=== PATIENT | female | born 1985 | race Caucasian/White ===

== ENCOUNTER 2016-07-19 07:49 | Emergency (ER) | payer OTHER ==
[~2016-07-19] VITALS: Ht 160 cm; Wt 84.8 kg
[~2016-07-19 07:49] MED LIST: BACTRIM DS 800/1 TAB PO; CYMBALTA30 MG PO; KEFLEX250 MG PO; NORCO 5/325 MG1 TAB PO; ULTRAM50 MG PO; ZOFRAN4 M1 PO
[2016-07-19 08:11] VITALS: BP 146/93
[2016-07-19] MEDS ORDERED: NORTRIPTYLINE H25 MG PO (08:14)
[2016-07-19] MEDS ORDERED: LEXAPRO5 MG PO (08:14)
--- NOTE | 2016-07-19 08:15 | NUR ---
PT AMBULATED TO ER BED 07
--- NOTE | 2016-07-19 08:20 | NUR ---
PATIENT PRESENTS TO ED WITH C/O FLORES WITH N/V X 3 DAYS; DENIES DIARRHEA; SKIN IS PINK/WARM/DRY; AAOX4 WITH EVEN AND STEADY GAIT; LUNGS CLEAR BL; HR EVEN AND REGULAR; PT DENIES ANY FEVER, CP, SOB, OR COUGH AT THIS TIME; PATIENT STATES PAIN OF 9/10 AT THIS TIME; VSS; PATIENT POSITIONED FOR COMFORT; HOB ELEVATED; BEDRAILS UP X2; BED DOWN. ER MD MADE AWARE OF PT STATUS.
--- NOTE | 2016-07-19 08:27 | NUR ---
DR SAEZ ASSESSING AAO PT AT BEDSIDE
[2016-07-19 08:45] VITALS: BP 120/75
--- NOTE | 2016-07-19 08:45 | NUR ---
Patient discharged with v/s stable. Written and verbal after care instructions given and explained. Patient alert, oriented and verbalized understanding of instructions. Ambulatory with steady gait. All questions addressed prior to discharge. ID band removed. Patient advised to follow up with PMD. Rx of ZOFRAN,TRAMADOL given. Patient educated on indication of medication including possible reaction and side effects. Opportunity to ask questions provided and answered.
== END 2016-07-19 08:45 | disposition home or self-care (01) ==
LOC: MED 08:02
DX: G43.909 Migraine, unspecified, not intractable, without status migrainosus (principal); R03.0 Elevated blood-pressure reading, without diagnosis of hypertension; K21.9 Gastro-esophageal reflux disease without esophagitis; Z88.1 Allergy status to other antibiotic agents

== ENCOUNTER 2016-07-30 07:40 | Emergency (ER) | payer OTHER ==
[~2016-07-30] VITALS: Ht 160 cm; Wt 84.4 kg
[~2016-07-30 07:40] MED LIST changes: +LEXAPRO5 MG PO; +NORTRIPTYLINE H25 MG PO
[2016-07-30 07:50] VITALS: BP 141/78
--- NOTE | 2016-07-30 08:03 | NUR ---
Pt ambulated to bed 3 at this time.
--- NOTE | 2016-07-30 08:06 | NUR ---
PATIENT PRESENTS TO ED WITH C/O SHARP STABBING PAIN TO LLQ X 3 DAYS WITH N/V/D SINCE FRIDAY NIGHT HAD A PMD VISIT FOR PANIC ATTACKS LAST FRIDAY AND WAS GIVEN XANAX HX ANXIETY . SKIN IS PINK/WARM/DRY; AAOX4 WITH EVEN AND STEADY GAIT; LUNGS CLEAR BL; HR EVEN AND REGULAR; PT DENIES ANY FEVER, SOB, OR COUGH AT THIS TIME; PATIENT STATES PAIN OF 9/10/ABDOMEN /CHEST AT THIS TIME; PATIENT POSITIONED FOR COMFORT; HOB ELEVATED; BEDRAILS UP X2; BED DOWN. ER MD MADE AWARE OF PT STATUS.
[2016-07-30] MEDS ORDERED: FAMOTIDINE 20 MG TAB PO ONE (08:25)
[2016-07-30] MEDS ORDERED: ONDANSETRON 4 MG ODT PO ONE (08:25)
[2016-07-30] MEDS ORDERED: ALUMINUM HYD/MAG/SIMETHICONE 30 ML UDC PO ONE (08:25)
[2016-07-30 09:12] VITALS: BP 114/70
--- NOTE | 2016-07-30 09:12 | NUR ---
Patient discharged with v/s stable. Written and verbal after care instructions given and explained. Patient alert, oriented and verbalized understanding of instructions. Ambulatory with steady gait. All questions addressed prior to discharge. ID band removed. Patient advised to follow up with PMD. Rx of ZOFRAN, PEPCID, LOMOTIL given. Patient educated on indication of medication including possible reaction and side effects. Opportunity to ask questions provided and answered.
== END 2016-07-30 09:12 | disposition home or self-care (01) ==
LOC: MED 07:40
DX: R11.2 Nausea with vomiting, unspecified (principal); R19.7 Diarrhea, unspecified; K21.9 Gastro-esophageal reflux disease without esophagitis; F41.9 Anxiety disorder, unspecified; Z90.49 Acquired absence of other specified parts of digestive tract; Z88.6 Allergy status to analgesic agent
CPT/HCPCS: 81002; 81025; 99284; S0119

== ENCOUNTER 2016-09-05 07:44 | Emergency (ER) | payer OTHER ==
[~2016-09-05] VITALS: Ht 160 cm; Wt 86.6 kg
[2016-09-05 07:48] VITALS: BP 112/78
--- NOTE | 2016-09-05 08:02 | NUR ---
PATIENT PRESENTS TO ED WITH c/o lower abdominal pain x 2 days with burning pain to esophagus and emesis--- started taking Depakote for chronic pain hx pancreatitis, chronic pain abdomen rx depakote, zofran, gas relief . PT STATES depakote supposed to help me, with N/V/D; SKIN IS PINK/WARM/DRY; AAOX4 WITH EVEN AND STEADY GAIT; LUNGS CLEAR BL; HR EVEN AND REGULAR; PT DENIES ANY FEVER, CP, SOB, OR COUGH AT THIS TIME; PATIENT STATES PAIN OF 8/10 AT THIS TIME/abdomen; PATIENT POSITIONED FOR COMFORT; HOB ELEVATED; BEDRAILS UP X2; BED DOWN. ER MD MADE AWARE OF PT STATUS.
--- NOTE | 2016-09-05 08:07 | NUR ---
dr. vergara at bedside, relayed to md result of urine dipstick and preg.
[2016-09-05] MEDS ORDERED: NACL 0.9% 1,000 ML IV ONE (08:15)
[2016-09-05] MEDS ORDERED: ONDANSETRON 4 MG/2 ML VIAL IVP ONE (08:15)
[2016-09-05] MEDS ORDERED: MORPHINE SULFATE 4 MG/ML SYR IVP ONE (08:40)
--- NOTE | 2016-09-05 09:39 | NUR ---
Patient discharged with v/s stable. Written and verbal after care instructions given and explained. Patient alert, oriented and verbalized understanding of instructions. Ambulatory with steady gait. All questions addressed prior to discharge. ID band removed. Patient advised to follow up with PMD. Rx of CIPROFLOXACIN given. Patient educated on indication of medication including possible reaction and side effects. Opportunity to ask questions provided and answered.
[2016-09-05 09:40] VITALS: BP 108/81
== END 2016-09-05 09:39 | disposition home or self-care (01) ==
LOC: MED 07:44
DX: N39.0 Urinary tract infection, site not specified (principal); A08.4 Viral intestinal infection, unspecified; K21.9 Gastro-esophageal reflux disease without esophagitis; Z90.49 Acquired absence of other specified parts of digestive tract; Z90.89 Acquired absence of other organs; Z88.6 Allergy status to analgesic agent
CPT/HCPCS: 36415; 80053; 81001; 81025; 82150; 83690; 84703; 85025; 87086; 96361; 96374; 96375; 99284; J2270; J2405; J7030

== ENCOUNTER 2016-09-12 07:42 | Emergency (ER) | payer OTHER ==
[~2016-09-12] VITALS: Ht 160 cm; Wt 84.8 kg
[~2016-09-12 07:42] MED LIST changes: -BACTRIM DS 800/1 TAB PO; -CYMBALTA30 MG PO; +ESCI5TAB PO; -KEFLEX250 MG PO; -LEXAPRO5 MG PO; -NORCO 5/325 MG1 TAB PO; +NORT25CA PO; -NORTRIPTYLINE H25 MG PO; -ULTRAM50 MG PO; -ZOFRAN4 M1 PO
[2016-09-12 07:54] VITALS: BP 127/73
--- NOTE | 2016-09-12 08:00 | NUR ---
Patient to bed 03.
--- NOTE | 2016-09-12 08:05 | NUR ---
PATIENT PRESENTS TO ED WITH C/O COUGH FOR 5 DAYS. DENIES N/V/D; SKIN IS PINK/WARM/DRY; AAOX4 WITH EVEN AND STEADY GAIT; LUNGS CLEAR BL; HR EVEN AND REGULAR; PT DENIES ANY FEVER, SOB AT THIS TIME; PATIENT STATES PAIN OF 9/10 WHEN COUGHING AT THIS TIME; VSS; PATIENT POSITIONED FOR COMFORT; BED DOWN. ER MD MADE AWARE OF PT STATUS.
--- NOTE | 2016-09-12 08:06 | NUR ---
Dr. Weber evaluating patient at bedside.
[2016-09-12 08:29] VITALS: BP 113/65
--- NOTE | 2016-09-12 08:30 | NUR ---
Patient discharged with v/s stable. Written and verbal after care instructions given and explained. Patient alert, oriented and verbalized understanding of instructions. Ambulatory with steady gait. All questions addressed prior to discharge. ID band removed. Patient advised to follow up with PMD. Rx of Prednisone 20 mg table, 3 tablets, once a day (in the morning) by mouth given. Patient educated on indication of medication including possible reaction and side effects. Opportunity to ask questions provided and answered.
== END 2016-09-12 08:30 | disposition home or self-care (01) ==
LOC: MED 07:42
DX: R05 Cough (principal); K21.9 Gastro-esophageal reflux disease without esophagitis; Z88.6 Allergy status to analgesic agent
CPT/HCPCS: 99283

== ENCOUNTER 2016-09-28 06:39 | Emergency (ER) | payer OTHER ==
[~2016-09-28] VITALS: Ht 160 cm; Wt 83.9 kg
[2016-09-28 06:44] VITALS: BP 121/72
--- NOTE | 2016-09-28 06:57 | NUR ---
PATIENT AMBULATED TO ER BED 8.
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
--- NOTE | 2016-09-28 07:25 | NUR ---
PT TAKEN TO CT VIA RAVINDER ACCOMPANIED BY PROBATION AND PATROL AGENT
--- NOTE | 2016-09-28 07:43 | NUR ---
Patient returned from CT scan. RN re-evaluating patient at bedside.
--- NOTE | 2016-09-28 07:45 | NUR ---
PT BACK FROM CT,C/O PAIN 03/04 . NOTIFIED ER MD DR DAVIES . MD ORDERED TORADOL 30 MG IM. SPOKE TO PT FOR MED INJECTION. PT SAID ' MY DR TOLD ME TO AVOID NSAID. REPORTED TO ER MD DR DAVIES ORDERED HOLD THIS MED & WAIT FOR CT RESULT. SPOKE TO PT WAIT FOR CT RESULT. Patient appears to be resting comfortably in bed. Respirations even and unlabored. WILL CONTINUE TO MONITOR.
--- NOTE | 2016-09-28 07:45 | NUR ---
Note undone in EDM - 09/28/16 at 0759 by [email or web address] PT BACLK FROM CT,C/O PAIN . NOTIFIED ER MD DR DAVIES . MD ORDERED TOREDOL 30 MG IM. SPOKE TO PT FOR MED INJECTION. PT SAID ' MY DR TOLD ME TO AVOID NSAID. REPORTED TO ER MD DR DAVIES ORDERED HOLD THIS MED & WAIT FOR CT RESULY. SPOKE TO PT WAIT FOR CT RESULT. Patient appears to be resting comfortably in bed. Respirations even and unlabored. WILL CONTINUE TO MONITOR.
[2016-09-28] MEDS ORDERED: KETOROLAC 30 MG/ML VIAL ONE (07:50)
[2016-09-28] MEDS ORDERED: ACETAMINOPHEN/CODEINE 300/30MG 1 TAB PO ONE (08:45)
[2016-09-28 09:23] VITALS: BP 119/78
--- NOTE | 2016-09-28 09:23 | NUR ---
Patient discharged with v/s stable. Written and verbal after care instructions given and explained. Patient alert, oriented and verbalized understanding of instructions. Ambulatory with steady gait. All questions addressed prior to discharge. ID band removed. Patient advised to follow up with PMD. Rx of TYLENOL W/ CODEINE NO3 given. Patient educated on indication of medication including possible reaction and side effects. Opportunity to ask questions provided and answered.
== END 2016-09-28 09:23 | disposition home or self-care (01) ==
LOC: MED 06:39
DX: S29.012A Strain of muscle and tendon of back wall of thorax, initial encounter (principal); K21.9 Gastro-esophageal reflux disease without esophagitis; Z88.8 Allergy status to other drugs, medicaments and biological substances; V89.2XXA Person injured in unspecified motor-vehicle accident, traffic, initial encounter; Y93.89 Activity, other specified; Y92.89 Other specified places as the place of occurrence of the external cause; Y99.8 Other external cause status
CPT/HCPCS: 72125; 72128; 81002; 81025; 99284; J1885

== ENCOUNTER 2016-10-26 01:03 | Emergency (ER) | payer OTHER ==
[~2016-10-26] VITALS: Ht 160 cm; Wt 86.7 kg
[2016-10-26 01:15] VITALS: BP 131/79
--- NOTE | 2016-10-26 01:20 | NUR ---
PT TAKEN TO BED 6
--- NOTE | 2016-10-26 01:29 | NUR ---
PT IS 31/F BIB SELF TO ED WITH C/O PELVIC PAIN, YELLOW DISCHARGE AND CHILLS X 6 DAYS. MED HX ANXIETY, ACUTE PANCREATITIS, AND GASTRITIS.DENIES D; SKIN IS PINK/WARM/DRY; AAOX4 WITH EVEN AND STEADY GAIT; LUNGS CLEAR BL; HR EVEN AND REGULAR; PT DENIES ANY FEVER, CP, SOB, OR COUGH AT THIS TIME; PATIENT STATES PAIN OF 10/10 AT THIS TIME; VSS; PATIENT POSITIONED FOR COMFORT; HOB ELEVATED; BEDRAILS UP X2; BED DOWN. ER MD MADE AWARE OF PT STATUS.
--- NOTE | 2016-10-26 01:52 | NUR ---
Dr. Martinez evaluating patient at bedside.
[2016-10-26] MEDS ORDERED: MORPHINE SULFATE 2 MG/ML SYR IVP ONE ×2 (02:00→02:55)
[2016-10-26] MEDS ORDERED: ONDANSETRON 4 MG/2 ML VIAL IVP ONE (02:00)
[2016-10-26] MEDS ORDERED: NACL 0.9% 1,000 ML IV ONE (02:00)
--- NOTE | 2016-10-26 02:44 | NUR ---
Ultrasound at bedside.
--- NOTE | 2016-10-26 04:00 | NUR ---
PT RESTING IN BED NO SOB NOTED. WILL CONTINUE TO MONITOR.
[2016-10-26] MEDS ORDERED: HYDROmorphone 1 MG/ML AMP IVP ONE (04:55)
[2016-10-26 05:18] VITALS: BP 122/78
--- NOTE | 2016-10-26 05:19 | NUR ---
Patient discharged with v/s stable. Written and verbal after care instructions given and explained. Patient alert, oriented and verbalized understanding of instructions. Ambulatory with steady gait. All questions addressed prior to discharge. ID band removed. Patient advised to follow up with PMD. Rx of TIMOTHY PAULINO given. Patient educated on indication of medication including possible reaction and side effects. Opportunity to ask questions provided and answered.
== END 2016-10-26 05:19 | disposition home or self-care (01) ==
LOC: MED 01:03
DX: R03.0 Elevated blood-pressure reading, without diagnosis of hypertension (principal); K21.9 Gastro-esophageal reflux disease without esophagitis; Z88.6 Allergy status to analgesic agent
CPT/HCPCS: 76856; 81002; 81025; 96361; 96374; 96375; 96376; 99284; J1170; J2270; J2405; J7030; Q0092

== ENCOUNTER 2017-01-16 09:32 | Emergency (ER) | payer OTHER ==
--- NOTE | 2016-01-17 11:38 | NUR ---
IVF FINISHED AT THIS TIME [id number]
[~2017-01-16] VITALS: Ht 160 cm; Wt 86.2 kg
[~2017-01-16 09:32] MED LIST changes: +ACET-2619 PO; -ESCI5TAB PO; -NORT25CA PO; +ONDA4ODT1 SL; +TYLENOL #3 PO
[2017-01-16 09:40] VITALS: BP 131/81
--- NOTE | 2017-01-16 09:46 | NUR ---
PT AMBULATED TO BED 5.
--- NOTE | 2017-01-16 09:55 | NUR ---
PT STATES ABDOMINAL PAIN /10 SINCE FRIDAY WITH N/V/D; ADMITTED 01/06/17 FOR PANCREATITIS; HX; ANXIETY, PANCREATITIS . DENIES N/V/D; SKIN IS PINK/WARM/DRY; AAOX4 WITH EVEN AND STEADY GAIT; LUNGS CLEAR BL; HR EVEN AND REGULAR; PT DENIES ANY FEVER, CP, SOB, OR COUGH AT THIS TIME; PATIENT STATES PAIN OF /10 AT THIS TIME; VSS; PATIENT POSITIONED FOR COMFORT; HOB ELEVATED; BEDRAILS UP X2; BED DOWN. ER MD MADE AWARE OF PT STATUS.
--- NOTE | 2017-01-16 10:18 | NUR ---
Dr. Garcia and Dr. Gtz (admitting physician) evaluating patient at bedside.
[2017-01-16] MEDS ORDERED: NACL 0.9% 1,000 ML IV SCH (10:26)
[2017-01-16] MEDS ORDERED: ONDANSETRON 4 MG/2 ML VIAL IVP ONE (10:30)
[2017-01-16] MEDS ORDERED: HYDROmorphone 1 MG/ML AMP IVP ONE (10:30)
--- NOTE | 2017-01-16 10:47 | NUR ---
PT LEFT FOR CT VIA RAVINDER PER TECH
[2017-01-16 10:51] LABS: BASOPHILS # (AUTO) 0.3 K/uL (0.00-0.22); BASOPHILS % (AUTO) 4.5 % (0.0-2.0); EOSINOPHILS # (AUTO) 0.1 K/uL (0-0.4); EOSINOPHILS % (AUTO) 2.2 % (0.0-4.0); HEMATOCRIT 41.9 % (36-48); HEMOGLOBIN 14.2 g/dL (12.0-16.0); LYMPHOCYTES # (AUTO) 1.4 K/uL (2.5-16.5); LYMPHOCYTES % (AUTO) 24.2 % (20.5-51.1); MEAN CORPUSCULAR HEMOGLOBIN 29 pg (27-31); MEAN CORPUSCULAR HGB CONC 34 g/dL (33-37); MEAN CORPUSCULAR VOLUME 86 fL (80-94); MONOCYTES # (AUTO) 0.3 K/uL (0.8-1.0); MONOCYTES % (AUTO) 5.8 % (1.7-9.3); NEUTROPHILS # (AUTO) 3.5 K/uL (1.8-7.7); NEUTROPHILS % (AUTO) 63.3 % (42.2-75.2); PLATELET COUNT (AUTO) 243 K/uL (140-450); RED BLOOD CELL COUNT(AUTO) 4.87 MIL/uL (4.20-5.40); RED CELL DISTRIBUTION WIDTH 11.5 % (11.6-13.7); WHITE BLOOD COUNT (AUTO) 5.7 K/uL (4.8-10.8)
[2017-01-16 10:53] LABS: APPEARANCE,URINE HAZY (CLEAR); BILIRUBIN,URINE 1+ (NEGATIVE); BLOOD, URINE NEGATIVE (NEGATIVE); COLOR,URINE YELLOW (YELLOW); LEUKOCYTE ESTERASE ,URINE 1+ (NEGATIVE); NITRITE, URINE NEGATIVE (NEGATIVE); UGLUCOSE NEGATIVE (NEGATIVE)
--- NOTE | 2017-01-16 10:57 | NUR ---
PT BACK TO ER BED 5
[2017-01-16 10:58] LABS: ANION GAP 9.7 (8-16); CARBON DIOXIDE 26.6 mmol/L (21-32); CREATININE 0.8 mg/dL (0.6-1.3); POTASSIUM 3.3 mmol/L (3.5-5.1)
[2017-01-16 11:02] LABS: RBC,URINE 0-2 /HPF (0-5)
[2017-01-16 11:04] LABS: ALBUMIN 4.7 g/dL (3.4-5.0); TOTAL BILIRUBIN 0.5 mg/dL (0.0-1.0)
[2017-01-16 11:04] LABS: OTHER CASTS, URINE TALC /LPF (None Seen)
[2017-01-16] MEDS ORDERED: DICYCLOMINE HCL LIQUID 20 MG, ALUMINUM HYD/MAG/SIMETHICONE 30 ML, LIDOCAINE VISCOUS 2% ... PO ONE ×3 (12:20)
[2017-01-16 13:13] VITALS: BP 120/63
--- NOTE | 2017-01-16 13:14 | NUR ---
Patient discharged with v/s stable. Written and verbal after care instructions given and explained. Patient alert, oriented and verbalized understanding of instructions. Ambulatory with steady gait. All questions addressed prior to discharge. ID band removed. Patient advised to follow up with PMD. Rx of PRILOSEC AND ATIVAN given. Patient educated on indication of medication including possible reaction and side effects. Opportunity to ask questions provided and answered.
== END 2017-01-16 13:14 | disposition home or self-care (01) ==
LOC: MED 09:32
DX: K29.00 Acute gastritis without bleeding (principal); F41.9 Anxiety disorder, unspecified; Z88.6 Allergy status to analgesic agent; Z90.89 Acquired absence of other organs
CPT/HCPCS: 36415; 74176; 80053; 81001; 82150; 83605; 83690; 84703; 85025; 87086; 96361; 96374; 96375; 99285; J1170; J2405; J7030

== ENCOUNTER 2017-01-27 07:12 | Emergency (ER) | payer OTHER ==
[~2017-01-27] VITALS: Ht 160 cm; Wt 86.8 kg
[2017-01-27 07:23] VITALS: BP 123/62
--- NOTE | 2017-01-27 07:30 | NUR ---
PT AMBULATED TO BED 5.
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
[2017-01-27] MEDS ORDERED: NACL 0.9% 1,000 ML IV ONE (08:05)
[2017-01-27] MEDS ORDERED: HYDROmorphone 1 MG/ML AMP IVP ONE (08:05)
[2017-01-27 08:24] LABS: HEMOGLOBIN 13.6 g/dL (12.0-16.0); MEAN CORPUSCULAR HEMOGLOBIN 29 pg (27-31); MEAN CORPUSCULAR HGB CONC 34 g/dL (33-37); MEAN CORPUSCULAR VOLUME 86 fL (80-94); PLATELET COUNT (AUTO) 208 K/uL (140-450); RED BLOOD CELL COUNT(AUTO) 4.64 MIL/uL (4.20-5.40); RED CELL DISTRIBUTION WIDTH 11.8 % (11.6-13.7); WHITE BLOOD COUNT (AUTO) 5.3 K/uL (4.8-10.8)
[2017-01-27 08:36] LABS: EOSINOPHILS % (MANUAL) 3 % (0-4); LYMPHOCYTES % (MANUAL) 20 % (20-46); MONOCYTES % (MANUAL) 2 % (5-12)
[2017-01-27 08:37] LABS: ALBUMIN 4.3 g/dL (3.4-5.0); ANION GAP 13.4 (8-16); CARBON DIOXIDE 24.3 mmol/L (21-32); CREATININE 0.8 mg/dL (0.6-1.3); POTASSIUM 3.7 mmol/L (3.5-5.1); TOTAL BILIRUBIN 0.6 mg/dL (0.0-1.0)
[2017-01-27 08:41] LABS: PROTHROMBIN TIME 10.7 secs (10.8-13.4)
[2017-01-27] MEDS ORDERED: oxyCODONE/APAP 5/325 MG 1 TAB TAB PO ONE (09:05)
[2017-01-27 09:55] VITALS: BP 109/65
--- NOTE | 2017-01-27 09:55 | NUR ---
Patient discharged with v/s stable. Written and verbal after care instructions given and explained. Patient alert, oriented and verbalized understanding of instructions. Ambulatory with steady gait. All questions addressed prior to discharge. ID band removed. Patient advised to follow up with PMD. Rx of Tylenol with Codeine given. Patient educated on indication of medication including possible reaction and side effects. Opportunity to ask questions provided and answered.
== END 2017-01-27 09:55 | disposition home or self-care (01) ==
LOC: MED 07:12
DX: S63.91XA Sprain of unspecified part of right wrist and hand, initial encounter (principal); R10.13 Epigastric pain; F41.9 Anxiety disorder, unspecified; Z88.6 Allergy status to analgesic agent; X58.XXXA Exposure to other specified factors, initial encounter; Y93.89 Activity, other specified; Y92.89 Other specified places as the place of occurrence of the external cause; Y99.8 Other external cause status
CPT/HCPCS: 36415; 73130; 80053; 82150; 83690; 85025; 85610; 85730; 96361; 96374; 99285; J1170; J7030; 81002; 81025

== ENCOUNTER 2017-02-03 07:36 | Emergency (ER) | payer OTHER ==
[~2017-02-03] VITALS: Ht 160 cm; Wt 86.2 kg
[2017-02-03 07:45] VITALS: BP 137/65
--- NOTE | 2017-02-03 07:53 | NUR ---
31/F BIB C/O N/V & LOWER ABDOMINAL PAIN & YELLOWISH VAGINAL DISCHARGE X 2 DAYS.HX OF AN & PANCREATITIS. SKIN IS PINK/WARM/DRY; AAOX4 WITH EVEN AND STEADY GAIT; LUNGS CLEAR BL; HR EVEN AND REGULAR; PT DENIES ANY FEVER, CP, SOB, OR COUGH AT THIS TIME; PATIENT STATES BURNING PAIN OF 9/10 AT THIS TIME; VSS; PATIENT POSITIONED FOR COMFORT; HOB ELEVATED; BEDRAILS UP X2; BED DOWN. ER MD MADE AWARE OF PT STATUS.
--- NOTE | 2017-02-03 07:53 | NUR ---
Note undone in EDM - 02/03/17 at 0815 by [email or web address] / BIB SELF C/ON/V & LOWER ABDOMINAL PAIN X 2 DAYS.HX OF AN & PANCREATITIS. SKIN IS PINK/WARM/DRY; AAOX4 WITH EVEN AND STEADY GAIT; LUNGS CLEAR BL; HR EVEN AND REGULAR; PT DENIES ANY FEVER, CP, SOB, OR COUGH AT THIS TIME; PATIENT STATES BURNING PAIN OF 9/10 AT THIS TIME; VSS; PATIENT POSITIONED FOR COMFORT; HOB ELEVATED; BEDRAILS UP X2; BED DOWN. ER MD MADE AWARE OF PT STATUS.
--- NOTE | 2017-02-03 07:55 | NUR ---
Patient being evaluated by DR WHITAKER at bedside.
[2017-02-03 08:07] LABS: BILIRUBIN,URINE NEGATIVE (NEGATIVE); BLOOD, URINE NEGATIVE (NEGATIVE); COLOR,URINE YELLOW (YELLOW); LEUKOCYTE ESTERASE ,URINE TRACE (NEGATIVE); NITRITE, URINE NEGATIVE (NEGATIVE); UGLUCOSE NEGATIVE (NEGATIVE)
--- NOTE | 2017-02-03 08:07 | NUR ---
Dr. Molina at bedside for pelvic exam.
--- NOTE | 2017-02-03 08:13 | NUR ---
PELVIC EXAME DONE BY DR WHITAKER. SENT SPECIMEN TO LAB.
--- NOTE | 2017-02-03 08:18 | NUR ---
Patient being reevaluated by DR WHITAKER at bedside.
[2017-02-03] MEDS ORDERED: cefTRIAXone 250 MG in LIDOCAINE 1% ED 0.9 ML IM ONE (08:25)
[2017-02-03] MEDS ORDERED: AZITHROMYCIN 250 MG TAB PO ONE (08:25)
[2017-02-03] MEDS ORDERED: ONDANSETRON 4 MG ODT PO ONE (08:25)
[2017-02-03 08:30] LABS: APPEARANCE,URINE SLIGHTLY HAZY (CLEAR); RBC,URINE 0-5 (RARE) /HPF (0-5)
[2017-02-03 08:31] LABS: WBC,URINE 0-5 (RARE) /HPF (0-5)
[2017-02-03 08:36] LABS: HEMATOCRIT 38.4 % (36-48); HEMOGLOBIN 13.2 g/dL (12.0-16.0); MEAN CORPUSCULAR HEMOGLOBIN 30 pg (27-31); MEAN CORPUSCULAR HGB CONC 34 g/dL (33-37); MEAN CORPUSCULAR VOLUME 86 fL (80-94); PLATELET COUNT (AUTO) 206 K/uL (140-450); RED BLOOD CELL COUNT(AUTO) 4.49 MIL/uL (4.20-5.40); RED CELL DISTRIBUTION WIDTH 11.9 % (11.6-13.7); WHITE BLOOD COUNT (AUTO) 3.6 K/uL (4.8-10.8)
[2017-02-03 08:52] LABS: POTASSIUM 3.6 mmol/L (3.5-5.1)
[2017-02-03 08:53] LABS: ANION GAP 14.2 (8-16); CARBON DIOXIDE 25.4 mmol/L (21-32); CREATININE 0.7 mg/dL (0.6-1.3)
[2017-02-03 08:54] LABS: ALBUMIN 4.4 g/dL (3.4-5.0); TOTAL BILIRUBIN 0.6 mg/dL (0.0-1.0)
--- NOTE | 2017-02-03 08:56 | NUR ---
PT C/O PAIN 02/02 .pT STS I WANT PAIN MED. NOTIFIED DR WHITAKER.
[2017-02-03] MEDS ORDERED: HYDROcodone/APAP 5/325 MG 1 TAB TAB PO ONE (09:00)
[2017-02-03 09:01] LABS: EOSINOPHILS % (MANUAL) 6 % (0-4); LYMPHOCYTES % (MANUAL) 40 % (20-46); MONOCYTES % (MANUAL) 3 % (5-12)
--- NOTE | 2017-02-03 09:04 | NUR ---
GAVE PAIN MED ORDER.
[2017-02-03 09:13] VITALS: BP 119/71
--- NOTE | 2017-02-03 09:14 | NUR ---
Patient discharged with v/s stable. Written and verbal after care instructions given and explained. Patient alert, oriented and verbalized understanding of instructions. Ambulatory with steady gait. All questions addressed prior to discharge. ID band removed. Patient advised to follow up with PMD. Rx of BACTRIM & FLAGYL given. Patient educated on indication of medication including possible reaction and side effects. Opportunity to ask questions provided and answered.
[2017-02-05 06:33] LABS: CHLAMYDIA TRACHOMATIS AMP DNA Negative (Negative)
== END 2017-02-03 09:14 | disposition home or self-care (01) ==
LOC: MED 07:36
DX: N76.0 Acute vaginitis (principal); N39.0 Urinary tract infection, site not specified; Z88.6 Allergy status to analgesic agent
CPT/HCPCS: 36415; 80053; 81001; 81025; 83690; 85025; 87210; 87491; 96372; 99284; J0696; J2001

== ENCOUNTER 2017-02-05 07:42 | Emergency (ER) | payer OTHER ==
[~2017-02-05] VITALS: Ht 160 cm; Wt 86.2 kg
[2017-02-05 07:49] VITALS: BP 112/42
--- NOTE | 2017-02-05 07:50 | NUR ---
31/F BIB C/O N/V/D & MID ABD PAIN X 2 DAYS.PT STS WAS SEEN X 2 DAYS AGO WITH VAG DISHARGE & LOVER ABD PAIN & GOT ANTIBIOTICS. PT DENIES PELVIC PAIN OR VAG DISCHARGE AT THIS TIME. SKIN IS PINK/WARM/DRY; AAOX4 WITH EVEN AND STEADY GAIT; LUNGS CLEAR BL; HR EVEN AND REGULAR; PT DENIES ANY FEVER, CP, SOB, OR COUGH AT THIS TIME; PATIENT STATES PAIN OF 9/10 AT THIS TIME; VSS; PATIENT POSITIONED FOR COMFORT; HOB ELEVATED; BEDRAILS UP X2; BED DOWN. ER MD MADE AWARE OF PT STATUS.
--- NOTE | 2017-02-05 07:51 | NUR ---
Patient ambulated to bed 5. RN evaluatign patient at bedside.
--- NOTE | 2017-02-05 07:57 | NUR ---
Patient being evaluated by DR BANGURA at bedside.
[2017-02-05] MEDS ORDERED: ONDANSETRON 4 MG/2 ML VIAL IVP ONE (08:00)
[2017-02-05] MEDS ORDERED: NACL 0.9% 1,000 ML IV ONE (08:00)
[2017-02-05] MEDS ORDERED: FAMOTIDINE 20 MG/2 ML VIAL IVP ONE (08:00)
[2017-02-05] MEDS ORDERED: MORPHINE SULFATE 4 MG/ML SYR IVP ONE ×2 (08:00→10:25)
[2017-02-05 08:15] LABS: BASOPHILS # (AUTO) 0.1 K/uL (0.00-0.22); BASOPHILS % (AUTO) 3.4 % (0.0-2.0); EOSINOPHILS # (AUTO) 0.1 K/uL (0-0.4); HEMATOCRIT 38.8 % (36-48); HEMOGLOBIN 13.3 g/dL (12.0-16.0); LYMPHOCYTES # (AUTO) 1.2 K/uL (2.5-16.5); LYMPHOCYTES % (AUTO) 28.8 % (20.5-51.1); MEAN CORPUSCULAR HEMOGLOBIN 29 pg (27-31); MEAN CORPUSCULAR HGB CONC 34 g/dL (33-37); MEAN CORPUSCULAR VOLUME 85 fL (80-94); MONOCYTES # (AUTO) 0.2 K/uL (0.8-1.0); MONOCYTES % (AUTO) 4.8 % (1.7-9.3); NEUTROPHILS # (AUTO) 2.5 K/uL (1.8-7.7); PLATELET COUNT (AUTO) 222 K/uL (140-450); RED BLOOD CELL COUNT(AUTO) 4.56 MIL/uL (4.20-5.40); RED CELL DISTRIBUTION WIDTH 11.8 % (11.6-13.7); WHITE BLOOD COUNT (AUTO) 4.2 K/uL (4.8-10.8)
[2017-02-05 08:24] LABS: ANION GAP 11.6 (8-16); CARBON DIOXIDE 26.3 mmol/L (21-32); CREATININE 0.7 mg/dL (0.6-1.3); POTASSIUM 3.9 mmol/L (3.5-5.1)
[2017-02-05 08:29] LABS: PROTHROMBIN TIME 10.7 secs (10.8-13.4)
[2017-02-05 08:30] LABS: ALBUMIN 4.5 g/dL (3.4-5.0); TOTAL BILIRUBIN 0.3 mg/dL (0.0-1.0)
--- NOTE | 2017-02-05 08:38 | NUR ---
US AT BEDSIDE.
--- NOTE | 2017-02-05 09:09 | NUR ---
Patient returned from CT scan. RN re-evaluating patient at bedside.
--- NOTE | 2017-02-05 10:07 | NUR ---
PT C/P PAIN 01/02. PT STS " I WANT PAIN MED". NOTIFIED DR BANGURA.
--- NOTE | 2017-02-05 10:10 | NUR ---
Patient being reevaluated by DR BANGURA at bedside.
[2017-02-05 10:14] LABS: APPEARANCE,URINE SL CLOUDY (CLEAR); BILIRUBIN,URINE NEGATIVE (NEGATIVE); BLOOD, URINE NEGATIVE (NEGATIVE); COLOR,URINE YELLOW (YELLOW); LEUKOCYTE ESTERASE ,URINE 1+ (NEGATIVE); NITRITE, URINE NEGATIVE (NEGATIVE); PH,URINE 5.5 (5.0-9.0); UGLUCOSE NEGATIVE (NEGATIVE)
--- NOTE | 2017-02-05 10:15 | NUR ---
Patient being evaluated by DR BANGURA at bedside.
[2017-02-05 10:29] LABS: RBC,URINE 0-5 (RARE) /HPF (0-5)
[2017-02-05 10:34] VITALS: BP 144/82
--- NOTE | 2017-02-05 10:34 | NUR ---
Patient discharged with v/s stable. Written and verbal after care instructions given and explained. Patient alert, oriented and verbalized understanding of instructions. Ambulatory with steady gait. All questions addressed prior to discharge. ID band removed. Patient advised to follow up with PMD. Rx of ZANTAC, ZOFRAN & NORCO given. Patient educated on indication of medication including possible reaction and side effects. Opportunity to ask questions provided and answered.
== END 2017-02-05 10:34 | disposition home or self-care (01) ==
LOC: MED 07:42
DX: R10.13 Epigastric pain (principal); R11.0 Nausea; Z90.49 Acquired absence of other specified parts of digestive tract
CPT/HCPCS: 36415; 74176; 76700; 80053; 81001; 81025; 82150; 83690; 85025; 85610; 85730; 87086; 96361; 96374; 96375; 96376; 99285; J2270; J2405; J3490; J7030; Q0092

== ENCOUNTER 2017-02-13 05:40 | Emergency (ER) | payer OTHER ==
[~2017-02-13] VITALS: Ht 160 cm; Wt 85.0 kg
[2017-02-13 05:50] VITALS: BP 140/61
--- NOTE | 2017-02-13 05:58 | NUR ---
AMBULATED TO ER BED 7
--- NOTE | 2017-02-13 06:05 | NUR ---
Patient being evaluated by physician at bedside.
--- NOTE | 2017-02-13 06:07 | NUR ---
31Y/F PRESENTS TO ED WITH C/O ABDOMINAL PAIN ON AND OFF. PT. STATES WAS SEEN BY PMD YESTERDAY, HAD PELVIC EXAM, TODAY PAIN AT RLQ ABDOMEN WITH N/V/D. NO MEDICAL HX. AAO X4, AMBULATORY WITH STEADY GAIT. RESPIRATIONS ROOM AIR, EVEN AND UNLABORED. ABDOMEN SOFT ANF NON TENDER, ACTIVE BS X 4, C/O PAIN 9/10. VSS, ER MD MADE AWARE OF PT. STATUS.
[2017-02-13] MEDS ORDERED: MORPHINE SULFATE 4 MG/ML SYR IM ONE (06:10)
[2017-02-13 06:38] VITALS: BP 121/68
--- NOTE | 2017-02-13 06:38 | NUR ---
Patient discharged with v/s stable. Written and verbal after care instructions given and explained. Patient verbalized understanding. Ambulatory with steady gait. All questions addressed prior to discharge. Advised to follow up with PMD.
== END 2017-02-13 06:38 | disposition home or self-care (01) ==
LOC: MED 05:40
DX: R10.30 Lower abdominal pain, unspecified (principal); G89.29 Other chronic pain; Z90.49 Acquired absence of other specified parts of digestive tract; Z88.8 Allergy status to other drugs, medicaments and biological substances; Z79.899 Other long term (current) drug therapy
CPT/HCPCS: 81025; 96372; 99283; J2270

== ENCOUNTER 2017-02-22 05:37 | Emergency (ER) | payer OTHER ==
[~2017-02-22] VITALS: Ht 160 cm; Wt 82.6 kg
--- NOTE | 2017-02-22 02:45 | NUR ---
PATIENT IS CURRENTLY RESTING IN BED NO DISTRESS WILL CONTINUE TO MONITOR.
[2017-02-22 05:50] VITALS: BP 127/69
--- NOTE | 2017-02-22 05:55 | NUR ---
Pt taken to bed 6.
--- NOTE | 2017-02-22 06:05 | NUR ---
PATIENT PRESENTS TO ED WITH C/O LEFT UPPER ABD PAIN RADIATING TO CHEST PAIN WITH HEADACHE X 3 DAYS. TOOK TYLENOL, ZOFRAN, REGLAN, LEXEPRO AT HOME, HX. PANCREATITIS, PDST, ANXIETY. N/V, SKIN IS PINK/WARM/DRY; AAOX4 WITH EVEN AND STEADY GAIT; LUNGS CLEAR BL; HR EVEN AND REGULAR; SOB, AND COUGHING, PATIENT STATES PAIN OF 10/10 AT THIS TIME; VSS; PATIENT POSITIONED FOR COMFORT; HOB ELEVATED; BEDRAILS UP X2; BED DOWN. ER MD MADE AWARE OF PT STATUS.
--- NOTE | 2017-02-22 06:13 | NUR ---
Patient being evaluated by Dr. Miller at bedside.
[2017-02-22] MEDS ORDERED: FAMOTIDINE 20 MG/2 ML VIAL IVP ONE (06:20)
[2017-02-22] MEDS ORDERED: ONDANSETRON 4 MG/2 ML VIAL IVP ONE (06:20)
[2017-02-22] MEDS ORDERED: NACL 0.9% 1,000 ML IV ONE (06:20)
--- NOTE | 2017-02-22 06:42 | NUR ---
CHANGE HOLLY LEVEL TO LEVEL 3, PT. NEEDS 3 RESOURCES
[2017-02-22 06:56] LABS: BASOPHILS # (AUTO) 0.1 K/uL (0.00-0.22); BASOPHILS % (AUTO) 1.3 % (0.0-2.0); EOSINOPHILS # (AUTO) 0.1 K/uL (0-0.4); EOSINOPHILS % (AUTO) 2.3 % (0.0-4.0); HEMATOCRIT 38.5 % (36-48); HEMOGLOBIN 13.2 g/dL (12.0-16.0); LYMPHOCYTES # (AUTO) 1.4 K/uL (2.5-16.5); LYMPHOCYTES % (AUTO) 23.8 % (20.5-51.1); MEAN CORPUSCULAR HEMOGLOBIN 29 pg (27-31); MEAN CORPUSCULAR HGB CONC 34 g/dL (33-37); MEAN CORPUSCULAR VOLUME 86 fL (80-94); MONOCYTES # (AUTO) 0.5 K/uL (0.8-1.0); MONOCYTES % (AUTO) 8.4 % (1.7-9.3); NEUTROPHILS # (AUTO) 3.9 K/uL (1.8-7.7); NEUTROPHILS % (AUTO) 64.2 % (42.2-75.2); PLATELET COUNT (AUTO) 226 K/uL (140-450); RED CELL DISTRIBUTION WIDTH 11.7 % (11.6-13.7)
[2017-02-22 07:02] LABS: ANION GAP 11.6 (8-16); CREATININE 0.7 mg/dL (0.6-1.3); POTASSIUM 3.6 mmol/L (3.5-5.1)
[2017-02-22 07:08] LABS: ALBUMIN 4.3 g/dL (3.4-5.0); TOTAL BILIRUBIN 0.3 mg/dL (0.0-1.0)
[2017-02-22] MEDS ORDERED: MORPHINE SULFATE 4 MG/ML SYR IVP ONE ×2 (07:10→07:50)
[2017-02-22 07:17] LABS: APPEARANCE,URINE CLOUDY (CLEAR); BILIRUBIN,URINE 1+ (NEGATIVE); BLOOD, URINE 3+ (NEGATIVE); COLOR,URINE BROWN (YELLOW); LEUKOCYTE ESTERASE ,URINE NEGATIVE (NEGATIVE); NITRITE, URINE POSITIVE (NEGATIVE); PH,URINE 5.5 (5.0-9.0); UGLUCOSE NEGATIVE (NEGATIVE)
--- NOTE | 2017-02-22 07:20 | NUR ---
REPORT GIVEN TO ELO LEE FOR CONTINUE OF CARE.
--- NOTE | 2017-02-22 07:25 | NUR ---
PT RESTING ON BED;NO ACUTE DISTRESS NOTED;ALL MONITORS IN PLACED;WILL CONTINUE TO MONITOR PT.
--- NOTE | 2017-02-22 07:28 | NUR ---
Note abdiel in EDM - 02/22/17 at 0824 by GREGG PT VERBALIZES RERLIEF FROM PAIN;PAIN SCALE OF 0/10;NO FACIAL GRIMMACING/GROANING NOTED;WILL CONTINUE TO MONITOR PT.
--- NOTE | 2017-02-22 07:28 | NUR ---
PT VERBALIZES RERLIEF FROM PAIN;PAIN SCALE OF 0/10;NO FACIAL GRIMMACING/MOANING NOTED;WILL CONTINUE TO MONITOR PT.
[2017-02-22 07:34] LABS: RBC,URINE TOO NUMEROUS TO COUN /HPF (0-5); WBC,URINE 0-5 (RARE) /HPF (0-5)
--- NOTE | 2017-02-22 07:35 | NUR ---
DR HORN AT BEDSIDE.
--- NOTE | 2017-02-22 07:49 | NUR ---
PT C/O ABDOMINAL PAIN;PAIN SCALE OF 9/10;PT CRYING;STATES IT WAS GONE A WHILE AGO BUT IT CAME BACK AGAIN;ER MD NOTIFIED;AWAITING NEW ORDER;POSITIONED PT TO COMFORTABLE POSITION;ALL MONITORS IN PLACED;WILL CONTINUE TO MONITOR PT.
[2017-02-22] MEDS ORDERED: OMEP20TC PO (08:04)
[2017-02-22] MEDS ORDERED: PANT40EC PO (08:04)
--- NOTE | 2017-02-22 08:19 | NUR ---
PT AMBULATED TO THE RESTROOM.
--- NOTE | 2017-02-22 08:23 | NUR ---
PAIN SCALE OF 5/10;NO MOANING/FACIAL GRIMMACING NOTED;WILL CONTINUE TO MONITOR PT.
--- NOTE | 2017-02-22 08:50 | NUR ---
DR COLLINS AT BEDSIDE EVALUATING PT.
[2017-02-22] MEDS ORDERED: LORazepam 2 MG/ML VIAL IVP PRN (09:00)
[2017-02-22] MEDS ORDERED: ACETAMINOPHEN 325 MG TAB PO PRN (09:00)
[2017-02-22] MEDS ORDERED: ONDANSETRON 4 MG/2 ML VIAL IVP PRN (09:00)
[2017-02-22] MEDS ORDERED: HYDROcodone/APAP 5/325 MG 1 TAB TAB PO PRN (09:00)
[2017-02-22] MEDS ORDERED: MORPHINE SULFATE 2 MG/ML SYR IVP PRN (09:00)
--- NOTE | 2017-02-22 09:02 | NUR ---
Patient will be admitted to care of DR COLLINS. Admited to MS. Will go to room 119 B. Belongings list completed. Report to ELO MOY.
[2017-02-22 09:44] LABS: BARBITURATE, URINE NEG. ng/ml (NEG <=200); BENZODIAZEPINE, URINE NEG. ng/mL (NEG <=200); CANNABINOID, URINE POS. ng/mL (NEG <=50); COCAINE, URINE NEG. ng/mL (NEG <=300); OPIATE, URINE NEG. ng/mL (NEG <=2000); PHENCYCLIDINE SCREEN,URINE NEG. ng/mL (NEG <=25)
[2017-02-22 09:48] LABS: CHOL/HDL RATIO 5.8 (1-4.5)
[2017-02-22] MEDS: DEXT 5% /NACL 0.9% 1,000 ML IV SCH ×3 (09:57→18:14)
--- NOTE | 2017-02-22 10:00 | NUR ---
ADMITTED THIS 31 Y/O FEMALE FROM ED WITH A CHIEF COMPLAIN OF ABDOMINAL PAIN. DX OF ACUTE PANCREATITIS. PT AAOX4. PT DENIES PAIN AT THIS TIME, HAD TOTAL OF 8MG MORPHINE PER REPORT. RESPIRATION EVEN AND UNLABORED,NO SOB, NO S/S OF RESPIRATORY DISTRESS. IV ACCESS TO RT AC, GAUGE 18. NO S/S OF INFILTRATION AT THIS TIME. SKIN INTACT. ORIENTED TO CALL LIGHT, BED, PHONE, TV, BATHROOM, VISITING HOURS. DISCUSSED PLAN OF CARE. PT VERBALIZED UNDERSTANDING. BELONGINGS CHECKED AND SIGNED BY PT. ALL NEEDS ANTICIPATED. CALL LIGHT PLACED WITHIN EASY REACH. WILL CONTINUE TO MONITOR.
--- NOTE | 2017-02-22 10:34 | NUR ---
PATIENT HAS BEEN SCREENED AND CATEGORIZED MODERATE NUTRITION RISK. PATIENT WILL BE SEEN WITHIN 3-5 DAYS OF ADMISSION. 02/25/17 - 02/27/17 DULCE MARIA HESTER MBA, RD
[2017-02-22] MEDS: MORPHINE SULFATE 4 MG/ML SYR IVP PRN ×3 (12:07→20:53)
[2017-02-22 16:00] VITALS: BP 113/58
--- NOTE | 2017-02-22 17:26 | NUR ---
PT RESTING IN BED AT THIS TIME, DENIES PAIN. NO S/S OF RESPIRATORY DISTRESS. ENDORSED TO TATUM GASCA FOR CONTINUITY OF CARE. PT IN STABLE CONDITION.
--- NOTE | 2017-02-22 18:14 | NUR ---
IVF COMPLETED, AND STARTED A NEW BAG.
--- NOTE | 2017-02-22 19:27 | NUR ---
PT AWAKE AND VERBALLY RESPONSIVE, RESTING COMFORTABLY IN BED. DENIES PAIN, NO S/S OF RESPIRATORY DISTRESS AT THIS TIME.. ALL NEEDS ANTICIPATED. ENDORSED TO NEXT SHIFT FOR CONTINUITY OF CARE. PT IN STABLE CONDITION.
--- NOTE | 2017-02-22 19:28 | NUR ---
PATIENT IS CURRENTLY AWAKE ALERT ORIENTED RESTING IN BED LAUGHING WITH A FRIEND.IVF INFUSING WELL IV SITE CURRENTLY PATENT.PATIENT AMBULATES WELL TO THE BATHROOM AND BACK TO BED.PATIENT ABLE TO VERBALIZE NEEDS CALL LIGHT WITHIN REACH WILL CONTINUE TO MONITOR.
[2017-02-22 20:00] VITALS: BP 133/79
--- NOTE | 2017-02-22 20:00 | NUR ---
Patient's Plan of Care was discussed and reviewed with SUPERINTENDENT DISTRIBUTION: JOHNY CALVILLO
--- NOTE | 2017-02-22 20:45 | NUR ---
PATIENT AMBULATING WELL IN THE HALLWAY AND THEN BACK TO BED WAS INFORMED BY RAIL ASSEMBLER NURSE TO ONLY AMBULATE NEAR THE NURSES STATION AND NOT TO GO OUTSIDE PATIENT VERBALIZES UNDERSTANDING.
--- NOTE | 2017-02-22 22:48 | NUR ---
PATIENT RESTING IN BED IVF INFUSING WELL PATIENT CURRENTLY WATCHING TV.WILL CONTINUE TO MONITOR.
[2017-02-23 00:23] VITALS: BP 124/72
--- NOTE | 2017-02-23 00:40 | NUR ---
PATIENT IS CURRENTLY RESTING IN BED SLEEPING AWAKENS OCCASIONALLY TO WATCH TV.WILL CONTINUE TO MONITOR.
--- NOTE | 2017-02-23 02:45 | NUR ---
PATIENT IN NO DISTRESS WILL CONTINUE TO MONITOR.CALL LIGHT WITHIN REACH.
--- NOTE | 2017-02-23 04:30 | NUR ---
PATIENT SLEEPING IN BED NO PAIN OR DISCOMFORT NOTED IVF INFUSING WELL WILL CONTINUE TO MONITOR.
[2017-02-23] MEDS: DEXT 5% /NACL 0.9% 1,000 ML IV SCH (06:13)
--- NOTE | 2017-02-23 06:13 | NUR ---
IV FLUID STARTED.
--- NOTE | 2017-02-23 06:13 | NUR ---
I HUNG IVF AT THIS TIME.
--- NOTE | 2017-02-23 06:34 | NUR ---
PATIENT RESTING IN BED IN NO DISTRESS IVF INFUSING WELL WILL CONTINUE TO MONITOR.
[2017-02-23 07:03] LABS: BASOPHILS # (AUTO) 0.1 K/uL (0.00-0.22); BASOPHILS % (AUTO) 1.4 % (0.0-2.0); EOSINOPHILS # (AUTO) 0.1 K/uL (0-0.4); EOSINOPHILS % (AUTO) 1.9 % (0.0-4.0); HEMATOCRIT 35.5 % (36-48); HEMOGLOBIN 12.1 g/dL (12.0-16.0); LYMPHOCYTES # (AUTO) 1.6 K/uL (2.5-16.5); LYMPHOCYTES % (AUTO) 22.9 % (20.5-51.1); MEAN CORPUSCULAR HEMOGLOBIN 29 pg (27-31); MEAN CORPUSCULAR HGB CONC 34 g/dL (33-37); MEAN CORPUSCULAR VOLUME 85 fL (80-94); MONOCYTES # (AUTO) 0.5 K/uL (0.8-1.0); MONOCYTES % (AUTO) 6.9 % (1.7-9.3); NEUTROPHILS # (AUTO) 4.7 K/uL (1.8-7.7); NEUTROPHILS % (AUTO) 66.9 % (42.2-75.2); PLATELET COUNT (AUTO) 210 K/uL (140-450); RED BLOOD CELL COUNT(AUTO) 4.19 MIL/uL (4.20-5.40); RED CELL DISTRIBUTION WIDTH 11.6 % (11.6-13.7)
--- NOTE | 2017-02-23 07:15 | NUR ---
RECEIVED PT REPORT. PT AMBULATING AROUND THE UNIT, NO S/S OF DISTRESS NOTED. NO C/O PAIN AT THIS TIME, IV LINE NOTED TO THE RIGHT AC WITH IVF INFUSING WELL.
[2017-02-23 07:17] LABS: ALBUMIN 3.4 g/dL (3.4-5.0); ANION GAP 9.2 (8-16); CARBON DIOXIDE 27.6 mmol/L (21-32); CREATININE 0.6 mg/dL (0.6-1.3); MAGNESIUM 1.9 mg/dL (1.8-2.4); POTASSIUM 3.8 mmol/L (3.5-5.1); TOTAL BILIRUBIN 0.4 mg/dL (0.0-1.0)
--- NOTE | 2017-02-23 07:37 | NUR ---
STABLE REPORT AMBULATING IN HALLWAY REPORT ENDORSED TO ELO RODNEY AND CARLOS.
[2017-02-23 08:00] VITALS: BP 102/65
--- NOTE | 2017-02-23 08:45 | NUR ---
PT SEEN BY DR COLLINS, PT CLEARED FOR DISCHARGE.
--- NOTE | 2017-02-23 11:00 | NUR ---
DISCHARGE INSTRUCTIONS GIVEN. PT VERBALIZED UNDERSTANDING. IV LINE DC. CATHETER TIP INTACT. PT LEFT WITH ALL BELONGINGS AND DISCHARGE PAPERS, PT LEFT IN STABLE CONDITION,
--- NOTE | 2017-02-24 08:45 | NUR ---
RETRO ER REPORT, H&P AND DISCHARGE SUMMARY FAXED TO [facility] [phone] PHONE CHUCKY [phone]
== END 2017-02-23 11:00 | disposition home or self-care (01) ==
LOC: MED 05:37 → MTU 08:57 → UNDOADMIN 08:57
PROVIDERS: ADMIT Hospitalist; ATTEND Hospitalist
DX: K85.90 Acute pancreatitis without necrosis or infection, unspecified (principal); G89.4 Chronic pain syndrome; F11.20 Opioid dependence, uncomplicated; F32.9 Major depressive disorder, single episode, unspecified; K86.1 Other chronic pancreatitis; F43.10 Post-traumatic stress disorder, unspecified; F41.9 Anxiety disorder, unspecified; J45.909 Unspecified asthma, uncomplicated; E66.9 Obesity, unspecified; Z68.32 Body mass index [BMI] 32.0-32.9, adult; Z88.6 Allergy status to analgesic agent; R11.2 Nausea with vomiting, unspecified
CPT/HCPCS: 36415; 74176; 80053; 80061; 80305; 81001; 81025; 82150; 83690; 83735; 85025; 87081; 93005; 96361; 96374; 96375; 96376; 99285; G0378; J2060; J2270; J2405; J3490; J7042

== ENCOUNTER 2017-02-27 07:47 | Emergency (ER) | payer OTHER ==
[~2017-02-27] VITALS: Ht 160 cm; Wt 84.0 kg
[~2017-02-27 07:47] MED LIST changes: -ACET-2619 PO; +BACTRIM DS 800/1 TAB PO; +CYMBALTA30 MG PO; +KEFLEX250 MG PO; +LEXAPRO5 MG PO; +NORCO 5/325 MG1 TAB PO; +NORTRIPTYLINE H25 MG PO; -ONDA4ODT1 SL; +PRILOSEC OTC20 MG PO; +PROTONIX40 MG PO; +TYLENOL325 M2 PO; +ULTRAM50 MG PO; +ZOFRAN ODT4 MG SL; +ZOFRAN4 M1 PO
[2017-02-27 07:54] VITALS: BP 113/64
--- NOTE | 2017-02-27 08:05 | NUR ---
Patient ambulated to bed 06.
--- NOTE | 2017-02-27 08:10 | NUR ---
PATIENT PRESENTS TO ED WITH C/O RUQ PAIN X 3 DAYS RADIATING RIGHT FLANK---WITH LOOSE WATERY STOOLS DENIES EMESIS, DENIES DYSURIA --ALSO WISDOM TOOTH EXTRACTION RIGHT UPPER X YESTERDAY---PAIN TODAY RX TYLENOL #3 RECENT ADMISSION 02/22/2017 PANCREATITIS PAIN TO LUQ PER PT HX---PANCREATITIS, PTSD, ANXIETY RX---PRILOSEC 40MG, TYLENOL #3, ZOFRAN, LEXAPRIL DENIES N/V; SKIN IS PINK/WARM/DRY; AAOX4 WITH EVEN AND STEADY GAIT; LUNGS CLEAR BL; HR EVEN AND REGULAR; PT DENIES ANY FEVER, CP, SOB, OR COUGH AT THIS TIME; PATIENT STATES PAIN OF 10/10 AT THIS TIME; VSS; PATIENT POSITIONED FOR COMFORT; HOB ELEVATED; BEDRAILS UP X2; BED DOWN. ER MD MADE AWARE OF PT STATUS.
--- NOTE | 2017-02-27 08:15 | NUR ---
DR SCHAEFFER EVALUATING AAO PT AT BEDSIDE
[2017-02-27] MEDS ORDERED: METOCLOPRAMIDE 10 MG/2 ML INJ VIAL IVP ONE (08:20)
[2017-02-27] MEDS ORDERED: NACL 0.9% 1,000 ML IV ONE (08:20)
[2017-02-27] MEDS ORDERED: PANTOPRAZOLE 40 MG INJ VIAL IVP ONE (08:20)
[2017-02-27] MEDS ORDERED: MORPHINE SULFATE 4 MG/ML SYR IVP ONE (09:25)
--- NOTE | 2017-02-27 10:03 | NUR ---
AAO PT AMBULATES TO THE RESTROOM
[2017-02-27 10:26] VITALS: BP 115/61
== END 2017-02-27 10:26 | disposition home or self-care (01) ==
LOC: MED 07:47
DX: G89.29 Other chronic pain (principal); R10.11 Right upper quadrant pain; Z88.6 Allergy status to analgesic agent
CPT/HCPCS: 36415; 80053; 80305; 81001; 81025; 82150; 83690; 84703; 85025; 96361; 96374; 96375; 99284; C9113; J2270; J2765; J7030

== ENCOUNTER 2017-03-11 07:36 | Emergency (ER) | payer OTHER ==
[~2017-03-11 07:36] MED LIST changes: -BACTRIM DS 800/1 TAB PO; -CYMBALTA30 MG PO; -KEFLEX250 MG PO; -LEXAPRO5 MG PO; -NORCO 5/325 MG1 TAB PO; -NORTRIPTYLINE H25 MG PO; +OMEP20TC PO; +ONDA4ODT1 SL; +PANT40EC PO; -PRILOSEC OTC20 MG PO; -PROTONIX40 MG PO; -TYLENOL #3 PO; -TYLENOL325 M2 PO; -ULTRAM50 MG PO; -ZOFRAN ODT4 MG SL; -ZOFRAN4 M1 PO
--- NOTE | 2017-03-11 08:10 | NUR ---
PATIENT LEFT WITHOUT BEING SEEN BY DR. BANGURA. NO FURTHER CARE PROVIDED FOR PATIENT.
== END 2017-03-11 08:10 | disposition left against medical advice (07) ==
LOC: MED 07:36
DX: R10.9 Unspecified abdominal pain (principal); Z53.21 Procedure and treatment not carried out due to patient leaving prior to being seen by health care provider

== ENCOUNTER 2017-03-17 07:32 | Emergency (ER) | payer OTHER ==
[~2017-03-17] VITALS: Ht 160 cm; Wt 86.6 kg
[2017-03-17 07:51] VITALS: BP 127/93
[2017-03-17] MEDS ORDERED: ESCI5TAB PO (07:56)
--- NOTE | 2017-03-17 07:56 | NUR ---
TO WAITING ROOM FOR NXT AVAIL. BED. NO DISTRESS
== END 2017-03-17 09:57 | disposition left against medical advice (07) ==
LOC: MED 07:32
DX: R19.7 Diarrhea, unspecified (principal); Z53.21 Procedure and treatment not carried out due to patient leaving prior to being seen by health care provider
CPT/HCPCS: 81002; 81025

== ENCOUNTER 2017-04-07 07:40 | Inpatient (IN) | payer OTHER ==
[~2017-04-07] VITALS: Ht 160 cm; Wt 88.0 kg
[~2017-04-07 07:40] MED LIST changes: +ESCI5TAB PO; -OMEP20TC PO
[2017-04-07 07:47] VITALS: BP 119/76
[2017-04-07] MEDS ORDERED: ONDANSETRON 4 MG/2 ML VIAL IVP ONE (07:55)
[2017-04-07] MEDS ORDERED: NACL 0.9% 1,000 ML IV ONE (07:55)
--- NOTE | 2017-04-07 07:55 | NUR ---
PT AMBULATED TO BED 3.
--- NOTE | 2017-04-07 08:00 | NUR ---
31F BIB FAMILY C/O LEFT UPPER ABDOMINAL PAIN, SHARP, RADIATES TO LEFT UPPER BACK, 9/10 X 3 DAYS; PT STATES " I HAVE CHRONIC PANCREATITIS"; PT C/O 7 EPISODES OF NAUSEA AND VOMITING TODAY, BUT STATES NO DIARRHEA AT THIS TIME; ABDOMEN SOFT, NON-TENDER, ACTIVE BOWEL SOUNDS X 4 QUADRANTS; PT AA&OX4, PERRLA, BL LUNG SOUNDS CLEAR, RR EVEN/UNLABORED, SKIN IS WARM/DRY/INTACT AT THIS TIME; STEADY GAIT; PT RESTING IN BED WITH HOB ELEVATED AND IN LOWEST POSITION; POSITIONED FOR COMFORT; ER MD MADE AWARE OF STATUS. WILL CONTINUE TO MONITOR.
[2017-04-07 08:09] LABS: BASOPHILS # (AUTO) 0.1 K/uL (0.00-0.22); BASOPHILS % (AUTO) 2.3 % (0.0-2.0); EOSINOPHILS # (AUTO) 0.1 K/uL (0-0.4); EOSINOPHILS % (AUTO) 2.7 % (0.0-4.0); HEMATOCRIT 37.1 % (36-48); HEMOGLOBIN 12.5 g/dL (12.0-16.0); LYMPHOCYTES # (AUTO) 1.5 K/uL (2.5-16.5); LYMPHOCYTES % (AUTO) 27.2 % (20.5-51.1); MEAN CORPUSCULAR HEMOGLOBIN 29 pg (27-31); MEAN CORPUSCULAR HGB CONC 34 g/dL (33-37); MEAN CORPUSCULAR VOLUME 85 fL (80-94); MONOCYTES # (AUTO) 0.3 K/uL (0.8-1.0); MONOCYTES % (AUTO) 5.7 % (1.7-9.3); NEUTROPHILS # (AUTO) 3.3 K/uL (1.8-7.7); NEUTROPHILS % (AUTO) 62.1 % (42.2-75.2); PLATELET COUNT (AUTO) 197 K/uL (140-450); RED BLOOD CELL COUNT(AUTO) 4.38 MIL/uL (4.20-5.40); RED CELL DISTRIBUTION WIDTH 12.1 % (11.6-13.7); WHITE BLOOD COUNT (AUTO) 5.3 K/uL (4.8-10.8)
[2017-04-07 08:22] LABS: ANION GAP 15.4 (8-16); CARBON DIOXIDE 25.5 mmol/L (21-32); CREATININE 0.8 mg/dL (0.6-1.3); POTASSIUM 3.9 mmol/L (3.5-5.1)
[2017-04-07 08:28] LABS: ALBUMIN 3.8 g/dL (3.4-5.0); TOTAL BILIRUBIN 0.2 mg/dL (0.0-1.0)
[2017-04-07] MEDS ORDERED: MORPHINE SULFATE 4 MG/ML SYR IVP ONE (08:45)
--- NOTE | 2017-04-07 08:52 | NUR ---
ER MD DR. GOMEZ EVALUATING PT AT BEDSIDE.
[2017-04-07] MEDS ORDERED: cefTRIAXone 1,000 MG VIAL ONE (09:03)
[2017-04-07 09:17] LABS: APPEARANCE,URINE HAZY (CLEAR); BILIRUBIN,URINE NEGATIVE (NEGATIVE); BLOOD, URINE NEGATIVE (NEGATIVE); COLOR,URINE YELLOW (YELLOW); LEUKOCYTE ESTERASE ,URINE 1+ (NEGATIVE); NITRITE, URINE NEGATIVE (NEGATIVE); PH,URINE 6.5 (5.0-9.0); UGLUCOSE NEGATIVE (NEGATIVE)
--- NOTE | 2017-04-07 09:18 | NUR ---
XRAY AT BEDSIDE.
[2017-04-07 09:30] LABS: RBC,URINE 0-5 (RARE) /HPF (0-5)
[2017-04-07] MEDS ORDERED: ONDANSETRON 4 MG/2 ML VIAL IVP PRN (09:30)
[2017-04-07] MEDS ORDERED: ACETAMINOPHEN 325 MG TAB PO PRN (09:30)
--- NOTE | 2017-04-07 09:54 | NUR ---
REPORT GIVEN TO ELO PAYTON.
[2017-04-07 10:00] VITALS: BP 97/57
--- NOTE | 2017-04-07 10:00 | NUR ---
Patient will be admitted to care of DR. OCHOA. Admited to M/S OBS. Will go to room 111B. Belongings list completed. Report to ELO PAYTON.
--- NOTE | 2017-04-07 10:00 | NUR ---
PATIENT ARRIVED ON MST UNIT VIA WHEELCHAIR. PATIENT ABLE TO AMBULATE TO BED IN ROOM INDEPENDENTLY WITH STEADY GAIT. PATIENT IS IN STABLE CONDITION. NO DISTRESS NOTED. RESPIRATIONS EVEN, UNLABORED, ON ROOM AIR. LUNGS CTA ON ALL LOBES. REPORTS HAVING LEFT ABD PAIN D/T PANCREATITIS. IV SITE IS INTACT, PATENT, AND IVF CONNECTED AND INFUSING PER ORDERS. SKIN IS INTACT, NO WOUNDS/LESIONS NOTED THROUGHOUT BODY. AAOX4, CALM, COOPERATIVE, APPROPRIATE AFFECT. SKIN COLOR APPROPRIATE TO ETHNICITY, WARM TO TOUCH. ORIENTED PATIENT TO ROOM, MRSA OF NARES COLLECTED PER PROTOCOL. REVIEWED PLAN OF CARE WITH PATIENT. PATIENT VERBALIZED UNDERSTANDING. SAFETY MEASURES IN PLACE, NPO SIGNS POSTED, CALL LIGHT WITHIN REACH. WILL CONTINUE TO MONITOR.
[2017-04-07] MEDS: DEXT 5% /NACL 0.9% 1,000 ML IV SCH ×2 (10:25→22:31)
[2017-04-07] MEDS: MORPHINE SULFATE 4 MG/ML SYR IVP PRN ×2 (13:58→20:19)
[2017-04-07] MEDS: LORazepam 2 MG/ML VIAL IVP PRN ×2 (15:51→21:46)
--- NOTE | 2017-04-07 15:56 | NUR ---
PATIENT SITTING IN BED WATCHING TV. REPORTS FEELING ANXIOUS. ATIVAN GIVEN PER ORDERS. REPORTS ABD PAIN HAS DECREASED FROM MORPHINE GIVEN EARLIER. RESPIRATIONS EVEN, UNLABORED, ON ROOM AIR. IV PATENT, INTACT, AND INFUSING IVF PER ORDERS. SAFETY MEASURES IN PLACE, CALL LIGHT WITHIN REACH. WILL CONTINUE TO MONITOR.
[2017-04-07 16:00] VITALS: BP 101/53
--- NOTE | 2017-04-07 18:00 | NUR ---
PATIENT LYING IN BED SLEEPING. NO DISTRESS NOTED. RESPIRATIONS EVEN, UNLABORED, ON ROOM AIR. AROUSABLE TO VOICE. SAFETY MEASURES IN PLACE, CALL LIGHT WITHIN REACH. WILL CONTINUE TO MONITOR.
--- NOTE | 2017-04-07 19:25 | NUR ---
GAVE REPORT TO SLASHER TENDER HELPER NURSE FOR CONTINUITY OF CARE. PATIENT IN STABLE CONDITION.
--- NOTE | 2017-04-07 19:58 | NUR ---
RECEIVED REPORT FROM AM NURSE. PT IS AAOX4. ON ROOM AIR. RESPIRATIONS EVEN AND UNLABORED. IV ACCESS IS INTACT, PATENT AND ASYMPTOMATIC. BOWEL SOUNDS ACTIVE ON ALL FOUR QUADRANTS, NO SIGNS OF ACUTE DISTRESS NOTED. SKIN COLOR APPROPRIATE TO ETHNICITY, SKIN TEMP WARM TO TOUCH. PLAN OF CARE DISCUSSED, PT VERBALIZED UNDERSTANDING. BED IN LOW POSITION, BILATERAL HALF SIDE RAILS UP, CALL LIGHT WITHIN REACH, WILL CONTINUE TO MONITOR.
[2017-04-07 20:00] VITALS: BP 118/55
--- NOTE | 2017-04-07 20:58 | NUR ---
PAGED DR OCHOA, REGARDING PT REQUEST TO HAVE NAUSEA MEDICATION ZOFRAN SWITCHED TO PROMETHAZINE. PT STATES PROMETHAZINE WORKS BETTER FOR HER. WILL WAIT FOR CALLBACK.
[2017-04-07] MEDS: PROCHLORPERAZINE 10 MG/2 ML VIAL IVP PRN (22:33)
--- NOTE | 2017-04-07 23:18 | NUR ---
PT IS SLEEPING, EASY TO AROUSE. NO SIGNS OF ACUTE DISTRESS. BED IN LOW POSITION, BILATERAL HALF SIDE RAILS UP, CALL LIGHT WITHIN REACH, WILL CONTINUE TO MONITOR.
[2017-04-08] VITALS: BP 101/61
--- NOTE | 2017-04-08 02:57 | NUR ---
PT IS SLEEPING, EASY TO AROUSE, NO SIGNS OF ACUTE DISTRESS. BED IN LOW POSITION, BILATERAL HALF SIDE RAILS UP, CALL LIGHT WITHIN REACH, WILL CONTINUE TO MONITOR.
[2017-04-08 06:56] LABS: BASOPHILS # (AUTO) 0.1 K/uL (0.00-0.22); BASOPHILS % (AUTO) 1.8 % (0.0-2.0); EOSINOPHILS # (AUTO) 0.2 K/uL (0-0.4); EOSINOPHILS % (AUTO) 2.5 % (0.0-4.0); HEMATOCRIT 36.1 % (36-48); HEMOGLOBIN 11.9 g/dL (12.0-16.0); LYMPHOCYTES # (AUTO) 1.6 K/uL (2.5-16.5); LYMPHOCYTES % (AUTO) 25.7 % (20.5-51.1); MEAN CORPUSCULAR HEMOGLOBIN 28 pg (27-31); MEAN CORPUSCULAR HGB CONC 33 g/dL (33-37); MEAN CORPUSCULAR VOLUME 85 fL (80-94); MONOCYTES # (AUTO) 0.5 K/uL (0.8-1.0); MONOCYTES % (AUTO) 7.8 % (1.7-9.3); NEUTROPHILS # (AUTO) 3.8 K/uL (1.8-7.7); NEUTROPHILS % (AUTO) 62.2 % (42.2-75.2); PLATELET COUNT (AUTO) 173 K/uL (140-450); RED BLOOD CELL COUNT(AUTO) 4.24 MIL/uL (4.20-5.40); WHITE BLOOD COUNT (AUTO) 6.2 K/uL (4.8-10.8)
--- NOTE | 2017-04-08 07:20 | NUR ---
ENDORSED PT TO AM NURSE FOR CONTINUITY OF CARE. PT IN STABLE CONDITION.
--- NOTE | 2017-04-08 07:21 | NUR ---
PATIENT LYING IN BED AWAKING FROM SLEEP. NO DISTRESS NOTED. RESPIRATIONS EVEN, UNLABORED, ON ROOM AIR. C/O LEFT UPPER ABD PAIN, WILL MEDICATE WITH MORPHINE PER ORDERS. DENIES ANY NAUSEA/VOMITING. AAOX4, CALM, COOPERATIVE, SKIN COLOR APPROPRIATE TO ETHNICITY, WARM TO TOUCH. SKIN IS INTACT. IV IS PATENT, INTACT, AND INFUSING IVF ORDERS. LUNGS CTA ON ALL LOBES. ABDOMEN SOFT, NON-DISTENDED. PLAN OF CARE REVIEWED WITH PATIENT. PATIENT VERBALIZED UNDERSTANDING. SAFETY MEASURES IN PLACE, CALL LIGHT WITHIN REACH. WILL CONTINUE TO MONITOR.
[2017-04-08 07:23] LABS: CHOL/HDL RATIO 6.3 (1-4.5)
[2017-04-08 07:25] LABS: ANION GAP 10.9 (8-16); CREATININE 0.8 mg/dL (0.6-1.3); MAGNESIUM 1.9 mg/dL (1.8-2.4); PHOSPHORUS 4.4 mg/dL (2.5-4.9); POTASSIUM 3.9 mmol/L (3.5-5.1); TOTAL BILIRUBIN 0.3 mg/dL (0.0-1.0)
[2017-04-08 08:00] VITALS: BP 98/57
--- NOTE | 2017-04-08 08:38 | NUR ---
CM NOTE INITIAL REVIEW FAXED TO [facility] [phone] [place] PH# [phone] [place] PH# [phone]
[2017-04-08] MEDS: ESCITALOPRAM 20 MG TAB PO SCH (08:42)
[2017-04-08] MEDS: MORPHINE SULFATE 4 MG/ML SYR IVP PRN ×3 (08:42→17:42)
[2017-04-08] MEDS: ENOXAPARIN 40 MG/0.4 ML SYR SUBQ SCH (08:43)
--- NOTE | 2017-04-08 09:00 | NUR ---
DR. OCHOA AT BEDSIDE REVIEWING PLAN OF CARE WITH PATIENT. WILL CONTINUE TO MONITOR.
--- NOTE | 2017-04-08 09:23 | NUR ---
PATIENT HAS BEEN SCREENED AND CATEGORIZED MODERATE NUTRITION RISK. PATIENT WILL BE SEEN WITHIN 3-5 DAYS OF ADMISSION. 04/09/17-04/11/[address]
--- NOTE | 2017-04-08 11:30 | NUR ---
PATIENT IS SLEEPING. AROUSABLE BY VOICE. NO DISTRESS NOTED. RESPIRATIONS EVEN, UNLABORED, ON ROOM AIR. REPORTS DECREASED PAIN FROM MORPHINE GIVEN EARLIER. SAFETY MEASURES IN PLACE, CALL LIGHT WITHIN REACH. WILL CONTINUE TO MONITOR.
[2017-04-08] MEDS: DEXT 5% /NACL 0.9% 1,000 ML IV SCH (12:34)
--- NOTE | 2017-04-08 12:35 | NUR ---
PATIENT SITTING AT BEDSIDE WITH LUNCH TRAY IN FRONT. NO DISTRESS NOTED. PAIN WITHIN TOLERABLE AT THIS TIME. REVIEWED PLAN OF CARE WITH PATIENT. PATIENT AWARE OF POSSIBLE DISCHARGE HOME TONIGHT IF SHE TOLERATES EATING WITHOUT VOMITING AND IF PAIN GETS BETTER PER DR. OCHOA ORDERS. SAFETY MEASURES IN PLACE, CALL LIGHT WITHIN REACH. WILL CONTINUE TO MONITOR.
[2017-04-08] MEDS: LORazepam 2 MG/ML VIAL IVP PRN ×2 (15:07→20:34)
--- NOTE | 2017-04-08 15:14 | NUR ---
PATIENT SITTING IN BED WITH FAMILY MEMBERS AT BEDSIDE. PATIENT REPORTS FEELING ANXIOUS. ATIVAN GIVEN PER ORDERS. NO DISTRESS NOTED. PAIN WITHIN TOLERABLE AT THIS TIME. DENIES ANY NAUSEA/VOMITING. SAFETY MEASURES IN PLACE, CALL LIGHT WITHIN REACH. WILL CONTINUE TO MONITOR.
--- NOTE | 2017-04-08 15:30 | NUR ---
PATIENT REPORTS HAVING A VOMIT X1 EPISODE. PATIENT BELIEVES IT WAS THE SOUP DURING THE LUNCH THAT CAUSED THE VOMITING. REFUSES NAUSEA MEDICATION AT THIS TIME. WILL CONTINUE TO MONITOR.
[2017-04-08 16:00] VITALS: BP 112/53
--- NOTE | 2017-04-08 16:43 | NUR ---
PATIENT SLEEPING COMFORTABLY IN BED. AROUSABLE BY VOICE. NO DISTRESS NOTED. RESPIRATIONS EVEN, UNLABORED, ON ROOM AIR. SAFETY MEASURES IN PLACE, CALL LIGHT WITHIN REACH. WILL CONTINUE TO MONITOR.
--- NOTE | 2017-04-08 18:50 | NUR ---
PATIENT AMBULATING AROUND UNIT HALLWAYS INDEPENDENTLY WITH STEADY GAIT. NO DISTRESS NOTED. DENIES ANY PAIN. WILL CONTINUE TO MONITOR.
--- NOTE | 2017-04-08 19:19 | NUR ---
ENDORSED PATIENT TO PHYS ASST NURSE FOR CONTINUITY OF CARE. PATIENT IN STABLE CONDITION.
--- NOTE | 2017-04-08 19:20 | NUR ---
RECEIVED REPORT FROM AM NURSE. PT IS AAOX4, RESTING COMFORTABLY IN BED. NO SIGNS OF ACUTE DISTRESS. ON ROOM AIR. SKIN COLOR APPROPRIATE TO ETHNICITY, SKIN TEMP WARM TO TOUCH. RESPIRATIONS EVEN AND UNLABORED. IV ACCESS INTACT, PATENT AND ASYMPTOMATIC. PLAN OF CARE DISCUSSED, PT VERBALIZED UNDERSTANDING. BED IN LOW POSITION, BILATERAL HALF SIDE RAILS UP, CALL LIGHT WITHIN REACH, WILL CONTINUE TO MONITOR.
[2017-04-08 20:00] VITALS: BP 115/64
--- NOTE | 2017-04-08 23:15 | NUR ---
PT IS SLEEPING, EAST TO AROUSE. NO SIGNS OF ACUTE DISTRESS NOTED. BED IN LOW POSITION, BILATERAL HALF SIDE RAILS UP, CALL LIGHT WITHIN REACH, WILL CONTINUE TO MONITOR.
[2017-04-09] VITALS: BP 108/52
[2017-04-09] MEDS: DEXT 5% /NACL 0.9% 1,000 ML IV SCH ×2 (02:07→14:50)
[2017-04-09] MEDS: MORPHINE SULFATE 4 MG/ML SYR IVP PRN ×5 (02:09→23:16)
--- NOTE | 2017-04-09 03:25 | NUR ---
PT IS SLEEPING, AROUSABLE TO VOICE. RESPIRATIONS EVEN AND UNLABORED. NO SIGN OF ACUTE DISTRESS NOTED. BED IN LOW POSITION, BILATERAL HALF SIDE RAILS UP, CALL LIGHT WITHIN REACH, WILL CONTINUE TO MONITOR.
--- NOTE | 2017-04-09 07:27 | NUR ---
ENDORSED PT TO AM NURSE FOR CONTINUITY OF CARE. PT IS IN STABLE CONDITION.
--- NOTE | 2017-04-09 07:30 | NUR ---
RECEIVED PT REPORT AT BEDSIDE FROM NIGHT NURSE. PT IS AAOX4 AND SHOWS NO S/S OF ACUTE DISTRESS RA. PT IS AROUSABLE TO NAME AND STATES 10/10 ABD PAIN AFTER EATING BREAKFAST. PT STATED, " I VOMITTED" PT WILL BE GIVEN PRN NAUSEA MEDICATION. PT IS AWARE SHE WAS MEDICATED FROM PAIN AT 0605 AND PAIN MEDICATION IS NOT DUE UNTIL 1005. PT SKIN IS INTACT. PT ON MS. IV NOTED ON THE RT AC WITH IVF'S INFUSING WELL. IV IS PATENT AND INTACT WITH NO SIGNS OF INFILTRATION. PT WAS EXPLAINED POC FOR TODAY AND VERBALIZE UNDERSTANDING. THE BED IS IN LOW POSITION WITH CALL LIGHT WITHIN REACH. ALL NEED'S MET AT THIS TIME. WILL CONTINUE TO MONITOR.
[2017-04-09 08:00] VITALS: BP 122/63
[2017-04-09] MEDS: ESCITALOPRAM 20 MG TAB PO SCH (08:30)
[2017-04-09] MEDS: PROCHLORPERAZINE 10 MG/2 ML VIAL IVP PRN ×2 (08:30→17:10)
--- NOTE | 2017-04-09 08:30 | NUR ---
ADMINISTERED SCHEDULED MEDICATIONS. PT TOLERATED WELL. PT GIVEN COMPAZINE 10 MG IVP FOR NAUSEA/VOMITING. WILL CONTINUE TO MONITOR. ALL NEEDS MET AT THIS TIME.
[2017-04-09] MEDS: ENOXAPARIN 40 MG/0.4 ML SYR SUBQ SCH (08:32)
--- NOTE | 2017-04-09 09:15 | NUR ---
PT STATED, "CAN I SHOWER?" PT WAS GIVEN TOWELS AND SHAMPOO TO SHOWER WITH. PT AMB TO SHOWER WITH STEADY GAIT. WILL CONTINUE TO MONITOR.
--- NOTE | 2017-04-09 10:12 | NUR ---
PT C/O HEADACHE AND WAS GIVEN TYLENOL 650 MG PO. WILL REASSESS HEADACHE IN ONE HR.
--- NOTE | 2017-04-09 11:43 | NUR ---
PT STATED HEADACHE IS UNBEARABLE AND REQUESTED TO HAVE MORPHINE. PT WAS GIVEN MORPHINE 4 MG IVP. WILL REASSESS PAIN IN 30 MIN.
--- NOTE | 2017-04-09 12:30 | NUR ---
PT IS SLEEPING AND SHOWS NO S/S OF ACUTE DISTRESS WILL CONTINUE TO MONITOR.
--- NOTE | 2017-04-09 13:10 | NUR ---
PT HAS FAMILY AT BEDSIDE AND SHOWS NO S/S OF ACUTE DISTRESS, PT DENIES PAIN.
--- NOTE | 2017-04-09 13:57 | NUR ---
CM NOTE INSURANCE NOTIFIED THAT PATIENT HERE FOR OBSERVATION STATUS. CLINICAL INFO FAXED TO [facility] [phone].
--- NOTE | 2017-04-09 15:10 | NUR ---
PT IS SLEEPING AND SHOWS NO S/S OF ACUTE DISTRESS ON ROOM AIR.
[2017-04-09 16:00] VITALS: BP 105/66
--- NOTE | 2017-04-09 16:50 | NUR ---
PT BEING SEEN BY DR OCHOA
--- NOTE | 2017-04-09 17:10 | NUR ---
PT C/O NAUSEA AND PAIN 10/10 WILL ADMINISTER PRN PAIN AND NAUSEA MEDICATION. WILL REASSESS PAIN IN 30 MIN.
--- NOTE | 2017-04-09 17:28 | NUR ---
BEGAN IVF'S D5/NS AT 75 ML/HR. INFUSING WELL AT R AC.
--- NOTE | 2017-04-09 17:40 | NUR ---
PT DENIES PAIN. PT'S NEEDS MET AT THIS TIME. WILL CONTINUE TO MONITOR.
--- NOTE | 2017-04-09 19:10 | NUR ---
PT REPORT GIVEN TO NIGHT NURSE AT BEDSIDE. PT ENDORSED IN STABLE CONDITION.
--- NOTE | 2017-04-09 19:15 | NUR ---
RECEIVED PT FROM AYLEEN GASCA PT IS AAOX4 AMBULATORY IV ON RT AC INFUSING WELL DENIES ANY PAIN AT THIS TIME RELATIVES AT BED SIDE INITIAL ASSESSMENT DONE.
[2017-04-09 20:00] VITALS: BP 107/60
--- NOTE | 2017-04-09 22:00 | NUR ---
PT HAS BEEN SLEEPING WELL DENIES ANY PAIN AT THIS TIME
[2017-04-10] VITALS: BP 104/59
--- NOTE | 2017-04-10 01:30 | NUR ---
PT DENIES ANY PAIN RESTING NOT DISTRESS NOTED
[2017-04-10] MEDS: LORazepam 2 MG/ML VIAL IVP PRN (03:10)
--- NOTE | 2017-04-10 03:29 | NUR ---
PT ANXIOUS MEDIC GIVEN ORDER
[2017-04-10] MEDS: DEXT 5% /NACL 0.9% 1,000 ML IV SCH (04:10)
--- NOTE | 2017-04-10 05:04 | NUR ---
PT REMAIN STBLE QUIET SLEEPING NOT SIGNS OF PAIN NOTED
--- NOTE | 2017-04-10 06:21 | NUR ---
PT DENIES ANY PAINAT THIS TIME NOT DISTRESS NOTED
[2017-04-10 06:48] LABS: BASOPHILS # (AUTO) 0.1 K/uL (0.00-0.22); BASOPHILS % (AUTO) 1.4 % (0.0-2.0); EOSINOPHILS # (AUTO) 0.2 K/uL (0-0.4); EOSINOPHILS % (AUTO) 4.3 % (0.0-4.0); HEMATOCRIT 35.6 % (36-48); HEMOGLOBIN 12.1 g/dL (12.0-16.0); LYMPHOCYTES # (AUTO) 1.3 K/uL (2.5-16.5); LYMPHOCYTES % (AUTO) 28.2 % (20.5-51.1); MEAN CORPUSCULAR HEMOGLOBIN 29 pg (27-31); MEAN CORPUSCULAR HGB CONC 34 g/dL (33-37); MEAN CORPUSCULAR VOLUME 85 fL (80-94); MONOCYTES # (AUTO) 0.5 K/uL (0.8-1.0); MONOCYTES % (AUTO) 10.8 % (1.7-9.3); NEUTROPHILS # (AUTO) 2.4 K/uL (1.8-7.7); NEUTROPHILS % (AUTO) 55.3 % (42.2-75.2); PLATELET COUNT (AUTO) 191 K/uL (140-450); RED CELL DISTRIBUTION WIDTH 11.7 % (11.6-13.7); WHITE BLOOD COUNT (AUTO) 4.5 K/uL (4.8-10.8)
[2017-04-10 06:58] LABS: ALBUMIN 3.2 g/dL (3.4-5.0); BILIRUBIN,DIRECT 0.1 mg/dL (0.0-0.3); TOTAL BILIRUBIN 0.5 mg/dL (0.0-1.0)
--- NOTE | 2017-04-10 07:10 | NUR ---
RECEIVED PT REPORT AT BEDSIDE FROM NIGHT NURSE. PT IS AAOX4 AND SHOWS NO S/S OF ACUTE DISTRESS ON RA. PT IS AROUSABLE TO NAME AND STATES 10/[address] OCHOA STATED HE WILL BE IN TO SEE PATIENT AND STATED, "PATIENT WILL BE DISCHARGED TODAY, NO IV PAIN MEDICATIONS, I WILL BE IN TO ORDER PO PRN PAIN MEDICATIONS." PT SKIN IS INTACT. PT ON MS. IV NOTED ON THE RT AC AND INFILTRATED WITH LEAKAGE FROM SITE. IV DC WITH CANNULA INTACT. DR OCHOA NOTIFIED AND OKAY TO HAVE NO IV ACCESS. PT WAS EXPLAINED POC FOR TODAY AND VERBALIZE UNDERSTANDING. THE BED IS IN LOW POSITION WITH CALL LIGHT WITHIN REACH. ALL NEED'S MET AT THIS TIME. WILL CONTINUE TO MONITOR.
[2017-04-10 08:00] VITALS: BP 127/67
[2017-04-10] MEDS ORDERED: HYDROcodone/APAP 5/325 MG 1 TAB TAB PO PRN (08:25)
[2017-04-10] MEDS ORDERED: ACET-9525 PO (08:34)
[2017-04-10] MEDS ORDERED: ACET-1182 PO (08:34)
--- NOTE | 2017-04-10 08:40 | NUR ---
DR OCHOA IS ON UNIT AND AWARE OF PATIENT'S SEVERE ABD PAIN OF 10/10. DR ORDERED NORCO 5/325 PO FOR MODERATE PAIN. NOTIFIED DR THAT PATIENT STATED SEVERE PAIN. DR OKAYED TO GIVE NORCO 5/325 PO PRN PAIN MEDICATION FOR PATIENT.
--- NOTE | 2017-04-10 09:15 | NUR ---
PT IS BEING SEEN BY DR OCHOA. PT WAS SLEEPING AND EASILY AROUSABLE. WHEN ASKED HOW HER PAIN WAS PT STATED, "IT'S NOT TO BAD." DR QUISPE SPOKE WITH PT REGARDING DISCHARGE FOR TODAY, PT AGREED TO CONTINUE CARE AT HOME WITH PRESCRIBED MEDICATION FROM DR OCHOA. ALL OF PATIENTS NEED MET AT THIS TIME WILL CONTINUE TO MONITOR.
[2017-04-10] MEDS: ESCITALOPRAM 20 MG TAB PO SCH (09:22)
[2017-04-10] MEDS: ENOXAPARIN 40 MG/0.4 ML SYR SUBQ SCH (09:26)
--- NOTE | 2017-04-10 09:30 | NUR ---
ADMINISTERED SCHEDULED MEDICATIONS. PT WAS GIVEN NORCO 5/325 MG PO FOR ABD PAIN. WILL REASSESS PAIN IN ONE HR. PT'S NEEDS MET AT THIS TIME. WILL CONTINUE TO MONITOR.
--- NOTE | 2017-04-10 11:00 | NUR ---
PT HAS BEEN DISCHARGED. PT DENIES PAIN. PT DISCHARGE INSTRUCTIONS AND PRESCRIPTIONS WERE GIVEN. ALL PAPERWORK SIGNED. ALL QUESTIONS ANSWERED. ALL BELONGINGS AND PRESCRIPTIONS IN PATIENTS POSSESSION. OFFERED PT WHEELCHAIR HOWEVER PT PREFERRED TO AMB OFF UNIT. PT AMB OFF UNIT WITH STEADY GAIT AND IN STABLE CONDITION. PT'S HUSBANDS WAITING OUTSIDE OF LOBBY.
== END 2017-04-10 11:00 | disposition home or self-care (01) | DRG 282 ==
LOC: MED 07:40 → MTU 09:41 → OBSVTOIN 04-09 22:21
PROVIDERS: ADMIT Hospitalist; ATTEND Hospitalist
DX: K85.90 Acute pancreatitis without necrosis or infection, unspecified (principal); N39.0 Urinary tract infection, site not specified; F41.9 Anxiety disorder, unspecified; F43.10 Post-traumatic stress disorder, unspecified; K86.1 Other chronic pancreatitis; K21.9 Gastro-esophageal reflux disease without esophagitis; E11.9 Type 2 diabetes mellitus without complications; Z88.6 Allergy status to analgesic agent; Z79.899 Other long term (current) drug therapy; Z90.49 Acquired absence of other specified parts of digestive tract
CPT/HCPCS: 96361; 96365; 96375; 99218; 99285; G0378; 36415; 71010; 80053; 80076; 81001; 81025; 83690; 83735; 84100; 85025; 87040; 87081; 87086; J0696; J0780; J1650; J2060; J2270; J2405; J7030; J7042; J7060; Q0092

== ENCOUNTER 2017-04-23 07:52 | Emergency (ER) | payer OTHER ==
[~2017-04-23] VITALS: Ht 160 cm; Wt 86.2 kg
[~2017-04-23 07:52] MED LIST changes: +ACET-1182 PO; +ACET-9525 PO
[2017-04-23 07:57] VITALS: BP 152/74
[2017-04-23] MEDS ORDERED: NACL 0.9% 1,000 ML IV ONE (08:11)
[2017-04-23] MEDS ORDERED: ONDANSETRON 4 MG/2 ML VIAL IVP ONE (08:15)
[2017-04-23] MEDS ORDERED: PROMETHAZINE 25 MG/ML VIAL IVP ONE (08:15)
[2017-04-23] MEDS ORDERED: HYDROmorphone PFS 2 MG/ML SYR IVP ONE (08:15)
[2017-04-23] MEDS ORDERED: FAMOTIDINE 20 MG/2 ML VIAL IVP ONE (08:25)
[2017-04-23] MEDS ORDERED: METOCLOPRAMIDE 10 MG/2 ML INJ VIAL IVP ONE (08:25)
[2017-04-23] MEDS ORDERED: GLYCOPYRROLATE 0.2 MG/ML VIAL IV ONE (08:25)
[2017-04-23 09:06] LABS: ANION GAP 13.3 (8-16); BASOPHILS # (AUTO) 0.1 K/uL (0.00-0.22); BASOPHILS % (AUTO) 2.9 % (0.0-2.0); CARBON DIOXIDE 27.5 mmol/L (21-32); CREATININE 0.8 mg/dL (0.6-1.3); EOSINOPHILS # (AUTO) 0.1 K/uL (0-0.4); EOSINOPHILS % (AUTO) 1.4 % (0.0-4.0); HEMATOCRIT 39.2 % (36-48); HEMOGLOBIN 13.5 g/dL (12.0-16.0); LYMPHOCYTES # (AUTO) 0.8 K/uL (2.5-16.5); LYMPHOCYTES % (AUTO) 17.1 % (20.5-51.1); MEAN CORPUSCULAR HEMOGLOBIN 29 pg (27-31); MEAN CORPUSCULAR HGB CONC 34 g/dL (33-37); MEAN CORPUSCULAR VOLUME 83 fL (80-94); MONOCYTES # (AUTO) 0.2 K/uL (0.8-1.0); MONOCYTES % (AUTO) 4.1 % (1.7-9.3); NEUTROPHILS # (AUTO) 3.5 K/uL (1.8-7.7); NEUTROPHILS % (AUTO) 74.5 % (42.2-75.2); PLATELET COUNT (AUTO) 248 K/uL (140-450); POTASSIUM 3.8 mmol/L (3.5-5.1); RED BLOOD CELL COUNT(AUTO) 4.74 MIL/uL (4.20-5.40); RED CELL DISTRIBUTION WIDTH 11.8 % (11.6-13.7); WHITE BLOOD COUNT (AUTO) 4.8 K/uL (4.8-10.8)
[2017-04-23 09:07] LABS: APPEARANCE,URINE HAZY (CLEAR); BILIRUBIN,URINE NEGATIVE (NEGATIVE); BLOOD, URINE NEGATIVE (NEGATIVE); COLOR,URINE YELLOW (YELLOW); LEUKOCYTE ESTERASE ,URINE NEGATIVE (NEGATIVE); NITRITE, URINE NEGATIVE (NEGATIVE); UGLUCOSE NEGATIVE (NEGATIVE)
[2017-04-23 09:12] LABS: ALBUMIN 4.6 g/dL (3.4-5.0); TOTAL BILIRUBIN 0.5 mg/dL (0.0-1.0)
[2017-04-23 09:24] LABS: RBC,URINE 0-5 (RARE) /HPF (0-5); WBC,URINE 0-5 (RARE) /HPF (0-5)
[2017-04-23] MEDS ORDERED: HYDROmorphone 1 MG/ML AMP IVP ONE (10:50)
[2017-04-23 11:14] LABS: BARBITURATE, URINE NEG. ng/ml (NEG <=200); BENZODIAZEPINE, URINE POS. ng/mL (NEG <=200); CANNABINOID, URINE POS. ng/mL (NEG <=50); COCAINE, URINE NEG. ng/mL (NEG <=300); OPIATE, URINE NEG. ng/mL (NEG <=2000); PHENCYCLIDINE SCREEN,URINE NEG. ng/mL (NEG <=25)
[2017-04-23] MEDS ORDERED: HYDROmorphone PFS 2 MG/ML SYR ONE (11:16)
[2017-04-23 11:49] VITALS: BP 131/71
== END 2017-04-23 11:49 | disposition home or self-care (01) ==
LOC: MED 07:52
DX: G43.A0 Cyclical vomiting, in migraine, not intractable (principal); R10.9 Unspecified abdominal pain; E86.0 Dehydration; Z88.6 Allergy status to analgesic agent
CPT/HCPCS: 36415; 76705; 80053; 80305; 81001; 81025; 82150; 83690; 84703; 85025; 96361; 96374; 96375; 96376; 99285; J1170; J2405; J2550; J2765; J3490; J7030; Q0092

== ENCOUNTER 2017-05-02 07:45 | Emergency (ER) | payer OTHER ==
[~2017-05-02] VITALS: Ht 160 cm; Wt 83.6 kg
[2017-05-02 07:49] VITALS: BP 157/89
--- NOTE | 2017-05-02 07:56 | NUR ---
Pt to bed 11.
--- NOTE | 2017-05-02 08:00 | NUR ---
31/F PRESENT TO ER C/O 03/04 "SHARP" NON RADIATING CONSTANT RIGHT UPPER ABDOMINAL PAIN x 3 DAYS. PT HAS N/V BUT DENIES DIARRHEA OR CONSTIPATION. DENIES ANY URINARY COMPLAINTS BUT STS "BEIGE" VAGINAL DISCHARGE. PT ALSO STS BL FLANK PAIN WHEN VOMITTING, PT STS "I MIGHT HAVE PULLED A MUSCLE VOMITTING SO MUCH"; PT IS AOX4, WITH STEADY GAIT; RR ARE EVEN AND UNLABORED; ER MD AWARE OF PT STATUS; NAD; WILL CONTINUE TO MONITOR.
[2017-05-02] MEDS ORDERED: NACL 0.9% 1,000 ML IV ONE (08:05)
[2017-05-02] MEDS ORDERED: ONDANSETRON 4 MG/2 ML VIAL IVP ONE (08:05)
[2017-05-02 08:37] LABS: BASOPHILS # (AUTO) 0.1 K/uL (0.00-0.22); BASOPHILS % (AUTO) 1.5 % (0.0-2.0); EOSINOPHILS # (AUTO) 0.1 K/uL (0-0.4); EOSINOPHILS % (AUTO) 1.8 % (0.0-4.0); HEMATOCRIT 40.2 % (36-48); HEMOGLOBIN 13.3 g/dL (12.0-16.0); LYMPHOCYTES # (AUTO) 1.1 K/uL (2.5-16.5); LYMPHOCYTES % (AUTO) 19.3 % (20.5-51.1); MEAN CORPUSCULAR HEMOGLOBIN 28 pg (27-31); MEAN CORPUSCULAR HGB CONC 33 g/dL (33-37); MEAN CORPUSCULAR VOLUME 84 fL (80-94); MONOCYTES # (AUTO) 0.2 K/uL (0.8-1.0); MONOCYTES % (AUTO) 3.7 % (1.7-9.3); NEUTROPHILS # (AUTO) 4.3 K/uL (1.8-7.7); NEUTROPHILS % (AUTO) 73.7 % (42.2-75.2); PLATELET COUNT (AUTO) 247 K/uL (140-450); WHITE BLOOD COUNT (AUTO) 5.8 K/uL (4.8-10.8)
--- NOTE | 2017-05-02 08:49 | NUR ---
Dr. Weber evaluating patient at bedside.
[2017-05-02] MEDS ORDERED: MORPHINE SULFATE 4 MG/ML SYR IVP ONE (08:55)
[2017-05-02 08:57] LABS: ANION GAP 11.2 (8-16); CARBON DIOXIDE 28.7 mmol/L (21-32); CREATININE 0.8 mg/dL (0.6-1.3); POTASSIUM 3.9 mmol/L (3.5-5.1)
[2017-05-02 09:02] LABS: ALBUMIN 4.3 g/dL (3.4-5.0); TOTAL BILIRUBIN 0.4 mg/dL (0.0-1.0)
--- NOTE | 2017-05-02 09:46 | NUR ---
Patient discharged with v/s stable. Written and verbal after care instructions given and explained. Patient verbalized understanding. Ambulatory with steady gait. Pt states that family will be providing transporation home. All questions addressed prior to discharge. Advised to follow up with PMD.
[2017-05-02 09:47] VITALS: BP 113/71
== END 2017-05-02 09:46 | disposition home or self-care (01) ==
LOC: MED 07:45
DX: R10.13 Epigastric pain (principal); R11.2 Nausea with vomiting, unspecified; Z88.6 Allergy status to analgesic agent; Z90.89 Acquired absence of other organs
CPT/HCPCS: 36415; 80053; 81002; 81025; 83690; 85025; 96361; 96374; 96375; 99284; J2270; J2405; J7030

== ENCOUNTER 2017-05-16 07:17 | Emergency (ER) | payer OTHER ==
[~2017-05-16] VITALS: Ht 160 cm; Wt 81.6 kg
[2017-05-16 07:30] VITALS: BP 132/71
--- NOTE | 2017-05-16 07:33 | NUR ---
PT AMBULATED TO ER BED 1.
--- NOTE | 2017-05-16 07:45 | NUR ---
31/F BIB C/O ABDOMINAL PAIN & MID UPPER CHEST x 4 DAYS. PT STATES SHE HAS N/V/D. HX: PANCREATITIS, PTSD.MEDS: ODT ZOFRAN 8MG, LEXAPRO 5MG.SKIN IS PINK/WARM/DRY; AAOX4 WITH EVEN AND STEADY GAIT; LUNGS CLEAR BL; PT DENIES ANY FEVER, CP, SOB, OR COUGH AT THIS TIME; PATIENT STATES PAIN OF 10/10 AT THIS TIME; PATIENT POSITIONED FOR COMFORT; HOB ELEVATED; BEDRAILS UP X2; BED DOWN. ER MD MADE AWARE OF PT STATUS.
[2017-05-16] MEDS ORDERED: NACL 0.9% 500 ML IV ONE (08:08)
[2017-05-16] MEDS ORDERED: MORPHINE SULFATE 2 MG/ML SYR IVP ONE (08:10)
[2017-05-16] MEDS ORDERED: ONDANSETRON 4 MG/2 ML VIAL IVP ONE (08:10)
--- NOTE | 2017-05-16 08:11 | NUR ---
LAB AT BEDSIDE.
[2017-05-16 08:21] LABS: BASOPHILS # (AUTO) 0.2 K/uL (0.00-0.22); EOSINOPHILS # (AUTO) 0.1 K/uL (0-0.4); EOSINOPHILS % (AUTO) 1.4 % (0.0-4.0); HEMATOCRIT 36.2 % (36-48); HEMOGLOBIN 12.3 g/dL (12.0-16.0); LYMPHOCYTES # (AUTO) 0.7 K/uL (2.5-16.5); LYMPHOCYTES % (AUTO) 15.3 % (20.5-51.1); MEAN CORPUSCULAR HEMOGLOBIN 28 pg (27-31); MEAN CORPUSCULAR HGB CONC 34 g/dL (33-37); MEAN CORPUSCULAR VOLUME 82 fL (80-94); MONOCYTES # (AUTO) 0.3 K/uL (0.8-1.0); MONOCYTES % (AUTO) 6.7 % (1.7-9.3); NEUTROPHILS % (AUTO) 72.6 % (42.2-75.2); PLATELET COUNT (AUTO) 236 K/uL (140-450); RED BLOOD CELL COUNT(AUTO) 4.39 MIL/uL (4.20-5.40); RED CELL DISTRIBUTION WIDTH 12.1 % (11.6-13.7); WHITE BLOOD COUNT (AUTO) 4.3 K/uL (4.8-10.8)
[2017-05-16 08:40] LABS: ANION GAP 11.2 (8-16); CARBON DIOXIDE 28.3 mmol/L (21-32); CREATININE 0.8 mg/dL (0.6-1.3); POTASSIUM 3.5 mmol/L (3.5-5.1)
[2017-05-16 08:46] LABS: TOTAL BILIRUBIN 0.6 mg/dL (0.0-1.0)
--- NOTE | 2017-05-16 08:59 | NUR ---
Patient being evaluated by DR SAEZ at bedside.
[2017-05-16 09:08] VITALS: BP 108/69
--- NOTE | 2017-05-16 09:08 | NUR ---
Patient discharged with v/s stable. Written and verbal after care instructions given and explained. Patient alert, oriented and verbalized understanding of instructions. Ambulatory with steady gait. All questions addressed prior to discharge. ID band removed. Patient advised to follow up with PMD. Rx of ZOFRAN & TRAMADOL given. Patient educated on indication of medication including possible reaction and side effects. Opportunity to ask questions provided and answered.
== END 2017-05-16 09:08 | disposition home or self-care (01) ==
LOC: MED 07:17
DX: R10.13 Epigastric pain (principal); R03.0 Elevated blood-pressure reading, without diagnosis of hypertension; Z88.6 Allergy status to analgesic agent; Z90.89 Acquired absence of other organs
CPT/HCPCS: 36415; 80053; 81002; 81025; 83690; 85025; 96374; 96375; 99284; J2270; J2405; J7030

== ENCOUNTER 2017-05-20 06:25 | Emergency (ER) | payer OTHER ==
[~2017-05-20] VITALS: Ht 160 cm; Wt 83.5 kg
[2017-05-20 06:30] VITALS: BP 129/67
--- NOTE | 2017-05-20 06:40 | NUR ---
PT. AMBULATES TO ER BED 1
--- NOTE | 2017-05-20 06:47 | NUR ---
31Y/F PT. PRESENTS TO ED WITH C/O LT. FLANK PAIN X 5 DAYS. PT. WAS SEEN BY ER MD ON 05/16/17, TRAMADOL PRESCRIBED, PAIN NOT RELIEF. HX. PANCREATITIS, PTSD. AAO X4, AMBULATORY WITH STEADY GAIT. RESPIRATIONS ON ROOM AIR, EVEN AND UNLABORED. ABDOMEN SOFT, NON TENDER, ACTIVE BS X4. C/O LT. FLANK PAIN 03/04, VSS, ER MD MADE AWARE OF PT. STATUS.
[2017-05-20] MEDS ORDERED: MORPHINE SULFATE 4 MG/ML SYR IVP ONE (06:50)
[2017-05-20] MEDS ORDERED: NACL 0.9% 1,000 ML IV ONE (06:50)
[2017-05-20] MEDS ORDERED: MORPHINE SULFATE 2 MG/ML SYR ONE (07:01)
[2017-05-20 07:03] LABS: BASOPHILS # (AUTO) 0.1 K/uL (0.00-0.22); EOSINOPHILS # (AUTO) 0.2 K/uL (0-0.4); EOSINOPHILS % (AUTO) 3.8 % (0.0-4.0); HEMATOCRIT 34.5 % (36-48); HEMOGLOBIN 11.6 g/dL (12.0-16.0); LYMPHOCYTES % (AUTO) 22.6 % (20.5-51.1); MEAN CORPUSCULAR HEMOGLOBIN 28 pg (27-31); MEAN CORPUSCULAR HGB CONC 34 g/dL (33-37); MEAN CORPUSCULAR VOLUME 82 fL (80-94); MONOCYTES # (AUTO) 0.2 K/uL (0.8-1.0); MONOCYTES % (AUTO) 5.6 % (1.7-9.3); NEUTROPHILS # (AUTO) 2.7 K/uL (1.8-7.7); PLATELET COUNT (AUTO) 214 K/uL (140-450); RED BLOOD CELL COUNT(AUTO) 4.22 MIL/uL (4.20-5.40); RED CELL DISTRIBUTION WIDTH 12.3 % (11.6-13.7); WHITE BLOOD COUNT (AUTO) 4.2 K/uL (4.8-10.8)
[2017-05-20 07:04] LABS: APPEARANCE,URINE CLOUDY (CLEAR); BILIRUBIN,URINE NEGATIVE (NEGATIVE); BLOOD, URINE TRACE-I (NEGATIVE); COLOR,URINE YELLOW (YELLOW); LEUKOCYTE ESTERASE ,URINE NEGATIVE (NEGATIVE); NITRITE, URINE NEGATIVE (NEGATIVE); UGLUCOSE NEGATIVE (NEGATIVE)
--- NOTE | 2017-05-20 07:10 | NUR ---
Pt report given to ELO LEE. Transfer of care at this time.
[2017-05-20] MEDS ORDERED: cefTRIAXone 1,000 MG VIAL ONE (07:14)
--- NOTE | 2017-05-20 07:28 | NUR ---
PT TAKEN OFF THE UNIT FOR CT VIA GURNEY BY INSULATION MACHINE OPERATOR TAYLA
[2017-05-20 07:34] LABS: RBC,URINE 0-5 (RARE) /HPF (0-5)
[2017-05-20 07:35] LABS: URIC ACID CRYSTALS,URINE 0-10 /HPF (None Seen); WBC,URINE 0-5 (RARE) /HPF (0-5)
[2017-05-20 07:35] LABS: ALBUMIN 3.7 g/dL (3.4-5.0); ANION GAP 11.5 (8-16); CARBON DIOXIDE 26.3 mmol/L (21-32); CREATININE 0.7 mg/dL (0.6-1.3); POTASSIUM 3.8 mmol/L (3.5-5.1); TOTAL BILIRUBIN 0.3 mg/dL (0.0-1.0)
--- NOTE | 2017-05-20 07:42 | NUR ---
AAO PT AMBULATES TO THE RESTROOM
[2017-05-20 09:17] VITALS: BP 119/65
--- NOTE | 2017-05-20 09:17 | NUR ---
Patient discharged with v/s stable. Written and verbal after care instructions given and explained. Patient alert, oriented and verbalized understanding of instructions. Ambulatory with steady gait. All questions addressed prior to discharge. ID band removed. Patient advised to follow up with PMD. Rx of TYLENOL, CIPRO given. Patient educated on indication of medication including possible reaction and side effects. Opportunity to ask questions provided and answered.
== END 2017-05-20 09:17 | disposition home or self-care (01) ==
LOC: MED 06:25
DX: N39.0 Urinary tract infection, site not specified (principal)
CPT/HCPCS: 36415; 74176; 80053; 81001; 81025; 82150; 83690; 85025; 96365; 96375; 99285; J0696; J2270; J7030

== ENCOUNTER 2017-05-25 03:50 | Emergency (ER) | payer OTHER ==
[~2017-05-25] VITALS: Ht 160 cm; Wt 83.9 kg
[2017-05-25 03:51] VITALS: BP 124/65
--- NOTE | 2017-05-25 03:58 | NUR ---
to lobby amb, vs stable, a/w for a bed, jluis noted.
--- NOTE | 2017-05-25 05:15 | NUR ---
PT. AMBULATED TO ED OF 1
--- NOTE | 2017-05-25 05:22 | NUR ---
31Y/F PT. PRESENST TO ED WITH C/O ABDOMINAL PAIN X 2 WKS. PT. WAS SEEN BY ER MD 1 WK AGO WITH DIAGNOSED KIDNEY INFECTION, STILL ON ATB. HX. PTSD, ANXIETY. AAO X4, AMBULATORY WITH STEADY GAIT. RESPIRATIONS ROOM AIR, EVEN AND UNLABLORED. ABDOMEN SOFT, NON TENDER, C/O PAIN 9/10. VSS, ER MD MADE AWARE OF PT. STATUS.
[2017-05-25] MEDS ORDERED: NACL 0.9% 1,000 ML IV ONE (05:35)
[2017-05-25] MEDS ORDERED: ONDANSETRON 4 MG/2 ML VIAL IVP ONE (05:35)
[2017-05-25] MEDS ORDERED: MORPHINE SULFATE 4 MG/ML SYR IVP ONE (05:35)
[2017-05-25 06:31] LABS: ANION GAP 12.7 (8-16); CARBON DIOXIDE 26.9 mmol/L (21-32); CREATININE 0.7 mg/dL (0.6-1.3); POTASSIUM 3.6 mmol/L (3.5-5.1); TOTAL BILIRUBIN 0.3 mg/dL (0.0-1.0)
[2017-05-25 07:05] LABS: BASOPHILS # (AUTO) 0.1 K/uL (0.00-0.22); BASOPHILS % (AUTO) 0.4 % (0.0-2.0); EOSINOPHILS # (AUTO) 0.1 K/uL (0-0.4); EOSINOPHILS % (AUTO) 0.7 % (0.0-4.0); HEMATOCRIT 35.5 % (36-48); HEMOGLOBIN 11.9 g/dL (12.0-16.0); LYMPHOCYTES # (AUTO) 1.3 K/uL (2.5-16.5); MEAN CORPUSCULAR HEMOGLOBIN 27 pg (27-31); MEAN CORPUSCULAR HGB CONC 33 g/dL (33-37); MEAN CORPUSCULAR VOLUME 82 fL (80-94); MONOCYTES # (AUTO) 0.6 K/uL (0.8-1.0); MONOCYTES % (AUTO) 4.9 % (1.7-9.3); NEUTROPHILS # (AUTO) 10.7 K/uL (1.8-7.7); PLATELET COUNT (AUTO) 216 K/uL (140-450); RED BLOOD CELL COUNT(AUTO) 4.32 MIL/uL (4.20-5.40); RED CELL DISTRIBUTION WIDTH 12.4 % (11.6-13.7); WHITE BLOOD COUNT (AUTO) 12.8 K/uL (4.8-10.8)
--- NOTE | 2017-05-25 07:16 | NUR ---
REPORT GIVEN TO ELO LEE.
--- NOTE | 2017-05-25 07:50 | NUR ---
PT TRANSFERED PT TO BED 11;
--- NOTE | 2017-05-25 07:51 | NUR ---
PT RESTING COMFORTABLY ON BED;NO ACUTE DISTRESS NOTED;WILL CONTINUE TO MONITOR PT.
[2017-05-25 09:21] VITALS: BP 117/57
[2017-05-25 09:28] LABS: APPEARANCE,URINE TURBID (CLEAR); BILIRUBIN,URINE NEGATIVE (NEGATIVE); BLOOD, URINE NEGATIVE (NEGATIVE); COLOR,URINE YELLOW (YELLOW); LEUKOCYTE ESTERASE ,URINE NEGATIVE (NEGATIVE); NITRITE, URINE NEGATIVE (NEGATIVE); UGLUCOSE NEGATIVE (NEGATIVE)
[2017-06-24] MEDS ORDERED: TRAM50TA1 PO (07:40)
== END 2017-05-25 09:21 | disposition home or self-care (01) ==
LOC: MED 03:50
DX: A08.4 Viral intestinal infection, unspecified (principal); F41.9 Anxiety disorder, unspecified; Z88.6 Allergy status to analgesic agent
CPT/HCPCS: 36415; 74176; 80053; 81003; 81025; 82150; 83690; 85025; 96361; 96374; 96375; 99285; J2270; J2405

== ENCOUNTER 2017-05-30 06:00 | Emergency (ER) | payer OTHER ==
[~2017-05-30] VITALS: Ht 160 cm; Wt 85.7 kg
[2017-05-30 06:04] VITALS: BP 120/73
--- NOTE | 2017-05-30 06:15 | NUR ---
31/F CAME IN W C/O VOMITING, DIARRHEA AND UPPER ABD PAIN X 4 DAYS. ABD SOFT, ROUND, +TENDERNESS TO UPPER ABDOMEN. DENIES HEMATEMESIS, REPORTS LOOSE STOOLS X 4 DAYS. PMH: CHOLECYSTECTOMY, KIDNEY INFECTION, PANCREATITIS
[2017-05-30] MEDS ORDERED: NACL 0.9% 500 ML IV ONE (06:27)
[2017-05-30] MEDS ORDERED: fentaNYL 0.05 MG/ML VIAL IVP ONE (06:30)
[2017-05-30] MEDS ORDERED: ONDANSETRON 4 MG/2 ML VIAL IVP ONE (06:30)
--- NOTE | 2017-05-30 06:50 | NUR ---
IV ESTABLISHED. BLOOD DRAW ATTEMPTED X2 UNSUCCESFUL. TECHNOLOGY INTERNS[employer]IP UNABLE TO COME TO ER AT THIS TIME. ENDORSED TO RN AM SHIFT
--- NOTE | 2017-05-30 07:10 | NUR ---
PT TAKEN TO CT
--- NOTE | 2017-05-30 07:22 | NUR ---
Pt report given to MEL GASCA. Transfer of care at this time.
--- NOTE | 2017-05-30 07:24 | NUR ---
REPORT RECEIVED, PT BACK FROM CT SCAN, FACIAL GRIMACING NOTED. PT REPORTS MID EPIGASTRIC PAIN 7/10 AT THIS TIME. STATES THE MED HELPED HER BUT PAIN IS BACK AGAIN. BLOOD HAS STILL NOT BEEN COLLECTED AND LAB UNDERSTAFFED AT THIS TIME. VSS, IV FLUIDS INFUSING, NO VOMITTING OR NAUSEA THIS TIME. RESP EVENA ND UNLABORED, ONRA@99%.
--- NOTE | 2017-05-30 07:59 | NUR ---
IV SL#20 TO RT AC, BLOOD DRAWN AND SENT TO LAB. ER MD INFORMED THAT PT REPORTS PAIN, NO ORDERS RECEIVED.
[2017-05-30 08:11] LABS: BASOPHILS # (AUTO) 0.2 K/uL (0.00-0.22); BASOPHILS % (AUTO) 4.6 % (0.0-2.0); EOSINOPHILS # (AUTO) 0.1 K/uL (0-0.4); HEMATOCRIT 34.6 % (36-48); HEMOGLOBIN 11.5 g/dL (12.0-16.0); LYMPHOCYTES # (AUTO) 1.1 K/uL (2.5-16.5); MEAN CORPUSCULAR HEMOGLOBIN 27 pg (27-31); MEAN CORPUSCULAR HGB CONC 33 g/dL (33-37); MEAN CORPUSCULAR VOLUME 82 fL (80-94); MONOCYTES # (AUTO) 0.4 K/uL (0.8-1.0); MONOCYTES % (AUTO) 7.9 % (1.7-9.3); NEUTROPHILS # (AUTO) 3.5 K/uL (1.8-7.7); NEUTROPHILS % (AUTO) 65.5 % (42.2-75.2); PLATELET COUNT (AUTO) 225 K/uL (140-450); RED BLOOD CELL COUNT(AUTO) 4.22 MIL/uL (4.20-5.40); RED CELL DISTRIBUTION WIDTH 12.1 % (11.6-13.7); WHITE BLOOD COUNT (AUTO) 5.3 K/uL (4.8-10.8)
[2017-05-30 09:53] LABS: ANION GAP 9.4 (8-16); CARBON DIOXIDE 29.1 mmol/L (21-32); CREATININE 0.7 mg/dL (0.6-1.3); POTASSIUM 3.5 mmol/L (3.5-5.1)
[2017-05-30 09:54] LABS: ALBUMIN 4.1 g/dL (3.4-5.0); TOTAL BILIRUBIN 0.3 mg/dL (0.0-1.0)
[2017-05-30] MEDS ORDERED: HYDROmorphone PFS 2 MG/ML SYR IM ONE (09:55)
[2017-05-30 11:00] VITALS: BP 120/69
--- NOTE | 2017-05-30 11:00 | NUR ---
Patient discharged with v/s stable. Written and verbal after care instructions given and explained. Patient alert, oriented and verbalized understanding of instructions. Ambulatory with steady gait. All questions addressed prior to discharge. ID band removed. Patient advised to follow up with PMD. Rx of prilosec,tramadol,levsin sl given. Patient educated on indication of medication including possible reaction and side effects. Opportunity to ask questions provided and answered.
== END 2017-05-30 11:00 | disposition home or self-care (01) ==
LOC: MED 06:00
DX: K86.1 Other chronic pancreatitis (principal); Z79.899 Other long term (current) drug therapy; Z88.8 Allergy status to other drugs, medicaments and biological substances; Z90.49 Acquired absence of other specified parts of digestive tract
CPT/HCPCS: 36415; 74176; 80053; 81025; 82150; 83690; 85025; 96361; 96374; 96375; 99285; J1170; J2405; J3010

== ENCOUNTER 2017-06-07 06:23 | Emergency (ER) | payer OTHER ==
[~2017-06-07] VITALS: Ht 160 cm; Wt 83.0 kg
[2017-06-07 06:27] VITALS: BP 129/74
[2017-06-07] MEDS ORDERED: NACL 0.9% 500 ML IV ONE (06:27)
[2017-06-07] MEDS ORDERED: fentaNYL 0.05 MG/ML VIAL IVP ONE (06:30)
[2017-06-07] MEDS ORDERED: ONDANSETRON 4 MG/2 ML VIAL IVP ONE (06:30)
[2017-06-07 06:57] LABS: BASOPHILS # (AUTO) 0.1 K/uL (0.00-0.22); BASOPHILS % (AUTO) 1.9 % (0.0-2.0); EOSINOPHILS # (AUTO) 0.1 K/uL (0-0.4); EOSINOPHILS % (AUTO) 0.9 % (0.0-4.0); HEMATOCRIT 38.1 % (36-48); HEMOGLOBIN 12.9 g/dL (12.0-16.0); LYMPHOCYTES # (AUTO) 1.1 K/uL (2.5-16.5); LYMPHOCYTES % (AUTO) 15.7 % (20.5-51.1); MEAN CORPUSCULAR HEMOGLOBIN 27 pg (27-31); MEAN CORPUSCULAR HGB CONC 34 g/dL (33-37); MEAN CORPUSCULAR VOLUME 81 fL (80-94); MONOCYTES # (AUTO) 0.4 K/uL (0.8-1.0); NEUTROPHILS # (AUTO) 5.3 K/uL (1.8-7.7); NEUTROPHILS % (AUTO) 75.5 % (42.2-75.2); PLATELET COUNT (AUTO) 258 K/uL (140-450); RED BLOOD CELL COUNT(AUTO) 4.69 MIL/uL (4.20-5.40); RED CELL DISTRIBUTION WIDTH 12.3 % (11.6-13.7)
[2017-06-07 07:13] LABS: ANION GAP 15.1 (8-16); CARBON DIOXIDE 27.6 mmol/L (21-32); CREATININE 0.8 mg/dL (0.6-1.3); POTASSIUM 3.7 mmol/L (3.5-5.1)
[2017-06-07 07:19] LABS: ALBUMIN 4.3 g/dL (3.4-5.0); TOTAL BILIRUBIN 0.2 mg/dL (0.0-1.0)
[2017-06-07 08:06] VITALS: BP 129/74
== END 2017-06-07 06:57 | disposition home or self-care (01) ==
LOC: MED 06:23
DX: R10.12 Left upper quadrant pain (principal); Z90.49 Acquired absence of other specified parts of digestive tract; Z88.6 Allergy status to analgesic agent
CPT/HCPCS: 36415; 80053; 83690; 85025; 96361; 96374; 96375; 99284; J2405; J3010

== ENCOUNTER 2017-06-16 07:31 | Emergency (ER) | payer OTHER ==
[~2017-06-16] VITALS: Ht 160 cm; Wt 83.6 kg
[2017-06-16 07:41] VITALS: BP 133/70
--- NOTE | 2017-06-16 07:46 | NUR ---
PATIENT AMBULATED TO BED 11.
--- NOTE | 2017-06-16 07:46 | NUR ---
31/F BIB C/O MID TO LT ABDOMINAL PAIN 9/10, N/V X4D. SKIN IS PINK/WARM/DRY; AAOX4 WITH EVEN AND STEADY GAIT; LUNGS CLEAR BL; PT DENIES ANY FEVER, CP, SOB, OR COUGH AT THIS TIME; PATIENT STATES PAIN OF 9/10 AT THIS TIME; PATIENT POSITIONED FOR COMFORT; HOB ELEVATED; BEDRAILS UP X2; BED DOWN. ER MD MADE AWARE OF PT STATUS.
[2017-06-16] MEDS ORDERED: NACL 0.9% 1,000 ML IV SCH (07:47)
--- NOTE | 2017-06-16 07:47 | NUR ---
Patient being evaluated by DR SEQUEIRA at bedside.
[2017-06-16] MEDS ORDERED: ONDANSETRON 4 MG/2 ML VIAL IVP ONE (07:50)
[2017-06-16] MEDS ORDERED: MORPHINE SULFATE 4 MG/ML SYR IVP ONE (07:50)
[2017-06-16 08:24] LABS: BASOPHILS # (AUTO) 0.1 K/uL (0.00-0.22); BASOPHILS % (AUTO) 1.9 % (0.0-2.0); EOSINOPHILS # (AUTO) 0.1 K/uL (0-0.4); HEMATOCRIT 36.8 % (36-48); HEMOGLOBIN 12.4 g/dL (12.0-16.0); LYMPHOCYTES # (AUTO) 0.7 K/uL (2.5-16.5); LYMPHOCYTES % (AUTO) 10.1 % (20.5-51.1); MEAN CORPUSCULAR HEMOGLOBIN 27 pg (27-31); MEAN CORPUSCULAR HGB CONC 34 g/dL (33-37); MEAN CORPUSCULAR VOLUME 80 fL (80-94); MONOCYTES # (AUTO) 0.2 K/uL (0.8-1.0); MONOCYTES % (AUTO) 2.5 % (1.7-9.3); NEUTROPHILS # (AUTO) 5.7 K/uL (1.8-7.7); NEUTROPHILS % (AUTO) 84.5 % (42.2-75.2); PLATELET COUNT (AUTO) 262 K/uL (140-450); RED BLOOD CELL COUNT(AUTO) 4.58 MIL/uL (4.20-5.40); RED CELL DISTRIBUTION WIDTH 12.2 % (11.6-13.7); WHITE BLOOD COUNT (AUTO) 6.8 K/uL (4.8-10.8)
[2017-06-16 08:36] LABS: APPEARANCE,URINE HAZY (CLEAR); BILIRUBIN,URINE NEGATIVE (NEGATIVE); BLOOD, URINE NEGATIVE (NEGATIVE); COLOR,URINE YELLOW (YELLOW); LEUKOCYTE ESTERASE ,URINE NEGATIVE (NEGATIVE); NITRITE, URINE POSITIVE (NEGATIVE); UGLUCOSE NEGATIVE (NEGATIVE)
[2017-06-16 08:50] LABS: RBC,URINE 0-5 (RARE) /HPF (0-5); WBC,URINE 0-5 (RARE) /HPF (0-5)
[2017-06-16 08:52] LABS: ANION GAP 11.3 (8-16); CARBON DIOXIDE 29.1 mmol/L (21-32); CREATININE 0.8 mg/dL (0.6-1.3); POTASSIUM 4.4 mmol/L (3.5-5.1); TOTAL BILIRUBIN 0.2 mg/dL (0.0-1.0)
--- NOTE | 2017-06-16 09:11 | NUR ---
PT BACK FROM CT,ACCOMPANIED BY
[2017-06-16] MEDS ORDERED: MORPHINE SULFATE 2 MG/ML SYR IVP ONE (09:45)
[2017-06-16 10:08] VITALS: BP 108/62
--- NOTE | 2017-06-16 10:08 | NUR ---
Patient discharged with v/s stable. Written and verbal after care instructions given and explained. Patient alert, oriented and verbalized understanding of instructions. Ambulatory with steady gait. All questions addressed prior to discharge. ID band removed. Patient advised to follow up with PMD. Rx of ZOFRAN, TRAMADOL & MACROBID given. Patient educated on indication of medication including possible reaction and side effects. Opportunity to ask questions provided and answered.
== END 2017-06-16 10:08 | disposition home or self-care (01) ==
LOC: MED 07:31
DX: N39.0 Urinary tract infection, site not specified (principal); Z90.49 Acquired absence of other specified parts of digestive tract; Z88.6 Allergy status to analgesic agent
CPT/HCPCS: 36415; 74177; 80053; 81001; 81025; 82150; 83690; 84703; 85025; 87086; 96361; 96374; 96375; 96376; 99285; J2270; J2405; J7030; Q9967

== ENCOUNTER 2017-07-13 02:30 | Emergency (ER) | payer OTHER ==
[~2017-07-13] VITALS: Ht 160 cm; Wt 83.9 kg
[~2017-07-13 02:30] MED LIST changes: -ACET-1182 PO; -ACET-9525 PO; +TRAM50TA1 PO
[2017-07-13 02:36] VITALS: BP 137/80
--- NOTE | 2017-07-13 02:41 | NUR ---
TO ER BED 10
[2017-07-13 02:45] VITALS: BP 137/80
[2017-07-13 03:06] LABS: BASOPHILS # (AUTO) 0.2 K/uL (0.00-0.22); EOSINOPHILS # (AUTO) 0.1 K/uL (0-0.4); EOSINOPHILS % (AUTO) 1.8 % (0.0-4.0); HEMATOCRIT 34.3 % (36-48); HEMOGLOBIN 11.5 g/dL (12.0-16.0); LYMPHOCYTES % (AUTO) 36.3 % (20.5-51.1); MEAN CORPUSCULAR HEMOGLOBIN 27 pg (27-31); MEAN CORPUSCULAR HGB CONC 34 g/dL (33-37); MEAN CORPUSCULAR VOLUME 80 fL (80-94); MONOCYTES # (AUTO) 0.4 K/uL (0.8-1.0); MONOCYTES % (AUTO) 7.5 % (1.7-9.3); NEUTROPHILS # (AUTO) 2.7 K/uL (1.8-7.7); NEUTROPHILS % (AUTO) 50.4 % (42.2-75.2); PLATELET COUNT (AUTO) 195 K/uL (140-450); RED CELL DISTRIBUTION WIDTH 12.7 % (11.6-13.7); WHITE BLOOD COUNT (AUTO) 5.4 K/uL (4.8-10.8)
--- NOTE | 2017-07-13 03:11 | NUR ---
PATIENT PRESENTS TO ED WITH C/O ABD PAIN . PT SKIN IS PINK/WARM/DRY; AAOX4 WITH EVEN AND STEADY GAIT; LUNGS CLEAR BL; HR EVEN AND REGULAR; PT DENIES ANY FEVER, CP, SOB, OR COUGH AT THIS TIME; PATIENT STATES PAIN OF 10/10 AT THIS TIME; VSS; PATIENT POSITIONED FOR COMFORT; HOB ELEVATED; BEDRAILS UP X2; BED DOWN. ER MD MADE AWARE OF PT STATUS.
[2017-07-13 03:21] LABS: ANION GAP 11.9 (8-16); CARBON DIOXIDE 28.7 mmol/L (21-32); CREATININE 0.7 mg/dL (0.6-1.3); POTASSIUM 3.6 mmol/L (3.5-5.1)
[2017-07-13 03:28] LABS: ALBUMIN 3.5 g/dL (3.4-5.0); TOTAL BILIRUBIN 0.1 mg/dL (0.0-1.0)
[2017-07-13] MEDS ORDERED: MORPHINE SULFATE 4 MG/ML SYR IM ONE (03:30)
== END 2017-07-13 04:00 | disposition home or self-care (01) ==
LOC: MED 02:30
DX: R10.9 Unspecified abdominal pain (principal); Z72.89 Other problems related to lifestyle; D64.9 Anemia, unspecified; Z88.6 Allergy status to analgesic agent
CPT/HCPCS: 36415; 80053; 83690; 85025; 96372; 99284; J2270; 81002; 81025

== ENCOUNTER 2017-08-01 07:32 | Emergency (ER) | payer OTHER ==
[~2017-08-01] VITALS: Ht 157.5 cm; Wt 83.5 kg
[2017-08-01 07:38] VITALS: BP 155/82
--- NOTE | 2017-08-01 07:38 | NUR ---
PT AMBULATED TO BED 11
[2017-08-01] MEDS ORDERED: NACL 0.9% 1,000 ML IV SCH (07:49)
[2017-08-01] MEDS ORDERED: diphenhydrAMINE 50 MG/ML VIAL IVP ONE (07:50)
[2017-08-01] MEDS ORDERED: PROCHLORPERAZINE 10 MG/2 ML VIAL IVP ONE (07:50)
[2017-08-01] MEDS ORDERED: HYDROmorphone PFS 2 MG/ML SYR IVP ONE (07:50)
--- NOTE | 2017-08-01 08:02 | NUR ---
C/O ABDOMINAL PAIN, NVD X 3 DAYS; D/C FROM [place] 4 DAYS AGO FOR PANCREATITIS ABD SOFT, LARGE, TENDER TO TOUCH. DENIES FEVERS/CHILLS, DENIES DYSURIA. HX; PANCREATITIS, CHOLECYSTECTOMY.
[2017-08-01 08:25] LABS: HEMATOCRIT 37.9 % (36-48); HEMOGLOBIN 12.4 g/dL (12.0-16.0); MEAN CORPUSCULAR HEMOGLOBIN 26 pg (27-31); MEAN CORPUSCULAR HGB CONC 33 g/dL (33-37); MEAN CORPUSCULAR VOLUME 79 fL (80-94); PLATELET COUNT (AUTO) 241 K/uL (140-450); RED BLOOD CELL COUNT(AUTO) 4.79 MIL/uL (4.20-5.40); RED CELL DISTRIBUTION WIDTH 13.3 % (11.6-13.7); WHITE BLOOD COUNT (AUTO) 5.8 K/uL (4.8-10.8)
[2017-08-01 08:35] LABS: ANION GAP 14.9 (8-16); CARBON DIOXIDE 23.9 mmol/L (21-32); CREATININE 0.7 mg/dL (0.6-1.3); POTASSIUM 3.8 mmol/L (3.5-5.1)
[2017-08-01 08:41] LABS: ALBUMIN 4.1 g/dL (3.4-5.0); TOTAL BILIRUBIN 0.3 mg/dL (0.0-1.0)
--- NOTE | 2017-08-01 08:50 | NUR ---
PT TO CT SCAN
--- NOTE | 2017-08-01 08:51 | NUR ---
PT TAKEN TO CT
[2017-08-01 08:53] LABS: APPEARANCE,URINE CLEAR (CLEAR); BILIRUBIN,URINE NEGATIVE (NEGATIVE); BLOOD, URINE 1+ (NEGATIVE); COLOR,URINE YELLOW (YELLOW); LEUKOCYTE ESTERASE ,URINE 1+ (NEGATIVE); NITRITE, URINE NEGATIVE (NEGATIVE); UGLUCOSE NEGATIVE (NEGATIVE)
[2017-08-01 08:54] LABS: EOSINOPHILS % (MANUAL) 2 % (0-4); LYMPHOCYTES % (MANUAL) 24 % (20-46); MONOCYTES % (MANUAL) 4 % (5-12)
[2017-08-01 09:03] LABS: RBC,URINE 3-10 (FEW) /HPF (0-5)
[2017-08-01 10:54] VITALS: BP 132/70
--- NOTE | 2017-08-01 10:54 | NUR ---
Patient discharged with v/s stable. Written and verbal after care instructions given and explained. Patient alert, oriented and verbalized understanding of instructions. Ambulatory with steady gait. All questions addressed prior to discharge. ID band removed. Patient advised to follow up with PMD. Rx of ZOFRAN, PERCOCET AND MACRODANTIN given. Patient educated on indication of medication including possible reaction and side effects. Opportunity to ask questions provided and answered.
== END 2017-08-01 10:54 | disposition home or self-care (01) ==
LOC: MED 07:32
DX: K86.1 Other chronic pancreatitis (principal); N39.0 Urinary tract infection, site not specified; Z88.6 Allergy status to analgesic agent
CPT/HCPCS: 36415; 74176; 80053; 81001; 81025; 82150; 83690; 84478; 84703; 85025; 87086; 96361; 96374; 96375; 99285; J0780; J1170; J1200; J7030; 87186

== ENCOUNTER 2017-08-17 04:56 | Emergency (ER) | payer OTHER ==
[~2017-08-17] VITALS: Ht 160 cm; Wt 83.0 kg
[2017-08-17 04:59] VITALS: BP 118/72
--- NOTE | 2017-08-17 05:05 | NUR ---
PATIENT AMBULATED TO ER BED 12.
--- NOTE | 2017-08-17 05:09 | NUR ---
Patient being evaluated by DR. MCALLISTER at bedside.
--- NOTE | 2017-08-17 05:30 | NUR ---
31Y/F PT. PRESENTS TO ED WITH C/O CHRONIC ABDOMINAL PAIN. PT. D/C FROM [facility]. DX.PANCREATITIS. AAO X4, AMABULATORY WITH STEADY GAIT. RESPIRATIONS EVEN AND UNLABORED. ABDOMEN SOFT,NON-TENDER, ACTIVE BS X4, C/O PAIN 03/04. VSS, ER MADE AWARE.
[2017-08-17] MEDS ORDERED: MORPHINE SULFATE 4 MG/ML SYR IVP ONE (06:00)
[2017-08-17] MEDS ORDERED: NACL 0.9% 1,000 ML IV ONE (06:00)
[2017-08-17] MEDS ORDERED: ONDANSETRON 4 MG/2 ML VIAL IVP ONE (06:00)
[2017-08-17 06:43] LABS: APPEARANCE,URINE HAZY (CLEAR); BILIRUBIN,URINE NEGATIVE (NEGATIVE); BLOOD, URINE NEGATIVE (NEGATIVE); COLOR,URINE YELLOW (YELLOW); LEUKOCYTE ESTERASE ,URINE NEGATIVE (NEGATIVE); NITRITE, URINE NEGATIVE (NEGATIVE); UGLUCOSE NEGATIVE (NEGATIVE)
[2017-08-17 06:45] LABS: HEMATOCRIT 35.8 % (36-48); HEMOGLOBIN 11.6 g/dL (12.0-16.0); MEAN CORPUSCULAR HEMOGLOBIN 26 pg (27-31); MEAN CORPUSCULAR HGB CONC 32 g/dL (33-37); MEAN CORPUSCULAR VOLUME 79.2 fL (80-94); PLATELET COUNT (AUTO) 204 K/uL (140-450); RED BLOOD CELL COUNT(AUTO) 4.53 MIL/uL (4.20-5.40); RED CELL DISTRIBUTION WIDTH 13.4 % (11.6-13.7); WHITE BLOOD COUNT (AUTO) 5.5 K/uL (4.8-10.8)
[2017-08-17 06:53] LABS: RBC,URINE 0-5 (RARE) /HPF (0-5); WBC,URINE 0-5 (RARE) /HPF (0-5)
[2017-08-17 06:59] LABS: EOSINOPHILS % (MANUAL) 3 % (0-4); LYMPHOCYTES % (MANUAL) 15 % (20-46); MONOCYTES % (MANUAL) 7 % (5-12)
[2017-08-17 07:10] LABS: CARBON DIOXIDE 27.7 mmol/L (21-32); CREATININE 0.7 mg/dL (0.6-1.3); POTASSIUM 3.7 mmol/L (3.5-5.1)
--- NOTE | 2017-08-17 07:13 | NUR ---
REPORT GIVEN TO ELO MENEZES. PT. RESTING IN BED, NO S/SX OF DISTRESS AT THIS TIME.
[2017-08-17 07:15] LABS: ALBUMIN 4.1 g/dL (3.4-5.0); TOTAL BILIRUBIN 0.3 mg/dL (0.0-1.0)
--- NOTE | 2017-08-17 07:19 | NUR ---
PT LAYING IN BED RELAXED AT THIS TIME. NO NEW ORDERS AT THIS TIME. WILL CONTINUE TO MONITOR.
[2017-08-17 08:02] VITALS: BP 116/71
--- NOTE | 2017-08-17 08:03 | NUR ---
Patient discharged with v/s stable. Written and verbal after care instructions given and explained. Patient alert, oriented and verbalized understanding of instructions. Ambulatory with steady gait. All questions addressed prior to discharge. ID band removed. Patient advised to follow up with PMD. Rx of NEXIUM given. Patient educated on indication of medication including possible reaction and side effects. Opportunity to ask questions provided and answered.
== END 2017-08-17 08:03 | disposition home or self-care (01) ==
LOC: MED 04:56
DX: K29.70 Gastritis, unspecified, without bleeding (principal); K86.1 Other chronic pancreatitis; J45.909 Unspecified asthma, uncomplicated; Z79.899 Other long term (current) drug therapy; Z88.8 Allergy status to other drugs, medicaments and biological substances
CPT/HCPCS: 36415; 80053; 81001; 81025; 83690; 84703; 85025; 87086; 96361; 96374; 96375; 99284; J2270; J2405; J7030

== ENCOUNTER 2017-09-26 07:19 | Emergency (ER) | payer OTHER ==
[~2017-09-26] VITALS: Ht 160 cm; Wt 79.2 kg
[~2017-09-26 07:19] MED LIST changes: +ACET-2869 PO; +ESOM20EC PO
[2017-09-26 07:37] VITALS: BP 129/65
--- NOTE | 2017-09-26 07:40 | NUR ---
PT AMBULATED TO BED 9
--- NOTE | 2017-09-26 07:42 | NUR ---
31 YO F BIB SELF W/ C/O SEVERE, SHARP ABD PAIN 03/04 THAT HAS BEEN ONGOING FOR MONTHS. PT HAS BEEN ADMITTED TO [facility] AND [facility] FOR THIS SAME ISSUE. PT REPORTS THIS EPISODE OF SEVERE ABD PAIN BEGAN LAST FRIDAY (X 5 DAY), SHE HAS N/V, LAST THREW UP AT 0400 THIS MORNING, VOMITS 3-4 X/DAY. CANNOT EAT OR DRINK, REPORTS 15 LBS UNINTENTIONAL WEIGHT LOSS IN 2 WEEKS. REPORTS SHE HAD DIARRHEA ON FRIDAY/FRIDAY, BUT NONE SINCE. PT A&O X 4. GCS 15. CMS INTACT. MUCOUS MEMBRANES MOIST. PT SPEAKS CLEARLY. RR EVEN AND UNLABORED. LUNG SOUNDS CLEAR. ABD SOFT, TENDER ON LEFT UPPER QUAD. NO FEVER PRESENT AT THIS TIME. AMBULATORY W/ STEADY GAIT. ER MD ARIZA NOTIFIED. PT NEEDS MET. SAFETY PRECAUTIONS IN PLACE. WILL CONTINUE TO MONITOR.
[2017-09-26] MEDS ORDERED: NACL 0.9% 1,000 ML IV SCH (07:54)
[2017-09-26] MEDS ORDERED: FAMOTIDINE 20 MG/2 ML VIAL IVP ONE (07:55)
[2017-09-26] MEDS ORDERED: ONDANSETRON 4 MG/2 ML VIAL IVP ONE (07:55)
[2017-09-26] MEDS ORDERED: MORPHINE SULFATE 2 MG/ML SYR IVP ONE (07:55)
[2017-09-26] MEDS ORDERED: MORPHINE SULFATE 4 MG/ML SYR ONE (08:45)
[2017-09-26 08:47] LABS: BASOPHILS # (AUTO) 0.2 K/uL (0.00-0.22); BASOPHILS % (AUTO) 4.9 % (0.0-2.0); HEMATOCRIT 37.8 % (36-48); HEMOGLOBIN 12.6 g/dL (12.0-16.0); LYMPHOCYTES # (AUTO) 1.1 K/uL (2.5-16.5); LYMPHOCYTES % (AUTO) 26.7 % (20.5-51.1); MEAN CORPUSCULAR HEMOGLOBIN 27 pg (27-31); MEAN CORPUSCULAR HGB CONC 33 g/dL (33-37); MEAN CORPUSCULAR VOLUME 80.4 fL (80-94); MONOCYTES # (AUTO) 0.2 K/uL (0.8-1.0); MONOCYTES % (AUTO) 4.6 % (1.7-9.3); NEUTROPHILS # (AUTO) 2.6 K/uL (1.8-7.7); NEUTROPHILS % (AUTO) 62.8 % (42.2-75.2); PLATELET COUNT (AUTO) 183 K/uL (140-450); RED CELL DISTRIBUTION WIDTH 14.3 % (11.6-13.7); WHITE BLOOD COUNT (AUTO) 4.1 K/uL (4.8-10.8)
[2017-09-26 08:48] LABS: ANION GAP 11.3 (8-16); CARBON DIOXIDE 27.8 mmol/L (21-32); CREATININE 0.7 mg/dL (0.6-1.3); POTASSIUM 4.1 mmol/L (3.5-5.1)
[2017-09-26 08:57] LABS: ALBUMIN 4.2 g/dL (3.4-5.0); TOTAL BILIRUBIN 0.3 mg/dL (0.0-1.0)
[2017-09-26 09:45] VITALS: BP 117/76
== END 2017-09-26 09:45 | disposition home or self-care (01) ==
LOC: MED 07:19
DX: K85.80 Other acute pancreatitis without necrosis or infection (principal); G89.29 Other chronic pain; R10.12 Left upper quadrant pain; Z88.6 Allergy status to analgesic agent; Z90.89 Acquired absence of other organs
CPT/HCPCS: 36415; 80053; 81025; 83690; 85025; 96361; 96374; 96375; 99284; J2270; J2405; J3490; J7030

== ENCOUNTER 2017-09-29 07:22 | Emergency (ER) | payer OTHER ==
[~2017-09-29] VITALS: Ht 160 cm; Wt 78.9 kg
[2017-09-29 07:27] VITALS: BP 119/80
--- NOTE | 2017-09-29 07:30 | NUR ---
PT AMBULATES TO BED 3 AT THIS TIME WITH STEADY GAIT.
--- NOTE | 2017-09-29 07:30 | NUR ---
31 YO F BIB SELF W/ C/O SEVERE SHARP ABD PAIN / X 3 DAYS ACCOMPANIED BY N/V AND LOSS OF APPETITE. PT WAS SEEN HERE AT [facility] FOR THE SAME REASON ON Friday09/26/17 AND STAYED IN [facility] AND [facility] FOR THE SAME DX IN THE MONTH OF AUGUST. PT A&O X 4. GCS 15. CMS INTACT. AMBULATORY W/ STEADY GAIT. RR EVEN AND UNLABORED. LUNGS CLEAR BILAT. ABD SOFT, AND TENDER TO PALPATION. ER MD RANDOLPH NOTIFIED. PT NEEDS MET. SAFETY PRECAUTIONS IN PLACE. WILL CONTINUE TO MONITOR.
[2017-09-29] MEDS ORDERED: NACL 0.9% 1,000 ML IV ONE (07:50)
[2017-09-29] MEDS ORDERED: MORPHINE SULFATE 4 MG/ML SYR IVP ONE ×2 (07:50→09:05)
[2017-09-29] MEDS ORDERED: ONDANSETRON 4 MG/2 ML VIAL IVP ONE (07:50)
[2017-09-29 08:13] LABS: BASOPHILS % (AUTO) 0.4 % (0.0-2.0); EOSINOPHILS % (AUTO) 1.2 % (0.0-4.0); HEMATOCRIT 39.7 % (36-48); HEMOGLOBIN 13.5 g/dL (12.0-16.0); LYMPHOCYTES # (AUTO) 0.9 K/uL (2.5-16.5); LYMPHOCYTES % (AUTO) 24.2 % (20.5-51.1); MEAN CORPUSCULAR HEMOGLOBIN 27 pg (27-31); MEAN CORPUSCULAR HGB CONC 34 g/dL (33-37); MEAN CORPUSCULAR VOLUME 80.3 fL (80-94); MONOCYTES # (AUTO) 0.2 K/uL (0.8-1.0); MONOCYTES % (AUTO) 4.3 % (1.7-9.3); NEUTROPHILS # (AUTO) 2.7 K/uL (1.8-7.7); NEUTROPHILS % (AUTO) 69.9 % (42.2-75.2); PLATELET COUNT (AUTO) 197 K/uL (140-450); RED BLOOD CELL COUNT(AUTO) 4.95 MIL/uL (4.20-5.40); RED CELL DISTRIBUTION WIDTH 15.1 % (11.6-13.7); WHITE BLOOD COUNT (AUTO) 3.8 K/uL (4.8-10.8)
--- NOTE | 2017-09-29 08:17 | NUR ---
LAB AT BEDSIDE AT THIS TIME.
[2017-09-29 08:35] LABS: ALBUMIN 4.2 g/dL (3.4-5.0); TOTAL BILIRUBIN 0.2 mg/dL (0.0-1.0)
[2017-09-29 08:41] LABS: CREATININE 0.8 mg/dL (0.6-1.3)
[2017-09-29 09:22] VITALS: BP 111/68
--- NOTE | 2017-09-29 09:22 | NUR ---
Patient discharged with v/s stable. Written and verbal after care instructions given and explained. Patient alert, oriented and verbalized understanding of instructions. Ambulatory with steady gait. All questions addressed prior to discharge. ID band removed. Patient advised to follow up with PMD. Rx of [place] and Bentyl given. Patient educated on indication of medication including possible reaction and side effects. Opportunity to ask questions provided and answered.
== END 2017-09-29 09:22 | disposition home or self-care (01) ==
LOC: MED 07:22
DX: K85.90 Acute pancreatitis without necrosis or infection, unspecified (principal); Z79.899 Other long term (current) drug therapy; Z88.8 Allergy status to other drugs, medicaments and biological substances; Z90.49 Acquired absence of other specified parts of digestive tract
CPT/HCPCS: 36415; 80053; 81002; 81025; 83690; 85025; 96361; 96374; 96375; 96376; 99284; J2270; J2405

== ENCOUNTER 2017-10-12 04:26 | Emergency (ER) | payer OTHER ==
[~2017-10-12] VITALS: Ht 160 cm; Wt 80.1 kg
[2017-10-12 04:36] VITALS: BP 118/84
[2017-10-12] MEDS: NACL 0.9% 1,000 ML IV ONE (06:08)
[2017-10-12] MEDS: HYDROmorphone 1 MG/ML AMP IVP ONE (06:09)
[2017-10-12 06:29] LABS: ANION GAP 7.6 (8-16); CARBON DIOXIDE 29.3 mmol/L (21-32); CREATININE 0.7 mg/dL (0.6-1.3); POTASSIUM 3.9 mmol/L (3.5-5.1)
[2017-10-12 06:35] LABS: ALBUMIN 3.9 g/dL (3.4-5.0); TOTAL BILIRUBIN 0.1 mg/dL (0.0-1.0)
[2017-10-12 06:48] VITALS: BP 118/84
== END 2017-10-12 06:48 | disposition home or self-care (01) ==
LOC: MED 04:26
DX: R10.10 Upper abdominal pain, unspecified (principal); Z90.49 Acquired absence of other specified parts of digestive tract; Z79.899 Other long term (current) drug therapy; Z88.8 Allergy status to other drugs, medicaments and biological substances
CPT/HCPCS: 36415; 80053; 81002; 81025; 83690; 96361; 96374; 99284; J1170; J7030

== ENCOUNTER 2017-10-17 06:10 | Emergency (ER) | payer OTHER ==
[~2017-10-17] VITALS: Ht 165.1 cm; Wt 79.5 kg
[2017-10-17 06:22] VITALS: BP 113/82
[2017-10-17] MEDS ORDERED: ONDANSETRON 4 MG/2 ML VIAL IVP ONE (06:25)
[2017-10-17] MEDS ORDERED: fentaNYL 0.05 MG/ML VIAL IVP ONE (06:25)
[2017-10-17] MEDS ORDERED: NACL 0.9% 500 ML IV ONE (06:25)
[2017-10-17 06:38] LABS: BASOPHILS % (AUTO) 0.5 % (0.0-2.0); EOSINOPHILS # (AUTO) 0.1 K/uL (0-0.4); EOSINOPHILS % (AUTO) 1.3 % (0.0-4.0); HEMATOCRIT 35.9 % (36-48); LYMPHOCYTES # (AUTO) 1.5 K/uL (2.5-16.5); LYMPHOCYTES % (AUTO) 32.6 % (20.5-51.1); MEAN CORPUSCULAR HEMOGLOBIN 27 pg (27-31); MEAN CORPUSCULAR HGB CONC 34 g/dL (33-37); MEAN CORPUSCULAR VOLUME 80.9 fL (80-94); MONOCYTES # (AUTO) 0.3 K/uL (0.8-1.0); NEUTROPHILS # (AUTO) 2.7 K/uL (1.8-7.7); NEUTROPHILS % (AUTO) 58.6 % (42.2-75.2); PLATELET COUNT (AUTO) 216 K/uL (140-450); RED BLOOD CELL COUNT(AUTO) 4.45 MIL/uL (4.20-5.40); RED CELL DISTRIBUTION WIDTH 15.3 % (11.6-13.7); WHITE BLOOD COUNT (AUTO) 4.6 K/uL (4.8-10.8)
[2017-10-17 06:52] LABS: ANION GAP 13.4 (8-16); CARBON DIOXIDE 25.4 mmol/L (21-32); CREATININE 0.8 mg/dL (0.6-1.3); POTASSIUM 3.8 mmol/L (3.5-5.1)
[2017-10-17 06:58] LABS: ALBUMIN 4.1 g/dL (3.4-5.0); TOTAL BILIRUBIN 0.3 mg/dL (0.0-1.0)
[2017-10-17] MEDS ORDERED: MORPHINE SULFATE 2 MG/ML SYR IM ONE (08:00)
[2017-10-17 08:33] VITALS: BP 123/66
== END 2017-10-17 08:34 | disposition home or self-care (01) ==
LOC: MED 06:10
DX: K86.1 Other chronic pancreatitis (principal); Z79.899 Other long term (current) drug therapy; Z88.8 Allergy status to other drugs, medicaments and biological substances
CPT/HCPCS: 36415; 80053; 81002; 81025; 83690; 85025; 96361; 96372; 96374; 96375; 99284; J2270; J2405; J3010; J7030

== ENCOUNTER 2017-10-22 06:42 | Emergency (ER) | payer OTHER ==
[~2017-10-22] VITALS: Ht 160 cm; Wt 80.5 kg
[2017-10-22 06:53] VITALS: BP 94/50
--- NOTE | 2017-10-22 06:57 | NUR ---
PT TAKEN TO BED 11
--- NOTE | 2017-10-22 07:00 | NUR ---
32/F CAME IN ED, C/O 02/02 SHARP, STABBING LUQ PAIN, WORSENING X2 DAYS. PT REPORTS N, VX3 TODAY, CHILLS, CHEST PRESSURE. PT REPORTS HAVING SIMILAR EPISODE LAST WEEK, PT'S LIPASE WAS OVER 600. HX CHRONIC PANCREATITIS, PTSD, ANXIETY. PT DENIES DIARRHEA, FEVER, SOB, COUGH, DYSURIA. SKIN IS INTACT, PINK/WARM/DRY; AAOX4, PERRL, WITH EVEN AND STEADY GAIT; LUNGS CLEAR BL, BREATHING UNLABORED; HR EVEN AND REGULAR, BL PERIPHERAL PULSES PRESENT; BS ACTIVE X4, TENDERNESS TO PALPATION; VSS; PATIENT POSITIONED FOR COMFORT; HOB ELEVATED; BEDRAILS UP X2; BED DOWN.
--- NOTE | 2017-10-22 07:26 | NUR ---
Pt report given to E[facility]. Transfer of care at this time.
[2017-10-22] MEDS ORDERED: FAMOTIDINE 20 MG TAB PO ONE (07:45)
[2017-10-22] MEDS ORDERED: ALUMINUM HYD/MAG/SIMETHICONE 30 ML UDC PO ONE (07:45)
[2017-10-22] MEDS ORDERED: fentaNYL 0.05 MG/ML VIAL IM ONE (07:45)
[2017-10-22] MEDS ORDERED: ONDANSETRON 4 MG ODT PO ONE (07:45)
[2017-10-22 08:04] LABS: BASOPHILS % (AUTO) 0.4 % (0.0-2.0); EOSINOPHILS # (AUTO) 0.1 K/uL (0-0.4); EOSINOPHILS % (AUTO) 1.9 % (0.0-4.0); HEMATOCRIT 34.9 % (36-48); HEMOGLOBIN 11.6 g/dL (12.0-16.0); LYMPHOCYTES # (AUTO) 1.2 K/uL (2.5-16.5); LYMPHOCYTES % (AUTO) 36.9 % (20.5-51.1); MEAN CORPUSCULAR HEMOGLOBIN 27 pg (27-31); MEAN CORPUSCULAR HGB CONC 33 g/dL (33-37); MEAN CORPUSCULAR VOLUME 81.2 fL (80-94); MONOCYTES # (AUTO) 0.2 K/uL (0.8-1.0); MONOCYTES % (AUTO) 6.9 % (1.7-9.3); NEUTROPHILS # (AUTO) 1.8 K/uL (1.8-7.7); NEUTROPHILS % (AUTO) 53.9 % (42.2-75.2); PLATELET COUNT (AUTO) 181 K/uL (140-450); RED BLOOD CELL COUNT(AUTO) 4.29 MIL/uL (4.20-5.40); RED CELL DISTRIBUTION WIDTH 14.7 % (11.6-13.7); WHITE BLOOD COUNT (AUTO) 3.3 K/uL (4.8-10.8)
[2017-10-22 08:20] LABS: ANION GAP 13.2 (8-16); CARBON DIOXIDE 25.6 mmol/L (21-32); CREATININE 0.8 mg/dL (0.6-1.3); POTASSIUM 3.8 mmol/L (3.5-5.1)
[2017-10-22 08:27] LABS: ALBUMIN 3.9 g/dL (3.4-5.0); TOTAL BILIRUBIN 0.3 mg/dL (0.0-1.0)
--- NOTE | 2017-10-22 08:49 | NUR ---
patient medicated for pain reassessment at 0835 states pain is a 7, blood pressure is 119/63
[2017-10-22 08:55] VITALS: BP 119/63
== END 2017-10-22 08:55 | disposition home or self-care (01) ==
LOC: MED 06:42
DX: K85.90 Acute pancreatitis without necrosis or infection, unspecified (principal); K86.1 Other chronic pancreatitis; Z88.8 Allergy status to other drugs, medicaments and biological substances; Z90.89 Acquired absence of other organs; Z79.899 Other long term (current) drug therapy
CPT/HCPCS: 36415; 80053; 81025; 83690; 85025; 96372; 99284; J3010; S0119

== ENCOUNTER 2017-11-03 05:34 | Emergency (ER) | payer OTHER ==
[~2017-11-03] VITALS: Ht 160 cm; Wt 79.4 kg
[2017-11-03 05:34] VITALS: BP 115/84
--- NOTE | 2017-11-03 05:40 | NUR ---
PT AMBULATED TO BED 8
[2017-11-03] MEDS ORDERED: ESOM40EC PO (05:47)
--- NOTE | 2017-11-03 05:52 | NUR ---
32YO F TO ER WITH C/O MIDEPIGASTRIC PAIN X4DAYS. PT STATES PAIN RADIATES TO LUQ, AND DIARRHEA WITH BLOOD IN STOOL. PT STATES N/V.PT STATES NO FEVER, COUGH, SOB AT THIS TIME. ER MD MADE AWARE. WILL CONTINUE TO MONITOR
[2017-11-03] MEDS ORDERED: METO-485 PO (05:53)
--- NOTE | 2017-11-03 05:54 | NUR ---
Patient being evaluated by physician at bedside.
[2017-11-03] MEDS ORDERED: ONDANSETRON 4 MG ODT PO ONE (05:55)
[2017-11-03] MEDS ORDERED: HYDROcodone/APAP 5/325 MG 1 TAB TAB PO ONE (05:55)
--- NOTE | 2017-11-03 06:25 | NUR ---
LABS DRAWN BY RN AND SENT TO LAB
[2017-11-03 06:31] LABS: BASOPHILS % (AUTO) 0.3 % (0.0-2.0); EOSINOPHILS # (AUTO) 0.1 K/uL (0-0.4); EOSINOPHILS % (AUTO) 1.2 % (0.0-4.0); HEMATOCRIT 35.9 % (36-48); HEMOGLOBIN 11.9 g/dL (12.0-16.0); LYMPHOCYTES # (AUTO) 1.2 K/uL (2.5-16.5); LYMPHOCYTES % (AUTO) 27.2 % (20.5-51.1); MEAN CORPUSCULAR HEMOGLOBIN 27 pg (27-31); MEAN CORPUSCULAR HGB CONC 33 g/dL (33-37); MEAN CORPUSCULAR VOLUME 81.5 fL (80-94); MONOCYTES # (AUTO) 0.2 K/uL (0.8-1.0); MONOCYTES % (AUTO) 4.9 % (1.7-9.3); NEUTROPHILS # (AUTO) 3.1 K/uL (1.8-7.7); NEUTROPHILS % (AUTO) 66.4 % (42.2-75.2); PLATELET COUNT (AUTO) 198 K/uL (140-450); RED CELL DISTRIBUTION WIDTH 14.5 % (11.6-13.7); WHITE BLOOD COUNT (AUTO) 4.6 K/uL (4.8-10.8)
[2017-11-03 06:50] LABS: ALBUMIN 4.1 g/dL (3.4-5.0); ANION GAP 10.7 (8-16); CARBON DIOXIDE 26.9 mmol/L (21-32); CREATININE 0.7 mg/dL (0.6-1.3); POTASSIUM 3.6 mmol/L (3.5-5.1); TOTAL BILIRUBIN 0.3 mg/dL (0.0-1.0)
[2017-11-03 07:08] VITALS: BP 138/77
--- NOTE | 2017-11-03 07:08 | NUR ---
Patient discharged with v/s stable. Written and verbal after care instructions given and explained. Patient alert, oriented and verbalized understanding of instructions. Ambulatory with steady gait. All questions addressed prior to discharge. ID band removed. Patient advised to follow up with PMD. Rx of NORCO 5MG/352MG, ZOFRAN ODT 4MG given. Patient educated on indication of medication including possible reaction and side effects. Opportunity to ask questions provided and answered.
== END 2017-11-03 07:08 | disposition home or self-care (01) ==
LOC: MED 05:34
DX: K85.90 Acute pancreatitis without necrosis or infection, unspecified (principal); Z88.8 Allergy status to other drugs, medicaments and biological substances
CPT/HCPCS: 36415; 80053; 81002; 81025; 83690; 85025; 99284; S0119

== ENCOUNTER 2017-11-19 05:55 | Emergency (ER) | payer OTHER ==
[~2017-11-19] VITALS: Ht 160 cm; Wt 78.5 kg
[~2017-11-19 05:55] MED LIST changes: -ESOM20EC PO; +ESOM40EC PO; +METO-485 PO; -ONDA4ODT1 SL; -TRAM50TA1 PO
[2017-11-19 06:04] VITALS: BP 142/76
--- NOTE | 2017-11-19 06:08 | NUR ---
PATIENT PRESENTS TO ED WITH pt came in to the ER with c/o pain in the left lower abd and radiates to the back. x 5 days. pt has chronic pancreatiits. bowl sounds x 4Q hyperactive. DENIES N/V/D; SKIN IS PINK/WARM/DRY; AAOX4 WITH EVEN AND STEADY GAIT; LUNGS CLEAR BL; HR EVEN AND REGULAR; PT DENIES ANY FEVER, CP, SOB, OR COUGH AT THIS TIME; PATIENT STATES PAIN OF 9/10 AT THIS TIME; VSS; PATIENT POSITIONED FOR COMFORT; HOB ELEVATED; BEDRAILS UP X2; BED DOWN. ER MD MADE AWARE OF PT STATUS.
--- NOTE | 2017-11-19 06:11 | NUR ---
pt ambulated to er bed 11, report given to remy pitts.
[2017-11-19] MEDS ORDERED: MORPHINE SULFATE 4 MG/ML SYR IVP ONE (06:40)
[2017-11-19] MEDS ORDERED: NACL 0.9% 1,000 ML IV ONE (06:40)
[2017-11-19 07:18] LABS: BASOPHILS % (AUTO) 0.7 % (0.0-2.0); EOSINOPHILS # (AUTO) 0.1 K/uL (0-0.4); EOSINOPHILS % (AUTO) 2.3 % (0.0-4.0); HEMOGLOBIN 11.3 g/dL (12.0-16.0); LYMPHOCYTES # (AUTO) 1.3 K/uL (2.5-16.5); LYMPHOCYTES % (AUTO) 32.9 % (20.5-51.1); MEAN CORPUSCULAR HEMOGLOBIN 28 pg (27-31); MEAN CORPUSCULAR HGB CONC 34 g/dL (33-37); MEAN CORPUSCULAR VOLUME 80.2 fL (80-94); MONOCYTES # (AUTO) 0.4 K/uL (0.8-1.0); MONOCYTES % (AUTO) 8.8 % (1.7-9.3); NEUTROPHILS # (AUTO) 2.2 K/uL (1.8-7.7); NEUTROPHILS % (AUTO) 55.3 % (42.2-75.2); PLATELET COUNT (AUTO) 187 K/uL (140-450); RED BLOOD CELL COUNT(AUTO) 4.12 MIL/uL (4.20-5.40); RED CELL DISTRIBUTION WIDTH 14.3 % (11.6-13.7)
[2017-11-19 07:36] LABS: ALBUMIN 3.9 g/dL (3.4-5.0); ANION GAP 11.6 (8-16); CREATININE 0.8 mg/dL (0.6-1.3); POTASSIUM 3.6 mmol/L (3.5-5.1); TOTAL BILIRUBIN 0.3 mg/dL (0.0-1.0)
[2017-11-19 07:57] LABS: BILIRUBIN,URINE NEGATIVE (NEGATIVE); COLOR,URINE YELLOW (YELLOW); LEUKOCYTE ESTERASE ,URINE NEGATIVE (NEGATIVE); NITRITE, URINE NEGATIVE (NEGATIVE); UGLUCOSE NEGATIVE (NEGATIVE)
[2017-11-19 08:09] LABS: APPEARANCE,URINE SLIGHTLY HAZY (CLEAR)
[2017-11-19 08:10] LABS: BLOOD, URINE 1+ (NEGATIVE)
[2017-11-19 08:11] LABS: RBC,URINE 0-5 (RARE) /HPF (0-5); WBC,URINE 0-5 (RARE) /HPF (0-5)
[2017-11-19 08:49] VITALS: BP 142/76
== END 2017-11-19 08:47 | disposition home or self-care (01) ==
LOC: MED 05:55
DX: R10.13 Epigastric pain (principal); R03.0 Elevated blood-pressure reading, without diagnosis of hypertension; R11.2 Nausea with vomiting, unspecified; Z88.8 Allergy status to other drugs, medicaments and biological substances
CPT/HCPCS: 36415; 80053; 81001; 81025; 83690; 85025; 96361; 96374; 99285; J2270; J7030

== ENCOUNTER 2017-11-26 09:27 | Emergency (ER) | payer OTHER ==
[~2017-11-26] VITALS: Ht 160 cm; Wt 78.5 kg
[2017-11-26 09:33] VITALS: BP 141/56
--- NOTE | 2017-11-26 09:34 | NUR ---
PT. CAME INTO THE ED DUE TO LUQ PAIN X 1 WEEK THAT RADIATES TO HER BACK. PT. STATES " I WAS TOLD I HAVE PANCREATITIS AND I SAW MY GI SPECIALIST ON 11/20/17 GAVE ME REGLAN, ZOFRAN, AND PAIN MEDICATION BUT IT HAS GOTTEN WORSE THE LAST TWO DAYS ". PT. IS AAOX4, RR EVEN AND UNLABORED. DENIES CP, DENIES SOB, PT. COMPLAINS OF NAUSEA, NO DIAHRRHEA. 8/10 PAIN SHARP IN LUQ TO BACK. ER MD NOTIFIED. WILL CONTINUE TO MONITOR.
--- NOTE | 2017-11-26 09:38 | NUR ---
Patient being evaluated by physician at bedside.
[2017-11-26] MEDS ORDERED: NACL 0.9% 500 ML IV ONE (09:48)
[2017-11-26] MEDS ORDERED: ONDANSETRON 4 MG/2 ML VIAL IVP ONE (09:50)
--- NOTE | 2017-11-26 10:03 | NUR ---
LAB AT BEDSIDE
[2017-11-26 10:09] LABS: BASOPHILS % (AUTO) 0.5 % (0.0-2.0); EOSINOPHILS % (AUTO) 0.9 % (0.0-4.0); HEMATOCRIT 36.2 % (36-48); HEMOGLOBIN 12.3 g/dL (12.0-16.0); LYMPHOCYTES % (AUTO) 22.5 % (20.5-51.1); MEAN CORPUSCULAR HEMOGLOBIN 27 pg (27-31); MEAN CORPUSCULAR HGB CONC 34 g/dL (33-37); MEAN CORPUSCULAR VOLUME 79.8 fL (80-94); MONOCYTES # (AUTO) 0.2 K/uL (0.8-1.0); MONOCYTES % (AUTO) 5.2 % (1.7-9.3); NEUTROPHILS # (AUTO) 3.1 K/uL (1.8-7.7); NEUTROPHILS % (AUTO) 70.9 % (42.2-75.2); PLATELET COUNT (AUTO) 204 K/uL (140-450); RED BLOOD CELL COUNT(AUTO) 4.53 MIL/uL (4.20-5.40); RED CELL DISTRIBUTION WIDTH 13.8 % (11.6-13.7); WHITE BLOOD COUNT (AUTO) 4.3 K/uL (4.8-10.8)
[2017-11-26 10:19] LABS: ANION GAP 9.5 (8-16); CARBON DIOXIDE 29.1 mmol/L (21-32); CREATININE 0.7 mg/dL (0.6-1.3); POTASSIUM 3.6 mmol/L (3.5-5.1)
[2017-11-26] MEDS ORDERED: fentaNYL 0.05 MG/ML VIAL IVP ONE (10:25)
[2017-11-26 10:26] LABS: ALBUMIN 4.3 g/dL (3.4-5.0); TOTAL BILIRUBIN 0.3 mg/dL (0.0-1.0)
--- NOTE | 2017-11-26 10:55 | NUR ---
Natanael meadows in ED - 11/26/17 at 1125 by STEVEN PT. RESTING COMFORTABLY IN BED, RR EVEN AND UNLABORED. WILL CONTINUE TO MONITOR.
--- NOTE | 2017-11-26 11:00 | NUR ---
PT. RESTING COMFORTABLY IN BED, RR EVEN AND UNLABORED. VSS. WILL CONTINUE TO MONITOR.
[2017-11-26 11:28] VITALS: BP 135/58
--- NOTE | 2017-11-26 11:28 | NUR ---
Patient discharged with v/s stable. Written and verbal after care instructions given and explained. Patient alert, oriented and verbalized understanding of instructions. Ambulatory with steady gait. All questions addressed prior to discharge. ID band removed. Patient advised to follow up with PMD. Rx of TRAMADOL AND ZOFRAN ODT given. Patient educated on indication of medication including possible reaction and side effects. Opportunity to ask questions provided and answered.
== END 2017-11-26 11:28 | disposition home or self-care (01) ==
LOC: MED 09:27
DX: R10.13 Epigastric pain (principal); R03.0 Elevated blood-pressure reading, without diagnosis of hypertension; Z88.6 Allergy status to analgesic agent; Z90.49 Acquired absence of other specified parts of digestive tract; Z79.899 Other long term (current) drug therapy
CPT/HCPCS: 36415; 80053; 81002; 81025; 83690; 85025; 96374; 96375; 99284; J2405; J3010

== ENCOUNTER 2017-12-07 03:55 | Emergency (ER) | payer OTHER ==
[~2017-12-07] VITALS: Ht 160 cm; Wt 79.4 kg
[2017-12-07 03:58] VITALS: BP 150/79
--- NOTE | 2017-12-07 04:01 | NUR ---
TOBED # 11 AMBULATORY , REPORT GIVEN TO REYMUNDO GASCA
--- NOTE | 2017-12-07 04:05 | NUR ---
ASSUMED CARE OF PT AT THIS TIME. C/O DIFFUSE ABDOMINAL PAIN W/ N/V X 9 DAYS. AAOX4 WITH EVEN AND STEADY GAIT; PATIENT STATES PAIN OF 10/10 AT THIS TIME; VSS; PATIENT POSITIONED FOR COMFORT; HOB ELEVATED; BEDRAILS UP X2; BED DOWN. ER MD MADE AWARE OF PT STATUS. WILL CONTINUE TO MONITOR.
[2017-12-07] MEDS ORDERED: NACL 0.9% 1,000 ML IV SCH (04:27)
[2017-12-07] MEDS ORDERED: fentaNYL 0.05 MG/ML VIAL IVP ONE (04:30)
[2017-12-07] MEDS ORDERED: METOCLOPRAMIDE 10 MG/2 ML INJ VIAL IVP ONE (04:30)
[2017-12-07] MEDS ORDERED: diphenhydrAMINE 50 MG/ML VIAL IVP ONE (04:30)
--- NOTE | 2017-12-07 04:31 | NUR ---
Dr. Hudson evaluating patient at bedside.
[2017-12-07 05:17] LABS: BASOPHILS % (AUTO) 0.3 % (0.0-2.0); EOSINOPHILS # (AUTO) 0.1 K/uL (0-0.4); EOSINOPHILS % (AUTO) 1.7 % (0.0-4.0); HEMATOCRIT 34.2 % (36-48); HEMOGLOBIN 11.4 g/dL (12.0-16.0); LYMPHOCYTES # (AUTO) 1.5 K/uL (2.5-16.5); LYMPHOCYTES % (AUTO) 28.9 % (20.5-51.1); MEAN CORPUSCULAR HEMOGLOBIN 27 pg (27-31); MEAN CORPUSCULAR HGB CONC 33 g/dL (33-37); MEAN CORPUSCULAR VOLUME 81.2 fL (80-94); MONOCYTES # (AUTO) 0.4 K/uL (0.8-1.0); MONOCYTES % (AUTO) 8.7 % (1.7-9.3); NEUTROPHILS % (AUTO) 60.4 % (42.2-75.2); PLATELET COUNT (AUTO) 183 K/uL (140-450); RED BLOOD CELL COUNT(AUTO) 4.21 MIL/uL (4.20-5.40); RED CELL DISTRIBUTION WIDTH 13.4 % (11.6-13.7)
[2017-12-07 05:24] LABS: ANION GAP 15.3 (8-16); CARBON DIOXIDE 24.3 mmol/L (21-32); CREATININE 0.9 mg/dL (0.6-1.3); POTASSIUM 3.6 mmol/L (3.5-5.1)
[2017-12-07 05:27] LABS: APPEARANCE,URINE HAZY (CLEAR); BILIRUBIN,URINE NEGATIVE (NEGATIVE); BLOOD, URINE NEGATIVE (NEGATIVE); COLOR,URINE YELLOW (YELLOW); LEUKOCYTE ESTERASE ,URINE 3+ (NEGATIVE); NITRITE, URINE NEGATIVE (NEGATIVE); UGLUCOSE NEGATIVE (NEGATIVE)
[2017-12-07 05:30] LABS: ALBUMIN 3.9 g/dL (3.4-5.0); TOTAL BILIRUBIN 0.2 mg/dL (0.0-1.0)
[2017-12-07 05:37] LABS: BARBITURATE, URINE NEG. ng/ml (NEG <=200); BENZODIAZEPINE, URINE NEG. ng/mL (NEG <=200); CANNABINOID, URINE POS. ng/mL (NEG <=50); COCAINE, URINE NEG. ng/mL (NEG <=300); OPIATE, URINE NEG. ng/mL (NEG <=2000); PHENCYCLIDINE SCREEN,URINE NEG. ng/mL (NEG <=25)
[2017-12-07 05:41] LABS: RBC,URINE 0-5 (RARE) /HPF (0-5); WBC,URINE 20-60 /HPF (0-5)
[2017-12-07] MEDS ORDERED: cefTRIAXone 1,000 MG VIAL ONE (05:45)
--- NOTE | 2017-12-07 06:10 | NUR ---
ROCEPHIN 1GRAM IV COMPLETED AT THIS TIME. 50MLS INFUSED. NADR.
[2017-12-07 06:15] VITALS: BP 134/74
--- NOTE | 2017-12-07 06:15 | NUR ---
Patient discharged with v/s stable. Written and verbal after care instructions given and explained. Patient alert, oriented and verbalized understanding of instructions. Ambulatory with steady gait. All questions addressed prior to discharge. ID band removed. Patient advised to follow up with PMD. Rx of REGLAN, ZOFRAN, AND CEPHALEXIN given. Patient educated on indication of medication including possible reaction and side effects. Opportunity to ask questions provided and answered.
== END 2017-12-07 06:15 | disposition home or self-care (01) ==
LOC: MED 03:55
DX: N39.0 Urinary tract infection, site not specified (principal); K21.9 Gastro-esophageal reflux disease without esophagitis; Z88.6 Allergy status to analgesic agent
CPT/HCPCS: 36415; 80053; 80305; 81001; 81025; 83690; 85025; 87086; 96361; 96365; 96375; 99284; J0696; J1200; J2765; J3010

== ENCOUNTER 2017-12-25 05:35 | Emergency (ER) | payer OTHER ==
[~2017-12-25] VITALS: Ht 160 cm; Wt 75.7 kg
[2017-12-25 05:41] VITALS: BP 118/75
[2017-12-25] MEDS ORDERED: MORPHINE SULFATE 4 MG/ML SYR IM ONE (06:10)
[2017-12-25] MEDS ORDERED: ONDANSETRON 4 MG ODT PO ONE (06:10)
[2017-12-25 06:18] LABS: BASOPHILS % (AUTO) 0.6 % (0.0-2.0); EOSINOPHILS # (AUTO) 0.1 K/uL (0-0.4); EOSINOPHILS % (AUTO) 1.7 % (0.0-4.0); HEMATOCRIT 37.4 % (36-48); HEMOGLOBIN 12.5 g/dL (12.0-16.0); LYMPHOCYTES # (AUTO) 0.9 K/uL (2.5-16.5); LYMPHOCYTES % (AUTO) 23.6 % (20.5-51.1); MEAN CORPUSCULAR HEMOGLOBIN 27 pg (27-31); MEAN CORPUSCULAR HGB CONC 33 g/dL (33-37); MONOCYTES # (AUTO) 0.2 K/uL (0.8-1.0); MONOCYTES % (AUTO) 4.8 % (1.7-9.3); NEUTROPHILS # (AUTO) 2.8 K/uL (1.8-7.7); NEUTROPHILS % (AUTO) 69.3 % (42.2-75.2); PLATELET COUNT (AUTO) 201 K/uL (140-450); RED BLOOD CELL COUNT(AUTO) 4.56 MIL/uL (4.20-5.40)
[2017-12-25] MEDS ORDERED: MORPHINE SULFATE 4 MG/ML SYR ONE (06:18)
[2017-12-25 06:38] LABS: POTASSIUM 3.8 mmol/L (3.5-5.1)
[2017-12-25 06:39] LABS: ANION GAP 12.5 (8-16); CARBON DIOXIDE 28.3 mmol/L (21-32); CREATININE 0.8 mg/dL (0.6-1.3); TOTAL BILIRUBIN 0.2 mg/dL (0.0-1.0)
[2017-12-25 06:40] LABS: ALBUMIN 4.1 g/dL (3.4-5.0)
[2017-12-25 07:06] VITALS: BP 124/74
== END 2017-12-25 07:03 | disposition home or self-care (01) ==
LOC: MED 05:35
DX: N39.0 Urinary tract infection, site not specified (principal); R19.7 Diarrhea, unspecified; K21.9 Gastro-esophageal reflux disease without esophagitis; Z79.899 Other long term (current) drug therapy; Z90.49 Acquired absence of other specified parts of digestive tract; Z88.8 Allergy status to other drugs, medicaments and biological substances
CPT/HCPCS: 36415; 80053; 81002; 81025; 83690; 85025; 96372; 99284; J2270

== ENCOUNTER 2017-12-31 07:32 | Emergency (ER) | payer OTHER ==
[~2017-12-31] VITALS: Ht 160 cm; Wt 75.3 kg
[2017-12-31 07:39] VITALS: BP 129/87
--- NOTE | 2017-12-31 07:41 | NUR ---
PT AMBULATED TO BED 6.
--- NOTE | 2017-12-31 07:42 | NUR ---
32/F BIB C/O LEFT QUADRANT ABD PAIN RADIATING TO L BACK ASSOCIATED WITH N/V /D X 3 DAYS. PT WITH H/O CHRONIC PANCREATITIS. PT WITH EMESIS BAG, VOMITING YELLOW LIQUID. DENIES SOB OR DIZZINESS. AAOX4 WITH EVEN AND STEADY GAIT; LUNGS CLEAR BL. PATIENT STATES PAIN OF 7/10 AT THIS TIME. PATIENT POSITIONED FOR COMFORT; HOB ELEVATED; BEDRAILS UP X2; BED DOWN. ER MD MADE AWARE OF PT STATUS.
[2017-12-31] MEDS ORDERED: PROMETHAZINE 25 MG/ML VIAL IM ONE (07:45)
[2017-12-31] MEDS ORDERED: MORPHINE SULFATE 2 MG/ML SYR IM ONE (07:45)
--- NOTE | 2017-12-31 07:49 | NUR ---
Patient being evaluated by DR CARO at bedside.
[2017-12-31 10:17] LABS: BILIRUBIN,URINE NEGATIVE (NEGATIVE); BLOOD, URINE NEGATIVE (NEGATIVE); LEUKOCYTE ESTERASE ,URINE SMALL (NEGATIVE); NITRITE, URINE NEGATIVE (NEGATIVE); UGLUCOSE NEGATIVE (NEGATIVE)
[2017-12-31 10:19] LABS: APPEARANCE,URINE CLEAR (CLEAR); COLOR,URINE YELLOW (YELLOW)
[2017-12-31 10:35] LABS: BARBITURATE, URINE NEG. ng/ml (NEG <=200); BENZODIAZEPINE, URINE NEG. ng/mL (NEG <=200); CANNABINOID, URINE POS. ng/mL (NEG <=50); COCAINE, URINE NEG. ng/mL (NEG <=300); OPIATE, URINE NEG. ng/mL (NEG <=2000); PHENCYCLIDINE SCREEN,URINE NEG. ng/mL (NEG <=25); RBC,URINE 0-5 (RARE) /HPF (0-5); WBC,URINE 0-5 (RARE) /HPF (0-5)
[2017-12-31 10:39] VITALS: BP 121/71
--- NOTE | 2017-12-31 10:39 | NUR ---
Patient discharged with v/s stable. Written and verbal after care instructions given and explained. Patient alert, oriented and verbalized understanding of instructions. Ambulatory with to car. All questions addressed prior to discharge. ID band removed. Patient advised to follow up with PMD. Rx of FIORECET given. Patient educated on indication of medication including possible reaction and side effects. Opportunity to ask questions provided and answered.
== END 2017-12-31 22:39 | disposition home or self-care (01) ==
LOC: MED 07:32
DX: G89.29 Other chronic pain (principal); R10.9 Unspecified abdominal pain; R11.2 Nausea with vomiting, unspecified; R30.0 Dysuria; I10 Essential (primary) hypertension; K21.9 Gastro-esophageal reflux disease without esophagitis
CPT/HCPCS: 80305; 81001; 81025; 87086; 96372; 99284; J2270; J2550

== ENCOUNTER 2018-01-12 07:26 | Emergency (ER) | payer OTHER ==
[~2018-01-12] VITALS: Ht 160 cm; Wt 73.9 kg
[2018-01-12 07:35] VITALS: BP 119/71
--- NOTE | 2018-01-12 07:42 | NUR ---
PATIENT AMBULATED TO BED 4.
--- NOTE | 2018-01-12 07:42 | NUR ---
Gave report to Ash GASCA.
--- NOTE | 2018-01-12 07:43 | NUR ---
32/F BIB with c/o N/V & epigastric pain x 3 days. hx-Pancreatitis Divisium, Pancreatitis.SKIN IS PINK/WARM/DRY; AAOX4 WITH EVEN AND STEADY GAIT; LUNGS CLEAR BL;ABD SOFT. PATIENT STATES PAIN OF 8/10 AT THIS TIME. PATIENT POSITIONED FOR COMFORT; HOB ELEVATED; BEDRAILS UP X2; BED DOWN. ER MD MADE AWARE OF PT STATUS.
--- NOTE | 2018-01-12 07:59 | NUR ---
Patient being evaluated by DR ARIZA at bedside.
[2018-01-12] MEDS ORDERED: HALOPERIDOL IM 5 MG/ML VIAL IM ONE (08:05)
[2018-01-12] MEDS ORDERED: ONDANSETRON 4 MG ODT PO ONE (08:05)
--- NOTE | 2018-01-12 08:44 | NUR ---
Patient appears to be resting comfortably in bed. Vital Signs within normal limits. Respirations even and unlabored.will continue to monitor.
[2018-01-12 09:08] VITALS: BP 120/86
== END 2018-01-12 09:07 | disposition home or self-care (01) ==
LOC: MED 07:26
DX: G89.29 Other chronic pain (principal); R10.13 Epigastric pain; R10.12 Left upper quadrant pain; K21.9 Gastro-esophageal reflux disease without esophagitis; Z88.1 Allergy status to other antibiotic agents; Z88.6 Allergy status to analgesic agent; Z79.899 Other long term (current) drug therapy
CPT/HCPCS: 81002; 81025; 96372; 99283; J1630; S0119

== ENCOUNTER 2018-07-12 04:47 | Emergency (ER) | payer OTHER ==
[~2018-07-12] VITALS: Ht 160 cm; Wt 78.2 kg
[~2018-07-12 04:47] MED LIST changes: -ACET-2869 PO; +HYDR-5122 PO
[2018-07-12 04:54] VITALS: BP 123/68
--- NOTE | 2018-07-12 05:02 | NUR ---
PT BIB SELF C/O OF 01/02 SHARP ABD PAIN X3 DAYS AND VOMITING X2 DAYS. ; SKIN IS INTACT, PINK/WARM/DRY; AAOX4, PERRL, WITH EVEN AND STEADY GAIT; LUNGS CLEAR BL, BREATHING UNLABORED; HR EVEN AND REGULAR, BL PERIPHERAL PULSES PRESENT; BS ACTIVE X4, NO TENDERNESS TO PALPATION, NO HEPATOSPLENOMEGALLY PALPATED, RESONANT TO PERCUSSION; PT DENIES ANY FEVER, CP, SOB, OR COUGH AT THIS TIME; VSS; PATIENT POSITIONED FOR COMFORT; HOB ELEVATED; BEDRAILS UP X1; BED DOWN. ER MD MADE AWARE OF PT STATUS. PMH: PANCREATITIS RX: DENIES
--- NOTE | 2018-07-12 05:13 | NUR ---
DR. LUU AT BEDSIDE FOR EVALUATION.
--- NOTE | 2018-07-12 05:38 | NUR ---
LABS DRAWN BY ELO WALKED DOWN TO LAB BY FITO RUSSELL
[2018-07-12 05:52] LABS: BASOPHILS % (AUTO) 0.7 % (0.0-2.0); EOSINOPHILS # (AUTO) 0.2 K/uL (0-0.4); EOSINOPHILS % (AUTO) 3.7 % (0.0-4.0); HEMATOCRIT 35.3 % (36-48); HEMOGLOBIN 11.5 g/dL (12.0-16.0); LYMPHOCYTES # (AUTO) 1.5 K/uL (2.5-16.5); LYMPHOCYTES % (AUTO) 22.8 % (20.5-51.1); MEAN CORPUSCULAR HEMOGLOBIN 27 pg (27-31); MEAN CORPUSCULAR HGB CONC 33 g/dL (33-37); MONOCYTES # (AUTO) 0.3 K/uL (0.8-1.0); MONOCYTES % (AUTO) 5.1 % (1.7-9.3); NEUTROPHILS # (AUTO) 4.3 K/uL (1.8-7.7); NEUTROPHILS % (AUTO) 67.7 % (42.2-75.2); PLATELET COUNT (AUTO) 219 K/uL (140-450); WHITE BLOOD COUNT (AUTO) 6.4 K/uL (4.8-10.8)
[2018-07-12 05:54] LABS: APPEARANCE,URINE HAZY (CLEAR); BILIRUBIN,URINE NEGATIVE (NEGATIVE); BLOOD, URINE NEGATIVE (NEGATIVE); COLOR,URINE YELLOW (YELLOW); LEUKOCYTE ESTERASE ,URINE 2+ (NEGATIVE); NITRITE, URINE NEGATIVE (NEGATIVE); UGLUCOSE NEGATIVE (NEGATIVE)
[2018-07-12 06:08] LABS: ANION GAP 10.2 (8-16); CARBON DIOXIDE 28.5 mmol/L (21-32); CREATININE 0.7 mg/dL (0.6-1.3); POTASSIUM 3.7 mmol/L (3.5-5.1)
[2018-07-12 06:08] LABS: RBC,URINE 0-5 (RARE) /HPF (0-5)
[2018-07-12 06:09] LABS: WBC,URINE 20-60 /HPF (0-5)
[2018-07-12 06:15] LABS: ALBUMIN 3.5 g/dL (3.4-5.0); TOTAL BILIRUBIN 0.2 mg/dL (0.0-1.0)
[2018-07-12] MEDS ORDERED: MORPHINE SULFATE 4 MG/ML SYR IM ONE (06:25)
[2018-07-12] MEDS ORDERED: ONDANSETRON 4 MG/2 ML VIAL IVP ONE (06:30)
--- NOTE | 2018-07-12 06:41 | NUR ---
PT TO CT VIA WHEELCHAIR BY TECH.
--- NOTE | 2018-07-12 06:45 | NUR ---
Patient appears to be resting comfortably in bed. Vital Signs within normal limits. Respirations even and unlabored.
[2018-07-12 08:01] VITALS: BP 112/48
--- NOTE | 2018-07-12 08:05 | NUR ---
Patient discharged with v/s stable. Written and verbal after care instructions given and explained. Patient alert, oriented and verbalized understanding of instructions. Ambulatory with steady gait. All questions addressed prior to discharge. ID band removed. Patient advised to follow up with PMD. Rx of MILK OF MAGNESIA given. Patient educated on indication of medication including possible reaction and side effects. Opportunity to ask questions provided and answered.
== END 2018-07-12 08:05 | disposition home or self-care (01) ==
LOC: MED 04:47
DX: R10.12 Left upper quadrant pain (principal); K21.9 Gastro-esophageal reflux disease without esophagitis; Z79.899 Other long term (current) drug therapy; Z88.8 Allergy status to other drugs, medicaments and biological substances
CPT/HCPCS: 36415; 74176; 80053; 81001; 81025; 83690; 84703; 85025; 87086; 96372; 96374; 99284; J2270; J2405; 96375

== ENCOUNTER 2018-07-24 07:30 | Emergency (ER) | payer OTHER ==
[~2018-07-24] VITALS: Ht 160 cm; Wt 74.8 kg
[2018-07-24 07:38] VITALS: BP 113/70
--- NOTE | 2018-07-24 07:45 | NUR ---
32 Y/O F PRESENTS TO THE ED W/ RUQ PAIN X 1 WEEK. PT STATES PAIN WORSENED LAST NIGHT. PT REPORTS SHARP, STABBING PAIN. PT AAOX4, AMBULATORY WITH STEADY GAIT. NO S/S OF DISTRESS NOTED. BS ACTIVE X4. pt reports hx of pancreatic divisim which causes pain. [facility]. waiting on insurance to approve to make appt. pt took tylenol and zofran with no relief. hx: pancreatic issues rx: zofan, tylenol
[2018-07-24] MEDS ORDERED: MORPHINE SULFATE 4 MG/ML SYR IVP ONE (07:55)
[2018-07-24] MEDS ORDERED: ONDANSETRON 4 MG/2 ML VIAL IVP ONE (07:55)
[2018-07-24] MEDS ORDERED: NACL 0.9% 1,000 ML IV ONE (07:55)
--- NOTE | 2018-07-24 07:55 | NUR ---
DR GOMEZ AT BEDSIDE
[2018-07-24 08:06] LABS: BASOPHILS % (AUTO) 0.3 % (0.0-2.0); EOSINOPHILS % (AUTO) 0.3 % (0.0-4.0); HEMATOCRIT 42.1 % (36-48); HEMOGLOBIN 13.6 g/dL (12.0-16.0); LYMPHOCYTES # (AUTO) 0.9 K/uL (2.5-16.5); LYMPHOCYTES % (AUTO) 9.4 % (20.5-51.1); MEAN CORPUSCULAR HEMOGLOBIN 27 pg (27-31); MEAN CORPUSCULAR HGB CONC 32 g/dL (33-37); MEAN CORPUSCULAR VOLUME 82.3 fL (80-94); MONOCYTES # (AUTO) 0.2 K/uL (0.8-1.0); MONOCYTES % (AUTO) 2.3 % (1.7-9.3); NEUTROPHILS # (AUTO) 8.3 K/uL (1.8-7.7); NEUTROPHILS % (AUTO) 87.7 % (42.2-75.2); PLATELET COUNT (AUTO) 260 K/uL (140-450); RED BLOOD CELL COUNT(AUTO) 5.12 MIL/uL (4.20-5.40); RED CELL DISTRIBUTION WIDTH 14.8 % (11.6-13.7); WHITE BLOOD COUNT (AUTO) 9.5 K/uL (4.8-10.8)
[2018-07-24 08:08] LABS: APPEARANCE,URINE CLOUDY (CLEAR); BILIRUBIN,URINE NEGATIVE (NEGATIVE); BLOOD, URINE NEGATIVE (NEGATIVE); COLOR,URINE YELLOW (YELLOW); LEUKOCYTE ESTERASE ,URINE 1+ (NEGATIVE); NITRITE, URINE NEGATIVE (NEGATIVE); UGLUCOSE NEGATIVE (NEGATIVE)
[2018-07-24 08:12] LABS: ANION GAP 11.3 (8-16); CARBON DIOXIDE 28.4 mmol/L (21-32); CREATININE 0.7 mg/dL (0.6-1.3); POTASSIUM 3.7 mmol/L (3.5-5.1)
[2018-07-24 08:17] LABS: ALBUMIN 4.7 g/dL (3.4-5.0); TOTAL BILIRUBIN 0.4 mg/dL (0.0-1.0)
[2018-07-24 08:35] LABS: RBC,URINE 0-5 /HPF (0-5); WBC,URINE 16-25 (MOD) /HPF (0-5)
--- NOTE | 2018-07-24 08:35 | NUR ---
PT REPORTS 6/[address] PAIN AT THIS TIME[address] DR[address] GOMEZ MADE AWARE.
[2018-07-24 09:00] VITALS: BP 112/58
--- NOTE | 2018-07-24 09:01 | NUR ---
Patient discharged with v/s stable. Written and verbal after care instructions given and explained. Patient alert, oriented and verbalized understanding of instructions. Ambulatory with steady gait. All questions addressed prior to discharge. ID band removed. Patient advised to follow up with PMD. Rx of NORCO, CIPRO, ZOFRAN given. Patient educated on indication of medication including possible reaction and side effects. Opportunity to ask questions provided and answered.
== END 2018-07-24 09:01 | disposition home or self-care (01) ==
LOC: MED 07:30
DX: N39.0 Urinary tract infection, site not specified (principal); K21.9 Gastro-esophageal reflux disease without esophagitis; Z79.891 Long term (current) use of opiate analgesic; Z79.899 Other long term (current) drug therapy; Z88.6 Allergy status to analgesic agent
CPT/HCPCS: 36415; 80053; 81001; 81025; 83690; 85025; 87086; 96361; 96374; 96375; 99283; J2270; J2405; J7030

== ENCOUNTER 2018-07-30 07:21 | Emergency (ER) | payer OTHER ==
[~2018-07-30] VITALS: Ht 160 cm; Wt 75.7 kg
[2018-07-30 07:30] VITALS: BP 136/80
--- NOTE | 2018-07-30 07:52 | NUR ---
C/O LEFT UPPER QUADRANT ABDOMINAL PAIN THAT RADIATES TO THE BACK SINCE FRIDAY. PAIN 8/10, SHARP, STABBING, CONSTANT. REPORTS NAUSEA AND VOMITING TODAY X 1. DENIES DIARRHEA, FEVER, CHILLS. SKIN IS PINK/WARM/DRY; AAOX4 WITH EVEN AND STEADY GAIT; LUNGS CLEAR BL; HR EVEN AND REGULAR; PT DENIES ANY FEVER, CP, SOB, OR COUGH AT THIS TIME; PATIENT STATES PAIN OF 8/10 AT THIS TIME; VSS; PATIENT POSITIONED FOR COMFORT; HOB ELEVATED; BEDRAILS UP X2; BED DOWN. ER MD MADE AWARE OF PT STATUS.
[2018-07-30] MEDS ORDERED: FAMOTIDINE 20 MG TAB PO ONE (08:15)
[2018-07-30] MEDS ORDERED: ALUMINUM HYD/MAG/SIMETHICONE 30 ML UDC PO ONE (08:15)
[2018-07-30] MEDS ORDERED: LIDOCAINE VISCOUS 2% 20 ML UDC PO ONE (08:15)
[2018-07-30] MEDS ORDERED: METOCLOPRAMIDE 10 MG/2 ML INJ VIAL IM ONE (08:15)
[2018-07-30 09:05] VITALS: BP 130/78
== END 2018-07-30 09:06 | disposition home or self-care (01) ==
LOC: MED 07:21
DX: R10.12 Left upper quadrant pain (principal); R11.2 Nausea with vomiting, unspecified; K21.9 Gastro-esophageal reflux disease without esophagitis; Z90.49 Acquired absence of other specified parts of digestive tract; Z88.6 Allergy status to analgesic agent; Z79.1 Long term (current) use of non-steroidal anti-inflammatories (NSAID)
CPT/HCPCS: 81002; 81025; 96372; 99284; J2765

== ENCOUNTER 2018-08-05 07:25 | Emergency (ER) | payer OTHER ==
[~2018-08-05] VITALS: Ht 160 cm; Wt 76.2 kg
[2018-08-05 07:32] VITALS: BP 135/81
--- NOTE | 2018-08-05 07:39 | NUR ---
PT WALKED TO THE ROOM AND SAID NEED TO GO BECAUSE HER SON'S SCHOOL CALLED HER. PT LEFT WITHOU SEEN BY DOCTOR . DR. TO BRYAN.
== END 2018-08-05 07:39 | disposition left against medical advice (07) ==
LOC: MED 07:25
DX: R10.12 Left upper quadrant pain (principal); Z53.21 Procedure and treatment not carried out due to patient leaving prior to being seen by health care provider

== ENCOUNTER 2018-09-25 00:33 | Inpatient (IN) | payer OTHER ==
[~2018-09-25] VITALS: Ht 160 cm; Wt 76.2 kg
[2018-09-25 00:40] VITALS: BP 109/65
--- NOTE | 2018-09-25 00:42 | NUR ---
TO LOBBY A/W BED, AMBULATORY
--- NOTE | 2018-09-25 01:00 | NUR ---
C/O LEFT FLANK PAIN RADIATING TO BACK ACCOMPANIED BY NAUSEA. DENIES OTHER URINARY SYMPTOMS AT THIS TIME. Addendum: 09/25/18 at 0136 by NÉSTOR PAIN X 4 DAYS.
[2018-09-25] MEDS ORDERED: MORPHINE SULFATE 2 MG/ML SYR IVP ONE ×2 (01:45→03:15)
[2018-09-25] MEDS ORDERED: NACL 0.9% 1,000 ML IV ONE (01:45)
[2018-09-25] MEDS ORDERED: ONDANSETRON 4 MG/2 ML VIAL IVP ONE (01:45)
[2018-09-25 02:05] LABS: BASOPHILS % (AUTO) 0.3 % (0.0-2.0); EOSINOPHILS # (AUTO) 0.1 K/uL (0-0.4); EOSINOPHILS % (AUTO) 1.6 % (0.0-4.0); HEMATOCRIT 35.7 % (36-48); HEMOGLOBIN 12.1 g/dL (12.0-16.0); LYMPHOCYTES # (AUTO) 1.7 K/uL (2.5-16.5); LYMPHOCYTES % (AUTO) 25.9 % (20.5-51.1); MEAN CORPUSCULAR HEMOGLOBIN 29 pg (27-31); MEAN CORPUSCULAR HGB CONC 34 g/dL (33-37); MEAN CORPUSCULAR VOLUME 83.7 fL (80-94); MONOCYTES # (AUTO) 0.5 K/uL (0.8-1.0); MONOCYTES % (AUTO) 7.5 % (1.7-9.3); NEUTROPHILS # (AUTO) 4.3 K/uL (1.8-7.7); NEUTROPHILS % (AUTO) 64.7 % (42.2-75.2); PLATELET COUNT (AUTO) 181 K/uL (140-450); RED BLOOD CELL COUNT(AUTO) 4.26 MIL/uL (4.20-5.40); RED CELL DISTRIBUTION WIDTH 14.1 % (11.6-13.7); WHITE BLOOD COUNT (AUTO) 6.7 K/uL (4.8-10.8)
[2018-09-25 02:19] LABS: ANION GAP 8.8 (8-16); CARBON DIOXIDE 30.4 mmol/L (21-32); CREATININE 0.7 mg/dL (0.6-1.3); POTASSIUM 3.2 mmol/L (3.5-5.1)
[2018-09-25 02:25] LABS: ALBUMIN 3.9 g/dL (3.4-5.0); TOTAL BILIRUBIN 0.2 mg/dL (0.0-1.0)
--- NOTE | 2018-09-25 03:10 | NUR ---
DR SAEZ MADE AWARE THAT PATIENT IS C/O OF 8/10 SHARP PAIN IN ABD.
--- NOTE | 2018-09-25 03:39 | NUR ---
PATEINT ADMITTED UNDER THE CARE OF LUANN SHOEMAKER STATUS. JACQUI IN WHEELCHAIR, PATIENT STABLE DURING TRANSFER. REPORT GIVEN TO WENDIE GASCA FOR CONTINUED CARE.
--- NOTE | 2018-09-25 03:40 | NUR ---
PT BROUGHT UP BY RAVINDER TO [facility] ROOM 106, PT AMBULATED INDEPENDENTLY TO BED B. REPORT GIVEN BY JAREK GASCA SENIOR SOFTWARE TEST ENGINEER NURSE AT BEDSIDE FOR CONTINUITY OF CARE, PT IN STABLE CONDITION.
[2018-09-25 03:45] VITALS: BP 102/54
--- NOTE | 2018-09-25 04:00 | NUR ---
PT SETTLED IN LOW BED WITH SIDE RAILS UP X2. PT HAS NO C/O VOICED AT THIS TIME, V/S FOLLOWS T 97.9 P 68 R 18 B/P 102/54 02 100% ON ROOM AIR. PT IS AOX4 WITH SKIN INTACT. PT DENIES ANY MEDICAL HX EXCEPT FOR HX OF DX OF PANCREATIC DIVISION, PANCREATITIS, GALL BLADER REMOVAL AND . PT CURRENTLY BEING ADMITTED FOR PANCREATITIS.
--- NOTE | 2018-09-25 04:10 | NUR ---
PULMONARY PICKING [employer]PER[employer] CALLED FOR ORDERS FOR PT. DR. EMANUEL PICKING SUPERVISOR. DR EMANUEL WAS PAGED AND RETURNED THE CALL. NEW ORDERS NOTED FOR CLEAR LIQUID DIET, PRN MORPHINE AND ZOFRAN ORDERS. DR. EMANUEL SAID HE WILL ORDER THE REST LATER.
[2018-09-25] MEDS: ONDANSETRON 4 MG/2 ML VIAL IVP PRN ×3 (06:37→21:10)
[2018-09-25] MEDS: MORPHINE SULFATE 2 MG/ML SYR IVP PRN ×5 (06:42→21:06)
[2018-09-25] MEDS ORDERED: BISACODYL 10 MG SUPP RC PRN (06:50)
[2018-09-25] MEDS ORDERED: DOCUSATE SODIUM 250 MG GELCAP PO PRN (06:50)
[2018-09-25] MEDS ORDERED: diphenhydrAMINE 50 MG/ML VIAL IVP PRN (06:50)
[2018-09-25] MEDS ORDERED: guaiFENesin DM 200/20 MG-10 ML 10 ML UDC PO PRN (06:50)
[2018-09-25] MEDS ORDERED: MAGNESIUM OXIDE 400 MG TAB PO PRN (06:50)
[2018-09-25] MEDS ORDERED: LORazepam 2 MG/ML VIAL IVP PRN (06:50)
[2018-09-25] MEDS ORDERED: SODIUM PHOSPHATE 118 ML ENEM RC PRN (06:50)
[2018-09-25] MEDS ORDERED: POTASSIUM CHLORIDE 10 MEQ TABER PO PRN (06:50)
[2018-09-25] MEDS ORDERED: HYDROcodone/APAP 5/325 MG 1 TAB TAB PO PRN ×2 (06:50)
[2018-09-25] MEDS ORDERED: POTASSIUM CHLORIDE 40 MEQ, LIDOCAINE 1% 25 MG in NACL 0.9% 250 ML IV PRN (06:50)
[2018-09-25] MEDS ORDERED: cloNIDine 0.1 MG TAB PO PRN (06:50)
[2018-09-25] MEDS ORDERED: ACETAMINOPHEN 325 MG TAB PO PRN (06:50)
[2018-09-25] MEDS ORDERED: ACETAMINOPHEN 650 MG SUPP RC PRN (06:50)
[2018-09-25] MEDS ORDERED: IPRATROPIUM 0.02% 0.5 MG/2.5 ML NEBU INH PRN (06:50)
[2018-09-25] MEDS ORDERED: ALBUTEROL 0.083% 2.5 MG/3 ML NEBU INH PRN (06:50)
[2018-09-25] MEDS ORDERED: ALUMINUM HYD/MAG/SIMETHICONE 30 ML UDC PO PRN (06:50)
--- NOTE | 2018-09-25 06:50 | NUR ---
PT C/O NAUSEA AND SEVERE LEFT FLANK PAIN, GIVEN IVP MORPHINE AND ZOFRAN. PT IN STABLE CONDITION. WILL ENDORSE TO AM SHIFT TO MONITOR FOR PAIN AND NAUSEA. PT IN LOW BED WITH SIDE RAILS UP X2. SHE IS AOX4.ALL REQUESTED NEEDS ATTNEDED WILL ENDORSE CARE TO NEXT SHIFT. PT IN STABLE CONDITION.
--- NOTE | 2018-09-25 07:30 | NUR ---
RECEIVED BEDSIDE REPORT FROM DIGITAL ASSOCIATE MEDIA DIRECTOR RN. PT IN STABLE CONDITION. AOX4. COOPERATIVE AND INTERACTING APPROPRIATELY. VITALS STABLE. C/O 2/10 TOLERABLE PAIN AT THIS TIME. DENIES N/V AT THIS TIME. ACTIVE BOWEL SOUNDS. HEART RHYTHM REGULAR. LUNGS CTA. IV SITE PATENT AND ASYMPTOMATIC, WILL CONNECT TO IVF PER MD ORDERS. ALL SAFETY PRECAUTIONS IN PLACE, WILL CONTINUE TO MONITOR.
[2018-09-25 08:00] VITALS: BP 111/61
[2018-09-25] MEDS: PANTOPRAZOLE 40 MG TABEC PO SCH (08:34)
[2018-09-25] MEDS: NACL 0.9% 1,000 ML IV SCH ×2 (08:34→23:09)
[2018-09-25] MEDS: ESCITALOPRAM 20 MG TAB PO SCH (08:36)
--- NOTE | 2018-09-25 08:54 | NUR ---
SCHEDULED MEDS ADMINISTERED. PT STATES SHE IS NO LONGER TAKING LEXAPRO.
--- NOTE | 2018-09-25 11:02 | NUR ---
PT SLEEPING IN BED, RESPIRATIONS EVEN AND UNLABORED. WILL CONTINUE TO MONITOR.
--- NOTE | 2018-09-25 11:29 | NUR ---
09/25/18 RD INITIAL ASSESSMENT COMPLETED PLEASE REFER TO NUTRITION ASSESSMENT UNDER CARE ACTIVITY FOR ESTIMATED NUTRITIONAL NEEDS. 1. CONTINUE CLEAR LIQUID DIET MEDICALLY NECESSARY 2. ADVANCED TO REGULAR DIET WHEN PT IS MEDICALLY STABLE 3. PANCREATITIS DIET EDUCATION WAS PROVIDED 4. RD TO FOLLOW-UP 5-7 DAYS, LOW RISK MAHENDRA RYAN RD
--- NOTE | 2018-09-25 12:56 | NUR ---
CALLED OFFICE OF DR Aleksander CALHOUN [phone] SPOKE WITH TRENT, FOLLOW UP APPOINTMENT MADE ON 10/02/18 AT 12 NOON, [address], [place] [address]. COPY OF APPOINTMENT PROVIDED TO PATIENT. PRIMARY NURSE SARA GASCA MADE AWARE.
--- NOTE | 2018-09-25 15:05 | NUR ---
PT DENIES N/V, ONE HOUR AFTER ZOFRAN IVP.
--- NOTE | 2018-09-25 15:07 | NUR ---
PT C/O NAUSEA. NO VOMITING AT THIS TIME. ADMINISTERED ZOFRAN IVP.
[2018-09-25 16:00] VITALS: BP 109/52
--- NOTE | 2018-09-25 18:35 | NUR ---
PT RESTING IN BED, NO C/O PAIN OR N/V AT THIS TIME. WILL CONTINUE TO MONITOR.
--- NOTE | 2018-09-25 19:14 | NUR ---
RECEIVED ENDORSEMENT FROM SARA GASCA DAYSHIFT NURSE AT BEDSIDE FOR CONTINUITY OF CARE, PT IN STABLE CONDITION.
[2018-09-25 20:00] VITALS: BP 113/56
--- NOTE | 2018-09-25 20:00 | NUR ---
PT IN LOW BED WITH SIDE RAILS UP X2. PT IS AOX4 WITH PAIN AT TOLERABLE LEVEL AND NO C/O OF NAUSEA. V/S FOLLOWS T 98.4 P 62 R 18 B/P 113/56 02 99% ON ROOM AIR. PT IV SITE ON R AC 20 GUAGE INTACT AND FLUSHED PATENT. PT HAS N/S RUNNING At 75 MLS/HR. WILL CONTINUE TO MONITOR PT FOR PAIN.
[2018-09-25] MEDS ORDERED: ZOLPIDEM 5 MG TAB PO PRN (21:00)
--- NOTE | 2018-09-25 21:15 | NUR ---
PT IN BED AND HAS C/O OF NAUSEA AND SEVERE PAIN PT GIVEN IVP/PRN MORPHINE AND ZOFRAN. WILL CONTINUE TO MONITOR PT FOR PAIN RELIEF.
--- NOTE | 2018-09-25 23:00 | NUR ---
PT IN BED SLEEPING NO S/S OF PAIN OR DISTRESS NOTED. IV FLUID BAG COMPLETED AND NEW BAG OF N/S PROVIDED, HUNG AND CONTINUE TO RUN AT 75MLS/HR.
--- NOTE | 2018-09-26 00:30 | NUR ---
PT IN BED ALL REQUESTED NEEDS ATTENDED, V/S FOLLOWS T 97.5 P 55 R 18 B/P 94/48 02 97% ON ROOM AIR. IV SITE INTACT AND N/S RUNNING AT 75MLS/HR.
[2018-09-26] MEDS: MORPHINE SULFATE 2 MG/ML SYR IVP PRN ×3 (03:07→11:15)
[2018-09-26] MEDS: ONDANSETRON 4 MG/2 ML VIAL IVP PRN (03:10)
--- NOTE | 2018-09-26 03:50 | NUR ---
PT IN BED C/O ABD PAIN AND NAUSEA, GIVEN IVP PRN ZOFRAN AND MORPHINE WILL MONITOR FOR EFFECT.
--- NOTE | 2018-09-26 06:45 | NUR ---
PT C/O ABD PAIN /10 GIVEN IVP MORPHINE, WILL MONITOR FOR EFECT.
[2018-09-26 07:22] LABS: ALBUMIN 3.5 g/dL (3.4-5.0); ANION GAP 8.4 (8-16); CARBON DIOXIDE 31.4 mmol/L (21-32); CREATININE 0.8 mg/dL (0.6-1.3); POTASSIUM 3.8 mmol/L (3.5-5.1); TOTAL BILIRUBIN 0.7 mg/dL (0.0-1.0)
--- NOTE | 2018-09-26 07:25 | NUR ---
REPORT GIVEN TO MIGUEL RN DAYSHIFT NURSE AT BEDSIDE FOR CONTINUITY OF CARE, PT IN STABLE CONDITION.
--- NOTE | 2018-09-26 07:27 | NUR ---
RECEIVED BEDSIDE REPORT FROM OCC THERAPIST NURSE FOR CONTINUITY OF CARE. PATIENT IS AOX4, TO NAME, PLACE, DATE AND TIME. ABLE TO COMMUNICATE APPROPRIATELY. RESPIRATION EVEN AND UNLABORED. ON RA. NO SIGNS OF DISTRESS NOTED. IV ON RAC 20G, INTACT AND PATENT, INFUSING PER MD ORDER. SKIN INTACT AND CLEAN. ABLE TO AMBULATE WITH STEADY GAIT AND CONTINENT. DISCUSSED PLAN OF CARE WITH PATIENT AND PATIENT VERBALIZED UNDERSTANDING. BED IN LOW POSITION AND CALL LIGHT WITHIN REACH. INSTRUCTED PATIENT TO USE THE CALL LIGHT FOR ANY ASSISTANCE AND BOTH ARE AWARE.
[2018-09-26 07:36] LABS: BASOPHILS % (AUTO) 0.2 % (0.0-2.0); EOSINOPHILS # (AUTO) 0.1 K/uL (0-0.4); EOSINOPHILS % (AUTO) 1.7 % (0.0-4.0); HEMATOCRIT 36.9 % (36-48); HEMOGLOBIN 12.6 g/dL (12.0-16.0); LYMPHOCYTES # (AUTO) 1.6 K/uL (2.5-16.5); LYMPHOCYTES % (AUTO) 25.6 % (20.5-51.1); MEAN CORPUSCULAR HEMOGLOBIN 29 pg (27-31); MEAN CORPUSCULAR HGB CONC 34 g/dL (33-37); MEAN CORPUSCULAR VOLUME 83.9 fL (80-94); MONOCYTES # (AUTO) 0.4 K/uL (0.8-1.0); MONOCYTES % (AUTO) 6.2 % (1.7-9.3); NEUTROPHILS # (AUTO) 4.1 K/uL (1.8-7.7); NEUTROPHILS % (AUTO) 66.3 % (42.2-75.2); PLATELET COUNT (AUTO) 159 K/uL (140-450); RED CELL DISTRIBUTION WIDTH 14.1 % (11.6-13.7); WHITE BLOOD COUNT (AUTO) 6.1 K/uL (4.8-10.8)
[2018-09-26 08:00] VITALS: BP 125/77
[2018-09-26] MEDS: PANTOPRAZOLE 40 MG TABEC PO SCH (09:00)
[2018-09-26] MEDS: ESCITALOPRAM 20 MG TAB PO SCH (09:00)
[2018-09-26] MEDS: NACL 0.9% 1,000 ML IV SCH (09:05)
--- NOTE | 2018-09-26 09:09 | NUR ---
ADMINISTERED MEDS PER MD ORDER, PATIENT TOLERATED WELL. PATIENT REFUSED ESCITALOPRAM. PER PATIENT, " I HAVEN'T TAKE THIS MED SINCE 1 YEAR AGO AND I DON'T NEED IT." PATIENT IS SITTING ON BED AND WATCHING TV. DENIES PAIN AND SOB. NO SIGNS OF DISTRESS NOTED. INSTRUCTED PATIENT TO USE CALL LIGHT FOR ANY ASSISTANCE AND PATIENT WAS AWARE. BED IN LOW POSITION AND CALL LIGHT WITHIN REACH. CONTACTED PHARMACY AND SPOKE WITH JONELLE THE BUS AND TROLLEY INSPECTING DISPATCHER THAT MED HAS BEEN OPEN AND CUT IN TO SMALL PIECE. PER JONELLE, LEAVE MED IN RETURN TRAY AND PHARMACY WILL PICK IT UP. LEAVE MED IN RETURN TRAY INSTRUCTED.
--- NOTE | 2018-09-26 11:17 | NUR ---
PATIENT COMPLAINED 7/10 ABDOMINAL PAIN AND SHE FEELS RESTLESS. ADMINISTERED PRN PAIN MED. BED IN LOW POSITION AND CALL LIGHT WITHIN REACH. INSTRUCTED PATIENT TO USE THE CALL LIGHT FOR ANY ASSISTANCE AND PATIENT WAS AWARE.
--- NOTE | 2018-09-26 13:23 | NUR ---
PATIENT IS SITTING UP ON BED AND TALKING ON HER PHONE. NO SIGNS OF DISTRESS NOTED. BED IN LOW POSITION AND CALL LIGHT WITHIN REACH.
--- NOTE | 2018-09-26 14:15 | NUR ---
PATIENT IS TALKING TO LESLIE AND SON AT BEDSIDE. DENIES PAIN AND SOB. NO SIGNS OF DISTRESS NOTED. BED IN LOW POSITION AND CALL LIGHT WITHIN REACH.
--- NOTE | 2018-09-26 15:15 | NUR ---
LESLIE AND SON ARE AT BEDSIDE. DENIES PAIN AND SOB. NO SIGNS OF DISTRESS NOTED. BED IN LOW POSITION AND CALL LIGHT WITHIN REACH. INSTRUCTED PATIENT TO USE CALL LIGHT FOR ANY ASSISTANCE AND PATIENT WAS AWARE.
--- NOTE | 2018-09-26 15:35 | NUR ---
DR BROOKS IS TALKING TO PATIENT AT BEDSIDE. NO SIGNS OF DISTRESS NOTED. BED IN LOW POSITION AND CALL LIGHT WITHIN REACH.
[2018-09-26 16:00] VITALS: BP 117/67
--- NOTE | 2018-09-26 17:00 | NUR ---
DISCHARGE INSTRUCTION AND DISCHARGE DOCUMENT PROVIDED TO PATIENT IN PREFERRED LANGUAGE GREEK. EDUCATED PATIENT ON FOLLOW UP WITH MD, DISEASE MANAGEMENT, SIGNS AND SYMPTOMS, MEDICATIONS REGIMEN, AND MEDICATION SIDE EFFECTS, DIET REGIMEN AND GO TO THE NEAREST EMERGENCY ROOM OR CALL 911 IF EXPERIENCING FEVER, SHORTNESS OF BREATH, PAIN, SWELLING, AND GENERALIZED WEAKNESS . PATIENT VERBALIZED UNDERSTANDING. ANSWERED ALL PATIENT'S QUESTION. D/C IV AND CANNULA INTACT AND COMPLETE, MINIMAL BLEEDING AT IV SITE. REMOVED ALL ARM BANDS. PATIENT CHECKED THE ALL CABINETS AND TOOK ALL HER BELONGINGS. PATIENT IS DISCHARGE AT THIS TIME IN A STABLE CONDITION.
== END 2018-09-26 17:00 | disposition home or self-care (01) | DRG 282 ==
LOC: MED 00:33 → MTU 03:15
PROVIDERS: ADMIT Internal Medicine Pulmonary Disease; ATTEND Internal Medicine Pulmonary Disease
DX: K85.90 Acute pancreatitis without necrosis or infection, unspecified (principal); Q45.3 Other congenital malformations of pancreas and pancreatic duct; K21.9 Gastro-esophageal reflux disease without esophagitis; K86.1 Other chronic pancreatitis; R74.8 Abnormal levels of other serum enzymes; Z88.6 Allergy status to analgesic agent; Z79.899 Other long term (current) drug therapy; Z87.442 Personal history of urinary calculi
CPT/HCPCS: 36415; 76770; 80053; 81025; 83690; 85025; 87081; 96361; 96374; 96375; 96376; 99285; J2270; J2405; J7030; Q0092

== ENCOUNTER 2019-04-07 00:24 | Emergency (ER) | payer OTHER ==
[~2019-04-07] VITALS: Ht 160 cm; Wt 69.9 kg
[2019-04-07 00:30] VITALS: BP 130/80
--- NOTE | 2019-04-07 00:30 | NUR ---
TO BED # 04 AMBULATORY
--- NOTE | 2019-04-07 00:44 | NUR ---
Dr. Martinez examining patient.
[2019-04-07] MEDS ORDERED: NACL 0.9% 500 ML IV ONE (00:54)
[2019-04-07] MEDS ORDERED: MORPHINE SULFATE 2 MG/ML SYR IVP ONE (00:55)
[2019-04-07] MEDS ORDERED: ONDANSETRON 4 MG/2 ML VIAL IVP ONE (00:55)
--- NOTE | 2019-04-07 00:55 | NUR ---
33/F PRESENTS TO ED, C/O L FLANK PAIN AND LOWER BACK PAIN X4 DAYS. PT ALSO C/O N/V/D X2 DAYS. DENIES FEVER. PT WENT TO [facility] 4 DAYS AGO, WAS TOLD SHE HAD KIDNEY STONES AND ELEVATED LIPASE. PT AWAKE AND ALERT, SKIN NORMAL COLOR WARM AND DRY, RR EVEN AND UNLABORED. LUNG SOUNDS CLEAR BL. BS ACTIVE X4, ABD SOFT FLAT TENDER TO LUQ ONLY. HX PANCREATIC DIVISUM, CHOLECYSTECTOMY RX ZOFRAN, TIZENADINE, TYLENOL, MOTRIN
[2019-04-07 01:28] LABS: ANION GAP 15.5 (8-16); CARBON DIOXIDE 25.1 mmol/L (21-32); CREATININE 0.7 mg/dL (0.6-1.3); POTASSIUM 3.6 mmol/L (3.5-5.1)
[2019-04-07 01:36] LABS: TOTAL BILIRUBIN 0.7 mg/dL (0.0-1.0)
[2019-04-07 01:43] LABS: BASOPHILS % (AUTO) 0.2 % (0.0-2.0); EOSINOPHILS # (AUTO) 0.1 K/uL (0-0.4); EOSINOPHILS % (AUTO) 0.6 % (0.0-4.0); HEMATOCRIT 38.7 % (36-48); HEMOGLOBIN 13.1 g/dL (12.0-16.0); LYMPHOCYTES # (AUTO) 0.4 K/uL (2.5-16.5); LYMPHOCYTES % (AUTO) 4.1 % (20.5-51.1); MEAN CORPUSCULAR HEMOGLOBIN 29 pg (27-31); MEAN CORPUSCULAR HGB CONC 34 g/dL (33-37); MEAN CORPUSCULAR VOLUME 84.5 fL (80-94); MONOCYTES # (AUTO) 0.5 K/uL (0.8-1.0); MONOCYTES % (AUTO) 5.4 % (1.7-9.3); NEUTROPHILS # (AUTO) 7.9 K/uL (1.8-7.7); NEUTROPHILS % (AUTO) 89.7 % (42.2-75.2); PLATELET COUNT (AUTO) 206 K/uL (140-450); RED BLOOD CELL COUNT(AUTO) 4.58 MIL/uL (4.20-5.40); RED CELL DISTRIBUTION WIDTH 14.6 % (11.6-13.7); WHITE BLOOD COUNT (AUTO) 8.8 K/uL (4.8-10.8)
--- NOTE | 2019-04-07 01:54 | NUR ---
PT TAKEN TO CT
--- NOTE | 2019-04-07 03:02 | NUR ---
PT LAYING IN BED, RR EVEN AND UNLABORED, VSS. PT REPORTS 7/10 L FLANK AND LOWER BACK PAIN COMING BACK AFTER MEDS. DR SAEZ MADE AWARE.
--- NOTE | 2019-04-07 03:40 | NUR ---
ALL RESULTS BACK AND NOTED BY ERMD AND FOR D/C
[2019-04-07 03:52] VITALS: BP 118/72
--- NOTE | 2019-04-07 03:52 | NUR ---
Patient discharged with v/s stable. Written and verbal after care instructions given and explained. Patient alert, oriented and verbalized understanding of instructions. Ambulatory with steady gait. All questions addressed prior to discharge. ID band removed. Patient advised to follow up with PMD. Rx of IBUPROFEN 800MG given. Patient educated on indication of medication including possible reaction and side effects. Opportunity to ask questions provided and answered.
== END 2019-04-07 03:52 | disposition home or self-care (01) ==
LOC: MED 00:24
DX: S39.012A Strain of muscle, fascia and tendon of lower back, initial encounter (principal); R11.10 Vomiting, unspecified; R19.7 Diarrhea, unspecified; K21.9 Gastro-esophageal reflux disease without esophagitis; Z79.899 Other long term (current) drug therapy; Z79.891 Long term (current) use of opiate analgesic; Z88.6 Allergy status to analgesic agent; X58.XXXA Exposure to other specified factors, initial encounter; Y92.89 Other specified places as the place of occurrence of the external cause; Y93.89 Activity, other specified; Y99.8 Other external cause status
CPT/HCPCS: 36415; 74176; 80053; 81002; 81025; 83690; 85025; 96361; 96374; 96375; 99284; J2270; J2405; J7030

== ENCOUNTER 2019-05-06 05:33 | Inpatient (IN) | payer OTHER ==
[~2019-05-06] VITALS: Ht 160 cm; Wt 72.1 kg
[2019-05-06 05:40] VITALS: BP 124/78
--- NOTE | 2019-05-06 05:50 | NUR ---
01/02 LUQ PAIN RADIATING INTO UPPER BACK AND INTO EPIGASTRIC REGION WITH INTERMITTENT INTENSE SHOOTING PAIN, N/V OFF/ON X 3-4 DAYS. RELATED TO CHRONIC CONDITION. NO RELIEF FROM PAIN MEDS. PMH-- PANCREATIC DIVISM, KIDNEY STONES, PAIN MANAGEMENT RX-- NORCO YESTERDAY, TYLENOL X 2 HOURS AGO, TIZANIDINE, ZOFRAN
--- NOTE | 2019-05-06 05:50 | NUR ---
Note undone in EDM - 05/06/19 at 0605 by [facility] 33 Y/O FEMALE C/O LUQ/EPIGASTRIC PAIN X 3DAYS. RATES PAIN 8/10 DESCRIBES IT SHOOTING PAIN THAT RADIATES TO THE UPPER BACK. BAD IS SOFT, FLAT, BS ACTIVE, AND TENDERNESS ON LUQ. VSS. PT STATES ITS INTERMITENT PAIN. PT STATES SHE HAD 12+ VOMITING EPISODES ON AND OFF. NO DIARRHEA. ALLERGIES; TORADOL IV (CHEST TIGHNESS) PMH: PANCREATIC DIVISM, KIDNEY STONE, PAIN MANAGEMENT.
--- NOTE | 2019-05-06 05:50 | NUR ---
33 Y/O FEMALE C/O LUQ/EPIGASTRIC PAIN X 3DAYS. RATES PAIN 8/10 DESCRIBES IT SHOOTING PAIN THAT RADIATES TO THE UPPER BACK. BAD IS SOFT, FLAT, BS ACTIVE, AND TENDERNESS ON LUQ. VSS. PT STATES ITS INTERMITENT PAIN. PT STATES SHE HAD 12+ VOMITING EPISODES ON AND OFF. NO DIARRHEA. DENEIS ANY BLOOD IN URINE, STOOL, OR VOMIT. DENIES ANY DYSURIA. ALLERGIES; TORADOL IV (CHEST TIGHNESS) PMH: PANCREATIC DIVISM, KIDNEY STONE, PAIN MANAGEMENT.
--- NOTE | 2019-05-06 06:05 | NUR ---
AT BEDSIDE TO NOE TARANGO
[2019-05-06] MEDS ORDERED: NACL 0.9% 1,000 ML IV SCH (06:07)
[2019-05-06] MEDS ORDERED: ONDANSETRON 4 MG/2 ML VIAL IVP ONE (06:10)
[2019-05-06] MEDS ORDERED: MORPHINE SULFATE 4 MG/ML SYR IVP ONE (06:10)
[2019-05-06 06:32] LABS: BASOPHILS % (AUTO) 0.3 % (0.0-2.0); EOSINOPHILS # (AUTO) 0.2 K/uL (0-0.4); EOSINOPHILS % (AUTO) 3.7 % (0.0-4.0); HEMATOCRIT 39.4 % (36-48); LYMPHOCYTES # (AUTO) 1.6 K/uL (2.5-16.5); LYMPHOCYTES % (AUTO) 25.6 % (20.5-51.1); MEAN CORPUSCULAR HEMOGLOBIN 29 pg (27-31); MEAN CORPUSCULAR HGB CONC 33 g/dL (33-37); MEAN CORPUSCULAR VOLUME 86.8 fL (80-94); MONOCYTES # (AUTO) 0.3 K/uL (0.8-1.0); MONOCYTES % (AUTO) 4.9 % (1.7-9.3); NEUTROPHILS # (AUTO) 4.1 K/uL (1.8-7.7); NEUTROPHILS % (AUTO) 65.5 % (42.2-75.2); PLATELET COUNT (AUTO) 242 K/uL (140-450); RED BLOOD CELL COUNT(AUTO) 4.53 MIL/uL (4.20-5.40); RED CELL DISTRIBUTION WIDTH 14.6 % (11.6-13.7); WHITE BLOOD COUNT (AUTO) 6.3 K/uL (4.8-10.8)
[2019-05-06 06:38] LABS: ANION GAP 12.2 (8-16); CARBON DIOXIDE 26.6 mmol/L (21-32); CREATININE 0.8 mg/dL (0.6-1.3); POTASSIUM 3.8 mmol/L (3.5-5.1)
[2019-05-06 06:40] LABS: APPEARANCE,URINE CLEAR (CLEAR); BILIRUBIN,URINE NEGATIVE (NEGATIVE); BLOOD, URINE NEGATIVE (NEGATIVE); COLOR,URINE YELLOW (YELLOW); LEUKOCYTE ESTERASE ,URINE 1+ (NEGATIVE); NITRITE, URINE NEGATIVE (NEGATIVE); UGLUCOSE NEGATIVE (NEGATIVE)
[2019-05-06 06:43] LABS: ALBUMIN 3.8 g/dL (3.4-5.0); TOTAL BILIRUBIN 0.2 mg/dL (0.0-1.0)
[2019-05-06 06:49] LABS: RBC,URINE 0-5 /HPF (0-5)
[2019-05-06] MEDS ORDERED: cefTRIAXone 1,000 MG VIAL ONE ×2 (07:14)
--- NOTE | 2019-05-06 07:28 | NUR ---
Pt report given to BUSTER, CHARGE NURSE. Transfer of care at this time.
[2019-05-06] MEDS ORDERED: HYDR-5092 PO (07:29)
[2019-05-06] MEDS ORDERED: TIZA2CAP PO (07:29)
[2019-05-06] MEDS ORDERED: METO-485 PO (07:29)
[2019-05-06] MEDS ORDERED: ONDA4TAB PO (07:29)
--- NOTE | 2019-05-06 07:29 | NUR ---
ASSUMED CARE OF PT
--- NOTE | 2019-05-06 08:15 | NUR ---
PT ARRIVED ON THE UNIT WITH ER NURSE, IN A WHEELCHAIR. PT WAS ABLE TO AMBULATE FROM CHAIR TO BED. IV ON LAC 20G SL. ABD PAIN. SKIN INTACT. LBM 05/05. WILL AWAIT ORDERS.
--- NOTE | 2019-05-06 08:27 | NUR ---
Patient will be admitted to care of DR BROOKS. Admited to ELO HARRISON. Will go to [id number]. Belongings list completed. Report to HUNTER GASCA.
[2019-05-06 08:30] VITALS: BP 100/61
--- NOTE | 2019-05-06 09:20 | NUR ---
PATIENT HAS BEEN SCREENED AND CATEGORIZED LOW NUTRITION RISK. PATIENT WILL BE SEEN WITHIN 5-7 DAYS OF ADMISSION. 05/11/19-05/13/[address]
--- NOTE | 2019-05-06 09:58 | NUR ---
Late entry. Confirmed with RN that 0.9 NS IV completed at 0730 Addendum: 05/06/19 at 1003 by [email or web address] Rocephin IV done t 0750
[2019-05-06] MEDS ORDERED: LORazepam 2 MG/ML VIAL IVP PRN (10:25)
[2019-05-06] MEDS ORDERED: PANTOPRAZOLE 40 MG TABEC PO PRN (10:25)
[2019-05-06] MEDS: NACL 0.9% 1,000 ML IV SCH ×2 (10:25→16:07)
[2019-05-06] MEDS ORDERED: POTASSIUM CHLORIDE 10 MEQ TABER PO PRN (10:25)
[2019-05-06] MEDS ORDERED: MAGNESIUM OXIDE 400 MG TAB PO PRN (10:25)
[2019-05-06] MEDS ORDERED: ACETAMINOPHEN 325 MG TAB PO PRN (10:25)
[2019-05-06] MEDS ORDERED: ZOLPIDEM 5 MG TAB PO PRN (10:25)
[2019-05-06] MEDS ORDERED: MAG SULF 2000 MG/WATER PREMIX 50 ML IV PRN (10:25)
[2019-05-06] MEDS ORDERED: diphenhydrAMINE 50 MG/ML VIAL IVP PRN (10:25)
[2019-05-06] MEDS ORDERED: HYDROcodone/APAP 5/325 MG 1 TAB TAB PO PRN (10:25)
--- NOTE | 2019-05-06 10:30 | NUR ---
RADIOLOGY TOOK PT FOR CT ABD/PELVIS IN WHEELCHAIR.
[2019-05-06 10:51] LABS: BARBITURATE, URINE NEG. ng/ml (NEG <=200); BENZODIAZEPINE, URINE NEG. ng/mL (NEG <=200); CANNABINOID, URINE NEG. ng/mL (NEG <=50); COCAINE, URINE NEG. ng/mL (NEG <=300); OPIATE, URINE NEG. ng/mL (NEG <=2000); PHENCYCLIDINE SCREEN,URINE NEG. ng/mL (NEG <=25)
[2019-05-06] MEDS: ONDANSETRON 4 MG/2 ML VIAL IVP PRN ×2 (11:26→17:20)
--- NOTE | 2019-05-06 11:26 | NUR ---
DR BROOKS CAME AND ORDERED MORPHINE FOR PT, SEVERE PAIN. ORDER MORPHINE 2MG IVP Q3 FOR PAIN. ADMINISTERED ZOFRAN AND MORPHINE. PT TOLERATED WELL. WILL CONTINUE TO MONITOR PT.
[2019-05-06 12:00] VITALS: BP 92/45
[2019-05-06] MEDS: MORPHINE SULFATE 2 MG/ML SYR IVP PRN ×3 (13:21→20:52)
--- NOTE | 2019-05-06 14:53 | NUR ---
Marketing Database Coordinator Note: Basic Screen: Yes High Risk DC Screen [place]: LESLIE Kelley Relationship: Pre-Admission Living Arrangements: Lives with Other Prior ADL Independent Current Home Health Name/Tel: N/A Current DME/02 Name/Tel: N/A Current Hospice Name/Tel: N/A Current Dialysis Name/Tel: N/A Healthcare Decision Maker: Patient Advance Directive No Physician Orders for Life Sustaining Treatment Form No Patient/Family Have Educational Needs Yes Information Taught: Advance Directive Person Taught: Patient Teaching Tools: Verbal Factors Affecting Learning: None Participation Level: Active Evaluation: Verbalizes Understanding Discipline: Case Mgt/Social Svcs Tentative Discharge Plan/Destination: No Needs Identified Will require assistance post discharge: No Referred to Ruby On Rails Developer: No Tentative Discharge Plan Summary: Patient is a 33-year-old female admitted for acute pancreatitis. Patient has no significant PMHX. Patient was admitted from home. SW verified demographics with patient. Patient reports past mental health history of PTSD and anxiety, but states that she is no longer affected by these diagnoses. Patient reports no history of substance abuse. Patient's tentative plan after discharge is to return home. No further needs identified. Signature: MARLENE Tovar Date: May 06, 2019 Time: 14:52
--- NOTE | 2019-05-06 15:15 | NUR ---
DC PLANNIN YRS OLD FEMALE PT WAS ADMITTED FROM HOME WITH A DX OF COLON CA . PT HAD SURGERY WITH DR GOPI BRINK LAPAROSCOPIC EXTENDED RIGHT COLECTOMY WITH TRANSVERSE ABDOMINAL PLANE BLOCK. ADMINISTERED IVF AND PAIN MEDS. DC PLAN , POD #2 AWAITING RETURN OF BOWEL FUNCTION. ADVANCED DIET AND AMBULATION . DC PLAN TO GO HOME WHEN STABLE. Addendum: 05/07/19 at 1121 by Doris Davila CM DC PLANNING PT STABLE TO BE DISCHARGED LIPASE 165 ,TOLERATED DIET . CURRENTLY PT IS FOLLOW UP WITH GI SPECIALIST AT [facility] . DC PLAN TO GO HOME AND ENCOURAGED PT TO FOLLOW UP . CALLED PT'S PCP OFFICE [phone] PER FLORINA BULB FILLER PT DOESN'T NEED TO MAKE APPOINTMENT THEY CAN COME ANY DAY AND TIME . ADVISED PT TO SEE PCP NEXT WEEK ANY DAY OR TIME.
[2019-05-06 16:00] VITALS: BP 101/54
--- NOTE | 2019-05-06 19:30 | NUR ---
RECEIVED REPORT FORM HUNTER RN DAYSHIFT NURSE AT BEDSIDE FOR CONTINUITY OF CARE, PT IN STABLE CONDITION.
--- NOTE | 2019-05-06 19:31 | NUR ---
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 PT IS IN STABLE CONDITION.
[2019-05-06 20:00] VITALS: BP 103/47
--- NOTE | 2019-05-06 20:00 | NUR ---
PT IN LOW BED WITH SIDE RAILS UP X2 . PT IS AOX4, SKIN INTACT WITH IV SITE 20G ON LEFT AC INTACT AND FLUSHED PATENT. PT RUNNING NORMAL SALINE AT 100MLS. PT SAID PAIN IS THERE BUT TOLERABLE AT THIS TIME. V/S FOLLOWS: T 97.4 P 63 R 18 B/P 96/47 02 97% ON ROOM AIR.
--- NOTE | 2019-05-06 21:00 | NUR ---
PT C/O 12/02 PAIN IN ABDOMEN AND WAS GIVEN IVP/PRN MORPHINE. WILL MONITOR FOR REIELF. BED LOW AND CALL MARTÍNEZ IN REACH.
--- NOTE | 2019-05-06 22:15 | NUR ---
PT IN BED RESTING WITH EYES CLOSED, PT STATES THAT MORPHINE HELPED WITH PAIN WHICH IS NOW A 2/10.
[2019-05-07] VITALS: BP 96/47
[2019-05-07] MEDS: MORPHINE SULFATE 2 MG/ML SYR IVP PRN ×3 (00:40→09:35)
--- NOTE | 2019-05-07 00:40 | NUR ---
PT IN BED AWAKE WITH C/O OF 7/10 PAIN IN ABDOMEN AND WAS GIVEN MORPHINE IVP /PRN. IV SITE INTACT AND RUNNING NS AT 100MLS/HR ORDERED. BED LOW CALL MARTÍNEZ IN REACH AND SIDE RAILS UP X2.
--- NOTE | 2019-05-07 01:30 | NUR ---
NEW BAG OF NORMAL SALINE HUNG AND CONTINUES TO RUN AT 100MLS/HR.
[2019-05-07 06:14] LABS: BASOPHILS % (AUTO) 0.6 % (0.0-2.0); EOSINOPHILS # (AUTO) 0.2 K/uL (0-0.4); EOSINOPHILS % (AUTO) 4.2 % (0.0-4.0); HEMATOCRIT 34.8 % (36-48); HEMOGLOBIN 11.7 g/dL (12.0-16.0); LYMPHOCYTES # (AUTO) 1.9 K/uL (2.5-16.5); LYMPHOCYTES % (AUTO) 32.7 % (20.5-51.1); MEAN CORPUSCULAR HEMOGLOBIN 29 pg (27-31); MEAN CORPUSCULAR HGB CONC 34 g/dL (33-37); MEAN CORPUSCULAR VOLUME 86.3 fL (80-94); MONOCYTES # (AUTO) 0.5 K/uL (0.8-1.0); MONOCYTES % (AUTO) 8.1 % (1.7-9.3); NEUTROPHILS # (AUTO) 3.2 K/uL (1.8-7.7); NEUTROPHILS % (AUTO) 54.4 % (42.2-75.2); PLATELET COUNT (AUTO) 188 K/uL (140-450); RED BLOOD CELL COUNT(AUTO) 4.03 MIL/uL (4.20-5.40); RED CELL DISTRIBUTION WIDTH 14.3 % (11.6-13.7); WHITE BLOOD COUNT (AUTO) 5.8 K/uL (4.8-10.8)
--- NOTE | 2019-05-07 06:17 | NUR ---
SLEPT WELL.NO DISTRESS NOTED AT PRESENT TIME.IVF IS IN PROGRESS.
[2019-05-07] MEDS: ONDANSETRON 4 MG/2 ML VIAL IVP PRN (06:20)
[2019-05-07 06:57] LABS: ALBUMIN 3.1 g/dL (3.4-5.0); ANION GAP 9.5 (8-16); CARBON DIOXIDE 29.5 mmol/L (21-32); CHOL/HDL RATIO 3.3 (1-4.5); CREATININE 0.8 mg/dL (0.6-1.3); MAGNESIUM 1.9 mg/dL (1.8-2.4); TOTAL BILIRUBIN 0.3 mg/dL (0.0-1.0)
--- NOTE | 2019-05-07 07:28 | NUR ---
RECEIVED BEDSIDE REPORT FROM TRIALS MANAGER NURSE, PT IS ASLEEP, NO S/S OF ACUTE DISTRESS OR SOB NOTED. IV SITE R AC 20 F, INFUSING NS 100 ML/HR. PT IS ON ROOM AIR, SKIN IS INTACT. CALL LIGHT IS WITHIN REACH. WILL CONTINUE TO MONITOR.
[2019-05-07 08:00] VITALS: BP 92/51
--- NOTE | 2019-05-07 09:40 | NUR ---
AM ROCEPHIN INFUSING. ADMINISTERED PRN MORPHINE FOR 7/10 ABD PAIN. WILL REASSESS WITHIN 1 HOUR.
--- NOTE | 2019-05-07 13:29 | NUR ---
PT HAS DC'D. PT WAS GIVEN DC INSTRUCTIONS TO WHICH SHE VERBALIZED UNDERSTANDING. NO NEW RX WERE PRESCRIBED. PT REFUSED THE FLU VACCINE UPON DC. IV SITE AND WRIST BAND REMOVED. PT LEFT WITH ALL BELONGINGS IN STABLE CONDITION.
== END 2019-05-07 13:25 | disposition home or self-care (01) | DRG 282 ==
LOC: MED 05:33 → MTU 07:36
PROVIDERS: ADMIT Internal Medicine Pulmonary Disease; ATTEND Internal Medicine Pulmonary Disease
DX: K85.90 Acute pancreatitis without necrosis or infection, unspecified (principal); F41.9 Anxiety disorder, unspecified; K21.9 Gastro-esophageal reflux disease without esophagitis; Z88.8 Allergy status to other drugs, medicaments and biological substances; Z90.49 Acquired absence of other specified parts of digestive tract; K86.89 Other specified diseases of pancreas
CPT/HCPCS: 36415; 71045; 80053; 80305; 81001; 82150; 83690; 83735; 85025; 87081; 87086; 96374; 96375; 99285; J0696; J2270; J2405; J7030; J7060; Q0092; Q9967

== ENCOUNTER 2019-05-09 04:20 | Emergency (ER) | payer OTHER ==
[~2019-05-09] VITALS: Ht 160 cm; Wt 72.1 kg
[~2019-05-09 04:20] MED LIST changes: +HYDR-5092 PO; +ONDA4TAB PO; +TIZA2CAP PO
[2019-05-09 04:22] VITALS: BP 119/54
--- NOTE | 2019-05-09 04:28 | NUR ---
PT TAKEN TO BED 5
[2019-05-09] MEDS ORDERED: NACL 0.9% 1,000 ML IV SCH (04:29)
[2019-05-09] MEDS ORDERED: ONDANSETRON 4 MG/2 ML VIAL IVP ONE (04:30)
--- NOTE | 2019-05-09 04:30 | NUR ---
33 Y/O FEMALE PRESENTS TO ED, C/O ABDOMINAL PAIN 01/02. PT STATES HAVING WORSENING PAIN X2 DAYS. BS ACTIVE X 4 QUADRANTS. ABDOMEN IS SOFT AND NONTENDER. RECENTLY D/C FROM [facility] WITH DX OF PANCREATITIS. PT C/O N/V; ABLE TO TOLERATE SOME FOOD AND LIQUID, LAST EPISODE WAS LAST NIGHT. PT TAKES NORCO10 FOR PAIN BUT WITH NO RELIEF. PT VSS. ERMD AWARE. WILL CONTINUE TO MONITOR.
--- NOTE | 2019-05-09 04:50 | NUR ---
BLOOD DRAWN AND SENT TO LAB AT THIS TIME
[2019-05-09 05:10] LABS: MEAN CORPUSCULAR HEMOGLOBIN 29 pg (27-31); WHITE BLOOD COUNT (AUTO) 4.6 K/uL (4.8-10.8)
[2019-05-09 05:13] LABS: BASOPHILS % (AUTO) 0.7 % (0.0-2.0); EOSINOPHILS # (AUTO) 0.2 K/uL (0-0.4); EOSINOPHILS % (AUTO) 5.4 % (0.0-4.0); HEMATOCRIT 36.6 % (36-48); HEMOGLOBIN 12.2 g/dL (12.0-16.0); LYMPHOCYTES # (AUTO) 1.3 K/uL (2.5-16.5); LYMPHOCYTES % (AUTO) 29.2 % (20.5-51.1); MEAN CORPUSCULAR HGB CONC 33 g/dL (33-37); MEAN CORPUSCULAR VOLUME 85.7 fL (80-94); MONOCYTES # (AUTO) 0.6 K/uL (0.8-1.0); MONOCYTES % (AUTO) 12.4 % (1.7-9.3); NEUTROPHILS # (AUTO) 2.4 K/uL (1.8-7.7); NEUTROPHILS % (AUTO) 52.3 % (42.2-75.2); PLATELET COUNT (AUTO) 205 K/uL (140-450); RED BLOOD CELL COUNT(AUTO) 4.28 MIL/uL (4.20-5.40); RED CELL DISTRIBUTION WIDTH 13.9 % (11.6-13.7)
[2019-05-09 05:18] LABS: ANION GAP 12.3 (8-16); CARBON DIOXIDE 26.4 mmol/L (21-32); CREATININE 0.6 mg/dL (0.6-1.3); POTASSIUM 3.7 mmol/L (3.5-5.1)
[2019-05-09 05:24] LABS: ALBUMIN 3.8 g/dL (3.4-5.0); TOTAL BILIRUBIN 0.2 mg/dL (0.0-1.0)
--- NOTE | 2019-05-09 06:04 | NUR ---
Dr. Weber examining patient.
[2019-05-09 06:13] VITALS: BP 121/68
--- NOTE | 2019-05-09 06:13 | NUR ---
PT DISCHARGED WITH PAPERWORK. RX REGLAN AND JEFFERSON. EDUCATED PT REGARDING MEDICATIONS AND S/E. EDUCATED PT REGARDING D/C DIAGNOSIS AND INSTRUCTIONS. PT VERBALIZED UNDERSTANDING. TOLD PT TO FOLLOW UP WITH PCP AND WHEN TO RETURN TO ED. PT STABLE CONDITION. ALL QUESTIONS ANSWERED.
== END 2019-05-09 06:13 | disposition home or self-care (01) ==
LOC: MED 04:20
DX: K85.90 Acute pancreatitis without necrosis or infection, unspecified (principal); R11.2 Nausea with vomiting, unspecified; K21.9 Gastro-esophageal reflux disease without esophagitis; Z79.899 Other long term (current) drug therapy; Z90.49 Acquired absence of other specified parts of digestive tract; Z88.6 Allergy status to analgesic agent
CPT/HCPCS: 36415; 80053; 83690; 85025; 96361; 96374; 99283; J2405

== ENCOUNTER 2019-06-03 03:56 | Emergency (ER) | payer OTHER ==
[~2019-06-03] VITALS: Ht 160 cm; Wt 73.0 kg
[2019-06-03 04:00] VITALS: BP 135/56
--- NOTE | 2019-06-03 04:05 | NUR ---
PT AMBULATED TO BED #9
--- NOTE | 2019-06-03 04:15 | NUR ---
33 Y/O FEMALE C/O ABD PAIN X FRIDAY. RATES PAIN 8/10 AND DESCRIBES IT BURNING, PRESSURE. PT ABD IS SOFT, FLAT, ACTIVE BS, TENDERNESS ON LUQ. VSS. A & O X4. LUNG SOUNDS CLEAR ALL THROUGHOUT. PT STATES SHE HAS CHANGE OF APPETITE, VOMITING ( 10+ EPISODES). NO DIARRHEA BUT BM HAS BEEN SOFT. DENIES DYSURIA, BLOOD IN URINE. ALLERGIES: TORADOL PMH: PNCREATITIS DIVISM.
[2019-06-03] MEDS ORDERED: NACL 0.9% 1,000 ML IV ONE (04:20)
[2019-06-03] MEDS ORDERED: MORPHINE SULFATE 4 MG/ML SYR IVP SCH (04:20)
[2019-06-03] MEDS ORDERED: ONDANSETRON 4 MG/2 ML VIAL IVP ONE (04:20)
[2019-06-03] MEDS ORDERED: MORPHINE SULFATE 4 MG/ML SYR IVP ONE ×2 (04:20→05:35)
[2019-06-03 04:36] LABS: BASOPHILS % (AUTO) 0.5 % (0.0-2.0); EOSINOPHILS # (AUTO) 0.4 K/uL (0-0.4); EOSINOPHILS % (AUTO) 3.9 % (0.0-4.0); HEMATOCRIT 40.7 % (36-48); HEMOGLOBIN 13.5 g/dL (12.0-16.0); LYMPHOCYTES # (AUTO) 2.7 K/uL (2.5-16.5); LYMPHOCYTES % (AUTO) 27.5 % (20.5-51.1); MEAN CORPUSCULAR HEMOGLOBIN 29 pg (27-31); MEAN CORPUSCULAR HGB CONC 33 g/dL (33-37); MEAN CORPUSCULAR VOLUME 86.5 fL (80-94); MONOCYTES # (AUTO) 0.9 K/uL (0.8-1.0); MONOCYTES % (AUTO) 8.9 % (1.7-9.3); NEUTROPHILS # (AUTO) 5.7 K/uL (1.8-7.7); NEUTROPHILS % (AUTO) 59.2 % (42.2-75.2); PLATELET COUNT (AUTO) 282 K/uL (140-450); RED BLOOD CELL COUNT(AUTO) 4.71 MIL/uL (4.20-5.40); RED CELL DISTRIBUTION WIDTH 13.6 % (11.6-13.7); WHITE BLOOD COUNT (AUTO) 9.7 K/uL (4.8-10.8)
[2019-06-03 04:51] LABS: APPEARANCE,URINE CLEAR (CLEAR); BILIRUBIN,URINE NEGATIVE (NEGATIVE); BLOOD, URINE NEGATIVE (NEGATIVE); COLOR,URINE YELLOW (YELLOW); LEUKOCYTE ESTERASE ,URINE 1+ (NEGATIVE); NITRITE, URINE NEGATIVE (NEGATIVE); UGLUCOSE NEGATIVE (NEGATIVE)
[2019-06-03 04:54] LABS: ALBUMIN 4.5 g/dL (3.4-5.0); ANION GAP 13.5 (8-16); CARBON DIOXIDE 27.7 mmol/L (21-32); CREATININE 0.7 mg/dL (0.6-1.3); POTASSIUM 3.2 mmol/L (3.5-5.1); TOTAL BILIRUBIN 0.3 mg/dL (0.0-1.0)
[2019-06-03 05:06] LABS: RBC,URINE 0-5 /HPF (0-5); WBC,URINE 0-5 /HPF (0-5)
[2019-06-03 05:56] VITALS: BP 135/56
== END 2019-06-03 04:05 | disposition home or self-care (01) ==
LOC: MED 03:56
DX: R10.9 Unspecified abdominal pain (principal); M54.9 Dorsalgia, unspecified; R11.2 Nausea with vomiting, unspecified; K21.9 Gastro-esophageal reflux disease without esophagitis; Z79.899 Other long term (current) drug therapy; Z88.8 Allergy status to other drugs, medicaments and biological substances
CPT/HCPCS: 36415; 80053; 81001; 81025; 83690; 85025; 87086; 96361; 96374; 96375; 96376; 99283; J2270; J2405; J7030

== ENCOUNTER 2019-06-05 03:44 | Emergency (ER) | payer OTHER ==
[~2019-06-05] VITALS: Ht 160 cm; Wt 73.6 kg
[2019-06-05 03:50] VITALS: BP 105/73
--- NOTE | 2019-06-05 03:55 | NUR ---
33 Y/O FEMALE C/O 8/10 LEFT SIDE FLANK PAIN SINCE FRIDAY. WAS SEEN FOR SIMILAR SIGNS AND SYMPTOMS ON Friday06/03/19. PAIN IS AN 8/10 ACUTE PAIN STARTING FROM THE LEFT FLANK TO THE UPPER BACK. +NAUSEA +VOMITING +DIARRHEA; PATIENT DENIES FEVER AND HAS A COLD ASSOCIATED WITH ALLERGIES. PER PATIENT, " I TOOK TYLENOL AND IBUPROFEN BUT DIDN'T WORK FOR ME". BREATHING UNLABORED AND SYMMETRICAL. ABDOMEN SOFT AND ROUND. ABDOMINAL SOUNDS HEARD ON ALL FOUR QUADRANTS. ERMD MADE AWARE OF STATUS. SIDE RAILSX1. VSS. WILL CONTINUE TO MONITOR. PMH: PANCREATIC DIVISUM; KIDNEY STONES; PANCREATITIS; SUBSTANCE ABUSE RX:DENIES ALLERGIES: KETOROLAC
--- NOTE | 2019-06-05 04:15 | NUR ---
ERMD AT BEDSIDE EVALUATING PATIENT.
[2019-06-05 04:25] LABS: APPEARANCE,URINE CLEAR (CLEAR); BILIRUBIN,URINE NEGATIVE (NEGATIVE); BLOOD, URINE NEGATIVE (NEGATIVE); COLOR,URINE YELLOW (YELLOW); LEUKOCYTE ESTERASE ,URINE NEGATIVE (NEGATIVE); NITRITE, URINE NEGATIVE (NEGATIVE); UGLUCOSE NEGATIVE (NEGATIVE)
[2019-06-05 04:32] LABS: BARBITURATE, URINE NEG. ng/ml (NEG <=200); BENZODIAZEPINE, URINE NEG. ng/mL (NEG <=200); CANNABINOID, URINE NEG. ng/mL (NEG <=50); COCAINE, URINE NEG. ng/mL (NEG <=300); OPIATE, URINE NEG. ng/mL (NEG <=2000); PHENCYCLIDINE SCREEN,URINE NEG. ng/mL (NEG <=25)
[2019-06-05 04:41] LABS: RBC,URINE 0-5 /HPF (0-5); WBC,URINE 0-5 /HPF (0-5)
--- NOTE | 2019-06-05 04:52 | NUR ---
PATIENT TAKEN TO CT.
[2019-06-05] MEDS ORDERED: traMADol 50 MG TAB PO ONE (06:25)
[2019-06-05 06:57] VITALS: BP 112/73
--- NOTE | 2019-06-05 06:57 | NUR ---
Patient discharged with v/s stable. She states feeling relief with 4/10 tollerable pain. Written and verbal after care instructions given and explained. Patient alert, oriented and verbalized understanding of instructions. Ambulatory with steady gait. All questions addressed prior to discharge. ID band removed. Patient advised to follow up with PMD and when to return to ER. Rx of Tramadol and Zofran given. Patient educated on indication of medication including possible reaction and side effects. Opportunity to ask questions provided and answered.
== END 2019-06-05 06:57 | disposition home or self-care (01) ==
LOC: MED 03:44
DX: S39.011A Strain of muscle, fascia and tendon of abdomen, initial encounter (principal); R11.2 Nausea with vomiting, unspecified; K21.9 Gastro-esophageal reflux disease without esophagitis; Z79.891 Long term (current) use of opiate analgesic; Z79.899 Other long term (current) drug therapy; Z88.6 Allergy status to analgesic agent; X58.XXXA Exposure to other specified factors, initial encounter; Y92.89 Other specified places as the place of occurrence of the external cause; Y93.89 Activity, other specified; Y99.8 Other external cause status
CPT/HCPCS: 80305; 81001; 81025; 99284

== ENCOUNTER 2019-06-26 04:51 | Emergency (ER) | payer OTHER ==
[~2019-06-26] VITALS: Ht 160 cm; Wt 75.7 kg
[2019-06-26 04:57] VITALS: BP 124/76
--- NOTE | 2019-06-26 05:00 | NUR ---
33 Y/O FEMALE PRESENTS TO ED, C/O LUQ PAIN. PT STATES PAIN STARTED FRIDAY AND WORSENING TODAY, PAIN IS 9/10 AND RADIATES TO EPIGASTRIC REGION. BS ACTIVE X4 QUADRANTS. ABDOMEN SOFT AND NONTENDER. PT DENIES TAKING ANY MEDICATIONS TO ALLEVIATE PAIN. PT C/O NAUSEA AND VOMITING, LAST EPISODE WAS THIS MORNING. NO FEVER NOTED DURING TRIAGE ASSESSMENT. PT VSS. ERMD AWARE. WILL CONTINUE TO MONITOR.
--- NOTE | 2019-06-26 05:00 | NUR ---
PT AMBULATED TO BED #5
[2019-06-26] MEDS ORDERED: SODIUM CHLORIDE FLUSH 10 ML SYR IVF STA (05:44)
--- NOTE | 2019-06-26 06:15 | NUR ---
BLOOD DRAWN AND SENT TO LAB AT THIS TIME
[2019-06-26 06:40] LABS: BASOPHILS % (AUTO) 0.6 % (0.0-2.0); EOSINOPHILS # (AUTO) 0.2 K/uL (0-0.4); EOSINOPHILS % (AUTO) 3.8 % (0.0-4.0); HEMATOCRIT 36.9 % (36-48); HEMOGLOBIN 12.3 g/dL (12.0-16.0); LYMPHOCYTES # (AUTO) 1.4 K/uL (2.5-16.5); LYMPHOCYTES % (AUTO) 23.7 % (20.5-51.1); MEAN CORPUSCULAR HEMOGLOBIN 29 pg (27-31); MEAN CORPUSCULAR HGB CONC 33 g/dL (33-37); MEAN CORPUSCULAR VOLUME 86.7 fL (80-94); MONOCYTES # (AUTO) 0.5 K/uL (0.8-1.0); MONOCYTES % (AUTO) 8.1 % (1.7-9.3); NEUTROPHILS # (AUTO) 3.8 K/uL (1.8-7.7); NEUTROPHILS % (AUTO) 63.8 % (42.2-75.2); PLATELET COUNT (AUTO) 224 K/uL (140-450); RED BLOOD CELL COUNT(AUTO) 4.25 MIL/uL (4.20-5.40); RED CELL DISTRIBUTION WIDTH 12.7 % (11.6-13.7)
[2019-06-26 06:41] LABS: APPEARANCE,URINE CLEAR (CLEAR); BILIRUBIN,URINE NEGATIVE (NEGATIVE); BLOOD, URINE NEGATIVE (NEGATIVE); COLOR,URINE YELLOW (YELLOW); LEUKOCYTE ESTERASE ,URINE TRACE (NEGATIVE); NITRITE, URINE NEGATIVE (NEGATIVE); PH,URINE 6.5 (5.0-9.0); UGLUCOSE NEGATIVE (NEGATIVE)
[2019-06-26 06:54] LABS: ALBUMIN 3.9 g/dL (3.4-5.0); ANION GAP 8.9 (8-16); CARBON DIOXIDE 29.9 mmol/L (21-32); CREATININE 0.6 mg/dL (0.6-1.3); POTASSIUM 3.8 mmol/L (3.5-5.1); TOTAL BILIRUBIN 0.1 mg/dL (0.0-1.0)
[2019-06-26 06:55] LABS: RBC,URINE NONE SEEN /HPF (0-5); WBC,URINE 0-5 /HPF (0-5)
[2019-06-26] MEDS ORDERED: ONDANSETRON 4 MG/2 ML VIAL IVP STA (07:15)
[2019-06-26] MEDS ORDERED: NACL 0.9% 2,000 ML IV ONE (07:15)
--- NOTE | 2019-06-26 07:39 | NUR ---
PT TO CT SCAN BY WHEELCHAIR
--- NOTE | 2019-06-26 07:54 | NUR ---
PT RETURNED FROM CT BY WHEELCHAIR, NACL RESTARTED IN RT AC 20 G.
--- NOTE | 2019-06-26 07:54 | NUR ---
PT STATES 01/02 PAIN MD VU NOTIFIED.
--- NOTE | 2019-06-26 08:07 | NUR ---
Dr. Miller is evaluating the patient at bedside.
--- NOTE | 2019-06-26 08:10 | NUR ---
DR ST EXAMINING PATIENT AT BEDSIDE.
[2019-06-26] MEDS ORDERED: MORPHINE SULFATE 4 MG/ML SYR IVP ONE (08:15)
--- NOTE | 2019-06-26 08:33 | NUR ---
PT STATES 1/10 PAIN AFTER MORPHINE GIVEN. NACL RUNNING W/O DIFFICULTY IN 20 G RT AC IV. PT VSS, RESTING COMFORTABLY.
--- NOTE | 2019-06-26 09:03 | NUR ---
pt resting comfortably, eyes open, breathing unlabored. nacl continuing to run w/o difficulty through 20 g rt ac iv.
--- NOTE | 2019-06-26 09:24 | NUR ---
PT RESTING COMFORTABLY, EYES OPEN, VSS. NACL RUNNING IN THE RT AC 20 G FINISHED RUNNING. PT STATES PAIN IS STARTING TO COME BACK, DIDN'T WANT PAIN MEDICATION AT THIS TIME.
--- NOTE | 2019-06-26 09:35 | NUR ---
pt ambulated to restroom w/o difficulty.
[2019-06-26] MEDS ORDERED: FAMOTIDINE 20 MG/2 ML VIAL IVP ONE (09:40)
--- NOTE | 2019-06-26 09:45 | NUR ---
DR ST AT BEDSIDE EVALUATING PATIENT.
[2019-06-26 10:32] VITALS: BP 116/70
== END 2019-06-26 10:33 | disposition home or self-care (01) ==
LOC: MED 04:51
DX: R10.13 Epigastric pain (principal); R11.0 Nausea; K21.9 Gastro-esophageal reflux disease without esophagitis; Z79.899 Other long term (current) drug therapy; Z88.8 Allergy status to other drugs, medicaments and biological substances
CPT/HCPCS: 36415; 74176; 80053; 81001; 81025; 83690; 85025; 96374; 96375; 99284; J2270; J2405; J3490; J7030

== ENCOUNTER 2019-06-29 07:12 | Emergency (ER) | payer OTHER ==
[~2019-06-29] VITALS: Ht 160 cm; Wt 74.4 kg
[2019-06-29 07:20] VITALS: BP 132/74
--- NOTE | 2019-06-29 07:20 | NUR ---
to bed # 07 ambulatory
--- NOTE | 2019-06-29 07:32 | NUR ---
33 YO FEMALE CO UPPER EPIGASTRIC PAIN FOR 1W. PAIN IS 8/10 IN THE EPIGASTRIC AREA AND THE PAIN RADIATES TO LOWER BACK. PAIN IS STABBING AND SHARP. BS ACTIVE IN ALL 4 QUAD. ABD IS SOFT AND NON TENDER TO TOUCH. PT HAS HAD N/V AND SOFT STOOLS. PT HAS HX OF KIDNEY STONES AND PANCREATIC PROBLES. URINE WAS COLLECTED. [facility] 0400 WITH NO RELIEF. PT IS LAYING IN BED WITH 1X RAIL UP.
--- NOTE | 2019-06-29 07:35 | NUR ---
URINE COLLECTED. RESULTS GIVEN TO MD. REDDY-
--- NOTE | 2019-06-29 07:37 | NUR ---
Patient being evaluated by DR LUU at bedside.
[2019-06-29] MEDS ORDERED: ONDANSETRON 4 MG/2 ML VIAL IVP ONE (07:55)
[2019-06-29] MEDS ORDERED: NACL 0.9% 1,000 ML IV ONE ×2 (07:55→09:45)
[2019-06-29] MEDS ORDERED: MORPHINE SULFATE 4 MG/ML SYR IVP ONE ×2 (07:55→09:45)
--- NOTE | 2019-06-29 08:11 | NUR ---
LABS DRAWN AND SENT TO LAB.
[2019-06-29 08:19] LABS: BASOPHILS % (AUTO) 0.6 % (0.0-2.0); EOSINOPHILS # (AUTO) 0.3 K/uL (0-0.4); EOSINOPHILS % (AUTO) 3.9 % (0.0-4.0); HEMATOCRIT 37.2 % (36-48); HEMOGLOBIN 12.7 g/dL (12.0-16.0); MEAN CORPUSCULAR HEMOGLOBIN 29 pg (27-31); MEAN CORPUSCULAR HGB CONC 34 g/dL (33-37); MEAN CORPUSCULAR VOLUME 85.6 fL (80-94); MONOCYTES # (AUTO) 0.7 K/uL (0.8-1.0); MONOCYTES % (AUTO) 8.5 % (1.7-9.3); PLATELET COUNT (AUTO) 266 K/uL (140-450); RED BLOOD CELL COUNT(AUTO) 4.34 MIL/uL (4.20-5.40); RED CELL DISTRIBUTION WIDTH 12.9 % (11.6-13.7)
[2019-06-29 08:42] LABS: ALBUMIN 3.9 g/dL (3.4-5.0); ANION GAP 13.3 (8-16); CARBON DIOXIDE 27.2 mmol/L (21-32); CREATININE 0.6 mg/dL (0.6-1.3); POTASSIUM 3.5 mmol/L (3.5-5.1); TOTAL BILIRUBIN 0.2 mg/dL (0.0-1.0)
[2019-06-29] MEDS ORDERED: PANTOPRAZOLE 40 MG INJ VIAL IVP ONE (08:55)
--- NOTE | 2019-06-29 09:42 | NUR ---
pt resting comfortably in bed. pt states pain is 7/10 at this time.
--- NOTE | 2019-06-29 11:46 | NUR ---
PT RESTING IN BED. PT HAS BEEN ABLE TO AMBULATE TO THE RESTROOM SEVERAL TIMES. ALL VSS STABLE. 1X BEDRAIL UP
[2019-06-29 12:09] VITALS: BP 121/75
--- NOTE | 2019-06-29 12:10 | NUR ---
Patient discharged with v/s stable. Written and verbal after care instructions given and explained. Patient alert, oriented and verbalized understanding of instructions. with steady gait. All questions addressed prior to discharge. ID band removed. Patient advised to follow up with PMD. Rx of given. Patient educated on indication of medication including possible reaction and side effects. Opportunity to ask questions provided and answered.
== END 2019-06-29 12:10 | disposition home or self-care (01) ==
LOC: MED 07:12
DX: R10.13 Epigastric pain (principal); R21 Rash and other nonspecific skin eruption; K21.9 Gastro-esophageal reflux disease without esophagitis; Z90.49 Acquired absence of other specified parts of digestive tract; Z87.442 Personal history of urinary calculi; Z79.899 Other long term (current) drug therapy; Z88.8 Allergy status to other drugs, medicaments and biological substances
CPT/HCPCS: 36415; 80053; 81002; 81025; 83690; 85025; 87804; 96374; 96375; 96376; 99283; C9113; J2270; J2405; J7030

== ENCOUNTER 2019-07-26 07:43 | Emergency (ER) | payer OTHER ==
[~2019-07-26] VITALS: Ht 160 cm; Wt 74.8 kg
[2019-07-26 07:45] VITALS: BP 117/72
[2019-07-26] MEDS ORDERED: NACL 0.9% 1,000 ML IV SCH (07:57)
[2019-07-26] MEDS ORDERED: ONDANSETRON 4 MG/2 ML VIAL IVP ONE (08:00)
--- NOTE | 2019-07-26 08:17 | NUR ---
C/O LUQ PAIN RADIATING TO BACK ACCOMPANIED BY N/V/D X 1 WEEK. PT HAD LOOSE, FATTY STOOLS AT HOME. PAIN IS INTERMITTENT, CURRENT PAIN RATE IS 8/10. HX OF PANCREATITIS. BED IN LOW POSITION, SIDE RAIL UP X1. WILL CONTINUE TO MONITOR.
[2019-07-26 08:26] LABS: BASOPHILS % (AUTO) 0.6 % (0.0-2.0); EOSINOPHILS # (AUTO) 0.2 K/uL (0-0.4); EOSINOPHILS % (AUTO) 3.5 % (0.0-4.0); HEMATOCRIT 35.5 % (36-48); HEMOGLOBIN 12.3 g/dL (12.0-16.0); LYMPHOCYTES # (AUTO) 1.3 K/uL (2.5-16.5); LYMPHOCYTES % (AUTO) 23.9 % (20.5-51.1); MEAN CORPUSCULAR HEMOGLOBIN 28 pg (27-31); MEAN CORPUSCULAR HGB CONC 35 g/dL (33-37); MEAN CORPUSCULAR VOLUME 82.2 fL (80-94); MONOCYTES # (AUTO) 0.4 K/uL (0.8-1.0); MONOCYTES % (AUTO) 7.5 % (1.7-9.3); NEUTROPHILS # (AUTO) 3.4 K/uL (1.8-7.7); NEUTROPHILS % (AUTO) 64.5 % (42.2-75.2); PLATELET COUNT (AUTO) 225 K/uL (140-450); RED BLOOD CELL COUNT(AUTO) 4.32 MIL/uL (4.20-5.40); RED CELL DISTRIBUTION WIDTH 12.7 % (11.6-13.7); WHITE BLOOD COUNT (AUTO) 5.3 K/uL (4.8-10.8)
[2019-07-26 08:32] LABS: APPEARANCE,URINE CLEAR (CLEAR); BILIRUBIN,URINE NEGATIVE (NEGATIVE); BLOOD, URINE NEGATIVE (NEGATIVE); COLOR,URINE YELLOW (YELLOW); LEUKOCYTE ESTERASE ,URINE TRACE (NEGATIVE); NITRITE, URINE NEGATIVE (NEGATIVE); PH,URINE 6.5 (5.0-9.0); UGLUCOSE NEGATIVE (NEGATIVE)
[2019-07-26 08:44] LABS: RBC,URINE 0 /HPF (0-5); WBC,URINE 0-5 /HPF (0-5)
[2019-07-26 08:45] LABS: ALBUMIN 4.3 g/dL (3.4-5.0); ANION GAP 10.7 (8-16); CARBON DIOXIDE 27.1 mmol/L (21-32); CREATININE 0.7 mg/dL (0.6-1.3); POTASSIUM 3.8 mmol/L (3.5-5.1); TOTAL BILIRUBIN 0.3 mg/dL (0.0-1.0)
[2019-07-26] MEDS ORDERED: ONDANSETRON 4 MG ODT PO ONE (09:30)
[2019-07-26] MEDS ORDERED: MORPHINE SULFATE 4 MG/ML SYR IM ONE (09:30)
[2019-07-26] MEDS ORDERED: MORPHINE SULFATE 4 MG/ML SYR IVP ONE (09:35)
[2019-07-26 10:01] VITALS: BP 115/64
--- NOTE | 2019-07-26 10:02 | NUR ---
Patient discharged with v/s stable. Written and verbal after care instructions given and explained. Patient alert, oriented and verbalized understanding of instructions. Ambulatory with steady gait. All questions addressed prior to discharge. ID band removed. Patient advised to follow up with PMD. Rx of Sparks and Zofran given. Patient educated on indication of medication including possible reaction and side effects. Opportunity to ask questions provided and answered.
--- NOTE | 2019-07-27 12:11 | NUR ---
Late entry. Confirmed with RN that 0.9 NS IV completed at 0930.
== END 2019-07-26 10:02 | disposition home or self-care (01) ==
LOC: MED 07:43
DX: R10.13 Epigastric pain (principal); R11.0 Nausea; K21.9 Gastro-esophageal reflux disease without esophagitis; Z90.49 Acquired absence of other specified parts of digestive tract; Z98.890 Other specified postprocedural states; Z79.899 Other long term (current) drug therapy; Z88.8 Allergy status to other drugs, medicaments and biological substances
CPT/HCPCS: 36415; 80053; 81001; 83690; 85025; 96374; 96375; 99284; J2270; J2405; J7030; Q0162

== ENCOUNTER 2019-08-01 02:00 | Emergency (ER) | payer OTHER ==
[~2019-08-01] VITALS: Ht 160 cm; Wt 75.3 kg
[2019-08-01 03:08] VITALS: BP 121/66
--- NOTE | 2019-08-01 03:12 | NUR ---
PT AMBULATED TO RESTROOM WITH STEADY GAIT.
--- NOTE | 2019-08-01 03:15 | NUR ---
PT AMBULATED TO BED 9 WITH STEADY GAIT. UA COLLECTED.
--- NOTE | 2019-08-01 03:33 | NUR ---
33 YO FEMALE CO UPPERBACK PAIN 8/10 CONTINOUS SHARP PAIN THAT RADIATES TO LOWER BACK X4D. PT IS ALLERGIC TO KETOROLAS AND NSAIDS. PT HAS A HX OF PANCREATITIS. NO N/V/D.
[2019-08-01] MEDS ORDERED: ONDANSETRON 4 MG/2 ML VIAL IVP ONE (03:35)
[2019-08-01] MEDS ORDERED: NACL 0.9% 1,000 ML IV ONE (03:35)
[2019-08-01] MEDS ORDERED: IBUPROFEN 800 MG TAB PO ONE (03:40)
[2019-08-01 04:13] LABS: BASOPHILS % (AUTO) 0.5 % (0.0-2.0); EOSINOPHILS # (AUTO) 0.3 K/uL (0-0.4); EOSINOPHILS % (AUTO) 6.5 % (0.0-4.0); HEMATOCRIT 35.5 % (36-48); LYMPHOCYTES # (AUTO) 1.5 K/uL (2.5-16.5); LYMPHOCYTES % (AUTO) 30.5 % (20.5-51.1); MEAN CORPUSCULAR HEMOGLOBIN 29 pg (27-31); MEAN CORPUSCULAR HGB CONC 34 g/dL (33-37); MEAN CORPUSCULAR VOLUME 85.5 fL (80-94); MONOCYTES # (AUTO) 0.3 K/uL (0.8-1.0); MONOCYTES % (AUTO) 6.9 % (1.7-9.3); NEUTROPHILS # (AUTO) 2.8 K/uL (1.8-7.7); NEUTROPHILS % (AUTO) 55.6 % (42.2-75.2); PLATELET COUNT (AUTO) 204 K/uL (140-450); RED BLOOD CELL COUNT(AUTO) 4.15 MIL/uL (4.20-5.40); RED CELL DISTRIBUTION WIDTH 13.1 % (11.6-13.7); WHITE BLOOD COUNT (AUTO) 5.1 K/uL (4.8-10.8)
[2019-08-01 04:33] LABS: ALBUMIN 3.8 g/dL (3.4-5.0); ANION GAP 9.7 (8-16); CARBON DIOXIDE 29.2 mmol/L (21-32); CREATININE 0.8 mg/dL (0.6-1.3); POTASSIUM 3.9 mmol/L (3.5-5.1); TOTAL BILIRUBIN 0.1 mg/dL (0.0-1.0)
[2019-08-01 05:44] VITALS: BP 121/66
--- NOTE | 2019-08-01 05:45 | NUR ---
Patient discharged with v/s stable. Written and verbal after care instructions given and explained. Patient alert, oriented and verbalized understanding of instructions. Ambulatory with steady gait. All questions addressed prior to discharge. ID band removed. Patient advised to follow up with PMD. Rx of MOTRIN AND TRAMADOL given. Patient educated on indication of medication including possible reaction and side effects. Opportunity to ask questions provided and answered.
--- NOTE | 2019-08-03 10:25 | NUR ---
Late entry. Confirmed with RN that 0.9NS IV completed at 0500
== END 2019-08-01 05:45 | disposition home or self-care (01) ==
LOC: MED 02:00
DX: R10.9 Unspecified abdominal pain (principal); I10 Essential (primary) hypertension
CPT/HCPCS: 36415; 80053; 81002; 81025; 83690; 85025; 96361; 96374; 99284; J2405; J7030

== ENCOUNTER 2019-08-22 03:42 | Observation (INO) | payer OTHER ==
[~2019-08-22] VITALS: Ht 160 cm; Wt 78.0 kg
[2019-08-22 03:47] VITALS: BP 114/73
[2019-08-22] MEDS ORDERED: FAMOTIDINE 20 MG/2 ML VIAL IVP ONE (04:10)
[2019-08-22] MEDS ORDERED: MORPHINE SULFATE 4 MG/ML SYR IVP ONE (04:10)
[2019-08-22] MEDS ORDERED: ONDANSETRON 4 MG/2 ML VIAL IVP ONE (04:10)
[2019-08-22] MEDS ORDERED: NACL 0.9% 500 ML IV ONE (04:10)
[2019-08-22 05:24] LABS: BASOPHILS % (AUTO) 0.5 % (0.0-2.0); EOSINOPHILS # (AUTO) 0.2 K/uL (0-0.4); EOSINOPHILS % (AUTO) 3.1 % (0.0-4.0); HEMATOCRIT 38.2 % (36-48); HEMOGLOBIN 12.8 g/dL (12.0-16.0); LYMPHOCYTES # (AUTO) 1.4 K/uL (2.5-16.5); LYMPHOCYTES % (AUTO) 19.6 % (20.5-51.1); MEAN CORPUSCULAR HEMOGLOBIN 28 pg (27-31); MEAN CORPUSCULAR HGB CONC 33 g/dL (33-37); MEAN CORPUSCULAR VOLUME 84.9 fL (80-94); MONOCYTES # (AUTO) 0.4 K/uL (0.8-1.0); NEUTROPHILS # (AUTO) 5.1 K/uL (1.8-7.7); NEUTROPHILS % (AUTO) 71.8 % (42.2-75.2); PLATELET COUNT (AUTO) 212 K/uL (140-450); RED CELL DISTRIBUTION WIDTH 13.6 % (11.6-13.7)
[2019-08-22 05:38] LABS: ANION GAP 10.6 (8-16); CARBON DIOXIDE 30.4 mmol/L (21-32); CREATININE 0.8 mg/dL (0.6-1.3); TOTAL BILIRUBIN 0.2 mg/dL (0.0-1.0)
[2019-08-22] MEDS ORDERED: MORPHINE SULFATE 2 MG/ML SYR IVP PRN (07:10)
[2019-08-22] MEDS ORDERED: DEXT 5% / NACL 0.9% 500 ML IV ONE (07:10)
[2019-08-22] MEDS ORDERED: ACETAMINOPHEN EXTRA STRENGTH 500 MG TAB PO PRN (07:10)
[2019-08-22 16:00] VITALS: BP 98/51
[2019-08-22] MEDS: MORPHINE SULFATE 2 MG/ML SYR IVP PRN (20:43)
[2019-08-23] VITALS: BP 96/50
[2019-08-23] MEDS: MORPHINE SULFATE 2 MG/ML SYR IVP PRN ×3 (01:16→09:54)
[2019-08-23] MEDS: ONDANSETRON 4 MG/2 ML VIAL IM PRN ×2 (01:26→09:51)
[2019-08-23 02:45] LABS: APPEARANCE,URINE CLEAR (CLEAR); BILIRUBIN,URINE NEGATIVE (NEGATIVE); BLOOD, URINE NEGATIVE (NEGATIVE); COLOR,URINE YELLOW (YELLOW); LEUKOCYTE ESTERASE ,URINE TRACE (NEGATIVE); NITRITE, URINE NEGATIVE (NEGATIVE); UGLUCOSE NEGATIVE (NEGATIVE)
[2019-08-23 04:27] LABS: RBC,URINE 0-5 /HPF (0-5); WBC,URINE 0-5 /HPF (0-5)
[2019-08-23 07:47] LABS: ALBUMIN 3.4 g/dL (3.4-5.0); ANION GAP 7.5 (8-16); CARBON DIOXIDE 31.4 mmol/L (21-32); CREATININE 0.8 mg/dL (0.6-1.3); POTASSIUM 3.9 mmol/L (3.5-5.1); TOTAL BILIRUBIN 0.3 mg/dL (0.0-1.0)
[2019-08-23 08:00] VITALS: BP 96/53
[2019-08-23] MEDS ORDERED: METOCLOPRAMIDE 10 MG TAB PO PRN (12:00)
[2019-08-23] MEDS ORDERED: HYDROcodone/APAP 10/325 MG 1 TAB TAB PO PRN (12:00)
[2019-08-23] MEDS ORDERED: HYDROcodone/APAP 5/325 MG 1 TAB TAB PO PRN (12:00)
[2019-08-23] MEDS ORDERED: ONDANSETRON 4 MG TAB PO PRN (12:00)
[2019-08-23] MEDS ORDERED: tiZANidine 4 MG TAB PO PRN (12:00)
[2019-08-23 14:56] VITALS: BP 101/50
[2019-08-24] MEDS ORDERED: PANTOPRAZOLE 40 MG TABEC PO SCH (06:30)
== END 2019-08-23 15:50 | disposition home or self-care (01) ==
LOC: MED 03:42 → MTU 07:19
PROVIDERS: ADMIT Internal Medicine Pulmonary Disease; ATTEND Internal Medicine Pulmonary Disease
DX: K85.90 Acute pancreatitis without necrosis or infection, unspecified (principal); Q45.3 Other congenital malformations of pancreas and pancreatic duct; K21.9 Gastro-esophageal reflux disease without esophagitis; Z79.899 Other long term (current) drug therapy
CPT/HCPCS: 36415; 80053; 81001; 83690; 85025; 87081; 96361; 96372; 96374; 96375; 96376; 99291; G0378; J2270; J2405; J3490; J7042; Q0162

== ENCOUNTER 2019-08-29 04:15 | Emergency (ER) | payer OTHER ==
[~2019-08-29] VITALS: Ht 157.5 cm; Wt 74.8 kg
[~2019-08-29 04:15] MED LIST changes: -ESCI5TAB PO
[2019-08-29 04:21] VITALS: BP 116/77
--- NOTE | 2019-08-29 04:29 | NUR ---
PT TAKEN TO BED 7
--- NOTE | 2019-08-29 04:44 | NUR ---
Dr. Miller examining patient.
[2019-08-29] MEDS ORDERED: FAMOTIDINE 20 MG/2 ML VIAL IVP ONE (04:45)
[2019-08-29] MEDS ORDERED: NACL 0.9% 1,000 ML IV ONE (04:45)
[2019-08-29] MEDS ORDERED: MORPHINE SULFATE 4 MG/ML SYR IVP ONE ×2 (04:45→06:20)
--- NOTE | 2019-08-29 05:00 | NUR ---
33 YEAR OLD FEMALE COMPLAINS OF LUQ ABDOMINAL PAIN THAT RADIATES TO BACK SINCE FRIDAY. PATIENT ALSO STATES NAUSEA, VOMITTING, AND DIARRHEA. PATIENT BOWEL SOUNDS ACTIVE X4, SOFT, TENDER, NONDISTENDED. PATIENT AOX4, BREATHING EVEN AND UNLABORED, SKIN WARM AND DRY. BED IN LOWEST POSITION, LOCKED, BED RAIL UPX1. PATIENT STATES SHE TOOK ZOFRAN PRIOR TO ARRIVAL BUT STILL HAS LITTLE NAUSEA. PATIENT PLACED ON MONITOR, VS STABLE, ERMD MADE AWARE OF STATUS. PMH - PANCREATITIS ALLERGIES - TORADOL, NSAIDS
--- NOTE | 2019-08-29 05:30 | NUR ---
PATIENT STILL UNABLE TO URINATE, ERMD MADE AWARE
[2019-08-29 05:46] LABS: BASOPHILS % (AUTO) 0.7 % (0.0-2.0); EOSINOPHILS # (AUTO) 0.2 K/uL (0-0.4); EOSINOPHILS % (AUTO) 3.5 % (0.0-4.0); HEMATOCRIT 37.7 % (36-48); HEMOGLOBIN 12.6 g/dL (12.0-16.0); LYMPHOCYTES # (AUTO) 1.3 K/uL (2.5-16.5); LYMPHOCYTES % (AUTO) 23.3 % (20.5-51.1); MEAN CORPUSCULAR HEMOGLOBIN 29 pg (27-31); MEAN CORPUSCULAR HGB CONC 34 g/dL (33-37); MEAN CORPUSCULAR VOLUME 85.3 fL (80-94); MONOCYTES # (AUTO) 0.3 K/uL (0.8-1.0); NEUTROPHILS # (AUTO) 3.6 K/uL (1.8-7.7); NEUTROPHILS % (AUTO) 66.5 % (42.2-75.2); PLATELET COUNT (AUTO) 265 K/uL (140-450); RED BLOOD CELL COUNT(AUTO) 4.42 MIL/uL (4.20-5.40); RED CELL DISTRIBUTION WIDTH 13.7 % (11.6-13.7); WHITE BLOOD COUNT (AUTO) 5.4 K/uL (4.8-10.8)
[2019-08-29 06:12] LABS: ALBUMIN 4.2 g/dL (3.4-5.0); ANION GAP 12.2 (8-16); CARBON DIOXIDE 28.1 mmol/L (21-32); CHOL/HDL RATIO 3.3 (1-4.5); CREATININE 0.8 mg/dL (0.6-1.3); POTASSIUM 3.3 mmol/L (3.5-5.1); TOTAL BILIRUBIN 0.4 mg/dL (0.0-1.0)
[2019-08-29 06:23] LABS: BILIRUBIN,URINE NEGATIVE (NEGATIVE); BLOOD, URINE 3+ (NEGATIVE); COLOR,URINE YELLOW (YELLOW); LEUKOCYTE ESTERASE ,URINE NEGATIVE (NEGATIVE); NITRITE, URINE NEGATIVE (NEGATIVE); PH,URINE 5.5 (5.0-9.0); UGLUCOSE TRACE (NEGATIVE)
--- NOTE | 2019-08-29 06:57 | NUR ---
Discharge done by Dr Miller. Patient discharged with v/s stable. Written and verbal after care instructions about acute pancreatitis given and explained. Patient alert, oriented and verbalized understanding of instructions. Ambulatory with steady gait. All questions addressed prior to discharge. ID band removed. Patient advised to follow up with PMD. Rx of pepcid given. Patient educated on indication of medication including possible reaction and side effects. Opportunity to ask questions provided and answered.
[2019-08-29 06:58] VITALS: BP 120/66
[2019-08-29 07:10] LABS: APPEARANCE,URINE CLEAR (CLEAR)
[2019-08-29 07:11] LABS: RBC,URINE 11-20 (MOD) /HPF (0-5); WBC,URINE 0-5 /HPF (0-5)
== END 2019-08-29 06:57 | disposition home or self-care (01) ==
LOC: MED 04:15
DX: K85.90 Acute pancreatitis without necrosis or infection, unspecified (principal); K21.9 Gastro-esophageal reflux disease without esophagitis; Z79.899 Other long term (current) drug therapy
CPT/HCPCS: 36415; 80053; 80061; 81001; 83690; 85025; 96361; 96374; 96375; 96376; 99284; J2270; J3490; J7030

== ENCOUNTER 2019-09-02 06:40 | Emergency (ER) | payer OTHER ==
[~2019-09-02] VITALS: Ht 160 cm; Wt 75.7 kg
[2019-09-02 07:14] VITALS: BP 122/79
[2019-09-02] MEDS ORDERED: MORPHINE SULFATE 4 MG/ML SYR IVP ONE ×2 (08:00→09:00)
[2019-09-02] MEDS ORDERED: NACL 0.9% 1,000 ML IV ONE ×2 (08:00→09:10)
[2019-09-02 08:37] LABS: BASOPHILS % (AUTO) 0.6 % (0.0-2.0); EOSINOPHILS # (AUTO) 0.2 K/uL (0-0.4); HEMATOCRIT 34.5 % (36-48); HEMOGLOBIN 11.6 g/dL (12.0-16.0); LYMPHOCYTES # (AUTO) 1.2 K/uL (2.5-16.5); LYMPHOCYTES % (AUTO) 26.1 % (20.5-51.1); MEAN CORPUSCULAR HEMOGLOBIN 29 pg (27-31); MEAN CORPUSCULAR HGB CONC 34 g/dL (33-37); MEAN CORPUSCULAR VOLUME 85.2 fL (80-94); MONOCYTES # (AUTO) 0.2 K/uL (0.8-1.0); MONOCYTES % (AUTO) 5.3 % (1.7-9.3); NEUTROPHILS # (AUTO) 2.8 K/uL (1.8-7.7); PLATELET COUNT (AUTO) 218 K/uL (140-450); RED BLOOD CELL COUNT(AUTO) 4.05 MIL/uL (4.20-5.40); RED CELL DISTRIBUTION WIDTH 13.8 % (11.6-13.7); WHITE BLOOD COUNT (AUTO) 4.4 K/uL (4.8-10.8)
[2019-09-02 09:01] LABS: ALBUMIN 3.7 g/dL (3.4-5.0); ANION GAP 10.4 (8-16); CARBON DIOXIDE 30.2 mmol/L (21-32); CREATININE 0.8 mg/dL (0.6-1.3); POTASSIUM 4.6 mmol/L (3.5-5.1); TOTAL BILIRUBIN 0.3 mg/dL (0.0-1.0)
[2019-09-02 09:16] LABS: APPEARANCE,URINE CLEAR (CLEAR); BILIRUBIN,URINE NEGATIVE (NEGATIVE); BLOOD, URINE 2+ (NEGATIVE); COLOR,URINE YELLOW (YELLOW); LEUKOCYTE ESTERASE ,URINE NEGATIVE (NEGATIVE); NITRITE, URINE NEGATIVE (NEGATIVE); PH,URINE 6.5 (5.0-9.0); UGLUCOSE NEGATIVE (NEGATIVE)
[2019-09-02 09:24] LABS: WBC,URINE 0-5 /HPF (0-5)
[2019-09-02 09:32] VITALS: BP 112/64
[2019-09-02 12:20] LABS: BARBITURATE, URINE NEGATIVE ng/ml (NEG <=200); BENZODIAZEPINE, URINE NEGATIVE ng/mL (NEG <=200); CANNABINOID, URINE POSITIVE ng/mL (NEG <=50); COCAINE, URINE NEGATIVE ng/mL (NEG <=300); OPIATE, URINE NEGATIVE ng/mL (NEG <=2000); PHENCYCLIDINE SCREEN,URINE NEGATIVE ng/mL (NEG <=25)
== END 2019-09-02 09:32 | disposition left against medical advice (07) ==
LOC: MED 06:40
DX: K85.90 Acute pancreatitis without necrosis or infection, unspecified (principal); K21.9 Gastro-esophageal reflux disease without esophagitis; Z90.49 Acquired absence of other specified parts of digestive tract; Z98.890 Other specified postprocedural states; Z88.8 Allergy status to other drugs, medicaments and biological substances; Z79.899 Other long term (current) drug therapy
CPT/HCPCS: 36415; 80053; 80305; 81001; 81025; 83690; 85025; 96361; 96374; 96376; 99284; J2270; J7030

== ENCOUNTER 2019-09-05 03:14 | Emergency (ER) | payer OTHER ==
[~2019-09-05] VITALS: Ht 160 cm; Wt 74.8 kg
[2019-09-05 03:32] VITALS: BP 114/64
--- NOTE | 2019-09-05 03:35 | NUR ---
PT AMBULATED TO BED 4 WITH STEADY GAIT
--- NOTE | 2019-09-05 03:43 | NUR ---
33 Y/O FEMALE C/O SHARP LEFT UPPER QUADRANT PAIN 8/10 AND INTERMITTENT. WHEN PT GETS A WAIVE OF PAIN IT IS SHARP AND RADIATES TO LEFT SIDE OF ABD AND LEFT ARM. PT DENIES CP/SOB. PT STATES WAS SEEN A WEEK AGO IN [facility] ED FOR SAME ISSUE AND THE ERMD THEN WANTED TO ADMIT PT FOR A HIGH LIPASE BUT PT REFUSED SHE HAD ANOTHER DOCTOR APPOINTMENT SHE DID NOT WANT TO MISS. PT RETURNING WITH SAME C/C. PT DENIES ANY TRAUMA. UPPER LEFT QUADRANT TENDER TO PALP. NO EDEMA NOTED. DENIES N/V/D; SKIN IS PINK/WARM/DRY; AAOX4 WITH EVEN AND STEADY GAIT; PT DENIES ANY FEVER, CP, SOB, OR COUGH AT THIS TIME; VSS; PATIENT POSITIONED FOR COMFORT; HOB ELEVATED; BEDRAILS UP X1; BED DOWN AND LOCKED. ER MD MADE AWARE OF PT STATUS. MEDICAL HX: PANCREATIC DIVISUM ALLERGIES: IV TORADOL
--- NOTE | 2019-09-05 04:27 | NUR ---
PT RESTING IN POSITION OF COMFORT, BED LOW AND LOCKED, 1 SIDERAIL UP, VSS. WILL CONTINUE TO MONITOR.
[2019-09-05] MEDS ORDERED: MORPHINE SULFATE 4 MG/ML SYR IVP ONE ×2 (05:20→06:50)
--- NOTE | 2019-09-05 05:40 | NUR ---
MORPHINE 4MG IVP FOR 8/10 ABD PAIN. IV SITE PATENT. NO REDNESS, SWELLING, OR PAIN AT IV SITE.
--- NOTE | 2019-09-05 05:50 | NUR ---
LABS AND UA COLLECTED. TAKEN TO LAB.
[2019-09-05 06:05] LABS: BILIRUBIN,URINE NEGATIVE (NEGATIVE); BLOOD, URINE NEGATIVE (NEGATIVE); COLOR,URINE YELLOW (YELLOW); LEUKOCYTE ESTERASE ,URINE TRACE (NEGATIVE); NITRITE, URINE NEGATIVE (NEGATIVE); UGLUCOSE NEGATIVE (NEGATIVE)
[2019-09-05 06:09] LABS: APPEARANCE,URINE SLIGHTLY HAZY (CLEAR)
[2019-09-05 06:09] LABS: BASOPHILS % (AUTO) 0.7 % (0.0-2.0); EOSINOPHILS # (AUTO) 0.3 K/uL (0-0.4); EOSINOPHILS % (AUTO) 5.6 % (0.0-4.0); HEMATOCRIT 34.7 % (36-48); HEMOGLOBIN 11.9 g/dL (12.0-16.0); LYMPHOCYTES # (AUTO) 1.8 K/uL (2.5-16.5); LYMPHOCYTES % (AUTO) 37.3 % (20.5-51.1); MEAN CORPUSCULAR HEMOGLOBIN 29 pg (27-31); MEAN CORPUSCULAR HGB CONC 34 g/dL (33-37); MEAN CORPUSCULAR VOLUME 84.4 fL (80-94); MONOCYTES # (AUTO) 0.3 K/uL (0.8-1.0); MONOCYTES % (AUTO) 6.5 % (1.7-9.3); NEUTROPHILS # (AUTO) 2.4 K/uL (1.8-7.7); NEUTROPHILS % (AUTO) 49.9 % (42.2-75.2); PLATELET COUNT (AUTO) 218 K/uL (140-450); RED BLOOD CELL COUNT(AUTO) 4.11 MIL/uL (4.20-5.40); RED CELL DISTRIBUTION WIDTH 13.8 % (11.6-13.7); WHITE BLOOD COUNT (AUTO) 4.7 K/uL (4.8-10.8)
[2019-09-05 06:22] LABS: RBC,URINE 0-5 /HPF (0-5)
[2019-09-05 06:23] LABS: WBC,URINE 0-5 /HPF (0-5)
[2019-09-05 06:27] LABS: ALBUMIN 3.8 g/dL (3.4-5.0); ANION GAP 9.2 (8-16); CARBON DIOXIDE 31.6 mmol/L (21-32); CREATININE 0.8 mg/dL (0.6-1.3); POTASSIUM 3.8 mmol/L (3.5-5.1); TOTAL BILIRUBIN 0.4 mg/dL (0.0-1.0)
[2019-09-05] MEDS ORDERED: ONDANSETRON 4 MG/2 ML VIAL IVP ONE (06:40)
--- NOTE | 2019-09-05 07:15 | NUR ---
Pt report given to ELO ZHOU. Transfer of care at this time.
--- NOTE | 2019-09-05 07:20 | NUR ---
PT RESTING IN BED, SIDE RAIL X1 REPORT OBTAINED FROM PRIMARY RN
[2019-09-05 07:44] VITALS: BP 120/60
== END 2019-09-05 07:45 | disposition home or self-care (01) ==
LOC: MED 03:14
DX: R10.13 Epigastric pain (principal); Z91.09 Other allergy status, other than to drugs and biological substances; K21.9 Gastro-esophageal reflux disease without esophagitis; Z79.899 Other long term (current) drug therapy
CPT/HCPCS: 36415; 80053; 81001; 81025; 82150; 83690; 84703; 85025; 96374; 96375; 96376; 99284; J2270; J2405; 99283

== ENCOUNTER 2019-09-15 05:57 | Emergency (ER) | payer OTHER ==
[~2019-09-15] VITALS: Ht 160 cm; Wt 74.8 kg
[2019-09-15 05:57] VITALS: BP 145/94
--- NOTE | 2019-09-15 06:03 | NUR ---
PT TAKEN TO BED 4
--- NOTE | 2019-09-15 06:13 | NUR ---
33 Y/O FEMALE PRESENTS TO ER WITH LUQ/ LEFT EPIGASTRIC PAIN EXACERBATION X 3 DAYS. PT RATES PAIN 8/10. PT IS AFEBRILE AND STATES SHE LAST VOMITED AT 3PM 09/14/19, LAST DIARRHEA MIDNIGHT 09/15/19, ALSO HAS NAUSEA. LMP: 08/28/19. PT LAST TOOK NORCO AT MIDNIGHT 09/15/19. DENIES COUGHING, SOB. R/R EQUAL, AND UNLABORED. PT STATES DUE TO COVID -19 SHE IS UNABLE TO ATTEND HER "GENETIC COUNSELING" APPOINTMENT FOR PANCREATIC DIVISM. PT LYING IN BED SIDERAIL X1, WILL CONTINUE TO MONITOR. PMHX: PANCREATIC DIVISM; KIDNEY STONES ALLERGY: TORADOL
[2019-09-15] MEDS ORDERED: DICYCLOMINE HCL LIQUID 20 MG, ALUMINUM HYD/MAG/SIMETHICONE 30 ML, LIDOCAINE VISCOUS 2% ... PO ONE ×3 (06:55)
[2019-09-15] MEDS ORDERED: fentaNYL 0.05 MG/ML VIAL NS ONE (06:55)
[2019-09-15 06:58] LABS: BASOPHILS % (AUTO) 0.5 % (0.0-2.0); EOSINOPHILS # (AUTO) 0.2 K/uL (0-0.4); EOSINOPHILS % (AUTO) 3.8 % (0.0-4.0); HEMATOCRIT 38.9 % (36-48); HEMOGLOBIN 13.2 g/dL (12.0-16.0); LYMPHOCYTES % (AUTO) 18.5 % (20.5-51.1); MEAN CORPUSCULAR HEMOGLOBIN 29 pg (27-31); MEAN CORPUSCULAR HGB CONC 34 g/dL (33-37); MEAN CORPUSCULAR VOLUME 84.3 fL (80-94); MONOCYTES # (AUTO) 0.3 K/uL (0.8-1.0); NEUTROPHILS # (AUTO) 3.9 K/uL (1.8-7.7); NEUTROPHILS % (AUTO) 71.2 % (42.2-75.2); PLATELET COUNT (AUTO) 198 K/uL (140-450); RED BLOOD CELL COUNT(AUTO) 4.61 MIL/uL (4.20-5.40); RED CELL DISTRIBUTION WIDTH 14.3 % (11.6-13.7); WHITE BLOOD COUNT (AUTO) 5.4 K/uL (4.8-10.8)
[2019-09-15 07:00] LABS: APPEARANCE,URINE SL CLOUDY (CLEAR); BILIRUBIN,URINE NEGATIVE (NEGATIVE); BLOOD, URINE NEGATIVE (NEGATIVE); COLOR,URINE YELLOW (YELLOW); LEUKOCYTE ESTERASE ,URINE TRACE (NEGATIVE); NITRITE, URINE NEGATIVE (NEGATIVE); PH,URINE 6.5 (5.0-9.0); UGLUCOSE NEGATIVE (NEGATIVE)
[2019-09-15] MEDS ORDERED: LIDOCAINE VISCOUS 2% 20 ML UDC ONE (07:05)
[2019-09-15] MEDS ORDERED: DICYCLOMINE HCL LIQUID 10 MG/5 ML UDC ONE (07:05)
[2019-09-15] MEDS ORDERED: ALUMINUM HYD/MAG/SIMETHICONE 30 ML UDC ONE (07:05)
[2019-09-15 07:14] LABS: ALBUMIN 4.1 g/dL (3.4-5.0); CARBON DIOXIDE 28.9 mmol/L (21-32); CREATININE 0.8 mg/dL (0.6-1.3); POTASSIUM 3.9 mmol/L (3.5-5.1); TOTAL BILIRUBIN 0.4 mg/dL (0.0-1.0)
--- NOTE | 2019-09-15 07:30 | NUR ---
REPORT RECEIVED FROM BRANDIE GASCA.
[2019-09-15 07:54] LABS: RBC,URINE 0-5 /HPF (0-5)
--- NOTE | 2019-09-15 07:54 | NUR ---
PT COMFORTABLE IN BED WITH STABLE VS . SIDE RAILS UP X1 AND LOCK.
--- NOTE | 2019-09-15 08:00 | NUR ---
DR ARIZA AT BEDSIDE REEVALUATING PT.
[2019-09-15 08:05] VITALS: BP 132/78
== END 2019-09-15 08:06 | disposition home or self-care (01) ==
LOC: MED 05:57
DX: R10.10 Upper abdominal pain, unspecified (principal); K21.9 Gastro-esophageal reflux disease without esophagitis; N28.9 Disorder of kidney and ureter, unspecified; F12.90 Cannabis use, unspecified, uncomplicated; Z88.5 Allergy status to narcotic agent; Z79.899 Other long term (current) drug therapy
CPT/HCPCS: 36415; 80053; 81001; 81025; 83690; 85025; 87086; 99283; J3010

== ENCOUNTER 2019-09-17 12:25 | Emergency (ER) | payer OTHER ==
[~2019-09-17] VITALS: Ht 162.6 cm; Wt 66.2 kg
[2019-09-17 12:27] VITALS: BP 127/74
[2019-09-17] MEDS ORDERED: ONDANSETRON 4 MG/2 ML VIAL IVP ONE (12:45)
[2019-09-17] MEDS ORDERED: NACL 0.9% 1,000 ML IV ONE (12:45)
[2019-09-17] MEDS ORDERED: MORPHINE SULFATE 4 MG/ML SYR IVP ONE ×2 (12:45→13:35)
[2019-09-17 13:34] LABS: APPEARANCE,URINE CLEAR (CLEAR); BILIRUBIN,URINE NEGATIVE (NEGATIVE); BLOOD, URINE NEGATIVE (NEGATIVE); COLOR,URINE YELLOW (YELLOW); LEUKOCYTE ESTERASE ,URINE 1+ (NEGATIVE); NITRITE, URINE NEGATIVE (NEGATIVE); UGLUCOSE NEGATIVE (NEGATIVE)
[2019-09-17 13:36] LABS: BASOPHILS # (AUTO) 0.1 K/uL (0.00-0.22); BASOPHILS % (AUTO) 0.7 % (0.0-2.0); EOSINOPHILS # (AUTO) 0.1 K/uL (0-0.4); EOSINOPHILS % (AUTO) 1.7 % (0.0-4.0); HEMATOCRIT 41.6 % (36-48); HEMOGLOBIN 14.1 g/dL (12.0-16.0); LYMPHOCYTES # (AUTO) 2.3 K/uL (2.5-16.5); MEAN CORPUSCULAR HEMOGLOBIN 29 pg (27-31); MEAN CORPUSCULAR HGB CONC 34 g/dL (33-37); MEAN CORPUSCULAR VOLUME 84.4 fL (80-94); MONOCYTES # (AUTO) 0.5 K/uL (0.8-1.0); NEUTROPHILS # (AUTO) 5.1 K/uL (1.8-7.7); NEUTROPHILS % (AUTO) 63.6 % (42.2-75.2); PLATELET COUNT (AUTO) 234 K/uL (140-450); RED BLOOD CELL COUNT(AUTO) 4.93 MIL/uL (4.20-5.40); RED CELL DISTRIBUTION WIDTH 14.5 % (11.6-13.7); WHITE BLOOD COUNT (AUTO) 8.1 K/uL (4.8-10.8)
[2019-09-17 13:50] LABS: BARBITURATE, URINE NEGATIVE ng/ml (NEG <=200); BENZODIAZEPINE, URINE NEGATIVE ng/mL (NEG <=200); COCAINE, URINE NEGATIVE ng/mL (NEG <=300)
[2019-09-17 13:51] LABS: CANNABINOID, URINE POSITIVE ng/mL (NEG <=50); OPIATE, URINE NEGATIVE ng/mL (NEG <=2000); PHENCYCLIDINE SCREEN,URINE NEGATIVE ng/mL (NEG <=25)
[2019-09-17 14:05] LABS: ANION GAP 15.2 (8-16); CARBON DIOXIDE 26.4 mmol/L (21-32); CREATININE 0.8 mg/dL (0.6-1.3); POTASSIUM 3.6 mmol/L (3.5-5.1)
[2019-09-17 14:15] LABS: ALBUMIN 4.9 g/dL (3.4-5.0); TOTAL BILIRUBIN 0.3 mg/dL (0.0-1.0)
[2019-09-17 14:31] LABS: RBC,URINE 0-5 /HPF (0-5)
[2019-09-17 14:32] VITALS: BP 132/59
== END 2019-09-17 14:32 | disposition home or self-care (01) ==
LOC: MED 12:25
DX: R10.13 Epigastric pain (principal); R11.0 Nausea; F12.90 Cannabis use, unspecified, uncomplicated; K21.9 Gastro-esophageal reflux disease without esophagitis; Z87.442 Personal history of urinary calculi; Z79.899 Other long term (current) drug therapy; Z88.8 Allergy status to other drugs, medicaments and biological substances
CPT/HCPCS: 36415; 76700; 80053; 80305; 81001; 83690; 85025; 87086; 96361; 96374; 96375; 96376; 99284; J2270; J2405; J7030; Q0092

== ENCOUNTER 2019-09-21 13:09 | Emergency (ER) | payer OTHER ==
[~2019-09-21] VITALS: Ht 157.5 cm; Wt 72.6 kg
[2019-09-21 13:25] VITALS: BP 125/59
[2019-09-21] MEDS ORDERED: MORPHINE SULFATE 4 MG/ML SYR IVP ONE ×2 (14:00→16:30)
[2019-09-21] MEDS ORDERED: NACL 0.9% 1,000 ML IV ONE (14:00)
[2019-09-21] MEDS ORDERED: ONDANSETRON 4 MG/2 ML VIAL IVP ONE (14:00)
[2019-09-21] MEDS ORDERED: FAMOTIDINE 20 MG/2 ML VIAL IVP ONE (14:05)
[2019-09-21 14:43] LABS: BASOPHILS % (AUTO) 0.5 % (0.0-2.0); EOSINOPHILS # (AUTO) 0.1 K/uL (0-0.4); EOSINOPHILS % (AUTO) 1.6 % (0.0-4.0); HEMATOCRIT 39.1 % (36-48); HEMOGLOBIN 12.8 g/dL (12.0-16.0); LYMPHOCYTES # (AUTO) 1.4 K/uL (2.5-16.5); LYMPHOCYTES % (AUTO) 15.9 % (20.5-51.1); MEAN CORPUSCULAR HEMOGLOBIN 28 pg (27-31); MEAN CORPUSCULAR HGB CONC 33 g/dL (33-37); MEAN CORPUSCULAR VOLUME 84.4 fL (80-94); MONOCYTES # (AUTO) 0.4 K/uL (0.8-1.0); MONOCYTES % (AUTO) 4.1 % (1.7-9.3); NEUTROPHILS # (AUTO) 7.1 K/uL (1.8-7.7); NEUTROPHILS % (AUTO) 77.9 % (42.2-75.2); PLATELET COUNT (AUTO) 257 K/uL (140-450); RED BLOOD CELL COUNT(AUTO) 4.63 MIL/uL (4.20-5.40); RED CELL DISTRIBUTION WIDTH 14.4 % (11.6-13.7); WHITE BLOOD COUNT (AUTO) 9.1 K/uL (4.8-10.8)
[2019-09-21 14:56] LABS: ANION GAP 16.7 (8-16); CARBON DIOXIDE 24.9 mmol/L (21-32); CREATININE 0.7 mg/dL (0.6-1.3); POTASSIUM 3.6 mmol/L (3.5-5.1)
[2019-09-21 15:02] LABS: ALBUMIN 4.3 g/dL (3.4-5.0); TOTAL BILIRUBIN 0.2 mg/dL (0.0-1.0)
[2019-09-21 17:05] VITALS: BP 117/60
== END 2019-09-21 17:10 | disposition home or self-care (01) ==
LOC: MED 13:09
DX: K86.1 Other chronic pancreatitis (principal); R10.13 Epigastric pain; K21.9 Gastro-esophageal reflux disease without esophagitis; F12.90 Cannabis use, unspecified, uncomplicated; Z79.899 Other long term (current) drug therapy; Z88.8 Allergy status to other drugs, medicaments and biological substances; Z87.442 Personal history of urinary calculi
CPT/HCPCS: 36415; 71045; 80053; 81002; 81025; 83690; 85025; 96374; 96375; 96376; 99284; J2270; J2405; J3490; Q0092

== ENCOUNTER 2019-09-27 05:45 | Emergency (ER) | payer OTHER ==
[~2019-09-27] VITALS: Ht 160 cm; Wt 78.0 kg
[2019-09-27 05:48] VITALS: BP 118/74
--- NOTE | 2019-09-27 05:57 | NUR ---
PT TAKEN TO BED 4
--- NOTE | 2019-09-27 06:02 | NUR ---
33 YEAR OLD FEMALE COMPLAINS OF ON/OFF EPIGASTRIC PAIN THAT RADIATES TO THE BACK SINCE YESTERDAY. PATIENT STATES NAUSEA, VOMITTING BUT DENIES DIARRHEA. PATIENT AOX4, BREATHING EVEN AND UNLABORED, SKIN WARM AND DRY. BED IN LOWEST POSITION, LOCKED, BED RAIL UPX1. ERMD MADE AWARE OF PT STATUS, PLACED ON MONITOR PMH - PANCREATIC DIVISUM ALLERGIES - TORADOL
[2019-09-27] MEDS ORDERED: MORPHINE SULFATE 4 MG/ML SYR IM ONE ×2 (06:10→08:15)
[2019-09-27] MEDS ORDERED: ONDANSETRON 4 MG ODT PO ONE (06:10)
--- NOTE | 2019-09-27 06:23 | NUR ---
ERMD AT BEDSIDE
[2019-09-27] MEDS ORDERED: METOCLOPRAMIDE 10 MG TAB PO ONE (06:30)
--- NOTE | 2019-09-27 07:04 | NUR ---
PATIENT STATES PAIN FEELS BETTER 6/10, NAUSEA GONE
--- NOTE | 2019-09-27 07:06 | NUR ---
REPORT GIVEN TO KYLIE GASCA, TRANSFER OF CARE AT THIS TIME
--- NOTE | 2019-09-27 07:10 | NUR ---
RECEIVED REPORT FROM ELO ANN.
--- NOTE | 2019-09-27 07:11 | NUR ---
PT COMFORTABLE IN BED , AWAKE, ALERT WITH STABLE V/S , SIDE RAILS UP X1 AND LOCK.
[2019-09-27 07:23] LABS: ALBUMIN 3.9 g/dL (3.4-5.0); ANION GAP 9.5 (8-16); CARBON DIOXIDE 28.1 mmol/L (21-32); CREATININE 0.8 mg/dL (0.6-1.3); POTASSIUM 3.6 mmol/L (3.5-5.1); TOTAL BILIRUBIN 0.2 mg/dL (0.0-1.0)
--- NOTE | 2019-09-27 08:23 | NUR ---
ELO MUNOZ ADMINISTERED MEDS.
--- NOTE | 2019-09-27 08:51 | NUR ---
PT COMFORTABLE IN BED SIDE RAILS UP X1 PAIN AT 4/10.
[2019-09-27 09:07] VITALS: BP 112/57
--- NOTE | 2019-09-27 09:08 | NUR ---
Patient discharged with v/s stable. Written and verbal after care instructions given and explained regarding acute pancreatitis Patient verbalized understanding. Ambulatory with steady gait. All questions addressed prior to discharge. Advised to follow up with PMD.
== END 2019-09-27 09:07 | disposition home or self-care (01) ==
LOC: MED 05:45
DX: K86.1 Other chronic pancreatitis (principal); K21.9 Gastro-esophageal reflux disease without esophagitis; Z79.899 Other long term (current) drug therapy; Z88.8 Allergy status to other drugs, medicaments and biological substances; Z87.442 Personal history of urinary calculi
CPT/HCPCS: 36415; 80053; 83690; 96372; 99284; J2270; J8597; Q0162

== ENCOUNTER 2019-09-28 05:55 | Inpatient (IN) | payer OTHER ==
[~2019-09-28] VITALS: Ht 160 cm; Wt 78.0 kg
[2019-09-28 05:56] VITALS: BP 114/58
--- NOTE | 2019-09-28 06:02 | NUR ---
pt ambulated to er bed 12
--- NOTE | 2019-09-28 06:06 | NUR ---
ermd bedside evaluating pt
[2019-09-28] MEDS ORDERED: NACL 0.9% 1,000 ML IV ONE (06:11)
[2019-09-28] MEDS ORDERED: MORPHINE SULFATE 4 MG/ML SYR IVP ONE ×2 (06:15→08:45)
[2019-09-28] MEDS ORDERED: ONDANSETRON 4 MG/2 ML VIAL IVP ONE (06:15)
--- NOTE | 2019-09-28 06:20 | NUR ---
allergies: toradol, nsaids.
--- NOTE | 2019-09-28 06:20 | NUR ---
33 y/o female c/o luq pain that radiates to left flank x 2 days. +n,v. changes of appetite present. rates pain 10/10 and describes it as stabbing. abd is round, soft, tender on luq, active bs. vss. steady gait. a&o x4. lung sounds clear all throughout. denies any dysuria or blood in urine. pmh: PANCREATITIS DIVISUM, kidney stone.
[2019-09-28 06:34] LABS: BILIRUBIN,URINE NEGATIVE (NEGATIVE); BLOOD, URINE 3+ (NEGATIVE); LEUKOCYTE ESTERASE ,URINE 2+ (NEGATIVE); NITRITE, URINE NEGATIVE (NEGATIVE); PH,URINE 6.5 (5.0-9.0); UGLUCOSE NEGATIVE (NEGATIVE)
[2019-09-28 06:34] LABS: BASOPHILS % (AUTO) 0.8 % (0.0-2.0); EOSINOPHILS # (AUTO) 0.3 K/uL (0-0.4); EOSINOPHILS % (AUTO) 6.6 % (0.0-4.0); HEMATOCRIT 34.8 % (36-48); LYMPHOCYTES # (AUTO) 1.5 K/uL (2.5-16.5); LYMPHOCYTES % (AUTO) 29.4 % (20.5-51.1); MEAN CORPUSCULAR HEMOGLOBIN 29 pg (27-31); MEAN CORPUSCULAR HGB CONC 34 g/dL (33-37); MEAN CORPUSCULAR VOLUME 84.1 fL (80-94); MONOCYTES # (AUTO) 0.3 K/uL (0.8-1.0); MONOCYTES % (AUTO) 6.9 % (1.7-9.3); NEUTROPHILS # (AUTO) 2.8 K/uL (1.8-7.7); NEUTROPHILS % (AUTO) 56.3 % (42.2-75.2); PLATELET COUNT (AUTO) 270 K/uL (140-450); RED BLOOD CELL COUNT(AUTO) 4.14 MIL/uL (4.20-5.40); RED CELL DISTRIBUTION WIDTH 14.4 % (11.6-13.7)
[2019-09-28 06:51] LABS: ANION GAP 15.7 (8-16); CARBON DIOXIDE 25.2 mmol/L (21-32); CREATININE 0.7 mg/dL (0.6-1.3); POTASSIUM 3.9 mmol/L (3.5-5.1)
[2019-09-28 07:04] LABS: ALBUMIN 3.8 g/dL (3.4-5.0); TOTAL BILIRUBIN 0.4 mg/dL (0.0-1.0)
--- NOTE | 2019-09-28 07:15 | NUR ---
Pt report given to hong albarran. Transfer of care at this time.
--- NOTE | 2019-09-28 07:15 | NUR ---
Note abdiel in [facility] - 09/28/19 at 0715 by [facility] trPt report given to hong albarran. Transfer of care at this time.
--- NOTE | 2019-09-28 07:18 | NUR ---
RECEIVED REPORT FROM ELO FAITH. TRANSFER OF CARE AT THIS TIME
[2019-09-28 07:19] LABS: APPEARANCE,URINE HAZY (CLEAR); COLOR,URINE RED (YELLOW)
--- NOTE | 2019-09-28 08:26 | NUR ---
PT RESTING IN BED, STATES MINIMAL INTERMITTENT PAIN AT THIS TIME. RR EVEN AND UNLABORED. VSS. WILL CONTINUE TO MONITOR
[2019-09-28] MEDS ORDERED: HYDROcodone/APAP 5/325 MG 1 TAB TAB PO PRN (09:35)
[2019-09-28] MEDS ORDERED: ACETAMINOPHEN 325 MG TAB PO PRN (09:35)
--- NOTE | 2019-09-28 09:45 | NUR ---
STATES DECREASE IN PAIN AFTER BEING MEDICATED WITH MORPHINE. 07/05 ABD PAIN AT THIS TIME
--- NOTE | 2019-09-28 10:15 | NUR ---
RECEIVED PATIENT FROM EMERGENCY ROOM NURSE. PATIENT IN STABLE CONDITION. RESPIRATIONS EVEN AND UNLABORED, ROOM AIR. IV INTACT AND PATENT. SAFETY MEASURES IN PLACE. BED IN LOW POSITION. CALL LIGHT WITHIN REACH. WILL CONTINUE TO MONITOR.
--- NOTE | 2019-09-28 10:22 | NUR ---
Patient will be admitted to care of DR CALVILLO. Admited to MED-SURG. Will go to room 120B. Belongings list completed. Report to ELO CAMPBELL.
[2019-09-28] MEDS ORDERED: ONDANSETRON 4 MG/2 ML VIAL IVP PRN (12:15)
--- NOTE | 2019-09-28 12:19 | NUR ---
PHILIP BUCHANAN ZOFRAN PRN 4MG Q6H FOR NAUSEA AND VOMITING.
[2019-09-28] MEDS: MORPHINE SULFATE 4 MG/ML SYR IVP PRN ×2 (12:28→22:01)
[2019-09-28] MEDS: NACL 0.9% 1,000 ML IV SCH ×2 (12:28→21:26)
--- NOTE | 2019-09-28 12:28 | NUR ---
GAVE PRN PAIN MEDICATION PER PATIENT REQUEST FOR 02/02 STOMACH PAIN. PATIENT IN STABLE CONDITION. BED IN LOW POSITION. CALL LIGHT WITHIN REACH. WILL CONTINUE TO MONITOR.
--- NOTE | 2019-09-28 14:25 | NUR ---
PATIENT TALKING ON CELL PHONE AT THIS TIME IN STABLE CONDITION. BED IN LOW POSITION. CALL LIGHT WITHIN REACH. WILL CONTINUE TO MONITOR.
[2019-09-28 16:00] VITALS: BP 122/62
--- NOTE | 2019-09-28 17:45 | NUR ---
PHILIP CALVO DR. 10-325MG Q6H.
[2019-09-28] MEDS: HYDROcodone/APAP 10/325 MG 1 TAB TAB PO PRN (18:00)
--- NOTE | 2019-09-28 19:15 | NUR ---
GAVE REPORT TO SENIOR BACKUP ADMINISTRATOR NURSE FOR CONTINUITY OF CARE. PATIENT IN STABLE CONDITION/
--- NOTE | 2019-09-28 19:16 | NUR ---
RECD. RESTING IN BED, AWAKE, A/OX4. RESPIRATION EVEN AND UNLABORED. WATCHING TV. IV OF NS AT 100 ML/HR INFUSING, LEFT WRIST G20. ABLE TO AMBULATED INDEPENDENTLY. TOLERATING CLEAR LIQUID DIET. PAIN IN THE ABDOMEN 06/04. WAS MEDICATED BY AM NURSE, WILL CONTINUE TO MONITOR FOR PAIN AND MEDICATED ORDERED. PLAN OF CARE FOR THE SHIFT DISCUSSED. VERBALIZED UNDERSTANDING.
--- NOTE | 2019-09-28 20:00 | NUR ---
Patient's Plan of Care was discussed and reviewed with WINDING MACHINE OPERATOR: JOSE ALFREDO JAMES
--- NOTE | 2019-09-28 20:30 | NUR ---
AMBULATED TO BR TO VOID, GAIT STEADY. BACK TO BED AFTER VOIDING.
[2019-09-28] MEDS ORDERED: CRUSHER, PILL MC ONE (21:34)
[2019-09-28 21:47] VITALS: BP 109/44
--- NOTE | 2019-09-28 22:05 | NUR ---
WATCHING TV. WANTS SOME CRACKERS, REMINDED THAT SHE IS ON CLEAR LIQUID DIET, OFFERED JELLO, JUICES BUT REFUSED.
[2019-09-29] VITALS: BP 114/52
--- NOTE | 2019-09-29 | NUR ---
SLEEPING COMFORTABLY IN BED.
--- NOTE | 2019-09-29 03:00 | NUR ---
STILL SLEEPING COMFORTABLY IN BED. WHEN ASKED IF SHE WANTS PAIN MEDICATION STATED I'M OK.
[2019-09-29] MEDS: HYDROcodone/APAP 10/325 MG 1 TAB TAB PO PRN (05:10)
[2019-09-29] MEDS: NACL 0.9% 1,000 ML IV SCH (05:31)
--- NOTE | 2019-09-29 06:00 | NUR ---
AMBULATED IN THE HALLWAY FOR 15 MINUTES.
[2019-09-29 06:02] LABS: BASOPHILS % (AUTO) 0.4 % (0.0-2.0); EOSINOPHILS # (AUTO) 0.3 K/uL (0-0.4); EOSINOPHILS % (AUTO) 6.7 % (0.0-4.0); HEMATOCRIT 29.8 % (36-48); HEMOGLOBIN 10.2 g/dL (12.0-16.0); LYMPHOCYTES # (AUTO) 1.3 K/uL (2.5-16.5); LYMPHOCYTES % (AUTO) 31.5 % (20.5-51.1); MEAN CORPUSCULAR HEMOGLOBIN 29 pg (27-31); MEAN CORPUSCULAR HGB CONC 34 g/dL (33-37); MEAN CORPUSCULAR VOLUME 85.9 fL (80-94); MONOCYTES # (AUTO) 0.5 K/uL (0.8-1.0); MONOCYTES % (AUTO) 10.7 % (1.7-9.3); NEUTROPHILS # (AUTO) 2.2 K/uL (1.8-7.7); NEUTROPHILS % (AUTO) 50.7 % (42.2-75.2); PLATELET COUNT (AUTO) 197 K/uL (140-450); RED BLOOD CELL COUNT(AUTO) 3.47 MIL/uL (4.20-5.40); RED CELL DISTRIBUTION WIDTH 14.3 % (11.6-13.7); WHITE BLOOD COUNT (AUTO) 4.3 K/uL (4.8-10.8)
[2019-09-29 06:14] LABS: AMYLASE 40 U/L (25-115); LIPASE 115 U/L (73-393)
[2019-09-29 06:15] LABS: ALBUMIN 3.2 g/dL (3.4-5.0); ANION GAP 8.1 (8-16); CARBON DIOXIDE 31.6 mmol/L (21-32); CREATININE 0.8 mg/dL (0.6-1.3); POTASSIUM 3.7 mmol/L (3.5-5.1); TOTAL BILIRUBIN 0.4 mg/dL (0.0-1.0)
--- NOTE | 2019-09-29 07:00 | NUR ---
ABLE TO SLEEP WELL. CONDITION REMAIN STABLE. WILL ENDORSE TO AM SHIFT NURSE FOR CONTINUITY OF CARE.
--- NOTE | 2019-09-29 07:25 | NUR ---
RECEIVED PT FROM PHYSICIANS ASSISTANT NURSEJOSE ALFREDO, PT IS AWAKE AND SEATED ON THE BED, ON ROOM AIR, AOX4, IV LINE ON THE LEFT WRIST G. 20 WITH IVF NS INFUSING AT 100ML/HR, PT C/O PAIN RATE OF 5/10 ON HER LEFT FLANK AND VERBALIZED THAT IT IS TOLERABLE FOR NOW, WILL MONITOR PT.
[2019-09-29 08:00] VITALS: BP 113/58
--- NOTE | 2019-09-29 09:05 | NUR ---
PATIENT HAS BEEN SCREENED AND CATEGORIZED MODERATE NUTRITION RISK. PATIENT WILL BE SEEN WITHIN 3-5 DAYS OF ADMISSION. 09/30/19 10/02/[address]
[2019-09-29] MEDS: MORPHINE SULFATE 4 MG/ML SYR IVP PRN (09:33)
--- NOTE | 2019-09-29 09:33 | NUR ---
PT C/O PAIN RATE OF 8/10, BP IS 113/58, PULSE IS 78, O2 SATURATION IS 100%, PAIN MEDICATION WAS GIVEN VIA IV PUSH AND WILL RE-ASSESS AND MONITOR PT.
--- NOTE | 2019-09-29 11:15 | NUR ---
PT IS AMBULATING TO THE HALLWAY NOW, NO SIGN OF DISTRESS NOTED.
[2019-09-29] MEDS ORDERED: ONDA4TAB PO (13:01)
--- NOTE | 2019-09-29 13:31 | NUR ---
DC PLANNIN YRS OLD FEMALE PATIENT WAS ADMITTED FROM HOME WITH A DX OF ACUTE ON CHRONIC PANCREATICS. PATIENT HAS CHRONIC PANCREATITIS. LIPASE LEVEL 433 ION ADMISSION ADMINISTERED IVF, IV ANTIEMETICS AND PAIN MANAGEMENT. LIPASE LEVEL TODAY 150 . PT'S VITALS STABLE , NO C/O PAIN. STABLE FOR DISCHARGE TODAY.
--- NOTE | 2019-09-29 15:40 | NUR ---
DISCHARGED PT TO HOME, DISCHARGED INSTRUCTIONS AND TEACHINGS WERE GIVEN TO PT AND PT VERBALIZED UNDERSTANDING, IV LINE REMOVED AND PT IS STABLE AT THIS TIME.
--- NOTE | 2019-10-01 13:23 | NUR ---
ADMITTING OFFICER NOTE: ANNETTE CONTACTED DR. SWATHI CALHOUN'S OFFICE AND SPOKE TO TRENT. TRENT STATED THAT CLINIC WILL RE-OPEN ON 10/11/2019 AND WILL HAVE WALK-IN APPOINTMENTS FROM [phone]. PATIENT WAS INFORMED. NO FURTHER NEEDS IDENTIFIED.
== END 2019-09-29 15:20 | disposition home or self-care (01) | DRG 282 ==
LOC: MED 05:55 → MTU 09:39
PROVIDERS: ADMIT Hospitalist; ATTEND Hospitalist
DX: K85.90 Acute pancreatitis without necrosis or infection, unspecified (principal); K21.9 Gastro-esophageal reflux disease without esophagitis; K86.1 Other chronic pancreatitis; Z88.8 Allergy status to other drugs, medicaments and biological substances; Z90.49 Acquired absence of other specified parts of digestive tract; Z87.442 Personal history of urinary calculi; Z88.6 Allergy status to analgesic agent
CPT/HCPCS: 36415; 80053; 81001; 82150; 83690; 85025; 87086; 96361; 96374; 96375; 96376; 99285; J2270; J2405; J7030

== ENCOUNTER 2019-10-16 00:20 | Emergency (ER) | payer OTHER ==
[~2019-10-16] VITALS: Ht 160 cm; Wt 75.3 kg
[2019-10-16 00:24] VITALS: BP 121/79
--- NOTE | 2019-10-16 00:40 | NUR ---
34 Y/O FEMALE C/O LOWER BACK PAIN RADIATING TO SHOULDERS STARTING ON FRIDAY AND WORSENING TODAY. PT RATES PAIN 02/02, AND HAS TAKEN AN OTC ACETAMINOPHEN, LAST DOSE AT 9PM. PT ALSO C/O MILD ABD PAIN. ABD SOFT/NON TENDER/ NON DISTENDED. BOWEL SOUNDS NORMOACTIVE IN ALL QUADRANTS. RESP EVEN AND UNLABORED. DENIES CHEST PAIN/SOB/ CHILLS/FEVER. PMH: PANCREATIC DIVISM NKA
[2019-10-16] MEDS ORDERED: NACL 0.9% 500 ML IV ONE (00:41)
[2019-10-16] MEDS ORDERED: NACL 0.9% 1,000 ML IV ONE (00:41)
[2019-10-16] MEDS ORDERED: ONDANSETRON 4 MG/2 ML VIAL IVP ONE (00:45)
[2019-10-16] MEDS ORDERED: MORPHINE SULFATE 2 MG/ML SYR IVP ONE ×2 (00:45→01:50)
[2019-10-16 00:59] VITALS: BP 121/79
[2019-10-16 01:00] LABS: BASOPHILS % (AUTO) 0.4 % (0.0-2.0); EOSINOPHILS # (AUTO) 0.2 K/uL (0-0.4); EOSINOPHILS % (AUTO) 2.7 % (0.0-4.0); HEMATOCRIT 36.8 % (36-48); HEMOGLOBIN 12.3 g/dL (12.0-16.0); LYMPHOCYTES % (AUTO) 26.9 % (20.5-51.1); MEAN CORPUSCULAR HEMOGLOBIN 28 pg (27-31); MEAN CORPUSCULAR HGB CONC 34 g/dL (33-37); MEAN CORPUSCULAR VOLUME 83.3 fL (80-94); MONOCYTES # (AUTO) 0.4 K/uL (0.8-1.0); MONOCYTES % (AUTO) 5.8 % (1.7-9.3); NEUTROPHILS # (AUTO) 4.7 K/uL (1.8-7.7); NEUTROPHILS % (AUTO) 64.2 % (42.2-75.2); PLATELET COUNT (AUTO) 225 K/uL (140-450); RED BLOOD CELL COUNT(AUTO) 4.42 MIL/uL (4.20-5.40); RED CELL DISTRIBUTION WIDTH 13.8 % (11.6-13.7); WHITE BLOOD COUNT (AUTO) 7.4 K/uL (4.8-10.8)
--- NOTE | 2019-10-16 01:00 | NUR ---
RECEIVED REPORT FROM ELO JASSO. ASSUMED CARE AT THIS TIME. PT SEATED UPRIGHT IN BED. WILL CONTINUE TO MONITOR.
--- NOTE | 2019-10-16 01:05 | NUR ---
PT TAKEN TO CT VIA W/C
[2019-10-16 01:12] LABS: ANION GAP 14.6 (8-16); CARBON DIOXIDE 27.6 mmol/L (21-32); CREATININE 0.8 mg/dL (0.6-1.3); POTASSIUM 3.2 mmol/L (3.5-5.1)
[2019-10-16 01:23] LABS: ALBUMIN 4.5 g/dL (3.4-5.0); TOTAL BILIRUBIN 0.4 mg/dL (0.0-1.0)
== END 2019-10-16 02:33 | disposition home or self-care (01) ==
LOC: MED 00:20
DX: M54.9 Dorsalgia, unspecified (principal); R10.13 Epigastric pain; R11.2 Nausea with vomiting, unspecified; K21.9 Gastro-esophageal reflux disease without esophagitis; Z76.5 Malingerer [conscious simulation]; Z79.899 Other long term (current) drug therapy; Z87.442 Personal history of urinary calculi; Z88.8 Allergy status to other drugs, medicaments and biological substances
CPT/HCPCS: 36415; 74176; 80053; 81002; 81025; 83690; 85025; 96361; 96374; 96375; 99284; J2270; J2405; J7030; J7040

== ENCOUNTER 2019-10-18 12:39 | Emergency (ER) | payer OTHER ==
[~2019-10-18] VITALS: Ht 160 cm; Wt 75.3 kg
[2019-10-18 12:45] VITALS: BP 125/80
--- NOTE | 2019-10-18 13:00 | NUR ---
34 Y/O FEMALE FROM HOME C/O MID BACK AND ABD PAIN WITH N/V/D X 5 DAYS. PT STATES SHE WAS SEEN AT [facility] FOR NECK PAIN AND DIAGNOSED WITH MUSCLE STRAIN. DENIES TRAUMA/INJURY. NO DEFORMITIES NOTED. ABD SOFT, ROUND, NONTENDER. 8/10 SHARP CONSTANT PAIN. RR EVEN AND UNLABORED. CALM AND PLEASANT, VSS. MEDHX: PANCREATIC DISEASE ALLERGIES: TORADOL
[2019-10-18] MEDS ORDERED: PROCHLORPERAZINE 10 MG/2 ML VIAL IVP ONE (13:20)
[2019-10-18] MEDS ORDERED: MORPHINE SULFATE 4 MG/ML SYR IVP ONE (13:20)
[2019-10-18] MEDS ORDERED: LOPERAMIDE 2 MG CAP PO ONE (13:20)
[2019-10-18] MEDS ORDERED: NACL 0.9% 1,000 ML IV ONE (13:20)
--- NOTE | 2019-10-18 13:25 | NUR ---
20G IV PLACED TO RT AC, LABS DRAWN AT THIS TIME AND GIVEN TO GARLAND MACHINE OPERATOR
--- NOTE | 2019-10-18 13:40 | NUR ---
PT AMBULATED TO RESTROOM FOR COLLECTION OF URINE
--- NOTE | 2019-10-18 13:45 | NUR ---
PT UNABLE TO PROVIDE URINE, WILL FOLLOW UP WITH PATIENT
[2019-10-18 13:47] LABS: BASOPHILS % (AUTO) 0.1 % (0.0-2.0); EOSINOPHILS # (AUTO) 0.3 K/uL (0-0.4); EOSINOPHILS % (AUTO) 3.6 % (0.0-4.0); HEMATOCRIT 37.1 % (36-48); HEMOGLOBIN 12.4 g/dL (12.0-16.0); LYMPHOCYTES # (AUTO) 1.3 K/uL (2.5-16.5); LYMPHOCYTES % (AUTO) 17.1 % (20.5-51.1); MEAN CORPUSCULAR HEMOGLOBIN 28 pg (27-31); MEAN CORPUSCULAR HGB CONC 34 g/dL (33-37); MEAN CORPUSCULAR VOLUME 83.1 fL (80-94); MONOCYTES # (AUTO) 0.3 K/uL (0.8-1.0); MONOCYTES % (AUTO) 4.4 % (1.7-9.3); NEUTROPHILS # (AUTO) 5.7 K/uL (1.8-7.7); NEUTROPHILS % (AUTO) 74.8 % (42.2-75.2); PLATELET COUNT (AUTO) 216 K/uL (140-450); RED BLOOD CELL COUNT(AUTO) 4.47 MIL/uL (4.20-5.40); RED CELL DISTRIBUTION WIDTH 13.7 % (11.6-13.7); WHITE BLOOD COUNT (AUTO) 7.6 K/uL (4.8-10.8)
--- NOTE | 2019-10-18 14:00 | NUR ---
STATES DECREASE IN PAIN AFTER MORPHINE IV PUSH. 5/10 AT THIS TIME.
[2019-10-18 14:17] LABS: APPEARANCE,URINE CLEAR (CLEAR); BILIRUBIN,URINE NEGATIVE (NEGATIVE); BLOOD, URINE NEGATIVE (NEGATIVE); LEUKOCYTE ESTERASE ,URINE NEGATIVE (NEGATIVE); NITRITE, URINE NEGATIVE (NEGATIVE); UGLUCOSE NEGATIVE (NEGATIVE)
[2019-10-18 14:23] LABS: ALBUMIN 4.3 g/dL (3.4-5.0); ANION GAP 11.6 (8-16); CREATININE 0.7 mg/dL (0.6-1.3); POTASSIUM 3.6 mmol/L (3.5-5.1); TOTAL BILIRUBIN 0.6 mg/dL (0.0-1.0)
[2019-10-18 14:24] LABS: COLOR,URINE STRAW (YELLOW)
[2019-10-18 14:44] VITALS: BP 114/59
== END 2019-10-18 14:44 | disposition home or self-care (01) ==
LOC: MED 12:39
DX: R10.9 Unspecified abdominal pain (principal); K21.9 Gastro-esophageal reflux disease without esophagitis; N20.0 Calculus of kidney; R11.2 Nausea with vomiting, unspecified; Z88.6 Allergy status to analgesic agent; Z90.49 Acquired absence of other specified parts of digestive tract; Z79.899 Other long term (current) drug therapy
CPT/HCPCS: 36415; 80053; 81003; 83690; 85025; 96361; 96374; 96375; 99284; J0780; J2270; J7030

== ENCOUNTER 2019-11-01 16:52 | Emergency (ER) | payer OTHER ==
[~2019-11-01] VITALS: Ht 167.6 cm; Wt 72.6 kg
--- NOTE | 2019-11-01 16:59 | NUR ---
AMBULATED TO BED 5
--- NOTE | 2019-11-01 17:00 | NUR ---
PT BIB SELF DROP OFF BY FAMILY C/O RECURRING EPIGASTRIC/LUQ SHARP PAIN X 4 DAYS; WORSE TODAY WITH REPEATED N/V---UNABLE TO HOLD ANY PO'S. SKIN IS INTACT, PINK/WARM/DRY; AAOX4, PERRL, WITH EVEN AND STEADY GAIT; LUNGS CLEAR BL, BREATHING UNLABORED; HR EVEN AND REGULAR, BL PERIPHERAL PULSES PRESENT; BS ACTIVE X4, NO TENDERNESS TO PALPATION. PT DENIES ANY FEVER, CP, SOB, OR COUGH AT THIS TIME; PT STATES 5/10 PAIN AT THIS TIME; VSS; PATIENT POSITIONED FOR COMFORT; HOB ELEVATED; BEDRAILS UP X2; BED DOWN.
[2019-11-01 17:05] VITALS: BP 112/64
[2019-11-01] MEDS ORDERED: NACL 0.9% 1,000 ML IV SCH (17:09)
[2019-11-01] MEDS ORDERED: ONDANSETRON 4 MG/2 ML VIAL IVP ONE ×2 (17:10→18:20)
--- NOTE | 2019-11-01 17:35 | NUR ---
IV 20 GA RT HAND, BLOOD SENT TO LAB.
[2019-11-01 18:02] LABS: BASOPHILS % (AUTO) 0.7 % (0.0-2.0); EOSINOPHILS # (AUTO) 0.3 K/uL (0-0.4); HEMATOCRIT 32.7 % (36-48); LYMPHOCYTES # (AUTO) 1.9 K/uL (2.5-16.5); LYMPHOCYTES % (AUTO) 32.6 % (20.5-51.1); MEAN CORPUSCULAR HEMOGLOBIN 28 pg (27-31); MEAN CORPUSCULAR HGB CONC 34 g/dL (33-37); MEAN CORPUSCULAR VOLUME 82.8 fL (80-94); MONOCYTES # (AUTO) 0.4 K/uL (0.8-1.0); NEUTROPHILS # (AUTO) 3.1 K/uL (1.8-7.7); NEUTROPHILS % (AUTO) 54.7 % (42.2-75.2); PLATELET COUNT (AUTO) 223 K/uL (140-450); RED BLOOD CELL COUNT(AUTO) 3.94 MIL/uL (4.20-5.40); RED CELL DISTRIBUTION WIDTH 13.9 % (11.6-13.7); WHITE BLOOD COUNT (AUTO) 5.7 K/uL (4.8-10.8)
[2019-11-01] MEDS ORDERED: MORPHINE SULFATE 4 MG/ML SYR IVP ONE (18:20)
[2019-11-01 18:22] LABS: ALBUMIN 3.8 g/dL (3.4-5.0); ANION GAP 8.6 (8-16); CARBON DIOXIDE 30.8 mmol/L (21-32); CREATININE 0.7 mg/dL (0.6-1.3); POTASSIUM 3.4 mmol/L (3.5-5.1); TOTAL BILIRUBIN 0.4 mg/dL (0.0-1.0)
--- NOTE | 2019-11-01 18:34 | NUR ---
PT AMB TO [facility] W/O ASST. ER MD AT BEDSIDE FOR RE-EVAL. IVP PAIN MEDS GIVEN.
[2019-11-01 19:14] VITALS: BP 111/68
--- NOTE | 2019-11-01 19:15 | NUR ---
Patient discharged with v/s stable. Written and verbal after care instructions given and explained. Patient alert, oriented and verbalized understanding of instructions. Ambulatory with steady gait. All questions addressed prior to discharge. ID band removed. Patient advised to follow up with PMD.NO Rx of given. Patient educated on indication of medication including possible reaction and side effects. Opportunity to ask questions provided and answered.
== END 2019-11-01 19:15 | disposition home or self-care (01) ==
LOC: MED 16:52
DX: R10.13 Epigastric pain (principal); R11.2 Nausea with vomiting, unspecified; K21.9 Gastro-esophageal reflux disease without esophagitis; Z88.8 Allergy status to other drugs, medicaments and biological substances; Z79.899 Other long term (current) drug therapy; Z87.442 Personal history of urinary calculi
CPT/HCPCS: 36415; 80053; 81002; 81025; 83690; 85025; 96361; 96374; 96375; 96376; 99284; J2270; J2405; J7030

== ENCOUNTER 2019-11-09 14:36 | Emergency (ER) | payer OTHER ==
[~2019-11-09] VITALS: Ht 165.1 cm; Wt 75.7 kg
[2019-11-09 14:50] VITALS: BP 124/70
[2019-11-09] MEDS ORDERED: NACL 0.9% 1,000 ML IV SCH (15:09)
--- NOTE | 2019-11-09 15:09 | NUR ---
c/o supraumbilical region cramping pain with repeated n/v/d x 3 days adds feeling dehydrated---
[2019-11-09] MEDS ORDERED: ONDANSETRON 4 MG/2 ML VIAL IVP ONE ×2 (15:10→17:10)
[2019-11-09] MEDS ORDERED: FAMOTIDINE 20 MG/2 ML VIAL IVP ONE (15:10)
[2019-11-09] MEDS ORDERED: MORPHINE SULFATE 2 MG/ML SYR IVP ONE (15:10)
--- NOTE | 2019-11-09 16:19 | NUR ---
BOLUS STARTED AND MEDICATIONS ADMINISTERED
[2019-11-09 16:49] LABS: ALBUMIN 3.9 g/dL (3.4-5.0); ANION GAP 12.6 (8-16); CARBON DIOXIDE 26.1 mmol/L (21-32); CREATININE 0.6 mg/dL (0.6-1.3); POTASSIUM 3.7 mmol/L (3.5-5.1); TOTAL BILIRUBIN 0.3 mg/dL (0.0-1.0)
[2019-11-09 17:25] LABS: BASOPHILS % (AUTO) 0.4 % (0.0-2.0); EOSINOPHILS # (AUTO) 0.1 K/uL (0-0.4); EOSINOPHILS % (AUTO) 1.1 % (0.0-4.0); HEMOGLOBIN 11.4 g/dL (12.0-16.0); LYMPHOCYTES % (AUTO) 16.1 % (20.5-51.1); MEAN CORPUSCULAR HEMOGLOBIN 28 pg (27-31); MEAN CORPUSCULAR HGB CONC 33 g/dL (33-37); MEAN CORPUSCULAR VOLUME 84.8 fL (80-94); MONOCYTES # (AUTO) 0.4 K/uL (0.8-1.0); MONOCYTES % (AUTO) 5.7 % (1.7-9.3); NEUTROPHILS # (AUTO) 4.9 K/uL (1.8-7.7); NEUTROPHILS % (AUTO) 76.7 % (42.2-75.2); PLATELET COUNT (AUTO) 188 K/uL (140-450); RED BLOOD CELL COUNT(AUTO) 4.13 MIL/uL (4.20-5.40); RED CELL DISTRIBUTION WIDTH 14.2 % (11.6-13.7); WHITE BLOOD COUNT (AUTO) 6.4 K/uL (4.8-10.8)
[2019-11-09 17:52] VITALS: BP 117/58
== END 2019-11-09 17:53 | disposition home or self-care (01) ==
LOC: MED 14:36
DX: K85.90 Acute pancreatitis without necrosis or infection, unspecified (principal); F12.90 Cannabis use, unspecified, uncomplicated; K21.9 Gastro-esophageal reflux disease without esophagitis; N28.9 Disorder of kidney and ureter, unspecified; Z88.6 Allergy status to analgesic agent; Z90.49 Acquired absence of other specified parts of digestive tract; Z98.890 Other specified postprocedural states; Z79.899 Other long term (current) drug therapy
CPT/HCPCS: 36415; 80053; 81002; 81025; 83690; 85025; 96361; 96374; 96375; 96376; 99284; J2270; J2405; J3490; J7030

== ENCOUNTER 2019-11-19 14:59 | Emergency (ER) | payer OTHER ==
[~2019-11-19] VITALS: Ht 160 cm; Wt 75.3 kg
[2019-11-19 15:18] VITALS: BP 110/50
--- NOTE | 2019-11-19 15:25 | NUR ---
amb to bed 06
--- NOTE | 2019-11-19 15:25 | NUR ---
PT C/O LEFT-SIDED FLANK PAIN RADIATING TO LEFT UPPER QUADRANT ABDOMEN AREA, URINARY URGENCY, N/V FOR 4 DAYS. DENIES FEVER, , CHILLS, OR DYSURIA. RECEIVED COVID TEST ON NOVEMBER 11--NEGATIVE RESULT. CVAT POSITIVE ON LEFT SIDE. PT DENIES ANY FEVER, CP, SOB, OR COUGH AT THIS TIME; PATIENT STATES PAIN OF 8/10 AT THIS TIME; VSS; PATIENT POSITIONED FOR COMFORT; HOB ELEVATED; BEDRAILS UP X1; BED DOWN. ER MD MADE AWARE OF PT STATUS.
[2019-11-19] MEDS ORDERED: NACL 0.9% 500 ML IV ONE (15:33)
[2019-11-19] MEDS ORDERED: ONDANSETRON 4 MG/2 ML VIAL IVP ONE ×2 (15:35)
[2019-11-19] MEDS ORDERED: KETOROLAC 60 MG/2 ML VIAL IM ONE (15:35)
--- NOTE | 2019-11-19 15:59 | NUR ---
PT IS TAKING TO CT SCAN VIA .
[2019-11-19 16:20] LABS: BASOPHILS % (AUTO) 0.7 % (0.0-2.0); EOSINOPHILS # (AUTO) 0.1 K/uL (0-0.4); EOSINOPHILS % (AUTO) 2.1 % (0.0-4.0); HEMATOCRIT 36.4 % (36-48); HEMOGLOBIN 12.1 g/dL (12.0-16.0); LYMPHOCYTES # (AUTO) 1.4 K/uL (2.5-16.5); LYMPHOCYTES % (AUTO) 23.5 % (20.5-51.1); MEAN CORPUSCULAR HEMOGLOBIN 28 pg (27-31); MEAN CORPUSCULAR HGB CONC 33 g/dL (33-37); MEAN CORPUSCULAR VOLUME 83.5 fL (80-94); MONOCYTES # (AUTO) 0.3 K/uL (0.8-1.0); MONOCYTES % (AUTO) 5.4 % (1.7-9.3); NEUTROPHILS % (AUTO) 68.3 % (42.2-75.2); PLATELET COUNT (AUTO) 253 K/uL (140-450); RED BLOOD CELL COUNT(AUTO) 4.36 MIL/uL (4.20-5.40); RED CELL DISTRIBUTION WIDTH 13.8 % (11.6-13.7); WHITE BLOOD COUNT (AUTO) 5.8 K/uL (4.8-10.8)
[2019-11-19 16:30] LABS: ALBUMIN 4.3 g/dL (3.4-5.0); ANION GAP 13.5 (8-16); CARBON DIOXIDE 30.9 mmol/L (21-32); CREATININE 0.7 mg/dL (0.6-1.3); POTASSIUM 3.4 mmol/L (3.5-5.1); TOTAL BILIRUBIN 0.4 mg/dL (0.0-1.0)
[2019-11-19] MEDS ORDERED: ONDANSETRON 4 MG/2 ML VIAL ONE (16:56)
[2019-11-19 17:26] VITALS: BP 106/48
== END 2019-11-19 17:26 | disposition home or self-care (01) ==
LOC: MED 14:59
DX: R10.32 Left lower quadrant pain (principal); F12.90 Cannabis use, unspecified, uncomplicated; K21.9 Gastro-esophageal reflux disease without esophagitis; N28.9 Disorder of kidney and ureter, unspecified; Z90.49 Acquired absence of other specified parts of digestive tract; Z88.6 Allergy status to analgesic agent; Z79.899 Other long term (current) drug therapy
CPT/HCPCS: 36415; 74176; 80053; 81002; 81025; 83690; 85025; 96361; 96372; 96374; 96376; 99284; J1885; J2405; J7030

== ENCOUNTER 2019-12-09 05:34 | Emergency (ER) | payer OTHER ==
[~2019-12-09] VITALS: Ht 160 cm; Wt 74.8 kg
[2019-12-09 05:51] VITALS: BP 111/73
--- NOTE | 2019-12-09 05:55 | NUR ---
PT AMBULATED TO BED #11.
--- NOTE | 2019-12-09 06:00 | NUR ---
PT ASSESSMENT COMPLETE. URINE SPECIMEN COLLECTED. PT TO A/W MEDICAL EVALUATION.
[2019-12-09] MEDS ORDERED: ONDANSETRON 4 MG/2 ML VIAL IVP ONE (06:15)
[2019-12-09] MEDS ORDERED: NACL 0.9% 1,000 ML IV ONE (06:15)
[2019-12-09] MEDS ORDERED: MORPHINE SULFATE 4 MG/ML SYR IVP ONE ×2 (06:15→08:05)
--- NOTE | 2019-12-09 06:32 | NUR ---
BLOOD DRAWN AND TAKEN TO LAB.
[2019-12-09 06:34] LABS: BASOPHILS % (AUTO) 0.9 % (0.0-2.0); EOSINOPHILS # (AUTO) 0.1 K/uL (0-0.4); HEMATOCRIT 33.2 % (36-48); HEMOGLOBIN 11.3 g/dL (12.0-16.0); LYMPHOCYTES # (AUTO) 1.4 K/uL (2.5-16.5); LYMPHOCYTES % (AUTO) 29.7 % (20.5-51.1); MEAN CORPUSCULAR HEMOGLOBIN 28 pg (27-31); MEAN CORPUSCULAR HGB CONC 34 g/dL (33-37); MEAN CORPUSCULAR VOLUME 82.6 fL (80-94); MONOCYTES # (AUTO) 0.3 K/uL (0.8-1.0); MONOCYTES % (AUTO) 5.9 % (1.7-9.3); NEUTROPHILS # (AUTO) 2.9 K/uL (1.8-7.7); NEUTROPHILS % (AUTO) 60.5 % (42.2-75.2); PLATELET COUNT (AUTO) 188 K/uL (140-450); RED BLOOD CELL COUNT(AUTO) 4.02 MIL/uL (4.20-5.40); RED CELL DISTRIBUTION WIDTH 13.9 % (11.6-13.7); WHITE BLOOD COUNT (AUTO) 4.7 K/uL (4.8-10.8)
[2019-12-09 07:02] LABS: ALBUMIN 3.9 g/dL (3.4-5.0); ANION GAP 15.8 (8-16); CARBON DIOXIDE 23.8 mmol/L (21-32); CREATININE 0.7 mg/dL (0.6-1.3); POTASSIUM 3.6 mmol/L (3.5-5.1); TOTAL BILIRUBIN 0.5 mg/dL (0.0-1.0)
--- NOTE | 2019-12-09 07:28 | NUR ---
RECEIVED REPORT FROM ELO HANNAH FOR CONTINUATION OF CARE
--- NOTE | 2019-12-09 07:49 | NUR ---
pt resting in bed, reports she is still having pain in her LUQ 11/02. Dr. Weber made aware
[2019-12-09 08:38] VITALS: BP 124/71
--- NOTE | 2019-12-09 08:38 | NUR ---
Patient discharged with v/s stable. Written and verbal after care instructions given and explained. Patient alert, oriented and verbalized understanding of instructions. Ambulatory with steady gait. All questions addressed prior to discharge. ID band removed. Patient advised to follow up with PMD. Opportunity to ask questions provided and answered.
== END 2019-12-09 08:38 | disposition home or self-care (01) ==
LOC: MED 05:34
DX: K85.80 Other acute pancreatitis without necrosis or infection (principal); R11.2 Nausea with vomiting, unspecified
CPT/HCPCS: 36415; 80053; 81002; 81025; 83690; 85025; 96361; 96374; 96375; 96376; 99284; J2270; J2405; J7030

== ENCOUNTER 2019-12-13 05:39 | Emergency (ER) | payer OTHER ==
[~2019-12-13] VITALS: Ht 160 cm; Wt 76.2 kg
[2019-12-13 05:45] VITALS: BP 114/85
--- NOTE | 2019-12-13 05:48 | NUR ---
PT AMBULATED TO BED #4
--- NOTE | 2019-12-13 06:00 | NUR ---
ERMD AT BEDSIDE EXAMINING PT
--- NOTE | 2019-12-13 06:00 | NUR ---
34 YO F BIB SELF FOR C/C OF L UPPER QUADRANT PAIN X4 DAYS THAT RADIATES TO MID LEFT SIDE OF BACK. PT STATES SHE HAS A HISTORY OF PANCREATITIS AND KIDNEY STONES AND SAYS HER PAIN FEELS SIMILAR TO THOSE SYMPTOMS. PT TOOK 500MG OF IBUPROFEN AND 500MG OF ROBAXEN AT 9 PM LAST NIGHT WITHOUT RELIEF OF SYMPTOMS. PT STATES SHE HAS BEEN NAUSEOUS WITH ONE EPISODE OF VOMITING LAST NIGHT. PT DENIES ANY URIANRY SYMPTOMS, LBM WAS TODAY SOFT AND FORMED. BED LCOKED AND IN LOWEST POSITION. LAGGING MACHINE OPERATOR IN PLACE. ALLERIES TO TORODOL MED HX : KIDNEY STONES, PANCREATITIS, PANCREATIC DIVISUM RX: ROBAXEN, IBUPROFEN
[2019-12-13] MEDS ORDERED: MORPHINE SULFATE 2 MG/ML SYR IVP ONE (06:05)
[2019-12-13] MEDS ORDERED: NACL 0.9% 1,000 ML IV ONE (06:05)
[2019-12-13] MEDS ORDERED: ONDANSETRON 4 MG/2 ML VIAL IVP ONE (06:05)
--- NOTE | 2019-12-13 06:20 | NUR ---
PT TAKEN TO CT SCAN VIA [facility]
[2019-12-13 06:25] LABS: BASOPHILS % (AUTO) 0.4 % (0.0-2.0); EOSINOPHILS # (AUTO) 0.2 K/uL (0-0.4); EOSINOPHILS % (AUTO) 3.9 % (0.0-4.0); HEMATOCRIT 34.8 % (36-48); HEMOGLOBIN 11.8 g/dL (12.0-16.0); LYMPHOCYTES # (AUTO) 1.7 K/uL (2.5-16.5); LYMPHOCYTES % (AUTO) 35.3 % (20.5-51.1); MEAN CORPUSCULAR HEMOGLOBIN 28 pg (27-31); MEAN CORPUSCULAR HGB CONC 34 g/dL (33-37); MEAN CORPUSCULAR VOLUME 83.4 fL (80-94); MONOCYTES # (AUTO) 0.4 K/uL (0.8-1.0); NEUTROPHILS # (AUTO) 2.5 K/uL (1.8-7.7); NEUTROPHILS % (AUTO) 52.4 % (42.2-75.2); PLATELET COUNT (AUTO) 201 K/uL (140-450); RED BLOOD CELL COUNT(AUTO) 4.18 MIL/uL (4.20-5.40); RED CELL DISTRIBUTION WIDTH 13.9 % (11.6-13.7); WHITE BLOOD COUNT (AUTO) 4.8 K/uL (4.8-10.8)
[2019-12-13 06:28] LABS: ANION GAP 12.4 (8-16); CARBON DIOXIDE 26.5 mmol/L (21-32); CREATININE 0.9 mg/dL (0.6-1.3); POTASSIUM 3.9 mmol/L (3.5-5.1)
--- NOTE | 2019-12-13 06:30 | NUR ---
PT RETURNED FROM CT VIA [facility]
[2019-12-13 06:34] LABS: ALBUMIN 3.8 g/dL (3.4-5.0); TOTAL BILIRUBIN 0.1 mg/dL (0.0-1.0)
--- NOTE | 2019-12-13 07:12 | NUR ---
received report from hong flores.
--- NOTE | 2019-12-13 07:13 | NUR ---
REPORT GIVEN TO ELO ESPINAL. TRANSFER OF CARE AT THIS TIME.
[2019-12-13 07:41] VITALS: BP 119/80
--- NOTE | 2019-12-13 07:41 | NUR ---
Patient discharged with v/s stable. Written and verbal after care instructions given and explained regarding abdominal pain. Patient alert, oriented and verbalized understanding of instructions. Ambulatory with steady gait. All questions addressed prior to discharge. ID band removed. Patient advised to follow up with PMD. Rx of colace given. Patient educated on indication of medication including possible reaction and side effects. Opportunity to ask questions provided and answered.
== END 2019-12-13 07:41 | disposition home or self-care (01) ==
LOC: MED 05:39
DX: R10.12 Left upper quadrant pain (principal); K21.9 Gastro-esophageal reflux disease without esophagitis; N20.0 Calculus of kidney; Z79.899 Other long term (current) drug therapy; Z88.6 Allergy status to analgesic agent
CPT/HCPCS: 36415; 74176; 80053; 81002; 81025; 83690; 85025; 96361; 96374; 96375; 99284; J2270; J2405; J7030

== ENCOUNTER 2020-01-11 05:35 | Emergency (ER) | payer OTHER ==
[~2020-01-11] VITALS: Ht 160 cm; Wt 76.2 kg
[2020-01-11 05:44] VITALS: BP 113/56
--- NOTE | 2020-01-11 05:45 | NUR ---
34 Y/O FEMALE PRESENTED TO ED C/O LUQ ABD PAIN X 3 DAYS , 10/10 ON PAIN SCALE. PT + N/V . PT STATES SHE HAS HX PANCREATITIS DIVISUM AND THE PAIN IS SIMILAR TO WHEN SHE HAS PANCREATITIS FLARE UPS. PT DENIES TAKING ANY MEDICATION THIS MORNING FOR THE PAIN. PT ABD FLAT, SOFT AND TENDER UPON PALPATION. NORMOACTIVE BOWEL SOUNDS IN ALL QUADS. PT SITTING IN BED, LOCKED AND IN LOWEST POSITION, HOB ELEVATED , SIDE RAIL X2 FOR PT SAFETY. VISIBLE RISE AND FALL OF CHEST , RR EVEN AND UNLABORED , VSS. PT PROVIDED EMESIS BAG FOR COMFORT. PMH: PANCREATITIS DIVISUM , KIDNEY STONES AX: TORADOL
--- NOTE | 2020-01-11 05:49 | NUR ---
PT TAKEN TO BED 4
--- NOTE | 2020-01-11 05:53 | NUR ---
pt ambulated to restroom w/ steady gait
--- NOTE | 2020-01-11 06:00 | NUR ---
urine sample collected and sent to lab.
--- NOTE | 2020-01-11 06:14 | NUR ---
Dr. Weber examining patient.
[2020-01-11] MEDS ORDERED: NACL 0.9% 1,000 ML IV SCH (06:17)
[2020-01-11] MEDS ORDERED: ONDANSETRON 4 MG/2 ML VIAL IVP ONE (06:20)
[2020-01-11] MEDS ORDERED: MORPHINE SULFATE 4 MG/ML SYR IVP ONE (06:20)
--- NOTE | 2020-01-11 06:35 | NUR ---
24 G IV CATH INSERTED IN RIGHT A/C , IV FLUSHED W/ 10CC , IV PATENT , NO INFILTRATION, REDNESS, SWELLING OR PAIN NOTED AT IV SITE. BLOOD LABS COLLECTED AND HANDED TO LAB.
[2020-01-11 06:45] LABS: APPEARANCE,URINE CLEAR (CLEAR); BILIRUBIN,URINE NEGATIVE (NEGATIVE); BLOOD, URINE 3+ (NEGATIVE); COLOR,URINE YELLOW (YELLOW); LEUKOCYTE ESTERASE ,URINE TRACE (NEGATIVE); NITRITE, URINE NEGATIVE (NEGATIVE); PH,URINE 6.5 (5.0-9.0); UGLUCOSE NEGATIVE (NEGATIVE)
[2020-01-11 06:46] LABS: BASOPHILS % (AUTO) 0.8 % (0.0-2.0); EOSINOPHILS # (AUTO) 0.2 K/uL (0-0.4); EOSINOPHILS % (AUTO) 4.4 % (0.0-4.0); HEMATOCRIT 35.2 % (36-48); HEMOGLOBIN 11.7 g/dL (12.0-16.0); LYMPHOCYTES # (AUTO) 1.3 K/uL (2.5-16.5); LYMPHOCYTES % (AUTO) 26.9 % (20.5-51.1); MEAN CORPUSCULAR HEMOGLOBIN 27 pg (27-31); MEAN CORPUSCULAR HGB CONC 33 g/dL (33-37); MEAN CORPUSCULAR VOLUME 82.1 fL (80-94); MONOCYTES # (AUTO) 0.3 K/uL (0.8-1.0); MONOCYTES % (AUTO) 6.3 % (1.7-9.3); NEUTROPHILS # (AUTO) 3.1 K/uL (1.8-7.7); NEUTROPHILS % (AUTO) 61.6 % (42.2-75.2); PLATELET COUNT (AUTO) 223 K/uL (140-450); RED BLOOD CELL COUNT(AUTO) 4.28 MIL/uL (4.20-5.40); RED CELL DISTRIBUTION WIDTH 13.8 % (11.6-13.7)
--- NOTE | 2020-01-11 06:56 | NUR ---
REPORT GIVEN TO ELO YAÑEZ FOR TRANSFER OF CARE.
[2020-01-11 06:59] LABS: ALBUMIN 4.2 g/dL (3.4-5.0); ANION GAP 16.1 (8-16); CARBON DIOXIDE 23.8 mmol/L (21-32); CREATININE 0.7 mg/dL (0.6-1.3); POTASSIUM 3.9 mmol/L (3.5-5.1); TOTAL BILIRUBIN 0.2 mg/dL (0.0-1.0)
--- NOTE | 2020-01-11 06:59 | NUR ---
RECEIVED REPORT FROM ELO COYLE , PT COMFORTABLE IN BED IV RUNNING , SIDE RAILS UP AND LOCK X1 AT LOWEST POSITION.
[2020-01-11 07:01] LABS: RBC,URINE 0-5 /HPF (0-5); WBC,URINE 0-5 /HPF (0-5)
--- NOTE | 2020-01-11 07:18 | NUR ---
SPOKE TO DR ARIZA REGARDING PT IV , NEED TO BE FINISH BEFORE DISCHARGING PT.
[2020-01-11 07:50] VITALS: BP 113/67
--- NOTE | 2020-01-11 07:50 | NUR ---
Patient discharged with v/s stable. Written and verbal after care instructions given and explained regarding abdominal pain. Patient alert, oriented and verbalized understanding of instructions. Ambulatory with steady gait. All questions addressed prior to discharge. ID band removed. Patient advised to follow up with PMD. Rx of zofran and norco given. Patient educated on indication of medication including possible reaction and side effects. Opportunity to ask questions provided and answered.
== END 2020-01-11 07:50 | disposition home or self-care (01) ==
LOC: MED 05:35
DX: R10.13 Epigastric pain (principal); R11.2 Nausea with vomiting, unspecified
CPT/HCPCS: 36415; 80053; 81001; 81025; 83690; 85025; 96361; 96374; 96375; 99284; J2270; J2405; J7030

== ENCOUNTER 2020-01-14 07:33 | Emergency (ER) | payer OTHER ==
[~2020-01-14] VITALS: Ht 160 cm; Wt 74.8 kg
[2020-01-14 07:37] VITALS: BP 127/74
--- NOTE | 2020-01-14 07:42 | NUR ---
Patient ambulated to bed 5. RN evaluating patient at bedside.
--- NOTE | 2020-01-14 07:45 | NUR ---
AMB TO RESTROOM TO PROVIDE URINE SAMPLE
--- NOTE | 2020-01-14 07:55 | NUR ---
34/F C/O LUQ/EPIGASTRIC ABD PAIN RADIATING TO THE BACK, SHARP SENSATION, 8/10 PAIN X 5 DAYS FOLLOWED BY NAUSEA/VOMITING/DIARRHEA. NO FEVER, CHILLS. PT STATES CHRONIC AND TOLERABLE PAIN AT THIS TIME. THE N/V IS WHAT BOTHERS HER. DENIES URINARY URGENCY/FREQUENCY/DYSURIA. HX PANCREATIC DIVISUM, KIDNEY STONES, "KIDNEY INFECTION". SX GALLBLADDER/ 2009
--- NOTE | 2020-01-14 07:57 | NUR ---
Dr. Bai is evaluating the patient at bedside.
[2020-01-14] MEDS ORDERED: NACL 0.9% 1,000 ML IV ONE (08:00)
[2020-01-14] MEDS ORDERED: METOCLOPRAMIDE 10 MG/2 ML INJ VIAL IVP ONE (08:00)
[2020-01-14] MEDS ORDERED: diphenhydrAMINE 50 MG/ML VIAL IVP ONE (08:00)
--- NOTE | 2020-01-14 08:23 | NUR ---
MARKETING CONTENT SPECIALIST AT BEDSIDE FOR BLOOD DRAW
[2020-01-14 08:32] LABS: BASOPHILS % (AUTO) 0.9 % (0.0-2.0); EOSINOPHILS # (AUTO) 0.2 K/uL (0-0.4); EOSINOPHILS % (AUTO) 4.2 % (0.0-4.0); HEMATOCRIT 35.6 % (36-48); HEMOGLOBIN 11.6 g/dL (12.0-16.0); LYMPHOCYTES # (AUTO) 1.2 K/uL (2.5-16.5); LYMPHOCYTES % (AUTO) 28.3 % (20.5-51.1); MEAN CORPUSCULAR HEMOGLOBIN 27 pg (27-31); MEAN CORPUSCULAR HGB CONC 33 g/dL (33-37); MEAN CORPUSCULAR VOLUME 82.8 fL (80-94); MONOCYTES # (AUTO) 0.2 K/uL (0.8-1.0); MONOCYTES % (AUTO) 4.9 % (1.7-9.3); NEUTROPHILS # (AUTO) 2.6 K/uL (1.8-7.7); NEUTROPHILS % (AUTO) 61.7 % (42.2-75.2); PLATELET COUNT (AUTO) 249 K/uL (140-450); RED CELL DISTRIBUTION WIDTH 13.9 % (11.6-13.7); WHITE BLOOD COUNT (AUTO) 4.2 K/uL (4.8-10.8)
--- NOTE | 2020-01-14 08:41 | NUR ---
PT STATES NAUSEA HAS DECREASED
--- NOTE | 2020-01-14 09:30 | NUR ---
CALLED LAB FOR CMP AND LIPASE RESULTS WHICH ARE STILL PENDING. FINANCE TEACHER STATES MACHINE IS BEING FIXED NOW, NO ETA FOR RESULTS.
[2020-01-14 09:54] LABS: ANION GAP 13.4 (8-16); CARBON DIOXIDE 25.5 mmol/L (21-32); CREATININE 0.8 mg/dL (0.6-1.3); POTASSIUM 3.9 mmol/L (3.5-5.1); TOTAL BILIRUBIN 0.2 mg/dL (0.0-1.0)
--- NOTE | 2020-01-14 09:54 | NUR ---
NOTIFIED DR. ULU THAT PT IS C/O PAIN AND REQUESTING PAIN MED. PT STATES NAUSEA HAS DECREASED SIGNIFICANTLY.
[2020-01-14] MEDS ORDERED: MORPHINE SULFATE 4 MG/ML SYR IVP ONE (09:55)
[2020-01-14] MEDS ORDERED: ONDANSETRON 4 MG/2 ML VIAL IVP ONE (09:55)
--- NOTE | 2020-01-14 10:17 | NUR ---
DR. LUU SPEAKING TO PT AT BEDSIDE
--- NOTE | 2020-01-14 10:40 | NUR ---
Patient discharged with v/s stable. Written and verbal after care instructions given and explained. Patient verbalized understanding. Ambulatory with steady gait. Will be picked up from ER by family member. All questions addressed prior to discharge. Advised to follow up with PMD.
[2020-01-14 10:43] VITALS: BP 117/56
== END 2020-01-14 10:40 | disposition home or self-care (01) ==
LOC: MED 07:33
DX: G89.29 Other chronic pain (principal); R10.9 Unspecified abdominal pain; K21.9 Gastro-esophageal reflux disease without esophagitis; N28.9 Disorder of kidney and ureter, unspecified; Z88.6 Allergy status to analgesic agent; Z79.899 Other long term (current) drug therapy
CPT/HCPCS: 36415; 80053; 81002; 81025; 83690; 85025; 96361; 96374; 96375; 99284; J1200; J2270; J2405; J2765; J7030

== ENCOUNTER 2020-01-31 05:10 | Emergency (ER) | payer OTHER ==
[~2020-01-31] VITALS: Ht 160 cm; Wt 75.3 kg
[2020-01-31 05:25] VITALS: BP 116/62
--- NOTE | 2020-01-31 05:29 | NUR ---
PT TAKEN TO BED 12
[2020-01-31] MEDS ORDERED: ONDANSETRON 4 MG ODT PO ONE (05:35)
[2020-01-31 05:48] LABS: BASOPHILS % (AUTO) 0.5 % (0.0-2.0); EOSINOPHILS # (AUTO) 0.4 K/uL (0-0.4); EOSINOPHILS % (AUTO) 4.6 % (0.0-4.0); HEMATOCRIT 40.5 % (36-48); HEMOGLOBIN 13.3 g/dL (12.0-16.0); LYMPHOCYTES # (AUTO) 1.9 K/uL (2.5-16.5); LYMPHOCYTES % (AUTO) 25.7 % (20.5-51.1); MEAN CORPUSCULAR HEMOGLOBIN 27 pg (27-31); MEAN CORPUSCULAR HGB CONC 33 g/dL (33-37); MEAN CORPUSCULAR VOLUME 81.4 fL (80-94); MONOCYTES # (AUTO) 0.5 K/uL (0.8-1.0); MONOCYTES % (AUTO) 6.8 % (1.7-9.3); NEUTROPHILS # (AUTO) 4.7 K/uL (1.8-7.7); NEUTROPHILS % (AUTO) 62.4 % (42.2-75.2); PLATELET COUNT (AUTO) 234 K/uL (140-450); RED BLOOD CELL COUNT(AUTO) 4.97 MIL/uL (4.20-5.40); WHITE BLOOD COUNT (AUTO) 7.6 K/uL (4.8-10.8)
[2020-01-31 05:53] VITALS: BP 116/62
--- NOTE | 2020-01-31 05:56 | NUR ---
PT BIB self C/O 02/02 intermitent ABD pain x Friday. + N/V. - diarrhea, - fever, - dysuria PMH: chronic pancreatitis, kidney stones
--- NOTE | 2020-01-31 05:59 | NUR ---
Labs drawn and walked to lab
[2020-01-31 06:11] LABS: ALBUMIN 4.7 g/dL (3.4-5.0); ANION GAP 13.1 (8-16); CREATININE 0.8 mg/dL (0.6-1.3); POTASSIUM 3.1 mmol/L (3.5-5.1); TOTAL BILIRUBIN 0.2 mg/dL (0.0-1.0)
--- NOTE | 2020-01-31 06:13 | NUR ---
Dr. Weber examining patient.
[2020-01-31] MEDS ORDERED: MORPHINE SULFATE 4 MG/ML SYR IVP ONE (06:20)
== END 2020-01-31 06:45 | disposition home or self-care (01) ==
LOC: MED 05:10
DX: R10.13 Epigastric pain (principal); R11.2 Nausea with vomiting, unspecified; K21.9 Gastro-esophageal reflux disease without esophagitis; Z87.442 Personal history of urinary calculi; Z90.49 Acquired absence of other specified parts of digestive tract; Z98.890 Other specified postprocedural states; Z79.899 Other long term (current) drug therapy; Z88.8 Allergy status to other drugs, medicaments and biological substances
CPT/HCPCS: 36415; 80053; 81002; 81025; 83690; 85025; 96374; 99283; J2270; Q0162

== ENCOUNTER 2020-02-06 07:21 | Emergency (ER) | payer OTHER ==
[~2020-02-06] VITALS: Ht 160 cm; Wt 75.3 kg
[2020-02-06 07:26] VITALS: BP 133/69
--- NOTE | 2020-02-06 07:33 | NUR ---
Patient ambulated to bed 4. RN evaluating patient at bedside.
--- NOTE | 2020-02-06 07:35 | NUR ---
c/o recurring exacerbation of epigastric pain with n/v, unable to tolerate PO's at this time x last night. SKIN IS PINK/WARM/DRY; AAOX4 WITH EVEN AND STEADY GAIT; LUNGS CLEAR BL; HR EVEN AND REGULAR; PT DENIES ANY FEVER, CP, SOB, OR COUGH AT THIS TIME; PATIENT STATES PAIN OF 8/10 AT THIS TIME; VSS; PATIENT POSITIONED FOR COMFORT; HOB ELEVATED; BEDRAILS UP X1; BED DOWN. ER MD MADE AWARE OF PT STATUS.
--- NOTE | 2020-02-06 07:45 | NUR ---
Dr. Martinez is evaluating the patient at bedside.
[2020-02-06] MEDS ORDERED: MORPHINE SULFATE 2 MG/ML SYR IVP ONE ×2 (07:50→09:25)
[2020-02-06] MEDS ORDERED: NACL 0.9% 1,000 ML IV ONE (07:50)
[2020-02-06] MEDS ORDERED: ONDANSETRON 4 MG/2 ML VIAL IVP ONE (07:50)
[2020-02-06 08:38] LABS: EOSINOPHILS # (AUTO) 0.3 K/uL (0-0.4); EOSINOPHILS % (AUTO) 5.8 % (0.0-4.0); HEMATOCRIT 33.5 % (36-48); HEMOGLOBIN 11.1 g/dL (12.0-16.0); LYMPHOCYTES # (AUTO) 1.3 K/uL (2.5-16.5); LYMPHOCYTES % (AUTO) 27.7 % (20.5-51.1); MEAN CORPUSCULAR HEMOGLOBIN 27 pg (27-31); MEAN CORPUSCULAR HGB CONC 33 g/dL (33-37); MEAN CORPUSCULAR VOLUME 81.8 fL (80-94); MONOCYTES # (AUTO) 0.3 K/uL (0.8-1.0); MONOCYTES % (AUTO) 5.5 % (1.7-9.3); NEUTROPHILS # (AUTO) 2.8 K/uL (1.8-7.7); PLATELET COUNT (AUTO) 179 K/uL (140-450); RED CELL DISTRIBUTION WIDTH 13.9 % (11.6-13.7); WHITE BLOOD COUNT (AUTO) 4.7 K/uL (4.8-10.8)
[2020-02-06 08:46] LABS: ALBUMIN 3.5 g/dL (3.4-5.0); ANION GAP 11.4 (8-16); CARBON DIOXIDE 26.5 mmol/L (21-32); CREATININE 0.7 mg/dL (0.6-1.3); POTASSIUM 3.9 mmol/L (3.5-5.1); TOTAL BILIRUBIN 0.2 mg/dL (0.0-1.0)
--- NOTE | 2020-02-06 09:10 | NUR ---
Patient taken to CT via w/c.
--- NOTE | 2020-02-06 09:22 | NUR ---
PT HAS BEEN TAKING BACK FROM CT SCAN VIA .
[2020-02-06] MEDS ORDERED: METOCLOPRAMIDE 10 MG/2 ML INJ VIAL IVP ONE (09:25)
[2020-02-06 10:01] VITALS: BP 118/61
== END 2020-02-06 10:01 | disposition home or self-care (01) ==
LOC: MED 07:21
DX: K85.80 Other acute pancreatitis without necrosis or infection (principal); R03.0 Elevated blood-pressure reading, without diagnosis of hypertension; K21.9 Gastro-esophageal reflux disease without esophagitis; Z87.448 Personal history of other diseases of urinary system; Z90.49 Acquired absence of other specified parts of digestive tract; Z79.899 Other long term (current) drug therapy; Z88.6 Allergy status to analgesic agent; Z88.8 Allergy status to other drugs, medicaments and biological substances
CPT/HCPCS: 36415; 74176; 80053; 81002; 81025; 83690; 85025; 96361; 96374; 96375; 96376; 99284; J2270; J2405; J2765; J7030

== ENCOUNTER 2020-03-01 00:55 | Emergency (ER) | payer OTHER ==
[~2020-03-01] VITALS: Ht 157.5 cm; Wt 75.3 kg
[~2020-03-01 00:55] MED LIST changes: -ESOM40EC PO; -HYDR-5092 PO; -HYDR-5122 PO; -PANT40EC PO; -TIZA2CAP PO
[2020-03-01 01:08] VITALS: BP 118/52
[2020-03-01] MEDS: ONDANSETRON 4 MG/2 ML VIAL IVP ONE (01:26)
[2020-03-01] MEDS: NACL 0.9% 1,000 ML IV ONE (01:26)
[2020-03-01 01:28] LABS: APPEARANCE,URINE CLEAR (CLEAR); BILIRUBIN,URINE NEGATIVE (NEGATIVE); BLOOD, URINE 3+ (NEGATIVE); COLOR,URINE YELLOW (YELLOW); LEUKOCYTE ESTERASE ,URINE NEGATIVE (NEGATIVE); NITRITE, URINE NEGATIVE (NEGATIVE); UGLUCOSE NEGATIVE (NEGATIVE)
[2020-03-01 01:30] LABS: BASOPHILS % (AUTO) 0.7 % (0.0-2.0); EOSINOPHILS # (AUTO) 0.2 K/uL (0-0.4); EOSINOPHILS % (AUTO) 2.9 % (0.0-4.0); HEMATOCRIT 34.4 % (36-48); HEMOGLOBIN 11.5 g/dL (12.0-16.0); LYMPHOCYTES # (AUTO) 1.9 K/uL (2.5-16.5); LYMPHOCYTES % (AUTO) 30.8 % (20.5-51.1); MEAN CORPUSCULAR HEMOGLOBIN 27 pg (27-31); MEAN CORPUSCULAR HGB CONC 33 g/dL (33-37); MEAN CORPUSCULAR VOLUME 80.5 fL (80-94); MONOCYTES # (AUTO) 0.5 K/uL (0.8-1.0); MONOCYTES % (AUTO) 7.4 % (1.7-9.3); NEUTROPHILS # (AUTO) 3.6 K/uL (1.8-7.7); NEUTROPHILS % (AUTO) 58.2 % (42.2-75.2); PLATELET COUNT (AUTO) 209 K/uL (140-450); RED BLOOD CELL COUNT(AUTO) 4.27 MIL/uL (4.20-5.40); RED CELL DISTRIBUTION WIDTH 14.2 % (11.6-13.7); WHITE BLOOD COUNT (AUTO) 6.2 K/uL (4.8-10.8)
[2020-03-01 01:44] LABS: WBC,URINE 0-5 /HPF (0-5)
[2020-03-01 01:44] LABS: ANION GAP 9.9 (8-16); CARBON DIOXIDE 29.3 mmol/L (21-32); CREATININE 0.7 mg/dL (0.6-1.3); POTASSIUM 3.2 mmol/L (3.5-5.1); TOTAL BILIRUBIN 0.2 mg/dL (0.0-1.0)
--- NOTE | 2020-03-01 01:46 | NUR ---
DR. GONZALES AT BEDSIDE EVALUATING PT.
--- NOTE | 2020-03-01 01:51 | NUR ---
34 Y/O F PRESENTS TO ED C/O N/V/D SINCE FRIDAY. PT STATES THAT HER SYMPTOMS HAS BEEN CHRONIC AND IS INTERMITTENT. PT UNABLE TO KEEP ANY SOLID OR LIQUID IN. ABD SOFT, NON-DISTENDED. RR EVEN AND UNLABORED. LUNG SOUNDS CLEAR. VSS. PT ATTACHED TO BREWERY PUMPER AND PULSE OXIMETRY. BED LOCKED AND IN LOWEST POSITION, SIDE RAIL UPX1. WILL CONTINUE TO MONITOR. MHX: PANCREATITIS ALLERGIES: TORADOL IV, NSAIDS
[2020-03-01] MEDS: fentaNYL citrate 0.05 MG/ML VIAL IVP ONE (02:07)
[2020-03-01 02:45] VITALS: BP 106/55
== END 2020-03-01 02:46 | disposition home or self-care (01) ==
LOC: MED 00:55
DX: R10.12 Left upper quadrant pain (principal); R11.10 Vomiting, unspecified; R19.7 Diarrhea, unspecified; K21.9 Gastro-esophageal reflux disease without esophagitis; N20.0 Calculus of kidney; Z88.6 Allergy status to analgesic agent; Z79.899 Other long term (current) drug therapy
CPT/HCPCS: 36415; 80053; 81001; 82150; 83690; 84703; 85025; 96361; 96374; 96375; 99284; J2405; J3010; J7030

== ENCOUNTER 2020-03-02 08:08 | Emergency (ER) | payer OTHER ==
[~2020-03-02] VITALS: Ht 160 cm; Wt 75.3 kg
[2020-03-02 08:14] VITALS: BP 124/73
[2020-03-02] MEDS ORDERED: MORPHINE SULFATE 4 MG/ML SYR IVP ONE ×3 (09:00→11:45)
[2020-03-02] MEDS ORDERED: NACL 0.9% 1,000 ML IV ONE (09:00)
[2020-03-02] MEDS ORDERED: ONDANSETRON 4 MG/2 ML VIAL IVP ONE (09:00)
[2020-03-02 10:08] LABS: BASOPHILS % (AUTO) 0.9 % (0.0-2.0); EOSINOPHILS # (AUTO) 0.2 K/uL (0-0.4); EOSINOPHILS % (AUTO) 3.3 % (0.0-4.0); HEMATOCRIT 35.1 % (36-48); HEMOGLOBIN 11.7 g/dL (12.0-16.0); LYMPHOCYTES # (AUTO) 1.1 K/uL (2.5-16.5); LYMPHOCYTES % (AUTO) 23.2 % (20.5-51.1); MEAN CORPUSCULAR HEMOGLOBIN 27 pg (27-31); MEAN CORPUSCULAR HGB CONC 33 g/dL (33-37); MEAN CORPUSCULAR VOLUME 81.4 fL (80-94); MONOCYTES # (AUTO) 0.3 K/uL (0.8-1.0); MONOCYTES % (AUTO) 5.7 % (1.7-9.3); NEUTROPHILS # (AUTO) 3.2 K/uL (1.8-7.7); NEUTROPHILS % (AUTO) 66.9 % (42.2-75.2); PLATELET COUNT (AUTO) 207 K/uL (140-450); RED BLOOD CELL COUNT(AUTO) 4.31 MIL/uL (4.20-5.40); RED CELL DISTRIBUTION WIDTH 14.2 % (11.6-13.7); WHITE BLOOD COUNT (AUTO) 4.8 K/uL (4.8-10.8)
[2020-03-02 10:36] LABS: ALBUMIN 3.9 g/dL (3.4-5.0); ANION GAP 12.6 (8-16); CARBON DIOXIDE 25.4 mmol/L (21-32); CREATININE 0.7 mg/dL (0.6-1.3); TOTAL BILIRUBIN 0.1 mg/dL (0.0-1.0)
[2020-03-02 12:15] VITALS: BP 120/56
== END 2020-03-02 12:15 | disposition home or self-care (01) ==
LOC: MED 08:08
DX: G89.29 Other chronic pain (principal); R10.9 Unspecified abdominal pain; R11.2 Nausea with vomiting, unspecified; N20.0 Calculus of kidney; K21.9 Gastro-esophageal reflux disease without esophagitis; Z88.6 Allergy status to analgesic agent
CPT/HCPCS: 36415; 80053; 81025; 83690; 84702; 85025; 96361; 96374; 96375; 96376; 99284; J2270; J2405

== ENCOUNTER 2020-03-04 04:44 | Emergency (ER) | payer OTHER ==
[~2020-03-04] VITALS: Ht 160 cm; Wt 75.3 kg
[2020-03-04 04:46] VITALS: BP 116/71
[2020-03-04] MEDS ORDERED: ONDANSETRON 4 MG ODT PO ONE (05:15)
[2020-03-04] MEDS ORDERED: HYDROcodone/APAP 5/325 MG 1 TAB TAB PO ONE (05:15)
[2020-03-04 05:20] VITALS: BP 116/71
== END 2020-03-04 05:20 | disposition home or self-care (01) ==
LOC: MED 04:44
DX: R10.13 Epigastric pain (principal); K21.9 Gastro-esophageal reflux disease without esophagitis; N20.0 Calculus of kidney; Z88.6 Allergy status to analgesic agent; Z79.899 Other long term (current) drug therapy
CPT/HCPCS: 99283; Q0162

== ENCOUNTER 2020-03-07 16:34 | Inpatient (IN) | payer OTHER ==
[~2020-03-07] VITALS: Ht 160 cm; Wt 80.7 kg
[2020-03-07 16:49] VITALS: BP 128/93
--- NOTE | 2020-03-07 17:12 | NUR ---
34 Y/O FEMALE PT C/O WORSENING NON-RADIATING LUQ ABDOMINAL WITH NAUSEA AND DIARRHEA. PT WAS SEEN HERE ON 03/01/2020, 03/02/2020, AND 03/04/2020 AND ALL DX WITH ABDOMINAL PAIN. PT STATES HAS HX OF PANCREATITIS AND SHE THINKS THE PAIN MAY DUE TO PANCREATITIS THIS TIME. PMH: PANCREATITIS, NEPHROLITHIASIS, AND PYELONEPHRITIS MEDS: NORCO, ZOFRAN, REGLAN PRN
[2020-03-07 17:38] LABS: BASOPHILS % (AUTO) 0.6 % (0.0-2.0); EOSINOPHILS # (AUTO) 0.1 K/uL (0-0.4); LYMPHOCYTES # (AUTO) 1.7 K/uL (2.5-16.5); LYMPHOCYTES % (AUTO) 26.4 % (20.5-51.1); MEAN CORPUSCULAR HEMOGLOBIN 27 pg (27-31); MEAN CORPUSCULAR HGB CONC 33 g/dL (33-37); MEAN CORPUSCULAR VOLUME 81.9 fL (80-94); MONOCYTES # (AUTO) 0.3 K/uL (0.8-1.0); NEUTROPHILS # (AUTO) 4.4 K/uL (1.8-7.7); PLATELET COUNT (AUTO) 278 K/uL (140-450); RED CELL DISTRIBUTION WIDTH 14.4 % (11.6-13.7); WHITE BLOOD COUNT (AUTO) 6.6 K/uL (4.8-10.8)
--- NOTE | 2020-03-07 18:00 | NUR ---
Patient appears to be resting comfortably in bed. Vital Signs within normal limits. Respirations even and unlabored.
[2020-03-07 18:09] LABS: ALBUMIN 4.6 g/dL (3.4-5.0); ANION GAP 11.6 (8-16); CARBON DIOXIDE 28.8 mmol/L (21-32); CREATININE 0.7 mg/dL (0.6-1.3); POTASSIUM 3.4 mmol/L (3.5-5.1); TOTAL BILIRUBIN 0.3 mg/dL (0.0-1.0)
[2020-03-07] MEDS ORDERED: ONDANSETRON 4 MG ODT PO ONE (18:50)
[2020-03-07] MEDS ORDERED: LORazepam 0.5 MG TAB PO ONE (18:50)
[2020-03-07] MEDS ORDERED: DICYCLOMINE 20 MG/2 ML VIAL IM ONE (18:50)
--- NOTE | 2020-03-07 19:15 | NUR ---
RECIVED REPORT FROM LOUISA GASCA. CONTINUATION OF CARE.
[2020-03-07] MEDS ORDERED: NACL 0.9% 1,000 ML IV ONE (19:50)
[2020-03-07] MEDS ORDERED: ONDANSETRON 4 MG/2 ML VIAL IVP ONE (19:50)
[2020-03-07] MEDS ORDERED: MORPHINE SULFATE 2 MG/ML SYR IVP ONE (19:50)
--- NOTE | 2020-03-07 20:20 | NUR ---
IV IV PLACED IN R AC 22G. BLOOD RETURN NOTED. IV SITE PATENT.
--- NOTE | 2020-03-07 20:25 | NUR ---
MORPHINE 2MG AND ZOFRAN 4MG GIVEN IVP. FOR C/O NAUSEA AND 8/10 ABD PAIN. PT HAS HAD NO EPISODES OF VOMTING AT THIS TIME.
--- NOTE | 2020-03-07 20:40 | NUR ---
PER PT PAIN REDUCED FROM 8/10 ABD PAIN TO 4/10. NO FURTHER C/O NAUSEA AT THIS TIME.
[2020-03-07] MEDS: NACL 0.9% 1,000 ML IV SCH (20:46)
[2020-03-07] MEDS ORDERED: HYDR-5092 PO (20:48)
[2020-03-07] MEDS ORDERED: ONDA8TAB PO (20:48)
[2020-03-07] MEDS ORDERED: TIZA4TAB5 PO (20:48)
[2020-03-07] MEDS ORDERED: ACETAMINOPHEN 325 MG TAB PO PRN (20:50)
--- NOTE | 2020-03-07 21:38 | NUR ---
Patient appears to be resting comfortably in bed. Vital Signs within normal limits. Respirations even and unlabored.
[2020-03-07 22:20] VITALS: BP 102/62
--- NOTE | 2020-03-07 22:20 | NUR ---
RECEIVED BEDSIDE REPORT FROM ER NURSE. PT ARRIVED VIA WHEELCHAIR. AWAKE AND ALERT, A&OX4. ON RA WITH BREATHING UNLABORED. NO COMPLAINTS OF PAIN AT THIS TIME. PAIN IS INTERMITTENT STATED BY THE PT IN THE ABDOMEN AREA. LUNG SOUNDS ARE CLEAR IN ALL LOBES. BOWEL SOUNDS ARE PRESENT IN ALL QUADRANTS. SKIN IS WARM, DRY, AND INTACT. IV IS IN THE RIGHT AC 22 GAUGE. BED IS IN THE LOWEST POSITION AND CALL LIGHT IS WITHIN REACH. PT IS STABLE AT THIS TIME.
--- NOTE | 2020-03-07 22:20 | NUR ---
Patient will be admitted to care of DR. OSHEA. Admited to [facility]. Will go to room 106. Belongings list completed. Report to HONORIO GASCA.
--- NOTE | 2020-03-07 23:20 | NUR ---
CONTACTED DR. OSHEA TO INFORM HIM ABOUT THE LOW POTASSIUM 3.4. WILL WAIT FOR A CALL BACK.
--- NOTE | 2020-03-07 23:30 | NUR ---
SPOKE TO DR. OSHEA ABOUT THE POTASSIUM BEING 3.4. HE ORDERED K RIDER 40 MEQ IV. WILL ADMINISTER ONCE VERIFIED.
[2020-03-07] MEDS ORDERED: KCL 20 MEQ/WATER INJ PREMIX 200 ML IV SCH (23:35)
--- NOTE | 2020-03-07 23:35 | NUR ---
CALLED [facility] TO VERIFY K RIDER 40 MEQ IV AND THEY STATED THEY WILL VERIFY SEGUNDO. WILL ADMINISTER WHEN VERIFIED.
[2020-03-08] VITALS: BP 110/65
[2020-03-08] MEDS: MORPHINE SULFATE 2 MG/ML SYR IVP PRN ×2 (00:02→05:21)
--- NOTE | 2020-03-08 00:02 | NUR ---
PT WAS COMPLAINING OF PAIN IN THE UPPER ABDOMEN AT A SCALE OF 6/10. PT STATED IT WAS A SHARP INTERMITTENT PAIN. SHE WAS GIVEN MORPHINE 2 MG PRN FOR PAIN. WILL CONTINUE TO MONITOR PAIN. BP WAS 110/65 PRIOR TO ADMINISTRATION.
--- NOTE | 2020-03-08 00:14 | NUR ---
K RIDER IS NOW INFUSING FOR POTASSIUM LEVEL OF 3.4. IV WAS PATENT AND INFUSING. NO COMPLAINTS OF PAIN AT THE SITE. MEDICATION EDUCATION WAS PROVIDED AND PT VERBALIZED UNDERSTANDING.
--- NOTE | 2020-03-08 02:04 | NUR ---
PT IS ASLEEP. NO SIGNS OF DISTRESS OR PAIN. K RIDER IS STILL INFUSING AND THE IV IS PATENT. BED IS IN THE LOWEST POSITION AND BELONGINGS ARE IN REACH.
[2020-03-08 04:00] VITALS: BP 95/50
[2020-03-08] MEDS: ONDANSETRON 4 MG/2 ML VIAL IVP PRN ×4 (04:13→22:10)
--- NOTE | 2020-03-08 04:32 | NUR ---
PT IS COMPLAINING OF NAUSEA, BUT NO EMESIS. PT WAS GIVEN ZOFRAN PRN FOR NAUSEA. WILL CONTINUE TO MONITOR.
--- NOTE | 2020-03-08 05:21 | NUR ---
PT WAS COMPLAINING OF PAIN IN THE UPPER ABDOMEN AREA AT A SCALE OF 6/10. PT WAS GIVEN 2 MG MORPHINE ORDERED PRN FOR PAIN. BP WAS 110/68 AND HR WAS 84. WILL CONTINUE TO MONITOR FOR PAIN.
[2020-03-08 06:18] LABS: BASOPHILS % (AUTO) 0.7 % (0.0-2.0); EOSINOPHILS # (AUTO) 0.2 K/uL (0-0.4); EOSINOPHILS % (AUTO) 3.6 % (0.0-4.0); HEMOGLOBIN 10.5 g/dL (12.0-16.0); LYMPHOCYTES % (AUTO) 37.3 % (20.5-51.1); MEAN CORPUSCULAR HEMOGLOBIN 27 pg (27-31); MEAN CORPUSCULAR HGB CONC 34 g/dL (33-37); MEAN CORPUSCULAR VOLUME 80.7 fL (80-94); MONOCYTES # (AUTO) 0.4 K/uL (0.8-1.0); MONOCYTES % (AUTO) 8.1 % (1.7-9.3); NEUTROPHILS # (AUTO) 2.7 K/uL (1.8-7.7); NEUTROPHILS % (AUTO) 50.3 % (42.2-75.2); PLATELET COUNT (AUTO) 206 K/uL (140-450); RED BLOOD CELL COUNT(AUTO) 3.84 MIL/uL (4.20-5.40); RED CELL DISTRIBUTION WIDTH 14.5 % (11.6-13.7); WHITE BLOOD COUNT (AUTO) 5.3 K/uL (4.8-10.8)
[2020-03-08 06:35] LABS: ALBUMIN 3.5 g/dL (3.4-5.0); ANION GAP 13.6 (8-16); CARBON DIOXIDE 25.5 mmol/L (21-32); CREATININE 0.7 mg/dL (0.6-1.3); POTASSIUM 4.1 mmol/L (3.5-5.1); TOTAL BILIRUBIN 0.5 mg/dL (0.0-1.0)
--- NOTE | 2020-03-08 07:10 | NUR ---
ENDORSED PT TO DAY SHIFT NURSE FOR CONTINUITY OF CARE. PT IS STABLE AT THIS TIME. PLAN OF CARE DISCUSSED.
--- NOTE | 2020-03-08 07:11 | NUR ---
RECEIVED REPORT FROM LIFE SCIENCE TECHNICAL OFFICER NURSE HONORIO-ELO. PT RESTING IN BED, AOX4, ON ROOM AIR WITH RIGHT AC #20G RUNNING NS @ 80ML/HR. DISCUSSED PLAN OF CARE AND PT VERBALIZED UNDERSTANDING. CALL LIGHT WITHIN REACH. NO S/S OF RESPIRATORY DISTRESS OR DISCOMFORT NOTED AT THIS TIME. WILL CONTINUE TO MONITOR.
[2020-03-08 08:00] VITALS: BP 102/76
[2020-03-08] MEDS: MORPHINE SULFATE 4 MG/ML SYR IVP PRN ×4 (08:40→22:11)
--- NOTE | 2020-03-08 08:40 | NUR ---
PATIENT HAS BEEN SCREENED AND CATEGORIZED MODERATE NUTRITION RISK. PATIENT WILL BE SEEN WITHIN 3-5 DAYS OF ADMISSION. 03/10/20 03/12/[address]
--- NOTE | 2020-03-08 08:40 | NUR ---
PT C/O PAIN 12/02. MEDICATED WITH MORPHINE AND TOLERATED WELL. CALL LIGHT WITHIN REACH. NO S/S OF RESPIRATORY DISTRESS OR DISCOMFORT NOTED AT THIS TIME. WILL CONTINUE TO MONITOR.
[2020-03-08] MEDS: NACL 0.9% 1,000 ML IV SCH ×2 (09:16→13:49)
--- NOTE | 2020-03-08 10:30 | NUR ---
DISCHARGE PLANNING: THIS IS A 35 Y/O FEMALE PATIENT FROM HOME, WHO CAME IN DUE TO LEFT UPPER QUADRANT PAIN RADIATING TO HER LEFT BACK. PAST MEDICAL HISTORY INCLUDE PANCREATITIS DIVISUM, KIDNEY STONES. INITIAL DIAGNOSIS OF ACUTE PANCREATITIS. CURRENT LABS INCLUDE WBC 5.3, H/H 10.5/31.0, NA/K 139/4.1, BUN/CREA 7/0.7, LIPASE 180. NO CONSULTS YET PENDING ATTENDING'S RECOMMENDATIONS. DC PLAN PENDING ON PATIENT'S RESPONSE TO TREATMENT. Addendum: 03/09/20 at 1355 by Jesusita Garcia CM DISCUSSED PLAN WITH DR. DOMINIQUE. PER DR. DOMINIQUE PATIENT WILL BE DISCHARGING HOME TODAY.
--- NOTE | 2020-03-08 10:45 | NUR ---
SOCIAL WORK NOTE: Patient's Orientation Person Situation Place Time Information Provided By PATIENT Comments SW MET WITH PATIENT AT BEDSIDE TO COMPLETE ASSESSMENT. SW VERIFIED DEMOGRAPHICS WITH PATIENT. Survey Questionnaire Designer, Realtionship and Phone Number LESLIE CARBAJAL [phone] [facility] Power of Production Quality Manager No Does Patient Have a POLST No Identifying Problems No Social Work Triggers Is A Social Work Consult Needed No Mandate Report Filed No Explanation Of Identifying Problems PATIENT IS A 34-YEAR-OLD FEMALE ADMITTED FOR ACUTE PANCREATITIS. PATIENT HAS PMHX OF GERD AND KIDNEY STONES. PATIENT REPORTED NO HISTORY OF SUBSTANCE ABUSE OR MENTAL HEALTH. Admitted From Home Pre-Admission Level Of Functioning Status Independent/Ambulatory Prior Resources/Services Used In Last 12 Months No Prior Resources Used Prior DME No Prior DME Used Dialysis Comments PATIENT REPORTED NOT RECEIVING DIALYSIS. Living Situation Apartment Lives With Family Patient Had Caregiver No Home Support No Caregiver Issues Financial Issues No Known Financial Issue Referral To The Financial Counselor Needed No Factors/Needs No D/C Needs Identified Explanation And Or Other Factors Affecting/Possible DC Needs PATIENT REPORTED THAT WILL PICK PATIENT UP AT DISCHARGE. Pt/Rep Participated In Discharge Plan Yes Patient/Family Agress With Discharge Plan Yes Discharge Plan Comments TENTATIVE DISCHARGE PLAN IS FOR PATIENT TO RETURN HOME. DC Plan Status Initiated
--- NOTE | 2020-03-08 11:00 | NUR ---
pt resting in bed. call light within reach. no s/s of respiratory distress or discomfort noted at this time. will continue to monitor.
--- NOTE | 2020-03-08 13:11 | NUR ---
dr. Tao in to see pt. discussed possibility of dc if she can tolerate diet. lipase levels have decreased to 180 within normal range.
--- NOTE | 2020-03-08 13:48 | NUR ---
pt c/o pain 7/10 and nausea when she began to eat. medicated with morphine 4mg and zofran. pt tolerated well. call light within reach. no s/s of respiratory distress or discomfort noted at this time. will continue to monitor.
[2020-03-08 16:00] VITALS: BP 109/59
--- NOTE | 2020-03-08 16:00 | NUR ---
pt resting in bed. call light within reach. no s/s of respiratory distress or discomfort noted at this time. will continue to monitor.
--- NOTE | 2020-03-08 18:05 | NUR ---
PT C/O NAUSEA AND PAIN 12/02. MEDICATED WITH ZOFRAN AND MORPHINE 4MG. PT TOLERATED WELL. CALL LIGHT WITHIN REACH. NO S/S OF RESPIRATORY DISTRESS OR DISCOMFORT NOTED AT THIS TIME. WILL CONTINUE TO MONITOR.
--- NOTE | 2020-03-08 19:00 | NUR ---
ENDORSED PT CARE TO WATCH REPAIRER NURSE HOLLY FOR CONTINUITY OF CARE. PT IN STABLE CONDITIONS AT THIS TIME.
--- NOTE | 2020-03-08 19:10 | NUR ---
RECEIVED BEDSIDE REPORT FROM DAY RN. PT IS AAOX4. RESPIRATIONS ARE EQUAL AND UNLABORED ON ROOM AIR. LUNG SOUNDS ARE CLEAR. ABD IS SOFT NON TENDER. PT DENIES ANY PAIN AT THIS TIME. C/C RLQ PAIN DX A. PANCREATITIS. SKIN IS INTACT. PT IS AMBULATORY WITH STEADY GAIT. IV ON RAC 22G INFUSING NS AT 80ML/H. POC DISCUSSED WITH PT. CALL LIGHT IS WITHIN REACH. WILL ROUND FREQUENTLY.
--- NOTE | 2020-03-08 20:30 | NUR ---
VSS. PT LAYING IN BED TALKING ON PHONE. REPORTS PAIN TOLERABLE AT THIS TIME. BOWEL SOUNDS ACTIVE X4. ABD SOFT. POC DISCUSSED WITH PT. PT VERBALIZED UNDERSTANDING. CALL LIGHT IS WITHIN REACH. WILL ROUND FREQUENTLY.
--- NOTE | 2020-03-08 22:10 | NUR ---
PT 7/10 ABD PAIN AND NAUSEA. ADMINISTERED PRN MORPHINE AND ZOFRAN. MED EDUCATION GIVEN. PT TOLERATED WELL. ALL SAFETY MEASURES ARE IN PLACE. WILL CONTINUE TO MONITOR.
[2020-03-09] VITALS: BP 100/49
--- NOTE | 2020-03-09 | NUR ---
VITAL SIGNS ARE WITHIN NORMAL LIMITS. ALL NEEDS MET. CALL LIGHT WITHIN REACH.
--- NOTE | 2020-03-09 02:10 | NUR ---
PT LAYING COMFORTABLY IN BED WITH EYES CLOSED. NO S/S OF DISTRESS. CALL LIGHT IS WITHIN REACH.
--- NOTE | 2020-03-09 07:05 | NUR ---
RECEIVED REPORT FROM PERCHER RN FOR CONTINUITY OF CARE. PT IS STABLE LAYING IN BED RECEIVING IV FLUIDS. SAFETY MEASURES IN PLACE. WILL CONTINUE WITH POC
[2020-03-09] MEDS: MORPHINE SULFATE 4 MG/ML SYR IVP PRN ×2 (08:04→12:21)
[2020-03-09] MEDS: ONDANSETRON 4 MG/2 ML VIAL IVP PRN ×2 (08:04→12:21)
--- NOTE | 2020-03-09 08:20 | NUR ---
Pt is awake and alert oriented x 4. Reporting pain 7/10 to left lower quad. reporting on.off sharp pain. Pt is about to eat breakfast and reporting shes having some nausea associated with eating. Pt was give morphine 4mg and Zofran 4mg IVP. V/S: 96.8, 60, 20, 102/61, 100% RA. Lung sounds are clear, abdomen is flat, soft and tender denies constipation hasn't had BM x 2-3 days however has not ate. skin intact. Receiving IVF to right AC with no issues, no redness no swelling. Safety measures in place. All needs met. Will continue to monitor.
[2020-03-09] MEDS: NACL 0.9% 1,000 ML IV SCH (10:16)
--- NOTE | 2020-03-09 10:20 | NUR ---
Pt is sitting up in bed watching tv and on her phone, in no distress. Call light within reach. All needs met.
--- NOTE | 2020-03-09 12:30 | NUR ---
Pt is awake and verbalizing nausea and abd. pain 01/02. v/s: 96.9, 70, 20, 105/61, 98% RA, pt was given Zofran and Morphine 4 mg per MD order. Pt was able to tolerated breakfast more than yesterday however currently unable to tolerate lunch.
[2020-03-09 14:02] VITALS: BP 105/61
--- NOTE | 2020-03-09 14:33 | NUR ---
DISCHARGE ORDERED. PT HAS BEEN CLEARED. PT IS AMBULATING IN THE HALLWAYS WITH STEADY GAIT. IN NO DISTRESS.
--- NOTE | 2020-03-09 14:45 | NUR ---
PT D/C AT THIS TIME. PT WALKED HER SELF OFF THE UNIT PER HER OWN DESIRE. REPORTING SHE WAS BEING PICKED UP BY FAMILY. DID NOT WANT TO WAIT FOR WHEELCHAIR STATING, "NO I DON'T NEED IT. PT DISCHARGED WITH ALL BELONGINGS. INCLUDING BACKPACK, PHONE AND CANDLE POURER, CLOTHES, WALLET. DISCHARGE INSTRUCTIONS GIVEN PT VERBALIZED UNDERSTANDING.
== END 2020-03-09 14:45 | disposition home or self-care (01) | DRG 282 ==
LOC: MED 16:34 → MTU 20:50 → INTOOBSV 20:50 → MTU 22:20 → OBSVTOIN 03-08 14:12
PROVIDERS: ADMIT Hospitalist; ATTEND Hospitalist
DX: K85.90 Acute pancreatitis without necrosis or infection, unspecified (principal); K21.9 Gastro-esophageal reflux disease without esophagitis; Z88.6 Allergy status to analgesic agent; Z88.8 Allergy status to other drugs, medicaments and biological substances; Z87.442 Personal history of urinary calculi; Q45.3 Other congenital malformations of pancreas and pancreatic duct
CPT/HCPCS: 99285; G0378; 36415; 80053; 83690; 85025; 87081; J0500; J2270; J2405; J3480; J7030; Q0162

== ENCOUNTER 2020-03-13 09:14 | Emergency (ER) | payer OTHER ==
[~2020-03-13] VITALS: Ht 160 cm; Wt 77.6 kg
[~2020-03-13 09:14] MED LIST changes: +HYDR-5092 PO; -ONDA4TAB PO; +ONDA8TAB PO; +TIZA4TAB5 PO
[2020-03-13 09:21] VITALS: BP 120/71
== END 2020-03-13 09:33 | disposition left against medical advice (07) ==
LOC: MED 09:14
DX: R10.12 Left upper quadrant pain (principal); R11.2 Nausea with vomiting, unspecified; R19.7 Diarrhea, unspecified; Z53.21 Procedure and treatment not carried out due to patient leaving prior to being seen by health care provider

== ENCOUNTER 2020-03-29 07:53 | Emergency (ER) | payer OTHER ==
[~2020-03-29] VITALS: Ht 160 cm; Wt 77.6 kg
[2020-03-29 07:56] VITALS: BP 128/68
[2020-03-29] MEDS: METOCLOPRAMIDE 10 MG/2 ML INJ VIAL IVP ONE (08:15)
[2020-03-29 08:46] LABS: HEMATOCRIT 35.8 % (36-48); HEMOGLOBIN 11.9 g/dL (12.0-16.0); MEAN CORPUSCULAR HEMOGLOBIN 27 pg (27-31); MEAN CORPUSCULAR HGB CONC 33 g/dL (33-37); MEAN CORPUSCULAR VOLUME 81.6 fL (80-94); PLATELET COUNT (AUTO) 198 K/uL (140-450); RED BLOOD CELL COUNT(AUTO) 4.39 MIL/uL (4.20-5.40); RED CELL DISTRIBUTION WIDTH 14.9 % (11.6-13.7); WHITE BLOOD COUNT (AUTO) 5.7 K/uL (4.8-10.8)
[2020-03-29 09:08] LABS: APPEARANCE,URINE CLOUDY (CLEAR); BILIRUBIN,URINE NEGATIVE (NEGATIVE); BLOOD, URINE 3+ (NEGATIVE); COLOR,URINE BROWN (YELLOW); LEUKOCYTE ESTERASE ,URINE TRACE (NEGATIVE); NITRITE, URINE NEGATIVE (NEGATIVE); PH,URINE 5.5 (5.0-9.0); UGLUCOSE NEGATIVE (NEGATIVE)
[2020-03-29] MEDS: NACL 0.9% 1,000 ML IV ONE (09:14)
[2020-03-29] MEDS: MORPHINE SULFATE 4 MG/ML SYR IVP ONE (09:14)
[2020-03-29 09:34] LABS: EOSINOPHILS % (MANUAL) 3 % (0-4); LYMPHOCYTES % (MANUAL) 23 % (20-46); MONOCYTES % (MANUAL) 3 % (5-12)
[2020-03-29] MEDS: DICYCLOMINE 20 MG/2 ML VIAL IM ONE (09:54)
[2020-03-29 09:59] LABS: POTASSIUM 3.6 mmol/L (3.5-5.1)
[2020-03-29 10:00] LABS: ANION GAP 18.1 (8-16); CARBON DIOXIDE 21.5 mmol/L (21-32); CREATININE 0.7 mg/dL (0.6-1.3); TOTAL BILIRUBIN 0.2 mg/dL (0.0-1.0)
[2020-03-29 10:02] LABS: RBC,URINE TOO NUMEROUS TO COUN /HPF (0-5); WBC,URINE 0-5 /HPF (0-5)
[2020-03-29 10:27] VITALS: BP 115/70
== END 2020-03-29 10:25 | disposition home or self-care (01) ==
LOC: MED 07:53
DX: R10.13 Epigastric pain (principal); R11.2 Nausea with vomiting, unspecified; K21.9 Gastro-esophageal reflux disease without esophagitis; N28.9 Disorder of kidney and ureter, unspecified; K85.90 Acute pancreatitis without necrosis or infection, unspecified; Z88.6 Allergy status to analgesic agent; Z79.899 Other long term (current) drug therapy
CPT/HCPCS: 36415; 80053; 81001; 81025; 83690; 85025; 96361; 96372; 96374; 96375; 99284; J0500; J2270; J2765; J7030

== ENCOUNTER 2020-04-01 06:09 | Emergency (ER) | payer OTHER ==
[~2020-04-01] VITALS: Ht 160 cm; Wt 75.3 kg
[2020-04-01 06:22] VITALS: BP 115/85
--- NOTE | 2020-04-01 06:24 | NUR ---
To ed bed 06
[2020-04-01] MEDS ORDERED: DICYCLOMINE 10 MG CAP PO ONE (06:30)
[2020-04-01] MEDS ORDERED: ONDANSETRON 4 MG/2 ML VIAL IVP ONE (06:30)
[2020-04-01] MEDS ORDERED: NACL 0.9% 1,000 ML IV ONE ×2 (06:30→07:05)
--- NOTE | 2020-04-01 06:38 | NUR ---
34 y/o female c/o luq abd pain x1 week. pt states 10/10 sharp pain. +n/v/d. pt states she took bentyl with some relief. abd soft non tender. skin warm and dry. pmhx: pancreatitis, kidney stones allx: NSAIDS
[2020-04-01 06:57] LABS: BASOPHILS % (AUTO) 0.7 % (0.0-2.0); EOSINOPHILS # (AUTO) 0.2 K/uL (0-0.4); EOSINOPHILS % (AUTO) 4.3 % (0.0-4.0); HEMATOCRIT 34.3 % (36-48); HEMOGLOBIN 11.6 g/dL (12.0-16.0); LYMPHOCYTES # (AUTO) 1.7 K/uL (2.5-16.5); LYMPHOCYTES % (AUTO) 30.3 % (20.5-51.1); MEAN CORPUSCULAR HEMOGLOBIN 27 pg (27-31); MEAN CORPUSCULAR HGB CONC 34 g/dL (33-37); MEAN CORPUSCULAR VOLUME 80.8 fL (80-94); MONOCYTES # (AUTO) 0.3 K/uL (0.8-1.0); MONOCYTES % (AUTO) 5.9 % (1.7-9.3); NEUTROPHILS # (AUTO) 3.3 K/uL (1.8-7.7); NEUTROPHILS % (AUTO) 58.8 % (42.2-75.2); PLATELET COUNT (AUTO) 222 K/uL (140-450); RED BLOOD CELL COUNT(AUTO) 4.25 MIL/uL (4.20-5.40); RED CELL DISTRIBUTION WIDTH 14.6 % (11.6-13.7); WHITE BLOOD COUNT (AUTO) 5.7 K/uL (4.8-10.8)
[2020-04-01 07:02] LABS: ANION GAP 14.1 (8-16); CARBON DIOXIDE 25.4 mmol/L (21-32); CREATININE 0.7 mg/dL (0.6-1.3); POTASSIUM 3.5 mmol/L (3.5-5.1); TOTAL BILIRUBIN 0.2 mg/dL (0.0-1.0)
[2020-04-01] MEDS ORDERED: MORPHINE SULFATE 4 MG/ML SYR IVP ONE ×3 (07:05→09:15)
--- NOTE | 2020-04-01 07:05 | NUR ---
REPORT GIVEN TO SUZI GASCA FOR CONTINUITY OF CARE
--- NOTE | 2020-04-01 07:10 | NUR ---
TRANSFER OF CARE AT THIS TIME FROM ELO PICKENS
--- NOTE | 2020-04-01 07:40 | NUR ---
PT AMBULATED TO BATHROOM, STEADY GAIT.
--- NOTE | 2020-04-01 08:47 | NUR ---
DR. LUU AT BEDSIDE RE-EVALUATING PT.
[2020-04-01 09:37] VITALS: BP 119/67
--- NOTE | 2020-04-01 09:38 | NUR ---
Patient discharged with v/s stable. Written and verbal after care instructions given and explained. Patient verbalized understanding. Ambulatory with steady gait. All questions addressed prior to discharge. Advised to follow up with PMD. PT FATHER WILL BE PICKING HER UP.
== END 2020-04-01 09:38 | disposition home or self-care (01) ==
LOC: MED 06:09
DX: R10.9 Unspecified abdominal pain (principal); R19.7 Diarrhea, unspecified; K21.9 Gastro-esophageal reflux disease without esophagitis; K85.90 Acute pancreatitis without necrosis or infection, unspecified; N20.0 Calculus of kidney; Z88.6 Allergy status to analgesic agent; Z79.899 Other long term (current) drug therapy
CPT/HCPCS: 36415; 80053; 81025; 83690; 85025; 96361; 96374; 96375; 96376; 99284; J2270; J2405; J7030